=== PATIENT | male | born 1945 | race Caucasian/White ===

== ENCOUNTER → 2019-12-01 11:19 | Outpatient (CLI) | payer MEDICARE, SELFPAY ==
--- NOTE | ~2019-12-01 | XR_ITS ---
EXAMINATION: XR hip BI 2V w AP pelvis DATE: 12/01/2019 11:39 INDICATION: Pain in unspecified hip TECHNIQUE: AP view the pelvis and two views of each hip were obtained. COMPARISON: 01/25/2019 FINDINGS: There is moderate bilateral hip osteoarthritis. Bone alignment is normal. No fracture is id entified. The soft tissues are unremarkable. IMPRESSION: 1. Moderate bilateral hip osteoarthritis without acute findings. Reviewed, dictated and finalized at location A. TAINER SEWER AND WATERWORKS
== END ==
PROVIDERS: PCP Nurse Practitioner Family; Visit Provider Nurse Practitioner Family
DX: M16.0 Bilateral primary osteoarthritis of hip (principal)
CPT/HCPCS: 73521

== ENCOUNTER → 2020-12-11 13:29 | Outpatient (CLI) | payer MEDICARE, SELFPAY ==
--- NOTE | ~2020-12-11 | XR_ITS ---
XR hip BI 2V w AP pelvis DATE: 12/11/2020 14:03 INDICATION: Left hip pain TECHNIQUE: AP pelvis. AP and lateral views of each hip COMPARISON: August 31, 2020 pelvis and bilateral hips FINDINGS: Bilateral hip joint space narrowing consistent with moderate bilateral hip osteoarthritis. Diffuse osteopenia. The pubic symphysis and sacroiliac joints are intact. No pelvic fracture or bone destruction. No frac ture, dislocation, avascular necrosis or bone destruction of either hip is evident. IMPRESSION: Moderate bilateral hip osteoarthritis, with some worsening compared to 12/01/2019 Reviewed, dictated and finalized at location A. CULTURAL ADVISER
== END ==
PROVIDERS: PCP Family Medicine; Visit Provider Nurse Practitioner Family
DX: M25.552 Pain in left hip (principal); R20.2 Paresthesia of skin; M16.0 Bilateral primary osteoarthritis of hip
CPT/HCPCS: 73521

== ENCOUNTER → 2020-12-29 09:22 | Outpatient (CLI) | payer MEDICARE, SELFPAY ==
--- NOTE | ~2020-12-29 | MR_ITS ---
EXAMINATION: MR hip LT wo con DATE: 12/29/2020 10:36 INDICATION: Left hip pain. TECHNIQUE: Magnetic resonance imaging (MRI) of the left hip was performed without intravenous contras t. Sequences included axial and coronal PD-weighted FS FSE and axial T1-weighted FSE of the pelvis. S equences of the hip included 2D FIESTA, T1-weighted fast GRE, and axial, coronal, and sagittal PD-emi ghted FS FSE. COMPARISON: Bilateral hip radiographs 12/11/2020 FINDINGS: Bones/cartilage: Bone alignment is normal. No fracture. There is moderate right hip osteoarthritis. There is severe le ft hip osteoarthritis. Labrum: There are tears of the acetabular amari bilaterally. On the left, there is a 2.0 x 1.2 cm paralabral cyst. Fluid: There is a small left hip joint effusion. There is mild bilateral trochanteric bursitis. Soft tissues: The bladder is markedly distended. The iliopsoas tendons are normal. There is mild right gluteus mini mus tendinopathy. There is severe left gluteus minimus and gluteus medius tendinopathy. There is mode rate tendinopathy of the hamstring origins bilaterally. IMPRESSION: 1. Moderate right hip osteoarthritis and severe left hip osteoarthritis. 2. Small left hip joint effusion. Reviewed, dictated and finalized at location A. R HELPER
== END ==
PROVIDERS: PCP Family Medicine; Visit Provider Nurse Practitioner Family
DX: M25.552 Pain in left hip (principal); M16.0 Bilateral primary osteoarthritis of hip; M25.452 Effusion, left hip
CPT/HCPCS: 73721

== ENCOUNTER → 2021-02-16 08:07 | Outpatient (CLI) | payer MEDICARE, SELFPAY ==
[2021-02-16 19:12] LABS: SARS-CoV-2 RNA PCR Negative
== END ==
PROVIDERS: PCP Family Medicine; Visit Provider Physician Assistant Medical
DX: Z20.822 Contact with and (suspected) exposure to COVID-19 (principal); Z78.9 Other specified health status
CPT/HCPCS: C9803; U0003; U0005

== ENCOUNTER → 2021-06-09 10:31 | Outpatient (CLI) | payer MEDICARE, SELFPAY ==
--- NOTE | ~2021-06-09 | MR_ITS ---
EXAMINATION: MR shoulder RT wo con DATE: 06/09/2021 12:00 INDICATION: Right shoulder pain. TECHNIQUE: Magnetic resonance imaging (MRI) of the right shoulder was performed without intravenous c ontrast. Sequences included axial PD-weighted FS FSE, coronal oblique PD-weighted FS FSE and T2-weigh last FS FSE, and sagittal oblique T2-weighted FS FSE and T1-weighted FSE. COMPARISON: Right shoulder radiographs 01/25/2019, MRI 06/10/2019. FINDINGS: Coracoacromial arch: The acromion undersurface is flat in morphology (type I). Acromioclavicular joint is normal. There is mild subacromial/subdeltoid bursitis. Rotator cuff: There is a full-thickness tear of supraspinatus and infraspinatus tendons measuring 4.5 cm anterior t o posterior. The tear measures 3.2 cm proximal to distal at the superior fibers and gradient 5 cm pro ximal to distal at the anterior fibers. Teres minor tendon is normal. There is mild subscapularis ten dinopathy. There is an interstitial tear of distal subscapularis tendon. There is volume loss and at least mild fatty atrophy of supraspinatus and infraspinatus muscle bellies. Biceps tendon and glenoid labrum: There is a complete tear of proximal biceps tendon. There is degeneration of the glenoid labrum witho ut well-defined tear. Fluid: There is a moderate-sized humeral joint effusion. Bones/cartilage: There is cartilage surface irregularity of glenoid. Humeral head cartilage is normal. IMPRESSION: 1. Massive full-thickness rotator cuff tear. 2. Complete tear of proximal biceps tendon. 3. Moderate-sized glenohumeral joint effusion. 4. Mild glenoid chondrosis. Reviewed, dictated and finalized at location A.
== END ==
PROVIDERS: PCP Nurse Practitioner Family; Visit Provider Nurse Practitioner Family
DX: M25.511 Pain in right shoulder (principal); Z98.890 Other specified postprocedural states; M75.101 Unspecified rotator cuff tear or rupture of right shoulder, not specified as traumatic; S46.211A Strain of muscle, fascia and tendon of other parts of biceps, right arm, initial encounter; M25.411 Effusion, right shoulder; M94.8X1 Other specified disorders of cartilage, shoulder
CPT/HCPCS: 73221

== ENCOUNTER 2022-04-23 13:49 | Outpatient (CLI) | payer MEDICARE, SELFPAY ==
--- NOTE | ~2022-04-23 | US_ITS ---
EXAMINATION: US art doppler w press LE BI DATE: 04/23/2022 16:39 CDT INDICATION: Contact exposure TECHNIQUE: Segmental pressures and plethysmographic and Doppler waveforms of the brachial and lower e xtremity arteries were obtained. COMPARISON: None. FINDINGS: Right and left brachial artery pressures of 1:15 mm Hg and 124 mm Hg, respectively, are concordant (n ormal difference <= 30 mmHg). The right high-thigh pressure index is 1.35 (normal > 1.2). The right ankle-brachial index (KATTY) is 1 .23 (normal >= 0.9-1.0). The right great toe-brachial index (TBI) is 1.0 (normal >= 0.60). The right lower extremity segmental pressure gradients are normal (normal gradients <= 20-30 mmHg between adjac ent levels on the same leg or the same levels on the two legs). Arterial Doppler waveforms 1.0. The left high-thigh pressure index is 1.35. The left KATTY is 1.4. The left TBI is 0.88. The left lower extremity segmental pressure gradients are normal. Arterial Doppler waveforms are biphasic. IMPRESSION: 1. Unremarkable lower extremity arterial Doppler. Normal ankle-brachial indices. Reviewed, dictated and finalized at location A. IMPRESSION: 1. Unremarkable lower extremity arterial Doppler. Normal ankle-brachial indices .
== END 2022-04-23 13:50 | disposition home or self-care (01) ==
PROVIDERS: PCP Family Medicine; Visit Provider Nurse Practitioner Family
DX: E78.5 Hyperlipidemia, unspecified (principal); Z77.098 Contact with and (suspected) exposure to other hazardous, chiefly nonmedicinal, chemicals; I73.9 Peripheral vascular disease, unspecified
CPT/HCPCS: 93923

== ENCOUNTER → 2022-06-06 08:32 | Outpatient (CLI) | payer MEDICARE, SELFPAY ==
--- NOTE | ~2022-06-06 | MR_ITS ---
EXAMINATION: MR brain/brain stem wo con DATE: 06/06/2022 09:19 INDICATION: Vertigo TECHNIQUE: Magnetic resonance imaging (MRI) of the brain and brainstem was performed without intraven ous contrast. Sequences included sagittal and axial T1-weighted SE, axial diffusion-weighted FS SE, a xial T2*-weighted GRE, axial 3D SWAN, axial T2-weighted FLAIR, and axial T2-weighted FSE. Apparent di ffusion coefficient (ADC) maps were created. COMPARISON: None. FINDINGS: There are no areas of restricted diffusion to suggest acute infarction. No intracranial hemorrhage or abnormal intracranial mass lesion. There are scattered areas of nonspecific increased T2-weighted si gnal intensity in the cerebral white matter, predominantly involving the deep and periventricular whi te matter. There are no intraparenchymal signal abnormalities seen on the other pulse sequences. The ventricles are symmetric and normal in size. There are no abnormal extra-axial fluid collections. Jasson w voids are seen in the cerebral arteries on the T2-weighted sequences consistent with their expected patency. Mild mucosal throughout the paranasal sinuses. Visualized orbits and soft tissues are unrem arkable. IMPRESSION: 1. Normal brain. No acute intracranial process. Reviewed, dictated and finalized at location A.
== END ==
PROVIDERS: PCP Family Medicine; Visit Provider Nurse Practitioner Family
DX: R42 Dizziness and giddiness (principal)
CPT/HCPCS: 70551

== ENCOUNTER → 2022-07-23 13:14 | Outpatient (CLI) | payer MEDICARE, SELFPAY ==
--- NOTE | ~2022-07-23 | XR_ITS ---
[XR ribs BI 3V w CXR 2V ] INDICATION: Status post recent fall. Rib pain. TECHNIQUE: Frontal projection of the upper ribs, frontal projection of the lower ribs, oblique projec tion of all the ribs, frontal inspiratory chest x-ray for interpretation. FINDINGS: There are no displaced rib fractures identified. There are no soft tissue abnormality see n. The lungs are clear. IMPRESSION: 1:No acute displaced rib fractures. Reviewed, dictated and finalized at location B.
== END ==
PROVIDERS: PCP Nurse Practitioner Family; Visit Provider Nurse Practitioner Family
DX: S29.9XXA Unspecified injury of thorax, initial encounter (principal)
CPT/HCPCS: 71046; 71110

== ENCOUNTER → 2022-09-26 08:23 | Outpatient (CLI) | payer MEDICARE, SELFPAY ==
--- NOTE | ~2022-09-26 | CT_ITS ---
EXAMINATION: CTA brain carotid DATE: 09/26/2022 10:15 INDICATION: Dizziness and giddiness. TECHNIQUE: Computed tomographic angiography (CTA) of the head was performed without and with 100 mL O mnipaque-350 intravenous contrast. CTA of the neck was performed with intravenous contrast. Automated exposure control and iterative reconstruction technique were employed. The dose-length product was 1 688.43 mGy-cm. Maximum intensity projection and volume rendered 3D-reconstructions were created by kari morley technologist on a separate workstation. COMPARISON: Brain MRI 09/26/2022 FINDINGS: HEAD CTA: There is no intracranial hemorrhage, acute infarction, or abnormal intracranial mass lesion . The ventricles are normal in size. There is mucosal thickening in the paranasal sinuses with depend ent fluid in the maxillary sinuses. The orbits are normal. The mastoid air cells are normal. Left shamika tebral artery is dominant. There is no significant stenosis of basilar artery or the posterior cerebr al arteries. There is no significant stenosis of the intracranial internal carotid arteries or anteri or or middle cerebral arteries. Anterior communicating artery is normal. The posterior communicating arteries are normal. There is no aneurysm. NECK CTA: There are no pathologically enlarged lymph nodes. There is no significant stenosis of the v ertebral arteries. There is plaque in the proximal internal carotid arteries. There is 0% stenosis of the proximal right internal carotid artery relative to normal distal artery lumen diameter (NASCET c riteria). There is 23% stenosis of the proximal left internal carotid artery relative to normal dista l artery lumen diameter. There is moderate cervical spondylosis. IMPRESSION: 1. Normal brain. No aneurysm or significant intracranial arterial stenosis. 2. 0% stenosis of the proximal right internal carotid artery relative to normal distal artery lumen d iameter (NASCET criteria). 3. 23% stenosis of the proximal left internal carotid artery relative to normal distal artery lumen d iameter. Reviewed, dictated and finalized at location E. ATG DEVELOPER IMPRESSION: 1. Normal brain. No aneurysm or significant intracranial arterial stenosis. 2. 0% stenosis of the proximal right internal carotid artery relative to normal distal artery lumen diameter (NASCET criteria). 3. 23% stenosis of the proximal left internal carotid artery relative to normal distal artery lumen diameter.
--- NOTE | ~2022-09-26 | MR_ITS ---
EXAMINATION: MR brain/brain stem wo con DATE: 09/26/2022 08:59 INDICATION: Dizziness and giddiness TECHNIQUE: Magnetic resonance imaging (MRI) of the brain and brainstem was performed without intraven ous contrast. Sequences included sagittal and axial T1-weighted SE, axial diffusion-weighted FS SE, a xial T2*-weighted GRE, axial 3D SWAN, axial T2-weighted FLAIR, and axial T2-weighted FSE. Apparent di ffusion coefficient (ADC) maps were created. COMPARISON: Brain MR dated 06/06/2022 FINDINGS: There are no areas of restricted diffusion to suggest acute infarction. No intracranial hemorrhage or abnormal intracranial mass lesion. There is minimal scattered nonspecific increased T2-weighted sign al intensity in the cerebral white matter, predominantly involving the deep and periventricular white matter which is unchanged and within normal limits for age. Symmetric mild susceptibility artifact a t the bilateral basal ganglia correspond to subtle likely age-related dystrophic calcifications on CT dated 01/12/2019. There are no intraparenchymal signal abnormalities seen on the other pulse sequence s. The ventricles are symmetric and normal in size. There are no abnormal extra-axial fluid collectio ns. Flow voids are seen in the cerebral arteries on the T2-weighted sequences consistent with their e xpected patency. Interval increase in mucosal thickening in the paranasal sinuses particularly in the inferior aspect of the bilateral maxillary sinuses which also demonstrated a small amount of posteri or layering fluid suggesting acute sinusitis. Visualized orbits and soft tissues are unremarkable. IMPRESSION: 1. Normal aging brain. No acute intracranial process. 2. Progression of sinus disease with fluid layering the bilateral maxillary sinuses suggesting acute sinusitis. Reviewed, dictated and finalized at location A. OR JAVA J2EE DEVELOPER IMPRESSION: 1. Normal aging brain. No acute intracranial process. 2. Progression of sinus disease with fluid layering the bilateral maxillary sin uses suggesting acute sinusitis.
[2022-09-26 09:15] LABS: Estimated Glomerular Filt Rate 59
== END ==
PROVIDERS: PCP Family Medicine; Visit Provider Student in an Organized Health Care Education/Training Program
DX: R42 Dizziness and giddiness (principal); I65.22 Occlusion and stenosis of left carotid artery; J32.0 Chronic maxillary sinusitis
CPT/HCPCS: 70496; 70498; 70551; Q9967

== ENCOUNTER 2022-10-08 10:38 | Outpatient (CLI) | payer MEDICARE, SELFPAY ==
--- NOTE | 2022-10-08 10:45 | ECHO_ITS ---
Patient Info Name: Cyrus Soliman Age: 77 years : 1945 Gender: Male Ht: 69 in Wt: 215 lbs BSA: 2.21 m2 HR: 74 bpm BP: 133 / 85 mmHg Technical Quality: Good Exam Date: 10/08/2022 11:11 AM Exam Location: [facility] Patient Status: Outpatient Admit Date: 10/08/2022 Staff Ordering Physician: Irma Early MD Municipal Bond Trader: Jesi Guerrero RDCS Attending Provider: Irma Early MD Exam Type: CA echo doppler w bubble study Study Info Indications R06.02 - Shortness of breath Complete two-dimensional, color flow and Doppler transthoracic echocardiogram is performed with agitated saline. Contrast/Agitated Saline Contrast/Ag. Saline: Agitated Saline Amount: 30.00 ml Administered By: Risa Copeland RDCS Existing IV Access: Yes IV Access Condition: patent with no signs of infiltration Summary 1. Left ventricular chamber dimension is normal. 2. Left ventricular systolic function is normal, estimated at 60-65%. 3. The left ventricular diastolic function is grade I diastolic dysfunction. 4. E/e' 8 is minimally elevated. Left Ventricle E/e' 8 is minimally elevated. Left ventricular chamber dimension is normal. Left ventricular systolic function is normal, estimated at 60-65%. The left ventricular diastolic function is grade I diastolic dysfunction. Right Ventricle Right ventricular chamber dimension is normal. Right ventricular systolic function is normal. Left Atria Left atrial chamber dimension is normal. Right Atria Right atrial chamber dimension is normal. Atrial Septum Agitated saline injection with and without valsalva maneuver opacified right side cardiac chambers without shunt to left side cardiac chambers. Intact interatrial septum visualized by 2D and agitated saline imaging. Aortic Valve The aortic valve is trileaflet. There is no aortic valve stenosis. There is no aortic valve regurgitation. Pulmonic Valve There is no pulmonic regurgitation. Mitral Valve There is no mitral valve stenosis. There is no mitral valve regurgitation. Tricuspid Valve There is no tricuspid valve regurgitation. Pericardium/Pleural There is no pericardial effusion. Inferior Vena Cava Normal inferior vena cava with >50% collapse upon inspiration consistent with normal right atrial pressure, 5 mmHg. Aorta The aortic root size at the sinus of Valsalva is normal. Left Ventricular Outflow Tract Name Value Normal LVOT 2D LVOT Diameter 2.0 cm LVOT Doppler LVOT Peak Gradient 4 mmHg LVOT Mean Gradient 2 mmHg LVOT VTI 20 cm LVOT VTI/AV VTI Ratio 0.9 LVOT Stroke Volume 64 ml LVOT CO 4.9 l/min LVOT CI 2.2 l/min/m2 Mitral Valve Name Value Normal
--- NOTE | 2022-10-08 10:46 | ECG_ITS ---
Measurements Intervals [place] Rate: 71 P: 63 CT: 194 QRS: -27 QRSD: 102 T: 71 QT: 389 QTc: 425 Interpretive Statements SINUS RHYTHM BORDERLINE LEFT AXIS DEVIATION [QRS AXIS < -20] NONSPECIFIC T-WAVE ABNORMALITY ABNORMAL ECG NO PREVIOUS ECG AVAILABLE FOR COMPARISON Electronically Signed On 10-08-2022 15:34:59 OCCUPATIONAL THERAPIST REHAB MANAGER by Kelton Barkley M.D.
== END 2022-10-08 10:39 | disposition home or self-care (01) ==
PROVIDERS: PCP Family Medicine; Visit Provider Student in an Organized Health Care Education/Training Program
DX: R06.02 Shortness of breath (principal); R42 Dizziness and giddiness; R94.31 Abnormal electrocardiogram [ECG] [EKG]
CPT/HCPCS: 93005; 93306; 96375

== ENCOUNTER 2022-11-15 09:21 | Outpatient (CLI) | payer MEDICARE, SELFPAY ==
--- NOTE | ~2022-11-15 | NM_ITS ---
EXAMINATION: NM gamaliel stress w perfusion DATE: 11/15/2022 11:54 INDICATION: Other forms of dyspnea TECHNIQUE: Rest images were obtained following intravenous administration of 9.0 mCi Tc99m tetrofosmi n (Myoview). The patient was infused intravenously with Lexiscan (Regadenoson). Then, 29.0 mCi Tc99m tetrofosmin (Myoview) was administered intravenously, and stress images were obtained. Data was recon structed into short axis and horizontal and vertical long axis SPECT images. Gated SPECT images were also obtained. COMPARISON: None. FINDINGS: There is no definite reversible or fixed perfusion abnormality to suggest ischemia or infar ction. There is normal left ventricular chamber size, wall motion and ejection fraction. Left ventr icular ejection fraction measures >70%. IMPRESSION: 1. Normal myocardial perfusion at rest and during stress. 2. Left ventricular ejection fraction measuring >70%. Reviewed, dictated and finalized at location B. CTOR OF MARKETING COMMUNICATIONS
--- NOTE | 2022-11-15 09:24 | EST_ITS ---
Patient Info Name: Cyrus Soliman Age: 77 years : 1945 Gender: Male Ht: 69 in Wt: 213 lbs BSA: 2.20 m2 HR: 66 bpm BP: 135 / 75 mmHg Heart Rhythm: Sinus Rhythm Exam Date: 11/15/2022 10:26 AM Exam Location: [facility] Stress Patient Status: Outpatient Admit Date: 11/15/2022 Staff Ordering Physician: Chencho Leblanc DO Attending Provider: Chencho Leblanc DO Exercise Technologist: Queenie Ramirez CT Exercise Physician: Chencho Leblanc DO Exam Type: CA stress gamaliel w NM Study Info Indications R06.00 - Dyspnea, unspecified A regadenoson stress test was performed. Summary 1. 1. Negative lexiscan stress test for ischemic ST changes by ECG criteria. 2. 2. Stable hemodynamics throughout the test. 3. 3. Nuclear scan to follow and will be reported separately. Please correlate with it. 4. 4. Patient informed of the above results. Protocol: Lexiscan Stress ECG Details Stage: REST Duration (min): 0 min : 55 sec HR (bpm): 66 SBP (mmHg): 135 DBP (mmHg): 75 Stage: REST Duration (min): 8 min : 30 sec HR (bpm): 68 SBP (mmHg): 135 DBP (mmHg): 75 Stage: STAGE 1 Duration (min): 0 min : 59 sec HR (bpm): 70 SBP (mmHg): 144 DBP (mmHg): 72 Stage: RECOVERY Duration (min): 1 min : 0 sec HR (bpm): 80 SBP (mmHg): 144 DBP (mmHg): 72 Stage: RECOVERY Duration (min): 2 min : 0 sec HR (bpm): 78 SBP (mmHg): 144 DBP (mmHg): 72 Stage: RECOVERY Duration (min): 3 min : 0 sec HR (bpm): 74 SBP (mmHg): 119 DBP (mmHg): 67 Stage: RECOVERY Duration (min): 3 min : 10 sec HR (bpm): 75 SBP (mmHg): 119 DBP (mmHg): 67 Rest HR: 68 bpm Peak HR: 81 bpm Rest Sys BP: 135 mmHg Peak Sys BP: 144 mmHg Max Pred HR: 144 bpm % Max Pred HR: 56 % Target HR: 122 bpm Max RPP: 11,664 bpm*mmHg Termination Reason: Completed protocol Cardiac Symptoms: Shortness of breath Total Time: 1 min : 0 sec Rest Leroy BP: 75 mmHg Peak Leroy BP: 72 mmHg Total Dose: 0.4 mg Resting ECG Sinus rhythm, IRBBB. Stress ECG No ST changes. Arrhythmias None. Report Signatures
== END 2022-11-15 09:22 | disposition home or self-care (01) ==
PROVIDERS: PCP Family Medicine; Visit Provider Internal Medicine Cardiovascular Disease
DX: R06.09 Other forms of dyspnea (principal)
CPT/HCPCS: 78452; 93017; A9502; J2785

== ENCOUNTER 2022-12-11 12:17 | Emergency (ER) | payer MEDICARE, SELFPAY ==
--- NOTE | 2022-12-11 12:18 | ED.UPPEXIN ---
HPI - Extremity Injury (Upper) General Chief Complaint: Skin/Abscess/Foreign Body Stated Complaint: fall/rt elbow wound Time Seen by Provider: 12/11/22 12:18 Source: patient Mode of arrival: ambulatory Limitations: no limitations History of Present Illness HPI narrative: Cyrus is a 77-year-old male patient presenting to the clinic today with complaints of a ground level fall hitting his elbow. He reports he has elbow skidded on the ground when he fell. He denies any pain with flexion and extension of the elbow pain. Denies hitting his head, loss of consciousness, or any neck pain. Stated he suffers from chronic vertigo and he got up too quickly and becomes dizzy and fell on to concrete. States the dizziness has improved. Tetanus is up-to-date Related Data Home Medications Medication Instructions Recorded Confirmed loratadine 10 mg tablet (Claritin) 10 mg PO DAILY 09/27/19 11/25/22 Allergies Allergy/AdvReac Type Severity Reaction Status Date / Time No Known Allergies Allergy Verified 11/25/22 10:58 Review of Systems Review of Systems: Pertinent positives per HPI. Patient denies any fever, chills, rash, headache, visual changes, cough, runny nose, sore throat, shortness of breath, chest pain, palpitations, nausea, vomiting, diarrhea, constipation, abdominal pain, or any urinary issues. COUNTS INCLUDE 234 BEDS AT THE [facility] Past Medical History Medical History Abnormal MRI, musculoskeletal Adult BMI 31.0-31.9 kg/sq m Arthritis of shoulder BMI 32.0-32.9,adult BMI 33.0-33.9,adult BMI 34.0-34.9,adult Severe pain of right shoulder Shoulder pain with history of repair of rotator cuff Surgical History Surgical History History of Mohs surgery for squamous cell carcinoma in situ of skin Hx of repair of right rotator cuff Family History Family History Father Hypertension Family history of malignant neoplasm Grandparent Cerebrovascular accident Mother No problems noted. Sibling No problems noted. Social History Social History (Reviewed 12/11/22 @ 12:20 by DAVE Mancilla Smoking status: Former smoker Smokeless tobacco user: chewing tobacco Smoking end date: 10/20/89 Alcohol intake: current Substance use: never Substance use type: does not use Lack of Transportation: No Lack of Food: Never True Current Housing: I Have Housing Concerned About Future Housing: No Difficulty Paying Gas/Electric Bills: No Difficulty Paying for Meds: No Currently Unemployed: No Education: Master's Degree or Higher Difficulty w/ Childcare or Family Care: No Living arrangements: alone Occupation/Education: retired 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 Gender identity (if verbalized by the patient): Male Comments At the time of my signature, I reviewed and agree with the nursing past medical, surgical, social, and family history. There is no relevant family history pertinent to the patient complaint. Exam Narrative: General: Well-developed, well nourished, in no apparent distress Head: Normocephalic, atraumatic. Cardio: Regular rate and rhythm, s1 and s2 normal, no murmur appreciated. Resp: Clear to auscultation bilaterally, no rhonchi, rales, wheezing or rubs. Musculoskeletal: No deformity, mild tender to palpation over partial-thickness skin tear to the right posterior elbow measuring 6 x 3cm, grossly normal range of motion, no pain with flexion or extension of the elbow, muscle strength strong and equal, peripheral pulse strong, no edema, no cyanosis, normal gait and station Course Course Emergency Course: Portions of this record may have been created with voice recognition software. Level of Care: Express Care Visit Vital Signs Vital signs: Vital Signs
[2022-12-11 12:45] VITALS: BP 150/100; PULSE 64; RESP 20; TEMP 36.9; O2SAT 100
--- NOTE | 2022-12-11 12:50 | PC.NURSE ---
wound cleansed with medical soap and small skin surrounding wound removed. oitment applied and telfa and kerlex. teaching done.
== END 2022-12-11 13:00 | disposition home or self-care (01) ==
PROVIDERS: Emergency Provider Nurse Practitioner Family; PCP Family Medicine
DX: S51.011A Laceration without foreign body of right elbow, initial encounter (principal); W18.30XA Fall on same level, unspecified, initial encounter; Z87.891 Personal history of nicotine dependence; Z85.828 Personal history of other malignant neoplasm of skin
CPT/HCPCS: 99212; G0463

== ENCOUNTER 2023-04-10 10:21 | Outpatient (CLI) | payer MEDICARE, SELFPAY ==
--- NOTE | 2023-04-15 16:14 | WPDHOLTEREM ---
Holter/Event Monitor Holter/Event Monitor Date of procedure: 04/10/23 Holter/Event Procedure: 24 Hr Holter Monitor Indications: Dizziness Conclusion: 1. 24 hour holter monitor on 04/10/23. 2. Underlying rhythm is sinus rhythm. HR range 50-111 bpm; average 75 bpm. 3. There are 8 premature supraventricular complexes and 1 supraventricular couplet. No supraventricular tachycardia. 4. There are 166 premature ventricular complexes and 1 ventricular couplet. No ventricular tachycardia. 5. No sinoatrial or atrioventricular blocks. No significant pauses greater than 2 seconds. 6. No symptoms available for correlation.
== END 2023-04-10 10:22 | disposition home or self-care (01) ==
PROVIDERS: PCP Family Medicine; Visit Provider Nurse Practitioner Family
DX: I10 Essential (primary) hypertension (principal); R42 Dizziness and giddiness
CPT/HCPCS: 93225; 93226

== ENCOUNTER 2023-05-26 13:53 | Outpatient (CLI) | payer MEDICARE, SELFPAY ==
--- NOTE | ~2023-05-26 | MR_ITS ---
EXAMINATION: MR abdomen wo/w con DATE: 05/26/2023 15:06 INDICATION: Liver mass. Liver disease, unspecified. TECHNIQUE: Magnetic resonance imaging (MRI) of the abdomen was performed without and with 19 mL Multi Darrian intravenous contrast. COMPARISON: CT abdomen and pelvis 12/16/2017, abdomen MRI 12/30/2017 FINDINGS: There is diffuse hepatic steatosis. There are cysts in the liver measuring up to 16 mm. The gallbladd er, spleen, and adrenal glands are normal. There is dilatation of the pancreatic duct in the tail of the pancreas, stable from 12/30/2017, likely chronic pancreatitis. There is a cyst in the kidneys jake uring up to 2.8 cm on the right. There are no dilated loops of bowel. The bladder is distended. There are no pathologically enlarged lymph nodes. There is no free intraperitoneal fluid. IMPRESSION: 1. Benign cysts in the liver. 2. Diffuse hepatic steatosis. Reviewed, dictated and finalized at location A.
== END 2023-05-26 13:54 | disposition home or self-care (01) ==
PROVIDERS: PCP Family Medicine; Visit Provider Physician Assistant Medical
DX: K76.89 Other specified diseases of liver (principal); K76.0 Fatty (change of) liver, not elsewhere classified; Q45.3 Other congenital malformations of pancreas and pancreatic duct
CPT/HCPCS: 74183; A9577

== ENCOUNTER 2023-07-18 10:10 | Outpatient (CLI) | payer MEDICARE, SELFPAY ==
--- NOTE | ~2023-07-18 | XR_ITS ---
EXAMINATION: XR abdomen/kub 1V DATE: 07/18/2023 10:33 INDICATION: Calcium kidney stone. TECHNIQUE: A supine view of the abdomen on 2 radiographs was obtained. COMPARISON: CT abdomen and pelvis 12/16/2017 FINDINGS: There are no dilated loops of bowel. There are 8 mm and 5 mm stones in left kidney. There i s a total left hip arthroplasty. IMPRESSION: 1. Left kidney stones. Reviewed, dictated and finalized at location E. IMPRESSION: 1. Left kidney stones.
== END 2023-07-18 10:11 | disposition home or self-care (01) ==
PROVIDERS: PCP Family Medicine; Visit Provider Urology
DX: N20.0 Calculus of kidney (principal)
CPT/HCPCS: 74018

== ENCOUNTER 2023-09-26 14:39 | Emergency (ER) | payer MEDICARE, SELFPAY ==
[2023-09-26 14:53] VITALS: BP 162/77; PULSE 75; RESP 18; TEMP 36.7; O2SAT 97
--- NOTE | 2023-09-26 14:58 | ED.GENADULT ---
HPI - General Adult General Chief complaint: Unspecified Stated complaint: blood pressure issue Time Seen by Provider: 09/26/23 14:58 Source: patient Mode of arrival: ambulatory Limitations: no limitations History of Present Illness HPI narrative: 78 yo M with hx of HTN presents stating he woke up feeling a little foggy today . States last time he felt this way BP was elevated. Check BP at home and 182/78 on his machine. Denies headache, CP/SOB, vision changes, weakness/numbness to extremities. Ambulatory with steady gait. Had his lisinopril dose increased 6 months ago and metoprolol 1 month ago. Went to PCP office today and was closed. Pt wants BP manually checked, thinks machine is wrong. States im feeling fine. i feel safe. just had a fog over me when i woke up but fine now . Eating normal meals and drinking plenty of water. All systems reviewed and negative except as noted above. Related Data Home Medications Medication Instructions Recorded Confirmed tamsulosin 0.4 mg capsule 0.4 mg PO DAILY 05/12/23 09/26/23 Allergies Allergy/AdvReac Type Severity Reaction Status Date / Time No Known Allergies Allergy Verified 09/26/23 15:11 Review of Systems Review of Systems: CONSTITUTIONAL: Denies fever, chills, or sweats. EYES: Denies visual changes, redness, or discharge. ENT: Denies rhinorrhea, congestion, sore throat, or otalgia. CARDIOVASCULAR: Denies chest pain, palpitations, or edema. RESPIRATORY: Denies cough or dyspnea. GASTROINTESTINAL: Denies abdominal pain, nausea, vomiting, or diarrhea. GENITOURINARY: Denies dysuria or hematuria. SKIN: Denies rash or itching. MUSCULOSKELETAL: Denies back pain, joint pain, or myalgia. NEUROLOGIC: Denies headache, numbness, or weakness. PSYCHIATRIC: Denies anxiety or depression. All other systems reviewed are negative, except as documented in HPI. [facility] Past Medical History Medical History Abnormal MRI, musculoskeletal Adult BMI 31.0-31.9 kg/sq m Arthritis of shoulder Fatty liver, alcoholic PTSD (post-traumatic stress disorder) Severe pain of right shoulder Shoulder pain with history of repair of rotator cuff Surgical History Surgical History History of Mohs surgery for squamous cell carcinoma in situ of skin Hx of repair of right rotator cuff Family History Family History Father Hypertension Family history of malignant neoplasm Grandparent Cerebrovascular accident Mother Sibling No problems noted. Social History Social History Smoking status: Former smoker Smokeless tobacco user: chewing tobacco Second hand tobacco smoke exposure: No Smoking end date: 10/20/89 Alcohol intake: current Drinks per week: 2 Alcohol use details: everyday Substance use: never Substance use type: does not use Lack of Transportation: No Lack of Food: Never True Current Housing: I Have Housing Concerned About Future Housing: No Difficulty Paying Gas/Electric Bills: No Difficulty Paying for Meds: No Currently Unemployed: No Education: Master's Degree or Higher Difficulty w/ Childcare or Family Care: No Living arrangements: alone Occupation/Education: retired 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 Gender identity (if verbalized by the patient): Male Comments At time of signature, agree with nursing past medical, surgical, social and family history. There is no relevant family history pertinent to the presenting complaint. Exam Narrative: GENERAL: This is a well-nourished, well-developed patient, in no apparent distress. HEAD: normocephalic, atraumatic. EYES: PERRL. Sclera clear/white. Vision is grossly intact. Extraocular motions intact EA
[2023-09-26 15:19] LABS: Glucose Point of Care 87 mg/dl (65-105)
[2023-09-26 15:40] VITALS: BP 148/72
== END 2023-09-26 15:35 | disposition home or self-care (01) ==
PROVIDERS: Emergency Provider Nurse Practitioner Family; PCP Family Medicine
DX: I10 Essential (primary) hypertension (principal); E11.9 Type 2 diabetes mellitus without complications; Z87.891 Personal history of nicotine dependence
CPT/HCPCS: 82948; 99212; G0463

== ENCOUNTER 2023-11-17 08:25 | Outpatient (CLI) | payer MEDICARE, SELFPAY ==
--- NOTE | 2023-11-17 08:40 | ECG_ITS ---
Measurements Intervals [place] Rate: 64 P: 30 CO: 188 QRS: -20 QRSD: 93 T: 29 QT: 404 QTc: 419 Interpretive Statements SINUS RHYTHM EARLY PRECORDIAL R/S TRANSITION BORDERLINE ECG COMPARED TO ECG 10/08/2022 11:51:36 NO SIGNIFICANT CHANGES Electronically Signed On 11-17-2023 9:27:32 POLICE JUSTICE by Chencho Leblanc D.O.
[2023-11-17 09:55] LABS: Prothrombin Time 13.1 Seconds (11.1-14.7)
[2023-11-17 09:56] LABS: Anion Gap 7 mmol/L (8-16); Blood Urea Nitrogen 18 mg/dL (9-20); Calcium 9.4 mg/dL (8.4-10.2); Carbon Dioxide 29 mmol/L (22-30); Chloride 100 mmol/L (98-107); Estimated Glomerular Filt Rate > 60; Glucose 102 mg/dL (65-110); Partial Thromboplastin Time 31.1 SECONDS (22.3-36.8); Potassium 4.3 mmol/L (3.4-5.0); Sodium 136 mmol/L (137-145)
== END 2023-11-17 08:26 | disposition home or self-care (01) ==
LOC: ANHSURGERY 08:29
PROVIDERS: Anesthesiology; PCP Family Medicine; Visit Provider Urology
DX: Z01.818 Encounter for other preprocedural examination (principal); I10 Essential (primary) hypertension; K76.0 Fatty (change of) liver, not elsewhere classified; N20.0 Calculus of kidney
CPT/HCPCS: 36415; 80048; 85610; 85730; 87086; 93005

== ENCOUNTER 2024-07-08 09:28 | Outpatient (CLI) | payer MEDICARE, SELFPAY ==
--- NOTE | ~2024-07-08 | US_ITS ---
EXAMINATION: US abdomen complete DATE: 07/08/2024 10:25 INDICATION: Alcoholic fatty liver. TECHNIQUE: Multiple grayscale and Doppler ultrasound images of the abdomen were obtained. COMPARISON: Abdomen MRI 05/26/2023 FINDINGS: The visualized portions of the head and body of pancreas are normal. There is diffuse hepat ic steatosis. There are cysts in the liver measuring up to 1.5 cm. The gallbladder is normal in size. No gallstones or gallbladder wall thickening. There is no sonographic Esquivel's sign. The common duct is normal and measures 4 mm. The inferior vena cava is normal. Abdominal aorta is normal in caliber. The kidneys are normal in size. There are cysts in right kidney measuring up to 2.6 cm. The spleen i s normal in size. IMPRESSION: 1. Diffuse hepatic steatosis. Reviewed, dictated and finalized at location A.
== END 2024-07-08 09:29 | disposition home or self-care (01) ==
PROVIDERS: PCP Family Medicine; Visit Provider Nurse Practitioner Family
DX: K76.0 Fatty (change of) liver, not elsewhere classified (principal); K70.0 Alcoholic fatty liver
CPT/HCPCS: 76700

== ENCOUNTER 2024-12-03 10:41 | Outpatient (CLI) | payer MEDICARE, SELFPAY ==
--- NOTE | ~2024-12-03 | MM_ITS ---
EXAMINATION: MM diagnostic osmany BI w hussain HISTORY: Palpable left breast abnormality. Patient on antihypertensive medications. TECHNIQUE: Additional 3-D tomosynthesis images of breasts were performed and synthetic 2-D images wer e generated. CAD analysis was submitted and interpreted. COMPARISON: None BREAST PARENCHYMAL COMPOSITION: Not dense: There are scattered areas of fibroglandular density. FINDINGS: There is asymmetric gynecomastia, fibroglandular content more so on the left . No suspiciou s masses, calcifications or architectural distortion is identified to suggest malignancy. IMPRESSION: 1. No mammographic evidence for malignancy. Bilateral asymmetric gynecomastia. 2. Targeted left breast ultrasound recommended for complete evaluation of palpable breast abnormality . BI-RADS Category 0: Incomplete: Needs additional imaging evaluation. Reviewed, dictated and finalized at location B. OR ORACLE APPLICATIONS DEVELOPER IMPRESSION: 1. No mammographic evidence for malignancy. Bilateral asymmetric gynecomastia. 2. Targeted left breast ultrasound recommended for complete evaluation of palpa ble breast abnormality. BI-RADS Category 0: Incomplete: Needs additional imaging evaluation.
--- OUTSIDE RECORDS SUMMARY | 2024-12-03 10:52 | XMS_ITS ---
Author Organization [facility] Address [address] [place] [address] Care Team Providers Care Prototype Fabricator Name Role Phone Junior Vega MD Primary Care Provider [phone] Jesus Erwin MD PhD Unavailable [phone] Active Problems Problem Noted Date Diagnosed Date Kidney stone 04/19/2024 Chronic kidney disease 04/19/2024 Exposure to potentially hazardous substance 10/2023 Syncope and collapse 04/19/2024 STEPHANIE (obstructive sleep apnea) 03/29/2024 ABHI (acute kidney injury) 02/09/2024 Obstructive sleep apnea 12/22/2023 Orthostatic hypotension 12/09/2023 Weakness 12/09/2023 Actinic keratosis 11/24/2023 Age-related nuclear cataract, left eye Alcoholic fatty liver 11/24/2023 Anxiety 11/24/2023 Benign essential hypertension 11/24/2023 Bicipital tendinitis, right shoulder 11/24/2023 Bursitis of left shoulder 11/24/2023 Depressive disorder 11/24/2023 Fall 11/24/2023 Fall on and from ladder, initial encounter 11/24 Hyperlipidemia, unspecified 11/24/2023 Impingement syndrome of left shoulder region 02/2024 Impingement syndrome of right shoulder Low back pain 11/24/2023 Neoplasm of unspecified beha vior of bone, soft tissue, and skin 11/24/2023 Non-bullous impetigo 11/24/2023 Obesity 11/24/2023 Overview (11/24/2023): Jun 18, 2011 Entered By: DEBI ORANTES Comment: thoracic spine Other injury of muscle, fasc ia and tendon of other parts of biceps, right arm, initial encounter 11/24/2023 Overexertion from strenuous movement or load, initial encounter 11/24/2023 Post-traumatic stress disorder, chronic 11/24/19 24 Shoulder joint pain 11/24/2023 Skin cancer 11/24/2023 Overview (11/24/2023): Aug 10, 2023 Entered By: RAUL VALENTE Comment: S/p multiple removals Sleep apnea 11/24/2023 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 11/24/2023 Strain of rotator cuff of left shoulder 11/24/19 24 Tobacco dependence in remission 11/24/2023 Type 2 diabetes mellitus without complications ( [facility]) 11/24/2023 Alcohol use disorder 10/08/2023 Assessment & Plan (10/08/2023 9:42 AM CORRECTIONAL COUNSELOR/CASE MANAGER): - drinks 5 whiskeys daily, last drink 10pm 10/07 - gets shakes that resolve with alcohol, but no h/o DTs or hospitalizations for withdrawal - [facility] - s/p phenobarb in ED - monitor closely for signs of withdrawal SDH (subdural hematoma) 10/07/2023 Assessment & Plan (10/09/2023 1:07 PM CORRECTIONAL COUNSELOR/CASE MANAGER): - NSGY c/s - repeat HCT 10/07 1600 stable - q4h neuro checks - Keppra 500 BID x7d - hold ASA 81 until neurosurgery follow-up in 1 week - On floor FU with Neurosurgery in 4 week with repeat head CT scan Sensorineural hearing loss (SNHL) of both ears 0 12/18/2022 Tinnitus of both ears 12/18/2022 Vertigo 12/18/2022 Presence of left artificial hip joint 07/25/2021 Complete tear of right rotator cuff 06/28/2021 Primary osteoarthritis of left hip 06/28/2018 Current Oncology Plans No current plan information found. Past Plans No past plan information found. Radiation Treatments * No radiation treatments are documented for this patient in [facility]. Treatments may have been administered in another system. Lifetime Dose Tracking * Chemical Lifetime Dose Automatic Entry Manual Entr y DLP 1,329 mGycm 1,329 mGycm 0 mGycm
--- OUTSIDE RECORDS SUMMARY | 2024-12-03 10:52 | XMS_ITS | Clinical Summary ---
Author Organization [facility] Address [address] [place] [address] Phone Care Team Providers Care Caption Writer Name Role Phone Unavailable Primary Care Provider Unavailabl e Social History Tobacco Use Types Packs/Day Years Used Date Smoking Tobacco: Never Assessed Sex and Gender Information Value Date Recorded Sex Assigned at Not on file Legal Sex Male 10:48 AM CDT Gender Identity Not on file Sexual Orientation Not on file Plan of Treatment Health Maintenance Due Date Last Done Comments DIABETES ANNUAL FOOT EXAM 1964 DIABETES ANNUAL RETINAL EXAM 1964 DIABETES MICROALBUMIN ANNUAL SCREEN 1964 LDL CHOLESTEROL ANNUAL 1964 PNEUMOCOCCAL VACCINE 65+ YEA RS (2 of 2 - PPSV23) 10/17/2015 08/22/2015, 01/08/2012 RSV VACCINE (60+ or ) (1 - 1-dose 75+ series) 2021 DIABETES HBA1C Q 6 MONTHS 06/20/2023 12/18/2022 INFLUENZA VACCINE (#1) 2024 , 07/20/2020, 07/26/2019, Additional history exists DTAP/TDAP/TD VACCINES (3 - T d or Tdap) 05/07/2033 05/07/2023, 06/18/2011 ZOSTER VACCINE Completed 09/08/2019, 050 04/2019, 07/09/2011 Insurance
--- OUTSIDE RECORDS SUMMARY | 2024-12-03 10:52 | XMS_ITS | Encounter Summary ---
Author Organization [facility] Address [address] [place] [address] Care Team Providers Care Mohs Surgeon/General Dermatologist Name Role Phone Junior Vega MD Primary Care Provider + [phone] Jesus Erwin MD PhD Unavailable [phone] Encounter Details Date Type Department Care Team (Late st Contact Info) Description 10/07/[address] [address] Lacey Cai, KATHI Social History Tobacco Use Types Packs/Day Years Used Date Smoking Tobacco: Former Smokeless Tobacco: Current Chew Alcohol Use Standard Drinks/Week Comments Yes 3 (1 standard drink = 0.6 oz pur e alcohol) Personal Safety Answer Date Recorded Have you ever been in or are you currently in a harmful physical or emotional relationship or is someone making you feel afraid or unsafe? Denies 10/07/2023 Sex and Gender Information Value Date Recorded Sex Assigned at Not on file Legal Sex Male 9:22 AM PRINTED CIRCUIT BOARD DESIGNER Gender Identity Not on file Sexual Orientation Not on file documented as of this encounter Plan of Treatment Not on file documented as of this encounter Visit Diagnoses Not on filedocumented in this encounter Care Teams Mohs Surgeon/General Dermatologist Relationship Specialty Start Date End Date Junior Vega MD PCP - General 02/09/18 Jesus Erwin MD PhD [address] [facility] [facility] [address] [place] [address] Consulting Physician Neurosurgery 10/09/23 documented as of this encounter
--- OUTSIDE RECORDS SUMMARY | 2024-12-03 10:52 | XMS_ITS | Clinical Summary ---
Author Organization [facility] Address [address] [place] [address] Care Team Providers Care Last Code Striper Name Role Phone Junior Vega MD Primary Care Provider [phone] Allergies No known active allergies Medications carvedilol (COREG) 12.5 MG tablet Take 1 tablet (12.5 mg total) by mouth 2 (two) times daily. Take 1 tablet by mouth every 12 hours must administer with a meal/ food. Active naltrexone (DEPADE) 50 MG tablet Take 1 tablet (50 mg total) by mouth daily. Take one tablet by mouth daily once a day for alcohol use disorder Active DULoxetine (CYMBALTA) 60 MG capsule Take 1 capsule (60 mg total) by mouth daily. Active tamsulosin (FLOMAX) 0.4 MG Cap Take 1 capsule (0.4 mg total) by mouth daily. Active cyclobenzaprine (FLEXERIL) 10 MG tablet Take 1 tablet (10 mg total) by mouth 2 (two) times daily as needed for Muscle Spasms. 3 Active fluticasone propionate (FLONASE) 50 MCG/ACT nasal spray 1 spray by Each Nostril route 2 (two) times daily. 4 Active rosuvastatin (CRESTOR) 40 MG tablet Take 1 tablet (40 mg total) by mouth nightly at bedtime. Active multi vitamin/mineral s (THERA-M ENHANCED) tablet Take 1 tablet by mouth daily. Active hypromellose (GONIOTAIRE) 2.5 % ophthalmic solution Place 1 drop into both eyes as needed (dry eyes). Active Active Problems Problem Noted Date Diagnosed Date ABHI (acute kidney injury) 02/09/2024 Encounters Date Type Department Care Team Description 11/23/2024 4:00 PM [facility] - 11/23/2024 11:59 PM [facility] Hospital Encounter [facility] [place] [address] Mackenzie Barreto MD Discharge Disposition: Home or Self Care (Routine Discharge) 11/23/2024 Travel 10/15/2024 9:21 AM [facility] - 10/15/2024 11:59 PM [facility] Hospital Encounter [facility] [place] [address] Yesenia Maldonado NP Discharge Disposition: Home or Self Care (Routine Discharge) 10/15/2024 Travel from Last 3 Months Social History Tobacco Use Types Packs/Day Years Used Date Smoking Tobacco: Former Cigarettes 1 1 - 2007 Smokeless Tobacco: Current Tobacco Cessation:Ready to Q uit: Not Asked; Counseling Given: Not Answered Alcohol Use Standard Drinks/Week Comments Yes 14 (1 standard drink = 0.6 oz pu re alcohol) socially [facility] Utilities Answer Date Recorded In the past 12 months has [facility] [employer], gas, oil, or water [employer] threatened to shut off services in your home? No 02/09/2024 Humiliation, Afraid, Rape, and Kick questionnair e Answer Date Recorded Within the last year, have y ou been afraid of your partner or ex-partner? No 02/09/2024 Within the last year, have y ou been humiliated or emotionally abused in other ways by your partner or ex-partner? No Within the last year, have y ou been kicked, hit, slapped, or otherwise physically hurt by your partner or ex-partner? No 02/09/2024 Within the last year, have y ou been raped or forced to have any kind of sexual activity by your partner or ex-partner? No 02/09/2024 Overall Financial Resource Strain (CARDIA) Answe r Date Recorded How hard is it for you to pa y for the very basics like food, housing, medical care, and heating? Not hard at all 02/09/2024 Hunger Vital Sign Answer Date Recorded Within the past 12 months, y ou worried that your food would run out before you got the money to buy more. Never true 02/09/20 24 Within the past 12 months, t he food you bought just didn't last and you didn't have money to get more. Never true 02/09/2024 PRAPARE - Transportation Answer Date Re corded In the past 12 months, has l ack of transportation kept you from medical appointments or from getting medications? No 01/19 In the past 12 months, has l ack of transportation kept you from meetings, work, or from getting things needed for daily living? No 02/09/2024 Housing Stability Vital Sign Answer Daniel e Recorded In the last 12 months, was t here a time when you were not able to pay the mortgage or rent on time? No 02/09/2024 In the past 12 months, how m any times have you moved where you were living? 1 02/09/2024 At any time in the past 12 m [facility], were you homeless or living in a long-term (including now)? No 02/09/2024 Sex and Gender Information Value Date Recorded Sex Assigned at Not on file Legal Sex Male 1:58 PM CDT Gender Identity Not on file Sexual Orientation Not on file Last Filed Vital Signs Vital Sign Reading Time Taken Comments Blood Pressure 147/79 02/14/2024 8:01 AM CDT Pulse 70 02/14/2024 8:01 AM CDT Temperature 36.8 C (98.2 F) 02/14/2024 8:01 AM CDT Respiratory Rate 20 02/14/2024 8:01 AM CDT Oxygen Saturation 96% 02/14/2024 8:01 AM CDT Inhaled Oxygen Concentration - - Weight 99.2 kg (218 lb 9.6 oz) 02/14/2024 6:22 A M CDT Height 177.8 cm (5' 10 ) 02/09/2024 10:15 PM CDT Body Mass Index 31.37 02/09/2024 10:15 PM CDT Plan of Treatment Health Maintenance Due Date Last Done Comments ASCVD LDL 1945 Hepatitis C 1963 Annual Medicare Wellness Visit 2011 RSV Immunization or 60+ Years (1 - 1-dose 75+ series) 2021 DTaP, Tdap and Td Vaccines (4 - Td or Tdap) 05/07/2033 05/07/2023, 01/25/2019, 06/18/2011 Zoster Vaccines Completed 09/08/2019, 04/2019, 07/09/2011 Pneumococcal Vaccine: 65+ Years Completed 11/05/2023, 08/22/2015 COVID-19 Vaccine Completed 08/11/2024, , 08/21/2022, Additional history exists Influenza Adult Completed 08/11/2024, 10/20, 08/05/2023, Additional history exists Meningococcal B Vaccine Aged Out No l onger eligible based on patient's age to complete this topic Meningococcal Vaccine Aged Out No kathy dina eligible based on patient's age to complete this topic RSV Immunizations Under 20 Months Aged Out No longer eligible based on patient's age to complete this topic Procedures Procedure Name Priority Date/Time Associated Diagnosis Comments FFR HEARTFLOW CTA CORONARY POST PROCESSING Routine 11/23/2024 5:21 PM [facility] Abnormal findings diagnostic imaging of heart and coronary circulation CTA CORONARY W SCORING Routine 10/15/2024 10:23 AM [facility] Coronary atherosclerosis due to lipid rich plaque CREATININE WHOLE BLOOD Routine 10/15/2024 9:50 AM [facility] from Last 3 Months Results * FFR HEARTFLOW CTA CORONARY POST PROCESSING (11/23/2024 5:21 PM [facility]) Anatomical Region Laterality Modality NA Computed Tomogra phy Narrative 11/26/2024 3:27 PM [facility] Table formatting from the original result was not included. FFRCT Patient Name: Cyrus Soliman : 1945 Date of FFR: 11-23-2024 Date of CTA: 10-15-2024 Interpreting Crate Icer: MACKENZIE BARRETO M.D. Indication: Abnormal coronary CTA History: 79-year-old male with coronary atherosclerosis, hyperlipidemia, hypertension TECHNIQUE Computed tomography was performed along the axial plane with 0.75 mm slice thickness utilizing IV administration of Isovue 370. LEFT MAIN Bifurcates to form left anterior descending and left circumflex. LEFT ANTERIOR DESCENDING The left anterior descending gives off 1 diagonal branch. The proximal left anterior descending has 20% stenosis. LEFT CIRCUMFLEX ARTERY The left circumflex is Non-dominant.. FIRST OBTUSE MARGINAL The first obtuse marginal is large in size. The proximal first obtuse marginal has 20% stenosis. RIGHT CORONARY ARTERY The right coronary artery is dominant.. The proximal right coronary artery has 40% stenosis with an FFRCT value of 98. FFR IMPRESSION Anatomical stenosis with lesion-specific FFRCT >0.80. Consider medical therapy as front-line strategy. Moderate calcified nonobstructive plaque of ostial/proximal RCA (40% stenosis) with normal FFR. Mild 20% stenosis of proximal LAD, first OM. Interpreting Crate Icer: MACKENZIE BARRETO M.D. 11/26/24 us Mackenzie Barreto MD CT Final Result * CTA CORONARY W SCORING (10/15/2024 10:23 AM [facility]) Anatomical Region Laterality Modality Chest Computed Tomogra phy, Radiographic Imaging 10/29/2024 11:2 6 AM [facility] Addenda Addendum by Mackenzie Barreto MD on 11/02/2024 7:54 AM [facility] Table formatting from the original result was not included. CT ANGIOGRAM (Cardiology Portion) Patient Name: Cyrus Soliman : 1945 Date of Study: 10-15-2024 Interpreting Crate Icer: MACKENZIE BARRETO M.D. Indication: Coronary atherosclerosis History: 79-year-old male with hyperlipidemia, hypertension, depression PRE PROCEDURE DATA Baseline heart rate is 71 beats per minute. Blood pressure is 128/78 mmHg. A 20 gauge Heplock was inserted in the left antecubital vein and flushed with a 0.9 NACL. PROCEDURE DATA Baseline heart rate is 58 beats per minute. Medication totals: Metoprolol 0 mg IVP Nitroglycerin sublingual tab times 2 Isovue contrast total is 80 ml followed by a flush of 0.9 normal saline 50 ml POST PROCEDURE DATA Post procedure heart rate is 70 beats per minute. Blood pressure is 118/76 mmHg. Patient tolerated procedure well. IV access discontinued and band aide dressing applied to site. TECHNIQUE Computed tomography was performed along the axial plane with 0.75 mm slice thickness utilizing IV administration of Isovue 370. FINDINGS The coronary calcium score is 623. The quality of the study is fair. CARDIAC STRUCTURES Left Atrial Appendage: Windsock morphology. There is no apparent left atrial appendage filling defect. Left Ventricle: Cavity is Normal in size. Concentric left ventricular hypertrophy: None. Left ventricular ejection fraction: 61%. Wall motion: Normal. No stigmata of prior infarction. Aorta: Aortic root measures 3.3cm, which is normal. Ascending aorta measures 2.5cm, which is normal. Pulmonary Arteries: Normal in size. There is no proximal filling defect. Pulmonary Vein: Four noted pulmonary veins. Two on the right and two on the left. Pericardium: Normal thickness without significant effusion or calcium present. Cardiac Valves: No thickening and calcifications in the aortic and mitral valves. There is no mitral annular calcification. CORONARY ANATOMY Left Main: Calcified plaque distal main extending into ostial circumflex, proximal LAD. Large caliber vessel with a normal take off from the left coronary cusp that bifurcates to form a left anterior descending and a left circumflex artery. Left Anterior Descending Artery: 50% stenosis at the proximal vessel. Dense calcium plaque proximal-mid LAD. It gives off 1 diagonal branch. First diagonal: Large caliber vessel. 20% stenosis at the ostium and proximal vessel. Circumflex Artery: Non-dominant. Large trifurcating OM1 with proximal, mid calcified plaque. First obtuse marginal: Large caliber vessel. 20% stenosis at the proximal vessel. Right Coronary Artery: 50% stenosis at the ostium and proximal vessel. Abnormal timing of contrast. Motion artifact degrades RCA visualization. Dense plaque ostial RCA and proximal RCA. Posterior descending artery: Large caliber vessel. Patent with no evidence of plaque. Right posterolateral branch: Large caliber vessel. Patent with no evidence of plaque. AORTIC VALVE Morphology: Trileaflet ADDITIONAL NON-CARDIAC STRUCTURES AND LUNGS READ BY RADIOLOGY COLLEAGUES. IMPRESSION Stenosis: Moderate stenosis of proximal left anterior descending and right coronary artery. Plaque (Calcium Score): Overall, there is a severe amount of coronary plaque. Ejection Fraction: 61%. Modifiers: Nondiagnostic due to motion and contrast timing. FFR recommended. RECOMMENDATION: CAD RADS score is 3 P1/P2/P3/P4- Consider functional testing. Recommend aggressive risk factor modification and preventative pharmacotherapy. Consider other treatments (anti-anginal therapy) per guideline directed care. Interpreting Crate Icer: MACKENZIE BARRETO M.D. 11/01/24 Narrative 10/29/2024 11:29 AM [facility] [address] [address] EXAMINATION: Noncardiac over-read of cardiac CT/CTA CLINICAL HISTORY: Coronary atherosclerosis due to lipid rich plaque. See Additional History in Cardiology report. COMPARISON: 07/31/2017 TECHNIQUE: CT technique details related to coronary CTA, coronary calcium score, pulmonary vein mapping, or TAVR planning protocol are reported separately by cardiology. Multidetector CT images were obtained with creation of multiplanar reformats. 80 mL Isovue-370 IV contrast was administered. A dose lowering technique was used for this procedure, which may include, but is not limited to, dose reduction technique, automated exposure control, the use of iterative reconstruction, and ALARA (As Low As Reasonably Achievable) / Image Gently techniques. NONCARDIAC FINDINGS: CT CHEST: Great vessels: Normal in caliber. Mediastinum and stephanie: No masses, abnormal fluid collections, or adenopathy are present. Pleura: There is no effusion, pneumothorax, or pleural mass. Lungs: There is no focal consolidation, mass, or nodule. The airways are clear. Other: N/A IMPRESSION: 1. No nonvascular findings of immediate significance. 2. Coronary/Cardiac findings per cardiology report. Ordered By: YESENIA MALDONADO Interpreted By: Josué Christian MD, 10/29/2024 11:26 AM Yesenia Maldonado BEAMING MACHINE OPERATOR CT Edited Result - Final * (ABNORMAL) CREATININE WHOLE BLOOD (10/15/2024 9:50 AM [facility]) CREATININE WHOLE BLOOD 1.3(H) 0.70 - 1.20 mg/dL 10/15/2024 9:54 AM [facility] 10/15/2024 9:50 AM [facility] Yesenia Russell Aly BEAMING MACHINE OPERATOR LABORATORY Final Result [facility] [address] [place] [address], [place] [phone] from Last 3 Months Insurance [facility] Care Teams Last Code Striper Relationship Specialty Start Date End Date Junior Vega MD [address] [place], [place] [id number] PCP - General FAMILY PRACTICE 02/01/20
--- OUTSIDE RECORDS SUMMARY | 2024-12-03 10:52 | XMS_ITS | Referral Summary ---
Author Organization [facility] Address [address] [place] [address] Care Team Providers Care Utility Plant Operative Name Role Phone Junior Vega MD Primary Care Provider [phone] Jesus Erwin MD PhD Unavailable Encounters Date Type Department Care Team Description 11/30/2024 10:30 AM DATA CONVERSION OPERATOR Office Visit [facility] Sleep Medicine at [address] [phone] Jodi Coto MD STEPHANIE (obstructive sleep apnea) (Primary Dx); Hypersomnia; Obesity, unspecified class, unspecified obesity type, unspecified whether serious comorbidity present; Insomnia, unspecified type 11/24/2024 7:15 PM DATA CONVERSION OPERATOR - 11/24/2024 11:59 PM DATA CONVERSION OPERATOR Hospital Encounter [facility] [address] [place] [id number] STEPHANIE (obstructive sleep apnea) Discharge Disposition: Discharge to home or self care 11/02/2024 9:00 AM DATA CONVERSION OPERATOR Office Visit [facility] Sleep Medicine at [address] [address] Jodi Coto MD STEPHANIE (obstructive sleep apnea) (Primary Dx); Hypersomnia; Obesity, unspecified class, unspecified obesity type, unspecified whether serious comorbidity present; Insomnia, unspecified type 09/30/2024 7:15 PM DATA CONVERSION OPERATOR - 09/30/2024 11:59 PM DATA CONVERSION OPERATOR Hospital Encounter [facility] [address] [place] [id number] STEPHANIE (obstructive sleep apnea) Discharge Disposition: Discharge to home or self care 09/08/2024 Orders Only [facility] [address] [place] [address] [address] [place] [address] Jodi Coto MD STEPHANIE (obstructive sleep apnea) (Primary Dx) 09/08/2024 10:30 AM DATA CONVERSION OPERATOR Office Visit [facility] Sleep Medicine at [address] [place] [address] Jodi Coto MD Obstructive sleep apnea (Primary Dx); Hypersomnia; Obesity, unspecified class, unspecified obesity type, unspecified whether serious comorbidity present; Insomnia, unspecified type from Last 3 Months Allergies No known active allergies Medications DULoxetine DR (CYMBALTA) 60 mg capsule Take 1 capsule (60 mg total) by mouth daily 3 Active fluticasone propionate (FLONASE) 50 mcg/actuation nasal spray Administer 2 sprays into each nostril daily 2 Active tamsulosin (FLOMAX) 0.4 mg extended release capsule TAKE 1 CAPSULE EVERY EVENING AFTER EVENING MEAL 3 Active rosuvastatin (CRESTOR) 40 mg tablet Take 1 tablet (40 mg total) by mouth nightly 3 Active amLODIPine (NORVASC) 10 mg tablet Take 1 tablet (10 mg total) by mouth daily 4 Active carvediloL (COREG) 6.25 mg tablet Take 1 tablet (6.25 mg total) by mouth 2 (two) times a day with meals Active finasteride (PROSCAR) 5 mg tablet Take 1 tablet (5 mg total) by mouth 4 Active mv-min/folic/K1 /lycopen/lutein (CENTRUM SILVER MEN ORAL) Take 1 tablet by mouth daily Active cyclobenzaprine (FLEXERIL) 10 mg tablet Take 1 tablet (10 mg total) by mouth 2 (two) times a day as needed 3 Active hypromellose (GONAK) 2.5 % ophthalmic demulcent solution Administer 1 drop into affected eye(s) as needed Active oxyCODONE (ROXICODONE) 5 mg immediate release tabletIndicatio ns:Pain Take 1 tablet (5 mg total) by mouth every 4 (four) hours as needed (Intolerable pain that is unresponsive to other medications) 15 tablet 4 Active polyethylene glycol (MIRALAX) 17 gram/dose bulk powder Take 17 g by mouth daily as needed (use while taking narcotic medication to avoid constipation) 238 g 4 Active zolpidem (Ambien) 5 mg tabletIndicatio ns:Sleep-Onset Insomnia Take 1 tablet (5 mg total) by mouth nightly as needed for sleep 30 tablet 1 4 Active Active Problems Problem Noted Date Diagnosed [...] Jun 18, 2011 Entered By: DEBI ORANTES A Comment: thoracic spine Other injury of muscle, [...] Type 2 diabetes mellitus without complications ( CMS/HCC) 11/24/2023 Alcohol use disorder 10/08/2023 Assessment & Plan (10/08/2023 9:42 AM DATA CONVERSION OPERATOR): - drinks 5 whiskeys daily, last drink 10pm 10/07 - gets shakes that resolve with alcohol, but no h/o DTs or hospitalizations for withdrawal - [facility] - s/p phenobarb in ED - monitor closely for signs of withdrawal SDH (subdural hematoma) 10/07/2023 Assessment & Plan (10/09/2023 1:07 PM DATA CONVERSION OPERATOR): - NSGY c/s - repeat HCT 10/07 [...] 06/28/2021 Primary osteoarthritis of left hip 06/28/2018 Immunizations Name Administration Dates Next Due Influenza, Quadrivalent, Indu l Culture-based MDCK, Preservative Free, Antibiotic Free, Intramuscular 08/05/2017 Influenza, Quadrivalent, Hig h Dose, Preservative Free, Intrr 07/18/2022 Influenza, Quadrivalent, Spl it, Preservative Free, Intramuscular 07/26/2019 Influenza, Trivalent, Adjuva nted, Intramuscular 07/16/2018,07/15/2018 Influenza, Trivalent, Cell Culture-based MDCK, Preservative Free, Antibiotic Free, Intramuscular 08/06/2017,08/05/2017 Influenza, Trivalent, High D ose, Split, Preservative Free, Intramuscular 07/25/2022 Influenza, Trivalent, Preser vative Free, Intramuscular 07/18/2015 Influenza, Unspecified 08/05/2023,2015,08/02/2014,08/25,07/06/2012,07/09/2011,07/20/2010 Pfizer SARS-CoV-2 Monovalent Vaccination (12+ Yrs) PURPLE 09/12/2021,12/07/2020,11/16/2020 Pneumococcal Conjugate PCV 13 08/22/2015 Pneumococcal Polysaccharide PPV23 11/05/2023 Pneumococcal, Unspecified 01/08/2012 Tdap 05/07/2023,01/25/2019,06/18/2011 ZOSTER LIVE 07/09/2011 ZOSTER Recombinant 09/08/2019,02/23/2019 Social History Tobacco Use Types Packs/Day Years Used Date Smoking Tobacco: Former Cigarettes Q uit: 2003 Smokeless Tobacco: Current Chew Tobacco Cessation:Ready to Q uit: Not Asked; Counseling Given: Not Answered Comments:Quit smoking at least 20 years ago, smokeless tobacco daily Alcohol Use Standard Drinks/Week Comments Yes 3 (1 standard drink = 0.6 oz pur e alcohol) AUDIT-C Answer Date Recorded Q1: How often do you have a drink containing alcohol? 4 or more times a week 04/27/2024 Q2: How many drinks containi ng alcohol do you have on a typical day when you are drinking? 1 or 2 Q3: How often do you have si x or more drinks on one occasion? Never 04/27/2024 Personal Safety Answer Date Recorded Have you ever been in or are you currently in a harmful physical or emotional relationship or is someone making you feel afraid or unsafe? Denies 04/27/2024 Sex and Gender Information Value Date Recorded Sex Assigned at Not on file Legal Sex Male 9:22 AM DATA CONVERSION OPERATOR Gender Identity Not on file Sexual Orientation Not on file Last Filed Vital Signs Vital Sign Reading Time Taken Comments Blood Pressure 125/78 11/30/2024 10:11 AM DATA CONVERSION OPERATOR Pulse 84 11/30/2024 10:11 AM DATA CONVERSION OPERATOR Temperature 36.2 C (97.1 F) 04/27/2024 11:05 AM CDT Respiratory Rate 18 06/11/2024 11:5 0 AM CDT Oxygen Saturation 95% 11/30/2024 10: 11 AM DATA CONVERSION OPERATOR Inhaled Oxygen Concentration - - Weight 101.3 kg (223 lb 6.4 oz) 025 10:11 AM DATA CONVERSION OPERATOR Height 175.3 cm (5' 9.02 ) 11/30/2024 1 0:11 AM DATA CONVERSION OPERATOR Body Mass Index 32.98 11/30/2024 10:11 AM DATA CONVERSION OPERATOR Plan of Treatment Not on file Medical Devices Implanted Type Area Flour Worker Device Identifier Shelf Expiration Date Model / Serial / Lot [employer] Inspire 3 Electrode Cuff Tunnel Dannie Lead Neurostimulator Sterile 4063 - [id number] - [id number] Implanted:Qty: 1 on 04/27/2024 by Natasha Treviño MD at [facility] Right: Neck [employer] 11/03/2026 4063 / [id number] / [employer] Lead Neurostimulator Sleep Apnea Thoracic Permanent Respiratory Sensing Inspire 43cm 4340 - [id number] - [id number] Implanted:Qty: 1 on 04/27/2024 by Natasha Treviño MD at [facility] Right: Chest [employer] 01/03/2027 4340 / [id number] / [employer] Inspire Generator 3028 - [id number] - [id number] Implanted:Qty: 1 on 04/27/2024 by Natasha Treviño MD at [facility] Right: Chest [employer] 12/21/2026 3028 / [id number] / Procedures Procedure Name Priority Date/Time Associated Diagnosis Comments PSG (SIMPLE) Routine 11/25/2024 STEPHANIE (obstructive sleep apnea) PSG (COMPLEX) Routine 10/07/2024 STEPHANIE (obstructive sleep apnea) EGFR Routine 04/23/2024 2:46 PM CDT Pre-op testing HEMOGLOBIN A1C Routine 04/23/2024 2:46 PM CDT Pre-op testing from Last 3 Months or Most Recently Relevant to Health Maintenance Results * PSG (11/25/2024) Impressions Jodi Coto MD - 11/25/2024 HYPOGLOSSAL NERVE STIMULATOR (INSPIRE) TITRATION History: Sergio Yanes is a 79 y.o. male who presents for a hypoglossal nerve stimulator (Inspire) titration study. Reason for sleep study: obstructive sleep apnea s/p hypoglossal nerve stimulator implantation Rydal sleepiness score: 13 Weight: 224 lbs BMI: 33.08 Procedure: This overnight hypoglossal nerve stimulator (Inspire) titration polysomnogram was performed with the ct scan special procedures technologist in attendance. Patient is studied with multiple channel polysomnography to include EEG, sleep stage recording, cardio- respiratory monitoring, monitoring for limb movements as well as videotaping. Central, frontal, occipital and temporal EEG, bilateral EOG, submental EMG, oral and nasal airflow, thoracoabdominal motion, bilateral anterior tibialis EMG, one lead EKG, snore sensor, pulse oximetry and transcutaneous CO2 were monitored. Sleep stages, periodic limb movements, EEG arousals and respiratory events were scored according to the criteria from The [place] [employer] (AASM) Manual for the scoring of sleep and associated events - version 2.6. Findings: Baseline parameters: Baseline heart=74/m , Oxygen saturation =93% Sleep architecture: Polysomnogram revealed total recording duration of 397.4 minutes and total sleep time of 241.0 minutes with sleep efficiency of 60.6%. Sleep onset latency was 50.8 min, and REM latency 128.0 min. N1 23.9%, N2 63.9%, N3 0.0% and REM 12.2% accounted for the total sleep time. EEG profile: EEG was reviewed. Snoring profile: The patient had mild snoring. Snoring was not associated with arousals. Hypoglossal nerve stimulator (Inspire) titration: Incoming amplitude was 1.0 V. Inspire was turned on after the patient fell asleep with a starting amplitude 0.2 V below the incoming amplitude at 0.8 V. Inspire was titrated to a maximum amplitude of 1.3 V. Therapeutic amplitude was found at 1.3 V, where the AHI was 11.8, O2 saturations were in 90% and non-supine REM sleep was studied. After the sleep study was completed, the patient was programmed back to the incoming amplitude of 1.0 V. In addition, lower limit was programmed to incoming range of 0.7-1.7 volts. The patient reported no significant change following Inspire titration. TcCO2 data: Baseline TcCO2 was 41 mmHg and the maximum TcCO2 was 50 mmHg during the study. Limb movement profile: There were no periodic limb movements seen in this study. Parasomnia profile: No abnormal behavior to suggest parasomnia was noted. EKG analysis: revealed normal sinus rhythm. Interpretation and Recommendations: This overnight hypoglossal nerve stimulator (Inspire) study revealed: 1. Partial alleviation of obstructive sleep apnea at therapeutic amplitude of 1.3 V. 2. Hypoglossal nerve stimulator (Inspire) at therapeutic amplitude of 1.3 V is recommended for use. 3. Hypnotics, sedatives, and related medications have the potential of worsening the apnea and should be avoided. 4. Patients with sleep apnea may have significant daytime hypersomnolence. If that is the case, driving or handling heavy machinery should be avoided until the apnea and excessive sleepiness have resolved. 5. Weight loss for ideal body weight range is recommended 6. Prolonged sleep latency and reduced sleep efficiency: Patient has prolonged sleep onset latency of 50.8 minutes and reduced sleep efficiency of 60.6 %. Factors like, psychiatric illness, insomnia or chronic pain may be contributory as well as poor sleep hygiene and/or daytime napping. Clinical correlation is recommended. Jodi Coto MD [facility] Sleep Medicine Narrative Jodi Coto MD - 11/25/2024 In lab study is ready for review us Jodi Coto MD SLEEP CENTER ORDERABLES Final Re sult * PSG-Sleep Provider Use Only (10/07/2024) Impressions Jodi Coto MD - 10/07/2024 HYPOGLOSSAL NERVE STIMULATOR (INSPIRE) TITRATION History: Sergio Yanes is a 79 y.o. male who presents for a hypoglossal nerve stimulator (Inspire) titration study. Reason for sleep study: obstructive sleep apnea s/p hypoglossal nerve stimulator implantation Rydal sleepiness score: 12 Weight: 228 lbs BMI: 33.67 Procedure: This overnight hypoglossal nerve stimulator (Inspire) titration polysomnogram was performed with the ct scan special procedures technologist in attendance. Patient is studied with multiple channel polysomnography to include EEG, sleep stage recording, cardio- respiratory monitoring, monitoring for limb movements as well as videotaping. Central, frontal, occipital and temporal EEG, bilateral EOG, submental EMG, oral and nasal airflow, thoracoabdominal motion, bilateral anterior tibialis EMG, one lead EKG, snore sensor, pulse oximetry and transcutaneous CO2 were monitored. Sleep stages, periodic limb movements, EEG arousals and respiratory events were scored according to the criteria from The [place] [employer] Medicine (AASM) Manual for the scoring of sleep and associated events - version 2.6. Findings: Baseline parameters: Baseline heart=79/m , Oxygen saturation =97% Sleep architecture: Polysomnogram revealed total recording duration of 377.2 minutes and total sleep time of 57.5 minutes with sleep efficiency of 15.2%. Sleep onset latency was 96.8 min. N1 47.8%, N2 52.2%, N3 0.0% and REM 0.0% accounted for the total sleep time. EEG profile: EEG was reviewed. Snoring profile: The patient had mild snoring. Snoring was not associated with arousals. Hypoglossal nerve stimulator (Inspire) titration: Incoming amplitude was 0.9 V. Inspire was turned on with a starting amplitude 0.2 V below the incoming amplitude at 0.7 V. Amplitude was then lowered to 0.5 V because the patient had difficulty initiating sleep and was titrated to a maximum amplitude of 0.8 V. Therapeutic amplitude was not found at final amplitude of 0.8 V, where the AHI was 27.0, O2 saturations were in 91% and non- REM sleep was not studied. After the sleep study was completed, the patient was programmed back to the incoming amplitude of 0.9 V. In addition, lower limit was programmed to 0.2V below the incoming amplitude, and upper limit was programmed to 1.0V above the lower limit. The patient reported no subjective change following Inspire titration. TcCO2 data: Baseline TcCO2 was 44 mmHg and the maximum TcCO2 was 53 mmHg during the study. Limb movement profile: There were no periodic limb movements seen in this study. Parasomnia profile: No abnormal behavior to suggest parasomnia was noted. EKG analysis: revealed normal sinus rhythm. Interpretation and Recommendations: This overnight hypoglossal nerve stimulator (Inspire) study revealed: 1. Incomplete titration study with partial alleviation of obstructive sleep apnea at therapeutic amplitude of 0.8 V. 2. Repeat hypoglossal nerve stimulator (Inspire) titration study is recommended. Use of hypnotics is recommended for the repeat study. 3. Hypnotics, sedatives, and related medications have the potential of worsening the apnea and should be avoided. 4. Patients with sleep apnea may have significant daytime hypersomnolence. If that is the case, driving or handling heavy machinery should be avoided until the apnea and excessive sleepiness have resolved. 5. Weight loss for ideal body weight range is recommended 6. Prolonged sleep latency and reduced sleep efficiency: Patient has prolonged sleep onset latency of 96.8 minutes and reduced sleep efficiency of 15.2 %. Factors like, psychiatric illness, insomnia or chronic pain may be contributory as well as poor sleep hygiene and/or daytime napping. Clinical correlation is recommended. Jodi Coto MD [facility] Sleep Medicine Narrative Jodi Coto MD - 10/07/2024 In lab study is ready for review us Jodi Coto MD SLEEP CENTER ORDERABLES Final Re sult * eGFR (04/23/2024 2:46 PM CDT) eGFR 67 >=60 mL/min/1. 73 m2 Comment: Interpretive Data Reference Interval Normal >/= 90 mL/min/1.73m2 Mildly decreased* 60 - 89 mL/min/1.73m2 Mildly to moderately decreased 45 - 59 mL/min/1.73m2 Moderately to severely decreased 30 - 44 mL/min/1.73m2 Severely decreased 15 - 29 mL/min/1.73m2 Kidney Failure < 15 mL/min/1.73m2 *Relative to young adult level Estimated glomerular filtration rate is determined by the 2020 CKD-EPI equation recommended by the National Kidney Foundation (A Unifying Approach to GFR Estimation: Recommendations of the NKF-ASK Task Force on Reassessing the Inclusion of Race in Diagnosing Kidney Disease, JASN 2020). The CKD-EPI equation should not be used for patients with unstable renal function and has not been validated in children and those over 70. Current interpretive data was last reviewed 2021. Blood 04/23/2024 2:46 PM CDT 04/23/2024 3:12 PM CDT Amairani Pinon HAND QUILTER LAB BLOOD ORDERABLES Final Res ult Performing Organization Address [facility] Co de Phone Number THERESA PAPPAS [phone] [place] [address] * (ABNORMAL) Hemoglobin A1c (04/23/2024 2:46 PM CDT) Hgb A1C 5.7(H) 4.0 - 5.6 % Estimated Average Glucose 117 mg/dL THERESA PAPPAS Comment: The ADA recommends reporting an estimated Average Glucose (eAG) with all Hemoglobin A1c results using the equation derived from a study of 507 normal and diabetic adults. Minority populations were underrepresented and children were not included. (Diabetes Care 31:1601-2644, 2008). The eAG is not equivalent to a fasting glucose. Blood 04/23/2024 2:46 PM CDT 04/23/2024 4:01 PM CDT Amairani Pinon NP LAB BLOOD ORDERABLES Final Res ult Performing Organization Address [facility] de Phone Number THERESA PAPPAS [address] [facility] [place] [address] from Last 3 Months or Most Recently Relevant to Health Maintenance Insurance [employer] [address] [facility] Advance Directives For more information, please contact: [phone] * Full Code (Latest Code Status on File) Date Activated Date Inactivated Comments 10/07/2023 7:44 PM 10/09/2023 7:12 PM Care Teams Utility Plant Operative Relationship Specialty Start Date End Date Junior Vega MD PCP - General 02/09/18 Jesus Erwin MD PhD [address] [facility] [address] [place] [address] Consulting Physician Neurosurgery 10/09/23
--- OUTSIDE RECORDS SUMMARY | 2024-12-03 10:52 | XMS_ITS | Clinical Summary ---
Author Organization [facility] Address [address] [place] [address] Care Team Providers Care Customer Service Clerk Name Role Phone Junior Vega MD Primary Care Provider + [phone] Jesus Erwin MD PhD Unavailable Allergies No known active allergies Medications DULoxetine [...] Type 2 diabetes mellitus without complications ( [facility]/HCC) 11/24/2023 Alcohol use disorder 10/08/2023 Assessment & Plan (10/08/2023 9:42 AM BIOLOGY ADJUNCT INSTRUCTOR): - drinks 5 whiskeys daily, last drink 10pm 10/07 - gets shakes that resolve with alcohol, but no h/o DTs or hospitalizations for withdrawal - [facility] going to [facility] - s/p phenobarb in ED - monitor closely for signs of withdrawal SDH (subdural hematoma) 10/07/2023 Assessment & Plan (10/09/2023 1:07 PM BIOLOGY ADJUNCT INSTRUCTOR): - NSGY c/s - repeat HCT 10/07 [...] 06/28/2021 Primary osteoarthritis of left hip 06/28/2018 Encounters Date Type Department Care Team Description 11/30/2024 10:30 AM BIOLOGY ADJUNCT INSTRUCTOR Office Visit [facility] Sleep Medicine at [address] [place] [address] Jodi Coto MD STEPHANIE (obstructive sleep apnea) (Primary Dx); Hypersomnia; Obesity, unspecified class, unspecified obesity type, unspecified whether serious comorbidity present; Insomnia, unspecified type 11/24/2024 7:15 PM BIOLOGY ADJUNCT INSTRUCTOR - 11/24/2024 11:59 PM BIOLOGY ADJUNCT INSTRUCTOR Hospital Encounter [facility] [address] [place] [id number] STEPHANIE (obstructive sleep apnea) Discharge Disposition: Discharge to home or self care 11/02/2024 9:00 AM BIOLOGY ADJUNCT INSTRUCTOR Office Visit [facility] Sleep Medicine at [address] [address] Jodi Coto MD STEPHANIE (obstructive sleep apnea) (Primary Dx); Hypersomnia; Obesity, unspecified class, unspecified obesity type, unspecified whether serious comorbidity present; Insomnia, unspecified type 09/30/2024 7:15 PM BIOLOGY ADJUNCT INSTRUCTOR - 09/30/2024 11:59 PM BIOLOGY ADJUNCT INSTRUCTOR Hospital Encounter [facility] [address] [place] [address] STEPHANIE (obstructive sleep apnea) Discharge Disposition: Discharge to home or self care 09/08/2024 10:30 AM BIOLOGY ADJUNCT INSTRUCTOR Office Visit [facility] Sleep [facility] at [address] [address] Jodi Coto MD Obstructive sleep apnea (Primary Dx); Hypersomnia; Obesity, unspecified class, unspecified obesity type, unspecified whether serious comorbidity present; Insomnia, unspecified type 09/08/2024 Orders Only [facility] [address] [place] [address] [address] [address] Jodi Coto MD STEPHANIE (obstructive sleep apnea) (Primary Dx) from Last 3 Months Immunizations Name Administration Dates Next Due Influenza, [...] 05/07/2023,01/25/2019,06/18/2011 ZOSTER LIVE 07/09/2011 ZOSTER Recombinant 09/08/2019,02/23/2019 Surgical History Surgery Date Site/Laterality Comments COLONOSCOPY Last colonoscopy > 10 years ago; + polyps per patient report ROTATOR CUFF REPAIR Bilateral SKIN CANCER EXCISION face TOTAL HIP ARTHROPLASTY Left CYSTOSCOPY KIDNEY STONE SURGERY Medical History Medical History Date Comments Hypertension Hyperlipidemia Colon polyp Vitamin D deficiency Nephrolithiasis Anxiety Cancer (CMS/HCC) (HCC) skin, fac e Depression HL (hearing loss) Dizziness Tinnitus Sleep apnea Alcoholism (CMS/HCC) (HCC) Prediabetes Vertigo Orthostatic hypotension Motion sickness Enlarged prostate Type 2 diabetes mellitus (HCC) Brain bleed (HCC) due to fall Family History Medical History Relation Name Comments Cancer Father No Known Problems Mother Relation Name Status Comments Father Mother Social History Tobacco Use Types Packs/Day Years Used Date Smoking Tobacco: Former Cigarettes Q uit: 2004 Smokeless Tobacco: Current Chew Tobacco Cessation:Ready to [...] on file Legal Sex Male 9:22 AM BIOLOGY ADJUNCT INSTRUCTOR Gender Identity Not on file Sexual Orientation Not on file Obstetrics History Last Filed Vital Signs Vital Sign Reading Time Taken Comments Blood Pressure 125/78 11/30/2024 10:11 AM BIOLOGY ADJUNCT INSTRUCTOR Pulse 84 11/30/2024 10:11 AM BIOLOGY ADJUNCT INSTRUCTOR Temperature 36.2 C (97.1 F) 04/27/2024 11:05 AM CDT Respiratory Rate 18 06/11/2024 11:5 0 AM CDT Oxygen Saturation 95% 11/30/2024 10: 11 AM BIOLOGY ADJUNCT INSTRUCTOR Inhaled Oxygen Concentration - - Weight 101.3 kg (223 lb 6.4 oz) 025 10:11 AM BIOLOGY ADJUNCT INSTRUCTOR Height 175.3 cm (5' 9.02 ) 11/30/2024 1 0:11 AM BIOLOGY ADJUNCT INSTRUCTOR Body Mass Index 32.98 11/30/2024 10:11 AM BIOLOGY ADJUNCT INSTRUCTOR Plan of Treatment Health Maintenance Due Date Last Done Comments Albumin Creatinine Ratio, Urine 1946 Depression Screening 1945 Hepatitis C Screening 1945 Dilated Eye Exam 1946 Foot Exam 1946 Lipid Panel 1946 Hepatitis B Screening 1964 Well Visit 65+ 2011 Covid-19 Vaccine (2023-2 5 season) 2024 08/21/2022, 09/12/2021, 12/07/2020, Additional history exists Hemoglobin A1C 10/24/2024 04/23/2024 eGFR 04/23/2025 04/23/2024, 09/19, 10/07/2023 Fall Risk Assessment 04/27/2025 04/27/2024 DTaP/Tdap/Td Vaccine (4 - Td or Tdap) 05/07/2033 05/07/2023, 01/25/2019, 06/18/2011 Zoster Vaccine Completed 09/08/2019, 05/0 04/2019, 07/09/2011 Pneumococcal vaccine 65+ Completed 024, 08/22/2015, 01/08/2012 Abdominal Aortic Aneurysm (A AA) Screen Completed 02/14/2024, 02/01/2020 Influenza Vaccine Completed 08/11/2024, , 07/25/2022, Additional history exists Medical Devices Implanted Type Area Propagator Device Identifier Shelf Expiration Date Model / Serial / Lot [employer] Inspire 3 Electrode Cuff Tunnel Dannie Lead Neurostimulator Sterile 4063 - [id number] - [id number] Implanted:Qty: 1 on 04/27/2024 by Natasha Treviño MD at [facility] Right: Neck [employer] 11/03/2026 4063 / [id number] / [employer] Lead Neurostimulator Sleep Apnea Thoracic Permanent Respiratory Sensing Inspire 43cm 4340 - [id number] - [id number] Implanted:Qty: 1 on 04/27/2024 by Natasha Treviño MD at [facility] Right: Chest [employer] 01/03/2027 4340 / [id number] / [employer] Inspire Generator 3028 - [id number] - [id number] Implanted:Qty: 1 on 04/27/2024 by Natasha Treviño MD at [facility] Right: Chest [employer] 12/21/2026 3028 / [id number] / Procedures Procedure Name Priority Date/Time [...] sleep apnea s/p hypoglossal nerve stimulator implantation [place] sleepiness score: 13 Weight: 224 lbs BMI: 33.08 Procedure: This overnight hypoglossal nerve stimulator (Inspire) titration polysomnogram was performed with the pathology laboratory technologist in attendance. Patient is studied with [...] scored according to the criteria from The [place] [employer] (AASM) Manual for [...] Clinical correlation is recommended. Jodi Coto MD [facility] Narrative Jodi [...] sleep apnea s/p hypoglossal nerve stimulator implantation [place] sleepiness score: 12 Weight: 228 lbs BMI: 33.67 Procedure: This overnight hypoglossal nerve stimulator (Inspire) titration polysomnogram was performed with the pathology laboratory technologist in attendance. Patient is studied with [...] scored according to the criteria from The [place] Academy of Sleep Medicine (AASM) Manual for [...] Clinical correlation is recommended. Jodi Coto MD [facility] Narrative Jodi [...] 2:46 PM CDT 04/23/2024 3:12 PM CDT us Amairani Pinon NP LAB BLOOD ORDERABLES Final Res ult Performing Organization Address City/[facility] Co de Phone Number THERESA [address] Department [facility] [place] [address] * (ABNORMAL) Hemoglobin A1c (04/23/2024 2:46 PM CDT) Hgb A1C 5.7(H) 4.0 - 5.6 % Estimated Average Glucose 117 mg/dL THERESA PAPPAS Comment: The ADA recommends reporting an estimated Average Glucose (eAG) with all Hemoglobin A1c results using the equation derived from a study of 507 normal and diabetic adults. Minority populations were underrepresented and children were not included. (Diabetes Care 31:1095-5222, 2008). The eAG is not equivalent to a fasting glucose. Blood 04/23/2024 2:46 PM CDT 04/23/2024 4:01 PM CDT Amairani Pinon NP LAB BLOOD ORDERABLES Final Res ult Performing Organization Address [facility] de Phone Number THERESA PAPPAS [address] [place] [address] from Last 3 Months or Most Recently Relevant to Health Maintenance Insurance MEDICARE SOLUTIONS [facility] MEDICARE SOLUTIONS Advance Directives For more information, please contact: [phone] * Full Code (Latest Code Status on File) Date Activated Date Inactivated Comments 10/07/2023 7:44 PM 10/09/2023 7:12 PM Care Teams Customer Service Clerk Relationship Specialty Start Date End Date Junior Vega MD PCP - General 02/09/18 Jesus Erwin MD PhD [address] [place] [address] Consulting Physician Neurosurgery 10/09/23
== END 2024-12-03 10:42 | disposition home or self-care (01) ==
PROVIDERS: PCP Family Medicine; Visit Provider Nurse Practitioner Adult Health
DX: Z12.31 Encounter for screening mammogram for malignant neoplasm of breast (principal); R92.8 Other abnormal and inconclusive findings on diagnostic imaging of breast
CPT/HCPCS: 77062; 77066; G0279

== ENCOUNTER 2024-12-14 09:31 | Outpatient (CLI) | payer MEDICARE, SELFPAY ==
--- NOTE | ~2024-12-14 | US_ITS ---
EXAMINATION TYPE: US breast LT limited COMPARISON: Mammography dated 12/03/2024 REASON FOR STUDY: R92.8 - Other abnormal and inconclusive findings on diagn... TECHNIQUE: Targeted sonographic evaluation of the left breast was performed. INTERPRETATION: Somewhat irregular fibroglandular tissue in the immediate subareolar area is compatible with gynecoma stia. No suspicious mass lesion or fluid collection seen. IMPRESSION: Gynecomastia. No suspicious abnormality seen. BI-RADS CATEGORY: BI-RADS 2: Benign Reviewed, dictated and finalized at location . ROOM CLEANER
--- OUTSIDE RECORDS SUMMARY | 2024-12-14 10:33 | XMS_ITS | Encounter Summary ---
Author Organization [facility] Address [address] [place] [address] Care Team Providers Care Ash Worker Name Role Phone Junior Vega MD Primary Care Provider + [phone] Jesus Erwin MD PhD Unavailable [phone] Encounter Details Date Type Department Care Team (Late st Contact Info) Description 10/07/[address] [address] Lacey Cai, KATHI Social History Tobacco Use [...] on file Legal Sex Male 9:22 AM FLORIST MANAGER Gender Identity Not on file Sexual Orientation Not on file documented as of this encounter Plan of Treatment Not on file documented as of this encounter Visit Diagnoses Not on filedocumented in this encounter Care Teams Ash Worker Relationship Specialty Start Date End Date Junior Vega MD PCP - General 02/09/18 Jesus Erwin MD PhD [address] [facility] [address] [place] [address] Consulting Physician Neurosurgery 10/09/23 documented as of this encounter
--- OUTSIDE RECORDS SUMMARY | 2024-12-14 10:33 | XMS_ITS | Patient Health Record ---
Author Organization [facility] Address [address] [place] [address] Care Team Providers Care Statistical Financial Analyst Name Role Phone Junior Vega Primary Care Provider Cindy Laureano Jr, MD, [facility] [phone] ALLERGIES No Known Allergies REASON FOR REFERRAL No Information MEDICATIONS Medication SIG (Take, Route, Frequency, Duration) Notes Start Date End Date Status DULoxetine HCl Activ e Lisinopril Active Rosuvastatin Calcium 40 MG Oral for 90 Days Active Fluticasone Propionate 50 MCG/ACT Nasal for 90 Days Active Tamsulosin HCl 0.4 MG Oral for 90 Days Active levETIRAcetam 500 MG TAKE 1 TABLET BY MO UT TWICE A DAY Oral for 90 Days Active Thiamine HCl 100 MG TAKE 1 TABLET (100 M G TOTAL) BY MOUTH DAILY Oral for 90 Days Active Folic Acid 1 MG Oral for 90 Days Active IMMUNIZATIONS Vaccine Route Administration Date Status Comme nts Influenza Unknown 07/25/2022 Administered Influenza Unknown 10/30/2023 Administered Influenza Unknown 07/01/2017 Refused pneumoccocal Unknown 07/01/2017 Refused Influenza Unknown 07/12/2019 Refused pneumoccocal Unknown 07/12/2019 Refused Influenza Unknown 06/28/2021 Refused pneumoccocal Unknown 06/28/2021 Refused pneumoccocal Unknown 07/25/2022 Refused pneumoccocal Unknown 10/30/2023 Refused SOCIAL HISTORY Tobacco Use: Social History Observation Description Date Details (start date - stop date) Never Smoker NA - NA Sex Assigned At : Social History Observation Description Sex Assigned At Unknown Tobacco Use: Question Answer Notes Patient is a: nonsmoker Alcohol screening: Question Answer Notes Did you have a drink contain ing alcohol in the past year? Yes How often did you have a dri nk containing alcohol in the past year? Two to three times per week (3 points) How many drinks did you have on a typical day when you were drinking in the past year? 1 or 2 (0 points) How often did you have six o r more drinks on one occasion in the past year? Never (0 points) Points 3 Interpretation Negative PROBLEMS Problem Type ICD Code Onset Dates Problem Status W/U Status Risk SNOMED Code Notes Problem Encounter for follow-up examination after completed treatment for conditions other than malignant neoplasm (Z09) Active confirmed History and physical examination, follow-up (230617657) Problem Bicipital tendinitis, right shoulder (M75.21) Active confirmed 117901555 Problem Impingement syndrome of right shoulder (M75.41) Active confirmed 695476239657612 Problem Bursitis of left shoulder (M75.52) Active confirmed Bursitis o f left shoulder (927208882983704) Problem Strain of muscle(s) and tendon(s) of the rotator cuff of right shoulder, initial encounter (S46.011A) Active confirmed 41757298 Problem Strain of muscle(s) and tendon(s) of the rotator cuff of right shoulder, subsequent encounter (S46.011D) Active confirmed 71951451 Problem Strain of muscle(s) and tendon(s) of the rotator cuff of left shoulder, initial encounter (S46.012A) Active confirmed Strain of rotat or cuff of left shoulder (disorder) (55543063025998146 ) Problem Other injury of muscle, fascia and tendon of other parts of biceps, right arm, initial encounter (S46.291A) Active confirmed 825633380 Problem Fall on and from ladder, initial encounter (W11.XXXA) Active confirmed 07840650 Problem Unspecified fall, initial encounter (W19.XXXA) Active confirmed Fall (8284984) Problem Aftercare following joint replacement surgery (Z47.1) Active confirmed History of musculoskeletal operation (999846760) Problem Encounter for other orthopedic aftercare (Z47.89) Active confirmed Problem Encounter for removal of sutures (Z48.02) Active confirmed 823619822535951 Problem Presence of left artificial hip joint (Z96.642) Active confirmed 316596762 Problem Impingement syndrome of left shoulder region (M75.42) Active confirmed Impingement syndrome of left shoulder region (004263553767529) Problem Shoulder pain, right (M25.511) Active confirmed Shoulder pipo nt pain (916894067) Problem Primary osteoarthritis of right hip (M16.11) 10/30/19 24 Active confirmed 918237979415551 Problem Overexertion from strenuous movement or load, initial encounter (X50.0XXA) Active confirmed 65086387 Problem Other specified postprocedural states (Z98.890) Active confirmed Postprocedu ral states (334219172) Problem Primary osteoarthritis of left hip (M16.12) 06/28/20 18 Active confirmed 532732855607790 Problem Complete tear of right rotator cuff, unspecified whether traumatic (M75.121) 06/28/20 21 Active confirmed 771024348 Encounters Encounter Location Date Provider Diagnosis [facility] outpt [address], [place] [id number] 04/05/2024 Sammy Laureano Jr, MD [facility] [address] [facility] [address], [place] [address] 01/28/2024 Sammy Laureano Jr, MD [facility] [address] [facility] [address], [place] [address] 02/12/2024 Sammy Laureano Jr, MD [facility] [address] [facility], [place] [address] 02/16/2024 Sammy Laureano Jr, MD [facility] [address] [facility], [place] [address] 03/22/2024 Sammy Laureano Jr, MD [facility] [address] [facility] [address], [place] [address] 03/25/2024 Sammy Laureano Jr, MD PLAN OF TREATMENT Pending Test Test Name Order Date CMP, CBC, A1C, PT W/INR, UA, MRSA NASAL SWAB 02/17/2024 Insurance Providers Payer Name Payer Address Payer Phone Subscriber Number Group Number Insured Name Patient Relationship to Insured Coverage Start Date Coverage End Date [facility] Medicare Advantage PPO [address] [address] [place] [address] [id number] Cyrus Lyons Self - patient is the insured MEDICAL (GENERAL) HISTORY Medical History History ICD Code hypertension hyperlipidema Depression diabetes mellitus urologic problems Surgical History Surgery Date(Month/Year) left posterior hip arthroplasty (RDRJR) 08/04/21 Right shoulder RCR (RDR) 07/30/19 shoulder arthroscopy, left (RDR) 07/25/17
--- OUTSIDE RECORDS SUMMARY | 2024-12-14 10:33 | XMS_ITS | Clinical Summary ---
Author Organization [facility] Address [address] [place] [address] Phone Care Team Providers Care Dragline Operator Helper Name Role Phone Unavailable Primary Care Provider [...]
--- OUTSIDE RECORDS SUMMARY | 2024-12-14 10:33 | XMS_ITS ---
Author Organization [facility] Address [address] [facility] [address], [place] [address] Care Team Providers Care Therapeutic Dietitian Name Role Phone Silvia Junior Primary Care Provider Cindy Laureano Jr, MD, Sammy Unavailable Encounters Encounter Location Date Provider Diagnosis [facility] [address] [facility] [address] [place] [address] 03/22/2024 Sammy Laureano Jr, MD PLAN OF TREATMENT No Information
--- OUTSIDE RECORDS SUMMARY | 2024-12-14 10:33 | XMS_ITS | Clinical Summary ---
Author Organization [facility] Address [address] [place] [address] Care Team Providers Care Director Personal Name Role Phone Junior Vega MD Primary Care Provider + [phone] Jesus Erwin MD PhD Unavailable [phone] Allergies No known active allergies Medications DULoxetine [...] Type 2 diabetes mellitus without complications ( [facility]) 11/24/2023 Alcohol use disorder 10/08/2023 Assessment & Plan (10/08/2023 9:42 AM TECHNICAL SUPPORT COORDINATOR): - drinks 5 whiskeys daily, last drink 10pm 10/07 - gets shakes that resolve with alcohol, but no h/o DTs or hospitalizations for withdrawal - [facility] - s/p phenobarb in ED - monitor closely for signs of withdrawal SDH (subdural hematoma) 10/07/2023 Assessment & Plan (10/09/2023 1:07 PM TECHNICAL SUPPORT COORDINATOR): - NSGY c/s - repeat HCT 10/07 [...] Department Care Team Description 11/30/2024 10:30 AM TECHNICAL SUPPORT COORDINATOR Office Visit [facility] Sleep Medicine at [address] [place] [address] Jodi Coto MD STEPHANIE (obstructive sleep apnea) (Primary Dx); Hypersomnia; Obesity, unspecified class, unspecified obesity type, unspecified whether serious comorbidity present; Insomnia, unspecified type 11/24/2024 7:15 PM TECHNICAL SUPPORT COORDINATOR - 11/24/2024 11:59 PM TECHNICAL SUPPORT COORDINATOR Hospital Encounter [facility] [address] [place] [address] STEPHANIE (obstructive sleep apnea) Discharge Disposition: Discharge to home or self care 11/02/2024 9:00 AM TECHNICAL SUPPORT COORDINATOR Office Visit [facility] Sleep Medicine at [address] [place] [address] Jodi Coto MD STEPHANIE (obstructive sleep apnea) (Primary Dx); Hypersomnia; Obesity, unspecified class, unspecified obesity type, unspecified whether serious comorbidity present; Insomnia, unspecified type 09/30/2024 7:15 PM TECHNICAL SUPPORT COORDINATOR - 09/30/2024 11:59 PM TECHNICAL SUPPORT COORDINATOR Hospital Encounter [facility] [address] [place] [address] STEPHANIE (obstructive sleep apnea) Discharge Disposition: Discharge to home or self care from Last 3 Months Immunizations Immunization Administration Dates Next Due Influenza, Quadrivalent, Indu [...] on file Legal Sex Male 9:22 AM TECHNICAL SUPPORT COORDINATOR Gender Identity Not on file Sexual Orientation Not on file Obstetrics History Last Filed Vital Signs Vital Sign Reading Time Taken Comments Blood Pressure 125/78 11/30/2024 10:11 AM TECHNICAL SUPPORT COORDINATOR Pulse 84 11/30/2024 10:11 AM TECHNICAL SUPPORT COORDINATOR Temperature 36.2 C (97.1 F) 04/27/2024 11:05 AM CDT Respiratory Rate 18 06/11/2024 11:5 0 AM CDT Oxygen Saturation 95% 11/30/2024 10: 11 AM TECHNICAL SUPPORT COORDINATOR Inhaled Oxygen Concentration - - Weight 101.3 kg (223 lb 6.4 oz) 025 10:11 AM TECHNICAL SUPPORT COORDINATOR Height 175.3 cm (5' 9.02 ) 11/30/2024 1 0:11 AM TECHNICAL SUPPORT COORDINATOR Body Mass Index 32.98 11/30/2024 10:11 AM TECHNICAL SUPPORT COORDINATOR Plan of Treatment Health Maintenance Due Date [...] history exists Medical Devices Implanted Type Area Race And Sports Book Writer Device Identifier Shelf Expiration Date Model / Serial / Lot [employer] Inspire 3 Electrode Cuff Tunnel Dannie Lead Neurostimulator Sterile 4063 - [id number] - [id number] Implanted:Qty: 1 on 04/27/2024 by Natasha Treviño MD at [facility] Right: Neck [employer] 11/03/2026 4063 / [id number] / [employer] Lead Neurostimulator Sleep Apnea Thoracic Permanent Respiratory Sensing Inspire 43cm 4340 - [id number] - [id number] Implanted:Qty: 1 on 04/27/2024 by Natasha Treviño MD at [facility] Right: Chest [employer] 01/03/2027 4340 / [id number] / [employer] Inspire Generator 3028 - [id number] - [id number] Implanted:Qty: 1 on 04/27/2024 by Naatsha Treviño MD at [facility] Right: Chest [employer] 12/21/2026 3028 / [id number] / Procedures Procedure Name Priority Date/Time [...] sleep apnea s/p hypoglossal nerve stimulator implantation [place] sleepiness score: 13 Weight: 224 lbs BMI: 33.08 Procedure: This overnight hypoglossal nerve stimulator (Inspire) titration polysomnogram was performed with the radiology technologist in attendance. Patient is studied with [...] scored according to the criteria from The [place] Academy of Sleep Medicine (AASM) Manual for [...] Clinical correlation is recommended. Jodi Coto MD [facility] Medicine Narrative Jodi Coto [...] sleep apnea s/p hypoglossal nerve stimulator implantation [place] sleepiness score: 12 Weight: 228 lbs BMI: 33.67 Procedure: This overnight hypoglossal nerve stimulator (Inspire) titration polysomnogram was performed with the radiology technologist in attendance. Patient is studied with [...] scored according to the criteria from The [place] Academy of Sleep Medicine (AASM) Manual for [...] Clinical correlation is recommended. Jodi Coto MD [facility] Sleep Medicine Narrative Jodi Coto MD - 10/07/2024 In lab study is ready for review Jodi Coto MD SLEEP CENTER ORDERABLES Final [...] CDT 04/23/2024 3:12 PM CDT Amairani Pinon NURSE MONITORING LAB BLOOD ORDERABLES Final Res ult [facility] [address] [place] [address] * (ABNORMAL) Hemoglobin A1c (04/23/2024 2:46 PM CDT) Hgb A1C 5.7(H) 4.0 - 5.6 % Estimated Average Glucose 117 mg/dL [facility] Comment: The ADA recommends reporting an estimated Average Glucose (eAG) with all Hemoglobin A1c results using the equation derived from a study of 507 normal and diabetic adults. Minority populations were underrepresented and children were not included. (Diabetes Care 31:8840-3091, 2008). The eAG is not equivalent to a fasting glucose. Blood 04/23/2024 2:46 PM CDT 04/23/2024 4:01 PM CDT us Amairani Pinon NP LAB BLOOD ORDERABLES Final Res ult [facility] [address] [place] [address] from Last 3 Months or Most Recently Relevant to Health Maintenance Insurance [facility] Address[address] [address] [place] [address] [facility]IC[facility] Address: [facility] [address] [place] [address] [place] [facility] Advance Directives For more information, please contact: [phone] * Full Code (Latest Code Status on File) Date Activated Date Inactivated Comments 10/07/2023 7:44 PM 10/09/2023 7:12 PM Care Teams Director Personal Relationship Specialty Start Date End Date Junior Vega MD PCP - General 02/09/18 Jesus Erwin MD PhD [address] [place] [address] Consulting Physician Neurosurgery 10/09/23
--- OUTSIDE RECORDS SUMMARY | 2024-12-14 10:33 | XMS_ITS ---
Author Organization [facility] Address [address] [place] [address] Care Team Providers Care Packaging Sales Representative Name Role Phone Junior Vega MD Primary Care Provider + [phone] Jesus Erwin MD PhD Unavailable [phone] Active Problems Problem Noted Date Diagnosed Date [...] Type 2 diabetes mellitus without complications ( [facility]) 11/24/2023 Alcohol use disorder 10/08/2023 Assessment & Plan (10/08/2023 9:42 AM CLOUD SYSTEMS ARCHITECT): - drinks 5 whiskeys daily, last drink 10pm 10/07 - gets shakes that resolve with alcohol, but no h/o DTs or hospitalizations for withdrawal - [facility] - s[facility]p [facility] in ED - monitor closely for signs of withdrawal SDH (subdural hematoma) 10/07/2023 Assessment & Plan (10/09/2023 1:07 PM CLOUD SYSTEMS ARCHITECT): - NSGY c/s - repeat HCT 10/07 [...] Primary osteoarthritis of left hip 06/28/2018 Current Treatment and Therapy Plans No current plan information found. Past Treatment and Therapy Plans No past plan information found. Lifetime Dose Tracking * Chemical Lifetime Dose Automatic Entry Manual Entr y DLP 1,329 mGycm 1,329 mGycm 0 mGycm
--- OUTSIDE RECORDS SUMMARY | 2024-12-14 10:33 | XMS_ITS ---
Author Organization [facility] Address [address] [facility] [address], [place] [address] Care Team Providers Care Freelance Art Director Name Role Phone Silvia, Junior Primary Care Provider Cindy Laureano Jr, MD, Sammy Unavailable [phone] REASON FOR VISIT FYI Encounters Encounter Location Date Provider Diagnosis [facility] [address] [facility] [place] [address] 03/25/2024 Sammy Laureano Jr, MD PLAN OF TREATMENT No Information
--- OUTSIDE RECORDS SUMMARY | 2024-12-14 10:33 | XMS_ITS | Clinical Summary ---
Author Organization [facility] Address [address] [place] [address] Care Team Providers Care Computer Aided Design Designer Name Role Phone Junior Vega MD Primary Care Provider [phone] Allergies No known active allergies Medications carvedilol [...] Department Care Team Description 11/23/2024 4:00 PM FINISHED GOODS STOCK CLERK - 11/23/2024 11:59 PM FINISHED GOODS STOCK CLERK Hospital Encounter [facility] [place] [address] Mackenzie Barreto MD Discharge Disposition: Home or Self Care (Routine Discharge) 11/23/2024 Travel 10/15/2024 9:21 AM FINISHED GOODS STOCK CLERK - 10/15/2024 11:59 PM [facility] Hospital Encounter [facility] [place] [address] Yesenia Maldonado NP Discharge Disposition: Home or [...] = 0.6 oz pu re alcohol) socially [facility] Utilities Answer Date Recorded In the past 12 months has [facility] [employer], gas, oil, or water [employer] threatened to shut off services in your [...] any time in the past 12 m [facility], were you homeless or living in a snf (including now)? No 02/09/2024 Sex and Gender [...] CORONARY POST PROCESSING Routine 11/23/2024 5:21 PM FINISHED GOODS STOCK CLERK Abnormal findings diagnostic imaging of heart and coronary circulation CTA CORONARY W SCORING Routine 10/15/2024 10:23 AM FINISHED GOODS STOCK CLERK Coronary atherosclerosis due to lipid rich plaque CREATININE WHOLE BLOOD Routine 10/15/2024 9:50 AM FINISHED GOODS STOCK CLERK from Last 3 Months Results * FFR HEARTFLOW CTA CORONARY POST PROCESSING (11/23/2024 5:21 PM FINISHED GOODS STOCK CLERK) Anatomical Region Laterality Modality NA Computed Tomogra phy Narrative 11/26/2024 3:27 PM FINISHED GOODS STOCK CLERK Table formatting from the original result was not included. FFRCT Patient Name: Cyrus Soliman : 1945 Date of FFR: 11-23-2024 Date of CTA: 10-15-2024 Interpreting Quantitative Manager: MACKENZIE BARRETO M.D. Indication: Abnormal coronary CTA [...] stenosis of proximal LAD, first OM. Interpreting Quantitative Manager: MACKENZIE BARRETO M.D. 11/26/24 us Mackenzie Barreto MD CT Final Result * CTA CORONARY W SCORING (10/15/2024 10:23 AM FINISHED GOODS STOCK CLERK) Anatomical Region Laterality Modality Chest Computed Tomogra phy, Radiographic Imaging 10/29/2024 11:2 6 AM FINISHED GOODS STOCK CLERK Addenda Addendum by Mackenzie Barreto MD on 11/02/2024 7:54 AM FINISHED GOODS STOCK CLERK Table formatting from the original result was not included. CT ANGIOGRAM (Cardiology Portion) Patient Name: Cyrus Soliman : 1945 Date of Study: 10-15-2024 Interpreting Quantitative Manager: MACKENZIE BARRETO M.D. Indication: Coronary atherosclerosis History: [...] (anti-anginal therapy) per guideline directed care. Interpreting Quantitative Manager: MACKENZIE BARRETO M.D. 11/01/24 Narrative 10/29/2024 11:29 AM FINISHED GOODS STOCK CLERK [address] [address] EXAMINATION: Noncardiac over-read of cardiac CT/CTA CLINICAL [...] Christian MD, 10/29/2024 11:26 AM Yesenia Maldonado WEATHERIZATION INSTALLER CT Edited Result - Final * (ABNORMAL) CREATININE WHOLE BLOOD (10/15/2024 9:50 AM FINISHED GOODS STOCK CLERK) CREATININE WHOLE BLOOD 1.3(H) 0.70 - 1.20 mg/dL 10/15/2024 9:54 AM FINISHED GOODS STOCK CLERK [facility] 10/15/2024 9:50 AM FINISHED GOODS STOCK CLERK Yesenia Russell Aly WEATHERIZATION INSTALLER LABORATORY Final Result [facility] [address] [place] [address], [place] [phone] from Last 3 Months Insurance [facility] Care Teams Computer Aided Design Designer Relationship Specialty Start Date End Date Junior Vega MD [address] [place], [place] [id number] PCP - General FAMILY PRACTICE 02/01/20
--- OUTSIDE RECORDS SUMMARY | 2024-12-14 10:33 | XMS_ITS | Referral Summary ---
Author Organization [facility] Address [address] [place] [address] Care Team Providers Care Directional Survey Drafter Name Role Phone Junior Vega MD Primary Care Provider [phone] Jesus Erwin MD PhD Unavailable Encounters Date Type Department Care Team Description 11/30/2024 10:30 AM BATHHOUSE KEEPER Office Visit [facility] Sleep Medicine at [address] [address] Jodi Coto MD STEPHANIE (obstructive sleep apnea) (Primary Dx); Hypersomnia; Obesity, unspecified class, unspecified obesity type, unspecified whether serious comorbidity present; Insomnia, unspecified type 11/24/2024 7:15 PM BATHHOUSE KEEPER - 11/24/2024 11:59 PM BATHHOUSE KEEPER Hospital Encounter [facility] [address] [place] [address] STEPHANIE (obstructive sleep apnea) Discharge Disposition: Discharge to home or self care 11/02/2024 9:00 AM BATHHOUSE KEEPER Office Visit [facility] Sleep Medicine at [address] [address] Jodi Coto MD STEPHANIE (obstructive sleep apnea) (Primary Dx); Hypersomnia; Obesity, unspecified class, unspecified obesity type, unspecified whether serious comorbidity present; Insomnia, unspecified type 09/30/2024 7:15 PM BATHHOUSE KEEPER - 09/30/2024 11:59 PM BATHHOUSE KEEPER Hospital Encounter [facility] [address] [place] [address] STEPHANIE (obstructive sleep apnea) Discharge Disposition: Discharge to home or self care from Last 3 Months Allergies No known [...] of rotator cuff of left shoulder 11/24/19 Tobacco dependence in remission 11/24/2023 Type 2 diabetes mellitus without complications ( [facility]) 11/24/2023 Alcohol use disorder 10/08/2023 Assessment & Plan (10/08/2023 9:42 AM BATHHOUSE KEEPER): - drinks 5 whiskeys daily, last drink 10pm 10/07 - gets shakes that resolve with alcohol, but no h/o DTs or hospitalizations for withdrawal - [facility] - s/p phenobarb in ED - monitor closely for signs of withdrawal SDH (subdural hematoma) 10/07/2023 Assessment & Plan (10/09/2023 1:07 PM BATHHOUSE KEEPER): - NSGY c/s - repeat HCT 10/07 [...] Primary osteoarthritis of left hip 06/28/2018 Immunizations Immunization Administration Dates Next Due Influenza, [...] on file Legal Sex Male 9:22 AM BATHHOUSE KEEPER Gender Identity Not on file Sexual Orientation Not on file Last Filed Vital Signs Vital Sign Reading Time Taken Comments Blood Pressure 125/78 11/30/2024 10:11 AM BATHHOUSE KEEPER Pulse 84 11/30/2024 10:11 AM BATHHOUSE KEEPER Temperature 36.2 C (97.1 F) 04/27/2024 11:05 AM CDT Respiratory Rate 18 06/11/2024 11:5 0 AM CDT Oxygen Saturation 95% 11/30/2024 10: 11 AM BATHHOUSE KEEPER Inhaled Oxygen Concentration - - Weight 101.3 kg (223 lb 6.4 oz) 025 10:11 AM BATHHOUSE KEEPER Height 175.3 cm (5' 9.02 ) 11/30/2024 1 0:11 AM BATHHOUSE KEEPER Body Mass Index 32.98 11/30/2024 10:11 AM BATHHOUSE KEEPER Plan of Treatment Not on file Medical Devices Implanted Type Area Domestic Cleaner Device Identifier Shelf Expiration Date Model / Serial / Lot [employer] Inspire 3 Electrode Cuff Tunnel Dannie Lead Neurostimulator Sterile 4063 - [id number] - [id number] Implanted:Qty: 1 on 04/27/2024 by Natasha Treviño MD at [facility] Right: Neck [employer] 11/03/2026 4063 / [id number] / [employer] Lead Neurostimulator Sleep Apnea Thoracic Permanent Respiratory Sensing Inspire 43cm 4340 - [id number] - [id number] Implanted:Qty: 1 on 04/27/2024 by Natasha Treviño MD at [facility] Right: Chest [employer] 01/03/2027 4340 / [id number] / [employer] Inspire Generator 3028 - [id number] - [id number] Implanted:Qty: 1 on 04/27/2024 by Natasha Treviño MD at [facility] Right: Chest [employer] 12/21/2026 3028 / [id number] / Procedures Procedure Name Priority Date/Time [...] sleep apnea s/p hypoglossal nerve stimulator implantation [place] sleepiness score: 13 Weight: 224 lbs BMI: 33.08 Procedure: This overnight hypoglossal nerve stimulator (Inspire) titration polysomnogram was performed with the clinical technologist in attendance. Patient is studied with [...] scored according to the criteria from The [place] Academy of Sleep Medicine (AASM) Manual for [...] Clinical correlation is recommended. Jodi Coto MD [facility] Medicine Narrative Jodi [...] sleep apnea s/p hypoglossal nerve stimulator implantation [place] sleepiness score: 12 Weight: 228 lbs BMI: 33.67 Procedure: This overnight hypoglossal nerve stimulator (Inspire) titration polysomnogram was performed with the clinical technologist in attendance. Patient is studied with [...] scored according to the criteria from The [place] Academy of Sleep Medicine (AASM) Manual for [...] Clinical correlation is recommended. Jodi Coto MD [facility] Sleep Medicine Narrative Jodi [...] BLOOD ORDERABLES Final Res ult [facility] [address] Department [place] [address] * (ABNORMAL) Hemoglobin A1c (04/23/2024 2:46 PM CDT) Hgb A1C 5.7(H) 4.0 - 5.6 % Estimated Average Glucose 117 mg/dL [facility] PAPPAS Comment: The ADA recommends reporting an estimated Average Glucose (eAG) with all Hemoglobin A1c results using the equation derived from a study of 507 normal and diabetic adults. Minority populations were underrepresented and children were not included. (Diabetes Care 31:6175-3702, 2008). The eAG is not equivalent to a fasting glucose. Blood 04/23/2024 2:46 PM CDT 04/23/2024 4:01 PM CDT us Amairani Pinon NP LAB BLOOD ORDERABLES Final Res ult [facility] [address] Department [place] [address] from Last 3 Months or Most Recently Relevant to Health Maintenance Insurance [facility]IC[facility] Advance Directives For more information, please contact: [phone] * Full Code (Latest Code Status on File) Date Activated Date Inactivated Comments 10/07/2023 7:44 PM 10/09/2023 7:12 PM Care Teams Directional Survey Drafter Relationship Specialty Start Date End Date Junior Vega MD PCP - General 02/09/18 Jesus Erwin MD PhD [address] [place] [address] Consulting Physician Neurosurgery 10/09/23
--- OUTSIDE RECORDS SUMMARY | 2024-12-14 10:33 | XMS_ITS ---
Author Organization [facility] Address [address] [facility] [place] [address] Care Team Providers Care Clinical Exercise Specialist Name Role Phone Arlen Vegan Primary Care Provider Cindy Laureano Jr, MD, Sammy Unavailable [phone] REASON FOR VISIT APPROVED Encounters Encounter Location Date Provider Diagnosis [facility] outpt [address], [place] [id number] 04/05/2024 Sammy Laureano Jr, MD PLAN OF TREATMENT No Information
== END 2024-12-14 09:32 | disposition home or self-care (01) ==
PROVIDERS: PCP Family Medicine; Visit Provider Nurse Practitioner Adult Health
DX: R92.8 Other abnormal and inconclusive findings on diagnostic imaging of breast (principal); N62 Hypertrophy of breast
CPT/HCPCS: 76642

== ENCOUNTER 2025-02-09 16:20 | Outpatient (CLI) | payer MEDICARE, SELFPAY ==
--- NOTE | ~2025-02-09 | US_ITS ---
EXAM: RENAL ULTRASOUND HISTORY: N18.31 - Chronic kidney disease, stage 3a COMPARISON: 2018 FINDINGS: RIGHT KIDNEY: 10.0 x 5.1 x 5.7 cm. The parenchyma of the right kidney is increased in echogenicity and thin in caliber. No hydronephrosis or renal calculi. Two rounded anechoic avascular foci detected within the lower pole of the right kidney. The largest measures 23 mm in greatest dimension, consistent with simple cysts (as confirmed with MRI of 05/26/2023) for which no further follow-up is needed.. LEFT KIDNEY: 10.8 x 5.6 x 5.5 cm No hydronephrosis or renal calculi. The parenchyma of the left kidney is increased in echogenicity and thin in caliber. BLADDER: The bladder is distended, and otherwise unremarkable. IMPRESSION: No hydronephrosis or renal calculi. Findings suggesting medical renal disease. Two benign cysts within the lower pole of the right kidney for which no further follow-up is needed Reviewed, dictated and finalized at location A.
--- OUTSIDE RECORDS SUMMARY | 2025-02-09 17:39 | XMS_ITS | Encounter Summary ---
Author Organization [facility] Healthcare Address [address] [place] [address] Care Team Providers Care Milling Machine Tender Name Role Phone Junior Vega MD Primary Care Provider + [phone] Jesus Erwin MD PhD Unavailable [phone] Reason for Visit * Consultation (Routine) - Authorized Specialty Diagnoses / Procedures Referred By Katheryn tesfaye Referred To Contact Sleep Medicine Diagnoses STEPHANIE (obstructive sleep apnea) Formerly [facility], [address] [address] Phone: tel: fax: Jodi Coto MD [address] [place] [address] [address] PUL[address]O [address] [place] [id number] Phone: tel: Referral ID Status Reason Start Date Expiration Date Visits Requested Visits Authorized [id number] Authorized Specialty Services Required 11/30/2024 07/10/2025 12 12 Encounter Details Date Type Department Care Team (Late st Contact Info) Description 02/08/2025 9:30 AM CDT Office Visit [facility] Sleep Medicine at [address] [place] [phone] Jodi Coto MD [address] [place] [address] [facility] [address] [place] [address] STEPHANIE (obstructive sleep apnea) (Primary Dx); Obesity, unspecified class, unspecified obesity type, unspecified whether serious comorbidity present; Insomnia, unspecified type; Hypersomnia Social History Tobacco Use Types Packs/Day Years [...] on file 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 Gender Identity Not on file Sexual Orientation Not on file documented as of this encounter Last Filed Vital Signs Vital Sign Reading Time Taken Comments Blood Pressure 126/78 02/08/2025 9:35 AM CDT Pulse 82 02/08/2025 9:35 AM CDT Temperature - - Respiratory Rate - - Oxygen Saturation 96% 02/08/2025 9:35 AM CDT Inhaled Oxygen Concentration - - Weight 95.6 kg (210 lb 12.8 oz) 02/08/2025 9:35 AM CDT Height 175.3 cm (5' 9.02 ) 02/08/2025 9:35 AM CD T Body Mass Index 31.12 02/08/2025 9:35 AM CDT documented in this encounter Progress Notes * Jodi Coto MD - 02/08/2025 9:30 AM CDT Images from the original note were not included. SUBJECTIVE Chief Complaints: Snoring, unrefreshing sleep, excessive daytime sleepiness HPI: Cyrus Soliman is a 79 y.o. male seen in the sleep medicine clinic for follow- up on obstructive sleep apnea. Obstructive sleep apnea: Patient has been using inspire therapy regularly. Patient states that he was unable to tolerate hisprior setting and sleep with it turned on. So he went down a setting and has been able to use it regularly. He uses it every night and keeps it on throughout the night. Feels well rested during the day. He [facility] to [facility] and is able to sleep well. No issues with the device. History: Patient gives history of many years of snoring and excessive daytime sleepiness. Patient was diagnosed with obstructive sleep apnea more than 15 years ago and has intermittently tried CPAP for over 15 years. Patient states that he has tried multiple masks, but he would end up taking it off in the middle of the night. So he recently had hypoglossal nerve stimulator implanted by Dr. Treviño, ENT more than a month ago on 04/27/2024. Patient has no issues with swallowing or talking or drinking. Wound has been healing well. Patient is here for activation of the hypoglossal nerve stimulator. Date of inspire implantation: 04/27/2024 Date of hypoglossal nerve stimulator activation: 06/11/2024 Difficulty falling asleep: He currently takes Ambien 5 mg and [facility]. He goes to bed at 10:00 p.m., fallsasleep in 45 minutes and wakes up at 8:00 a.m.. Patient wakes up once during the night and denies any waking up due to restless sleep. Denies any grogginess in the morning. Denies any sleepwalking or sleep talking or any confusion during the night. History: Patient states that he lost his daughter recently and is having trouble falling asleep. It takes him more than an hour to fall asleep. Once he falls asleep, he does not wake up at night. He was started on Lunesta 2 mg nightly. With the medication, he is able to fall asleep within 45 minutes or so and does not wake up at night. Patient has noticed that the inspire turning on before he falls asleepis preventing him from falling asleep as well. Denies any grogginess in the morning. Denies any sleepwalking or sleep talking or any confusion. Medications tried: Lunesta 2 mg nightly-no relief Current medication: Ambien 5 mg nightly Melatonin nightly Sleep schedule: At initial visit: On all days, he goes to bed at 10:30 p.m., falls asleep in 20 minutes and wakes up at 9:30 a.m.. Patient wakes up once to use the restroom and is able to get to sleep in 5 minutes. Patient has for an hour. Denies any hypnogogic or hypnopompic hallunications. Denies any sleep paralysis. Denies any cataplexy. Denies any dreaming during daytime naps. Denies any sleepwalking. Denies any sleeptalking. Denies any nightmares. Denies any motor activities, kicking, acting out dreams, falls, or screaming during sleep. Denies any urge to move his legs in the evening, during rest which gets better with activity. ESS: 14 (at initial presentation 11) Past Medical History: Diagnosis Date Alcoholism (HCC) Anxiety Brain bleed (HCC) due to fall Cancer (HCC) skin, face Colon polyp Depression Dizziness Enlarged prostate HL (hearing loss) Hyperlipidemia Hypertension Motion sickness Nephrolithiasis Orthostatic hypotension Prediabetes Sleep apnea Tinnitus Type 2 diabetes mellitus (HCC) Vertigo Vitamin D deficiency Past Surgical History: Procedure Laterality Date COLONOSCOPY Last colonoscopy > 10 years ago; + polyps per patient report CYSTOSCOPY KIDNEY STONE SURGERY ROTATOR CUFF REPAIR Bilateral SKIN CANCER EXCISION face TOTAL HIP ARTHROPLASTY Left Current Outpatient Medications: amLODIPine, 10 mg, oral, Daily carvediloL, 6.25 mg, oral, BID with meals (bkfst, dinner) cyclobenzaprine, 10 mg, oral, BID PRN DULoxetine DR, 60 mg, oral, Daily finasteride, Take 1 tablet (5 mg total) by mouth fluticasone propionate, 2 spray, each nostril, Daily hypromellose, 1 drop, ophthalmic, PRN mv-min/folic/K1/lycopen/lutein (CENTRUM SILVER MEN ORAL), 1 tablet, oral, Daily oxyCODONE, 5 mg, oral, Q4H PRN polyethylene glycol, 17 g, oral, Daily PRN rosuvastatin, 40 mg, oral, Nightly tamsulosin, TAKE 1 CAPSULE EVERY EVENING AFTER EVENING MEAL zolpidem, 5 mg, oral, Nightly PRN No Known Allergies Social History Tobacco Use Smoking status: Former Current packs/day: 0.00 Types: Cigarettes Quit date: 2003 Years since quittin.3 Smokeless tobacco: Current Types: Chew Tobacco comments: Quit smoking at least 20 years ago, smokeless tobacco daily Substance and Sexual Activity Drug use: Yes Types: Alcohol Comment: couple whiskey daily (has decreased amount that use to do) Sexual activity: Defer Alcohol Use: Not At Risk (04/27/2024) AUDIT-C Frequency of Alcohol Consumption: 4 or more times a week Average Number of Drinks: 1 or 2 Frequency of Binge Drinking: Never Family History Problem Relation Age of Onset No Known Problems Mother Cancer Father Physical Exam: Vitals: 02/08/25 0935 BP: 126/78 Pulse: 82 SpO2: 96% Weight: 95.6 kg (210 lb 12.8 oz) Height: 175.3 cm (5' 9.02 ) BMI: Body mass index is 31.12 kg/m??. Wt Readings from Last 6 Encounters: 02/08/25 95.6 kg (210 lb 12.8 oz) 01/11/25 96.6 kg (213 lb) 01/10/25 97.1 kg (214 lb 1.6 oz) 11/30/24 101.3 kg (223 lb 6.4 oz) 11/02/24 101.6 kg (224 lb) 09/08/24 103.4 kg (228 lb) BMI Readings from Last 6 Encounters: 02/08/25 31.12 kg/m?? 01/11/25 31.45 kg/m?? 01/10/25 31.62 kg/m?? 11/30/24 32.98 kg/m?? 11/02/24 33.08 kg/m?? 09/08/24 33.67 kg/m?? Physical Exam General appearance: Alert, oriented, in no distress. HEENT: Atraumatic, normocephalic. Pupils are equal and reactive to light. Extraocular movement intact. Neuro: No focal deficits Psychiatric: Normal mood and affect Polysomnogram results: PSG at [facility] from 04/2023: AHI 8.3, RDI 15.0 Home sleep apnea testing from 03/2024: AHI 82.3 Hypoglossal nerve stimulator titration study from 09/2024: Incomplete titration study with partial alleviation of obstructive sleep apnea at therapeutic amplitude 0.8 volts. Repeat titration study isrecommended. Use of hypnotics is recommended for the repeat study. Hypoglossal nerve stimulation titration study from 11/2024: Partial alleviation at therapeutic amplitude of 1.3 volts. Data download: NA Ejection fraction: NA History from activation visit for INSPIRE: Patient Name: Cyrus Soliman Incision Check: clean, dry, intact Functional Tongue Exam: Completed. Tongue was midline. Patient was able to protrude the tongue and move sideways. Patient was able to roll the tongue in both directions. Sensation Threshold (ST): 0.5 V Functional Threshold (FT): 0.5 V Tongue Motion Phenotype at FT: Protrusion Final Amplitude Range: 0.5- 1.5 V Sensor Waveform: Normal Start delay: 30 mins Pause duration: 15 mins Therapy duration: 11 hours Electrode: A, [+-+] Pulse Width: 90 ?s Rate: 33 hz Patient Instructions: 1. Confirmed the patient was given the Inspire Patient Video Care Book. 2. Reviewed and educated the patient on proper sleep remote function. The patient demonstrated competency with the remote, is aware of the quick guide and instructional video. 3. Instructed the patient to use therapy all-night, every-night and step up their levels by one level (0.1 V) once per week. 4. The patient will be scheduled for an office visit before the fine tune sleep study to ensure adequate adherence and ensure the patient is stepping up their levels. 5. The patient will be scheduled for a titration sleep study in about 3 months to assess adherence, fine tune the settings and evaluate efficacy. Assessment and Plan: Very severe obstructive sleep apnea: PSG from 04/2023 showed moderate obstructive sleep apnea. Repeat home sleep apnea testing 03/2024 showed very severe obstructive sleep apnea. Patient has history of CPAP intolerance. Patient is status post hypoglossal nerve stimulator implantation on 04/27/2024. Hypoglossal nerve stimulator was activated on 06/11/2024. Hypoglossal nerve stimulator titration study was done on 09/2024, which was an incomplete titrationstudy. Patient had difficulty falling asleep and staying asleep and had very poor sleep efficiency. Inspire titration was obtained on 11/24/2024. Patient is currently on therapeutic amplitude of 1.2 volts. Based on the titration study, partial alleviation was obtained at 1.3 volts. Hypoglossal nerve stimulation was interrogated today. Therapeutic amplitude continued at 1.2 volts,therapeutic amplitude range of 1.0-1.5 volts, start delay of 60 minutes, pause time of 15 minutes and total therapy duration of 11 hours remained the same. Instructed patient to use the device every night, keeps it on throughout the night and increase thelevel once a week as tolerated. Will plan on repeating home sleep study in the future. The physiology of sleep disordered breathing and its increased association with hypertension, diabetes mellitus type 2, arrhythmias, strokes, heart attacks, heart failure, hypersomnia, obesity, cognitive dysfunction, and mood disorders were discussed. Hypnotics, sedatives, and related medications have the potential of worsening the apnea and should be avoided. Patients with sleep apnea may have significant daytime hypersomnolence. If that is the case, driving or handling heavy machinery should be avoided until the apnea and excessive sleepiness have resolved. Weight loss for ideal body weight range is recommended. Hypersomnia: Likely secondary to sleep fragmentation associated with uncontrolled sleep disordered breathing. Improved with inspire use. No driving if sleepy. Morbid Obesity: The effects of obesity, obstructive sleep apnea syndrome and other morbidities were discussed. Recommended diet and exercise for ideal body weight. Patient verbalized understanding. Sleep onset insomnia: Due to recent loss of his daughter. No longer on Lunesta since no relief. Continue with Ambien 5 mg nightly along with melatonin. [facility] Side-effects discussed with the patient. Will be cautious regarding increasing Ambien or adding hypnotics. Patient has history of chronic alcohol use and states that he is a recovering alcoholic. Return in about 3 months (around 05/10/2025). Voice recognition software [employer] was used dictate and transcribe this document. Management Specialist variances may occur. Despite proofreading, typographical errors may occur. Jodi Coto MD [facility] Sleep Medicine CC: Junior Vega MD documented in this encounter Plan of Treatment Not on file documented as of this encounter Visit Diagnoses Diagnosis STEPHANIE (obstructive sleep apnea)- Primary Obstructive sleep apnea (adult) (pediatric) Obesity, unspecified class, unspecified obesity type, unspecified whether serious comorbidity present Insomnia, unspecified type Hypersomnia Hypersomnia, unspecified documented in this encounter Care Teams Milling Machine Tender Relationship Specialty Start Date End Date uJnior Vega MD PCP - General 02/09/18 Jesus Erwin MD PhD [address] [place] [address] Consulting Physician Neurosurgery 10/09/23 documented as of this encounter
--- OUTSIDE RECORDS SUMMARY | 2025-02-09 17:39 | XMS_ITS | Encounter Summary ---
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
--- OUTSIDE RECORDS SUMMARY | 2025-02-09 17:39 | XMS_ITS ---
Author Organization [facility] Address [address] [place] [address] Care Team Providers Care Safety Coordinator Name Role Phone Junoir Vega MD Primary Care Provider + [phone] Jesus Erwin MD PhD Unavailable [phone] Active Problems Problem Noted Date Diagnosed Date [...] 11/24/2023 Type 2 diabetes mellitus without complications 0 11/24/2023 Alcohol use disorder 10/08/2023 Assessment & Plan (10/08/2023 9:42 AM FREIGHT ASSOCIATE): - drinks 5 whiskeys daily, last drink 10pm 10/07 - gets shakes that resolve with alcohol, but no h/o DTs or hospitalizations for withdrawal - [facility] - s/p phenobarb in ED - monitor closely for signs of withdrawal SDH (subdural hematoma) 10/07/2023 Assessment & Plan (10/09/2023 1:07 PM FREIGHT ASSOCIATE): - NSGY c/s - repeat HCT 10/07 [...]
--- OUTSIDE RECORDS SUMMARY | 2025-02-09 17:39 | XMS_ITS | Clinical Summary ---
Author Organization [facility] Address [address] [place] [address] Care Team Providers Care Chronometer Assembler Name Role Phone Junior Vega MD Primary Care Provider [phone] Allergies No known active allergies Medications carvedilol [...] Department Care Team Description 11/23/2024 4:00 PM WEATHERSEAL TECHNICIAN - 11/23/2024 11:59 PM WEATHERSEAL TECHNICIAN Hospital Encounter [facility] [place] [address] Reid Barreto MD Discharge Disposition: Home or Self Care (Routine Discharge) 11/23/2024 Travel from Last 3 Months Social History Tobacco Use Types Packs/Day Years Used Date Smoking Tobacco: Former Cigarettes 2007 Smokeless Tobacco: Current Tobacco Cessation:Ready to Q uit: Not Asked; Counseling Given: Not Answered Alcohol Use Standard Drinks/Week Comments Yes 14 (1 standard drink = 0.6 oz pu re alcohol) socially [facility] Utilities Answer Date Recorded In the past 12 months has [facility] [employer], gas, oil, or water [employer] threatened to shut off services in your [...] any time in the past 12 m [facility], were you homeless or living in a intermediate (including now)? No 02/09/2024 Sex and Gender [...] Years (1 - 1-dose 75+ series) 2021 COVID-19 Vaccine ( season) 2025 08/11/2024, 11/05/2023, 08/21/2022, Additional history exists DTaP, Tdap and Td Vaccines (4 - Td or Tdap) 05/07/2033 05/07/2023, 01/25/2019, 06/18/2011 Zoster Vaccines Completed 09/08/2019, 0504/2019, 07/09/2011 Pneumococcal Vaccine: 50+ Years Completed 11/05/2023, 08/22/2015 Meningococcal B Vaccine Aged Out No l [...] CORONARY POST PROCESSING Routine 11/23/2024 5:21 PM WEATHERSEAL TECHNICIAN Abnormal findings diagnostic imaging of heart and coronary circulation from Last 3 Months Results * FFR HEARTFLOW CTA CORONARY POST PROCESSING (11/23/2024 5:21 PM WEATHERSEAL TECHNICIAN) Anatomical Region Laterality Modality NA Computed Tomogra phy Narrative 11/26/2024 3:27 PM WEATHERSEAL TECHNICIAN Table formatting from the original result was not included. FFRCT Patient Name: Cyrus Soliman : 1945 Date of FFR: 11-23-2024 Date of CTA: 10-15-2024 Interpreting Special Education Associate: REID BARRETO M.D. Indication: Abnormal coronary CTA History: [...] stenosis of proximal LAD, first OM. Interpreting Special Education Associate: REID BARRETO M.D. 11/26/24 us Reid Barreto MD CT Final Result from Last 3 Months Insurance [facility] Care Teams Chronometer Assembler Relationship Specialty Start Date End Date Junior Vega MD [address] [place], [place] [id number] PCP - General FAMILY PRACTICE 02/01/20
--- OUTSIDE RECORDS SUMMARY | 2025-02-09 17:39 | XMS_ITS | Referral Summary ---
Author Organization [facility] Address [address] [place] [address] Care Team Providers Care Refining Equipment Operator Name Role Phone Junior Vega MD Primary Care Provider [phone] Jesus Erwin MD PhD Unavailable Encounters Date Type Department Care Team Description 02/08/2025 9:30 AM CDT Office Visit [facility] Sleep Medicine at [address] [place] [address] Jodi Coto MD STEPHANIE (obstructive sleep apnea) (Primary Dx); Obesity, unspecified class, unspecified obesity type, unspecified whether serious comorbidity present; Insomnia, unspecified type; Hypersomnia 01/11/2025 9:00 AM CDT Office Visit [facility] Sleep Medicine at [address] [place] [phone] Jodi Coto MD STEPHANIE (obstructive sleep apnea) (Primary Dx); Hypersomnia; Obesity, unspecified class, unspecified obesity type, unspecified whether serious comorbidity present; Insomnia, unspecified type 01/10/2025 9:40 AM CDT Office Visit [facility]) - [facility] [address] [facility] Medical Office Building [address] [place] [address] Natasha Treviño MD S/P insertion of hypoglossal nerve stimulator (Primary Dx); Obstructive sleep apnea 11/30/2024 10:30 AM PALLETIZER Office Visit [facility] Sleep Medicine at [address] [place] [address] Jodi Coto MD STEPHANIE (obstructive sleep apnea) (Primary Dx); Hypersomnia; Obesity, unspecified class, unspecified obesity type, unspecified whether serious comorbidity present; Insomnia, unspecified type 11/24/2024 7:15 PM PALLETIZER - 11/24/2024 11:59 PM PALLETIZER Hospital Encounter [facility] [address] [place] [address] STEPHANIE (obstructive sleep apnea) Discharge Disposition: Discharge [...] 10/08/2023 Assessment & Plan (10/08/2023 9:42 AM PALLETIZER): - drinks 5 whiskeys daily, last drink 10pm 10/07 - gets shakes that resolve with alcohol, but no h/o DTs or hospitalizations for withdrawal - actively going to meetings at the [facility] - s/p phenobarb in ED - monitor closely for signs of withdrawal SDH (subdural hematoma) 10/07/2023 Assessment & Plan (10/09/2023 1:07 PM PALLETIZER): - NSGY c/s - repeat HCT 10/07 [...] on file Legal Sex Male 9:22 AM PALLETIZER Gender Identity Not on file Sexual Orientation Not on file Last Filed Vital Signs Vital Sign Reading Time Taken Comments Blood Pressure 126/78 02/08/2025 9:35 AM CDT Pulse 82 02/08/2025 9:35 AM CDT Temperature 36.2 C (97.1 F) 04/27/2024 11:05 AM CDT Respiratory Rate 18 06/11/2024 11:5 0 AM CDT Oxygen Saturation 96% 02/08/2025 9:35 AM CDT Inhaled Oxygen Concentration - - Weight 95.6 kg (210 lb 12.8 oz) 02/08/2025 9:35 AM CDT Height 175.3 cm (5' 9.02 ) 02/08/2025 9:35 AM CD T Body Mass Index 31.12 02/08/2025 9:35 AM CDT Plan of Treatment Not on file Medical Devices Implanted Type Area Senior Network Systems Engineer Device Identifier Shelf Expiration Date Model / Serial / Lot [employer] Inspire 3 Electrode Cuff Tunnel Dannie Lead Neurostimulator Sterile 4063 - [id number] - [id number] Implanted:Qty: 1 on 04/27/2024 by Natasha Treviño MD at [facility] Right: Neck [employer] 11/03/2026 4063 / [id number] / [employer] Lead Neurostimulator Sleep Apnea Thoracic Permanent Respiratory Sensing Inspire 43cm 4340 - [id number] - [id number] Implanted:Qty: 1 on 04/27/2024 by Natasha Treviño MD at [facility] Right: Chest [employer] 01/03/2027 4340 / [id number] / [employer] Inspire Generator 3028 - [id number] - [id number] Implanted:Qty: 1 on 04/27/2024 by Natasha Treviño MD at [facility] Right: Chest [employer] 12/21/2026 3028 / [id number] C / Procedures Procedure Name Priority Date/Time Associated Diagnosis Comments PSG (SIMPLE) Routine 11/25/2024 STEPHANIE (obstructive sleep apnea) EGFR Routine 04/23/2024 [...] sleep apnea s/p hypoglossal nerve stimulator implantation [place] sleepiness score: 13 Weight: 224 lbs BMI: 33.08 Procedure: This overnight hypoglossal nerve stimulator (Inspire) titration polysomnogram was performed with the operating room surgical technologist in attendance. Patient is studied with [...] scored according to the criteria from The [place] Academy of Sleep Medicine (AASM) Manual for [...] Clinical correlation is recommended. Jodi Coto MD [facility] Sleep Medicine Narrative Jodi [...] Inclusion of Race in Diagnosing Kidney Disease, ABBEYSN 2020). The CKD-EPI equation should not be used for patients with unstable renal function and has not been validated in children and those over 70. Current interpretive data was last reviewed 2021. Blood 04/23/2024 2:46 PM CDT 04/23/2024 3:12 PM CDT Amairani Pinon NP LAB BLOOD ORDERABLES Final Res ult Performing Organization Address [facility] de Phone Number THERESA [address] [place] [address] * (ABNORMAL) Hemoglobin A1c (04/23/2024 2:46 PM CDT) Hgb A1C 5.7(H) 4.0 - 5.6 % Estimated Average Glucose 117 mg/dL THERESA Comment: The ADA recommends reporting an estimated Average Glucose (eAG) with all Hemoglobin A1c results using the equation derived from a study of 507 normal and diabetic adults. Minority populations were underrepresented and children were not included. (Diabetes Care 31:4878-7706, 2008). The eAG is not equivalent to a fasting glucose. Blood 04/23/2024 2:46 PM CDT 04/23/2024 4:01 PM CDT Amairani Pinon NP LAB BLOOD ORDERABLES Final Res ult Performing Organization Address [facility] de Phone Number THERESA [address] [facility] [place] [address] from Last 3 Months or Most Recently Relevant to Health Maintenance Insurance [facility] MEDIC[facility] ADVANTAGE [facility] Address: [address] [address] [place] [address] [facility] Member Subscriber Plan / Payer (Ef fective 2011-Present) Name:Sergio Yanes Relation to Subscriber:Self Name:Sergio Yanes Payer ID:[id number] Group ID:Not on file Type:OTHER [facility] Address: [address] [address] [facility] Address: [address] [address] [place] [address] [facility] Advance Directives For more information, please contact: [phone] * Full Code (Latest Code Status on File) Date Activated Date Inactivated Comments 10/07/2023 7:44 PM 10/09/2023 7:12 PM Care Teams Refining Equipment Operator Relationship Specialty Start Date End Date Junior Vega MD PCP - General 02/09/18 Jesus Erwin MD PhD [address] [place] [address] Consulting Physician Neurosurgery 10/09/23
--- OUTSIDE RECORDS SUMMARY | 2025-02-09 17:39 | XMS_ITS | Clinical Summary ---
Author Organization [facility] Address [address] [place] [address] Phone Care Team Providers Care Box Stapler Name Role Phone Unavailable Primary Care Provider [...] 1963 LDL CHOLESTEROL ANNUAL 1963 PNEUMOCOCCAL VACCINE 50+ YEA RS (2 of 2 - PPSV23) [...]
--- OUTSIDE RECORDS SUMMARY | 2025-02-09 17:39 | XMS_ITS | Clinical Summary ---
Author Organization [facility] Address [address] [place] [address] Care Team Providers Care Bottle Gauger Name Role Phone Junior Vega MD Primary Care Provider [phone] Jesus Erwin MD PhD Unavailable Allergies No [...] Overview (11/24/2023): Jun 18, 2011 Entered By: EDBI ORANTES Comment: thoracic spine Other injury of [...] 10/08/2023 Assessment & Plan (10/08/2023 9:42 AM QUALITATIVE EXECUTIVE RESEARCHER): - drinks 5 whiskeys daily, last drink 10pm 10/07 - gets shakes that resolve with alcohol, but no h/o DTs or hospitalizations for withdrawal - [place] going to meetings at the [place] - s/p phenobarb in ED - monitor closely for signs of withdrawal SDH (subdural hematoma) 10/07/2023 Assessment & Plan (10/09/2023 1:07 PM QUALITATIVE EXECUTIVE RESEARCHER): - NSGY c/s - repeat HCT 10/07 [...] 9:30 AM CDT Office Visit [facility] Sleep Medicine at [address] [place] [phone] Jodi Coto MD STEPHANIE (obstructive sleep apnea) (Primary Dx); Obesity, unspecified class, unspecified obesity type, unspecified whether serious comorbidity present; Insomnia, unspecified type; Hypersomnia 01/11/2025 9:00 AM CDT Office Visit [facility] Sleep Medicine at [address] [place] [address] Jodi Coto MD STEPHANIE (obstructive sleep apnea) (Primary Dx); Hypersomnia; Obesity, unspecified class, unspecified obesity type, unspecified whether serious comorbidity present; Insomnia, unspecified type 01/10/2025 9:40 AM CDT Office Visit [facility]) - [facility] E[facility] [address] [facility] Medical Office Building [address] [place] [address] Natasha Treviño MD S/P insertion of hypoglossal nerve stimulator (Primary Dx); Obstructive sleep apnea 11/30/2024 10:30 AM QUALITATIVE EXECUTIVE RESEARCHER Office Visit [facility] Sleep Medicine at [address] [place] [address] Jodi Coto MD STEPHANIE (obstructive sleep apnea) (Primary Dx); Hypersomnia; Obesity, unspecified class, unspecified obesity type, unspecified whether serious comorbidity present; Insomnia, unspecified type 11/24/2024 7:15 PM QUALITATIVE EXECUTIVE RESEARCHER - 11/24/2024 11:59 PM QUALITATIVE EXECUTIVE RESEARCHER Hospital Encounter [facility] [address] [place] [address] STEPHANIE (obstructive sleep apnea) Discharge Disposition: Discharge [...] polyp Vitamin D deficiency Nephrolithiasis Anxiety Cancer (HCC) skin, face Depression HL (hearing loss) Dizziness Tinnitus Sleep apnea Alcoholism (HCC) Prediabetes Vertigo Orthostatic hypotension Motion sickness [...] on file Legal Sex Male 9:22 AM QUALITATIVE EXECUTIVE RESEARCHER Gender Identity Not on file Sexual Orientation [...] 02/08/2025 9:35 AM CDT Plan of Treatment Health Maintenance Due [...] history exists Medical Devices Implanted Type Area Nuclear Medicine Technologist Device Identifier Shelf Expiration Date Model / Serial / Lot [employer] Inspire 3 Electrode Cuff Tunnel Dannie Lead Neurostimulator Sterile 4063 - [id number] - [id number] Implanted:Qty: 1 on 04/27/2024 by Natasha Treviño MD at [facility] Right: Neck [employer] 11/03/2026 4063 / [id number] / [employer] Lead Neurostimulator Sleep Apnea Thoracic Permanent Respiratory Sensing Inspire 43cm 4340 - [id number] - [id number] Implanted:Qty: 1 on 04/27/2024 by Natasha Treviño MD at [facility] Right: Chest [employer] 01/03/2027 4340 / [id number] / [employer] Inspire Generator 3028 - [id number] - [id number] Implanted:Qty: 1 on 04/27/2024 by Natasha Treviño MD at [facility] Right: Chest [employer] 12/21/2026 3028 / [id number] C / Procedures Procedure Name Priority Date/Time [...] sleep apnea s/p hypoglossal nerve stimulator implantation [place] sleepiness score: 13 Weight: 224 lbs BMI: 33.08 Procedure: This overnight hypoglossal nerve stimulator (Inspire) titration polysomnogram was performed with the nuclear medicine technologist in attendance. Patient is studied with [...] scored according to the criteria from The [place] Academy of Sleep Medicine (AASM) Manual for [...] is recommended. Jodi Coto MD [facility] Sleep Medicine Narrative Jodi Coto [...] ORDERABLES Final Res ult Performing Organization Address [facility] de Phone Number THERESA PAPPAS [address] [facility] [place] [address] * (ABNORMAL) Hemoglobin A1c (04/23/2024 2:46 PM CDT) Hgb A1C 5.7(H) 4.0 - 5.6 % Estimated Average Glucose 117 mg/dL THERESA Comment: The ADA recommends reporting an estimated Average Glucose (eAG) with all Hemoglobin A1c results using the equation derived from a study of 507 normal and diabetic adults. Minority populations were underrepresented and children were not included. (Diabetes Care 31:6826-5198, 2008). The eAG is not equivalent to a fasting glucose. Blood 04/23/2024 2:46 PM CDT 04/23/2024 4:01 PM CDT Amairani Pinon NP LAB BLOOD ORDERABLES Final Res ult Performing Organization Address [facility] de Phone Number THERESA PAPPAS [address] [facility] [place] [address] from Last 3 Months or Most Recently Relevant to Health Maintenance Insurance [facility] [place] [address] [facility] MEDIC[facility] ADVANTAGE Advance Directives For more information, please contact: [phone] * Full Code (Latest Code Status on File) Date Activated Date Inactivated Comments 10/07/2023 7:44 PM 10/09/2023 7:12 PM Care Teams Bottle Gauger Relationship Specialty Start Date End Date Junior Vega MD PCP - General 02/09/18 Jesus Erwin MD PhD [address] [place] [address] Consulting Physician Neurosurgery 10/09/23
== END 2025-02-09 16:21 | disposition home or self-care (01) ==
PROVIDERS: PCP Family Medicine; Visit Provider Internal Medicine Nephrology
DX: N18.31 Chronic kidney disease, stage 3a (principal); N28.1 Cyst of kidney, acquired
CPT/HCPCS: 76775

== ENCOUNTER 2025-02-14 16:26 | Emergency (ER) | payer MEDICARE, SELFPAY ==
[2025-02-14 16:31] VITALS: BP 145/81; PULSE 94; RESP 20; TEMP 36.4; O2SAT 97
--- NOTE | 2025-02-14 16:54 | ED_ITS ---
HPI - Dizziness General Chief Complaint: Dizziness Stated Complaint: Dizzy Time Seen by Provider: 02/14/25 16:54 Source: patient Mode of arrival: ambulatory Limitations: no limitations History of Present Illness HPI Narrative: 79-year-old male with history of hypertension, chronic vertigo presents today with complaint of dizziness that started around 10 30 or 11 this morning. Patient states normally with his chronic vertigo he rest and dizziness will go away in a few minutes. Patient states that after physical therapy session this morning is when dizziness for started. Went home and rested and continues to have dizziness. no headache, no vision changes. Patient states that he feels foggy . And O x3. Patient's family stating that he is usually more articulate . Patient is able to answer yes and no questions quickly but if it is a more descriptive answer he seems to be having trouble forming words. Patient ambulatory with cane. Denies weakness, numbness tingling to upper or lower extremities. Patient's family is concerned for stroke symptoms. All systems reviewed and negative except as noted above. Related Data Home Medications ?Medication ?Instructions ?Recorded ?Confirmed ?Last Taken ?Type tamsulosin 0.4 mg capsule 0.4 mg PO DAILY 05/12/23 02/08/25 Unknown History dutasteride 0.5 mg capsule 0.5 mg PO DAILY 02/23/24 02/14/25 Unknown History naltrexone 50 mg tablet 50 mg PO DAILY 02/23/24 02/08/25 Unknown History zolpidem 5 mg tablet mg PO 09/13/24 02/08/25 Unknown History Allergies Allergy/AdvReac Type Severity Reaction Status Date / Time No Known Allergies Allergy Verified 02/14/25 16:38 Review of Systems Review of Systems: CONSTITUTIONAL: Denies fever, chills, or sweats. EYES: Denies visual changes, redness, or discharge. ENT: Denies rhinorrhea, congestion, sore throat, or otalgia. CARDIOVASCULAR: Denies chest pain, palpitations, or edema. RESPIRATORY: Denies cough or dyspnea. GASTROINTESTINAL: Denies abdominal pain, nausea, vomiting, or diarrhea. GENITOURINARY: Denies dysuria or hematuria. SKIN: Denies rash or itching. MUSCULOSKELETAL: Denies back pain, joint pain, or myalgia. NEUROLOGIC: Denies headache, numbness, or weakness. reports dizziness, brain fog PSYCHIATRIC: Denies anxiety or depression. All other systems reviewed are negative, except as documented in HPI. 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 Abnormal mammogram Chronic kidney disease Family history of malignant neoplasm of breast Breast mass, left Melanoma Low kidney function CKD stage 3a, GFR 45-59 ml/min Chest pain Fatty liver, alcoholic PTSD (post-traumatic stress disorder) Muscle tension pain JOHNSON (dyspnea on exertion) Rib injury Elevated liver enzymes Tinnitus Screening for malignant neoplasm of prostate Biceps muscle tear Abnormal MRI, musculoskeletal Severe pain of right shoulder Shoulder pain with history of repair of rotator cuff Arthritis of shoulder Hx of rotator cuff tear Severe shoulder pain Abnormal kidney function Prediabetes Surgical History Surgical History History of Mohs surgery for squamous cell carcinoma in situ of skin Hx of repair of right rotator cuff Family History Family History Father Hypertension Family history of malignant neoplasm Grandparent Cerebrovascular accident Mother Sibling No problems noted. Social History Social History Smoking packs per day: 1 Smoking cigarettes per day: 20.0 Years smoked: 30 Smoking pack-years: 30.00 Smoking status: Former smoker Tobacco type: cigarettes and e-cigarettes/vaping Smokeless tobacco user: chewing tobacco Second hand tobacco smoke exposure: No Smoking end date: 10/20/89 Additional smoking assessment comments: VAPES DAILY Alcohol intake: current Drinks per week: 10 Alcohol use details: everyday Substance use: never Substance use type: does not use Do You Feel Safe in your Home?: Yes Lack of Transportation: No Lack of Food: Never True Current Housing: I Have Housing Concerned About Future Housing: No Difficulty Paying Gas/Electric Bills: No Difficulty Paying for Meds: No Currently Unemployed: No Education: Master's Degree or Higher Difficulty w/ Childcare or Family Care: No Living arrangements: alone Occupation/Education: retired 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 Gender identity (if verbalized by the patient): Male Spiritual care concerns: No Comments At time of signature, agree with nursing past medical, surgical, social and family history. There is no relevant family history pertinent to the presenting complaint. Exam Narrative: GENERAL: This is a well-nourished, well-developed patient, in no apparent distress. HEAD: normocephalic, atraumatic. EYES: PERRL. Sclera clear/white. Vision is grossly intact. extraocular motions intact EARS: External ears normal, auditory canals clear and without drainage, TMs normal without perforation. Hearing grossly intact. NOSE: External nose normal NECK: Neck supple, non-tender without lymphadenopathy, masses or thyromegaly. CARDIOVASCULAR: Regular rate and rhythm without murmurs, gallops, or rubs. RESPIRATORY: Clear to auscultation. Breath sounds equal bilaterally. No wheezes, rales, or rhonchi. SKIN: warm, Dry, intact with no suspicious lesions or rash, good texture and turgor. NEURO: awake, alert, and oriented to person, place and time. There were no obvious focal neurologic abnormalities. EXTREMITIES: No joint tenderness, effusion, or edema noted. Course Course Level of Care: Express Care Visit Vital Signs Vital signs: Vital Signs Temperature 36.4 C L 02/14/25 16:31 Pulse Rate 94 02/14/25 16:31 Respiratory Rate 20 02/14/25 16:31 Blood Pressure 145/81 H 02/14/25 16:31 Pulse Oximetry 97 02/14/25 16:31 Oxygen Delivery Room Air 02/14/25 16:31 Temperature 36.4 C L 02/14/25 16:31 Pulse Rate 94 02/14/25 16:31 Respiratory Rate 20 02/14/25 16:31 Blood Pressure 145/81 H 02/14/25 16:31 Pulse Oximetry 97 02/14/25 16:31 Oxygen Delivery Room Air 02/14/25 16:31 reviewed Transfer Transfered to: [facility] Transportation: Other (private vehicle) Transfer rationale: dizziness, brain fog, family stating delayed response when answering questions Accepting physician: Dr. Neff MDM - Dizziness MDM Narrative Medical decision making narrative: EKG HR 94, incomplete R bundle, no ischemic changes. patient alert an oriented x3. Patient answering all questions appropriately. No slurred speech noted. Neuro exam normal. Patient complaining of brain fog, continue dizziness. Family concerned that he is not forming words at his baseline, usually more articulate . Has history of chronic vertigo but states this is normally does not last this long. Transferring to ER to rule out CVA. Please be advised this is a medical document. It is intended for esik-jk-alln communication. It is written in medical language and may contain unfamiliar abbreviations or verbiage. Medical documents are intended to carry relevant information, facts as evident, and the clinical opinion of the practitioner at the time of the encounter. This report may have been done utilizing a voice recognition system. Attempts have been made to correct errors. However, there may be uncorrected grammatical, spelling, and recognition errors present. The file time of this note does not necessarily represent the time of service. Discharge Plan Discharge Clinical Impression: Dizziness, Brain fog Patient Disposition: Acute Care Hospital Condition: Stable Patient Language: Yoruba Prescriptions: No Action dutasteride 0.5 mg capsule 0.5 mg PO DAILY naltrexone 50 mg tablet 50 mg PO DAILY zolpidem 5 mg tablet PO duloxetine 60 mg capsule,delayed release(DR/EC) 60 mg PO DAILY Qty: 90 1RF Jardiance 25 mg tablet 25 mg PO DAILY Qty: 1 0RF Rx Instructions: [facility] tamsulosin 0.4 mg capsule 0.4 mg PO DAILY lisinopril 10 mg tablet 10 mg PO DAILY Qty: 30 5RF olopatadine 0.1 % drops 1 drop EACH EYE BID Qty: 5 0RF Rx Instructions: separate doses by at least 6-8 hours carvedilol 6.25 mg tablet 6.25 mg PO Q12H Qty: 180 2RF Rx Instructions: must administer with a meal/food rosuvastatin 40 mg tablet See Rx Instructions .ROUTE .COMPLEX Qty: 90 1RF Dose Instruction: TAKE 1 TABLET BY MOUTH DAILY FOR HYPERLIPIDEMIA Rx Instructions: TAKE 1 TABLET BY MOUTH DAILY FOR HYPERLIPIDEMIA fluticasone propionate 50 mcg/actuation spray,suspension See Rx Instructions .ROUTE .COMPLEX Qty: 48 2RF Dose Instruction: SPRAY 2 SPRAYS INTO EACH NOSTRIL EVERY DAY Rx Instructions: SPRAY 2 SPRAYS INTO EACH NOSTRIL EVERY DAY Follow-up/Referrals: Junior Vega MD [Primary Care Provider] - Time of Disposition: 17:28
--- NOTE | 2025-02-14 17:12 | ECG_ITS ---
Test Date: 2025-02-14 17:24:06 Measurements Intervals [place] Rate: 84 P: 63 NE: 208 QRS: -40 QRSD: 98 T: 62 QT: 350 QTc: 414 Interpretive Statements SINUS RHYTHM LEFT AXIS DEVIATION INCOMPLETE RIGHT BUNDLE BRANCH BLOCK BORDERLINE ECG No previous ECG available for comparison Electronically Signed On 02-14-2025 19:47:42 CDT by Chencho Leblanc D.O.
[2025-02-14 18:12] LABS: Glucose Point of Care 114 mg/dl (65-105)
--- OUTSIDE RECORDS SUMMARY | 2025-02-14 18:21 | XMS_ITS | Encounter Summary ---
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
--- OUTSIDE RECORDS SUMMARY | 2025-02-14 18:21 | XMS_ITS | Clinical Summary ---
Author Organization [facility] Address [address] [place] [address] Phone Care Team Providers Care Oil Well Pumper Name Role Phone Unavailable Primary Care Provider [...]
--- OUTSIDE RECORDS SUMMARY | 2025-02-14 18:21 | XMS_ITS | Clinical Summary ---
Author Organization [facility] Address [address] [place] [address] Care Team Providers Care Loan Inspector Name Role Phone Junior Vega MD Primary Care Provider [phone] Allergies No known active allergies Medications carvedilol [...] Department Care Team Description 11/23/2024 4:00 PM RN CLINICAL COORDINATOR - 11/23/2024 11:59 PM RN CLINICAL COORDINATOR Hospital Encounter [facility] [place] [address] Reid Barreto MD Discharge Disposition: Home or Self Care (Routine Discharge) 11/23/2024 Travel from Last 3 Months Social History Tobacco Use Types Packs/Day Years Used Date Smoking Tobacco: Former Cigarettes 2007 Smokeless Tobacco: Current Tobacco Cessation:Ready to Q uit: Not Asked; Counseling Given: Not Answered Alcohol Use Standard Drinks/Week Comments Yes 14 (1 standard drink = 0.6 oz pu re alcohol) socially [facility] Utilities Answer Date Recorded In the past 12 months has [facility] [employer], gas, oil, or water Truly threatened to shut off services in your [...] any time in the past 12 m [facility], were you homeless or living in a longterm (including now)? No 02/09/2024 Sex and Gender [...] CORONARY POST PROCESSING Routine 11/23/2024 5:21 PM RN CLINICAL COORDINATOR Abnormal findings diagnostic imaging of heart and coronary circulation from Last 3 Months Results * FFR HEARTFLOW CTA CORONARY POST PROCESSING (11/23/2024 5:21 PM RN CLINICAL COORDINATOR) Anatomical Region Laterality Modality NA Computed Tomogra phy Narrative 11/26/2024 3:27 PM RN CLINICAL COORDINATOR Table formatting from the original result was not included. FFRCT Patient Name: Cyrus Soliman : 1945 Date of FFR: 11-23-2024 Date of CTA: 10-15-2024 Interpreting Agronomy Manager: REID BARRETO M.D. Indication: Abnormal coronary CTA [...] stenosis of proximal LAD, first OM. Interpreting Agronomy Manager: REID BARRETO M.D. 11/26/24 us Reid Barreto MD CT Final Result from Last 3 Months Insurance [facility] Care Teams Loan Inspector Relationship Specialty Start Date End Date Junior Vega MD [address] [place], [place] [id number] PCP - General FAMILY PRACTICE 02/01/20
--- OUTSIDE RECORDS SUMMARY | 2025-02-14 18:21 | XMS_ITS | Referral Summary ---
Author Organization [facility] Address [address] [place] [address] Care Team Providers Care Asbestos Coverer Name Role Phone Junior Vega MD Primary Care Provider [phone] Jesus Erwin MD PhD Unavailable Encounters Date Type Department Care Team Description 02/08/2025 9:30 AM CDT Office Visit [facility] Medical Group Sleep Medicine at [address] [place] [address] Jodi Coto MD STEPHANIE (obstructive sleep apnea) (Primary Dx); Obesity, unspecified class, unspecified obesity type, unspecified whether serious comorbidity present; Insomnia, unspecified type; Hypersomnia 01/11/2025 9:00 AM CDT Office Visit [facility] Sleep Medicine at [address] [place] [address] Jodi Coto MD STEPHANIE (obstructive sleep apnea) (Primary Dx); Hypersomnia; Obesity, unspecified class, unspecified obesity type, unspecified whether serious comorbidity present; Insomnia, unspecified type 01/10/2025 9:40 AM CDT Office Visit [facility]) - [facility] [address] [facility] Medical Office Building [address] [place] [address] Natasha Treviño MD S/P insertion of hypoglossal nerve stimulator (Primary Dx); Obstructive sleep apnea 11/30/2024 10:30 AM MACHINE BOOKKEEPER Office Visit [facility] Medical Group Sleep Medicine at [address] [place] [address] Jodi Coto MD STEPHANIE (obstructive sleep apnea) (Primary Dx); Hypersomnia; Obesity, unspecified class, unspecified obesity type, unspecified whether serious comorbidity present; Insomnia, unspecified type 11/24/2024 7:15 PM MACHINE BOOKKEEPER - 11/24/2024 11:59 PM MACHINE BOOKKEEPER Hospital Encounter [facility] [address] [place] [address] STEPHANIE (obstructive sleep apnea) Discharge Disposition: Discharge [...] 10/08/2023 Assessment & Plan (10/08/2023 9:42 AM MACHINE BOOKKEEPER): - drinks 5 whiskeys daily, last drink 10pm 10/07 - gets shakes that resolve with alcohol, but no h/o DTs or hospitalizations for withdrawal - actively going to meetings at the [place] - s/p phenobarb in ED - monitor closely for signs of withdrawal SDH (subdural hematoma) 10/07/2023 Assessment & Plan (10/09/2023 1:07 PM MACHINE BOOKKEEPER): - NSGY c/s - repeat HCT 10/07 [...] on file Legal Sex Male 9:22 AM MACHINE BOOKKEEPER Gender Identity Not on file Sexual Orientation [...] on file Medical Devices Implanted Type 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 Device Identifier Shelf Expiration Date Model / Serial / Lot [employer] Inspire 3 Electrode Cuff Tunnel Dannie Lead Neurostimulator Sterile 4063 - [id number] - [id number] Implanted:Qty: 1 on 04/27/2024 by Natasha Treviño MD at [facility] Right: Neck [employer] 11/03/2026 4063 / [id number] / [employer] Lead Neurostimulator Sleep Apnea Thoracic Permanent Respiratory Sensing Inspire 43cm 4340 - [id number] - [id number] Implanted:Qty: 1 on 04/27/2024 by Natasha Treviño MD at [facility] Right: Chest [employer] 01/03/2027 4340 / [id number] / [employer] Inspire Generator 3028 - [id number] - [id number] Implanted:Qty: 1 on 04/27/2024 by Natasha Treviño MD at [facility] Right: Chest [employer] 12/21/2026 3028 / [id number] C / Procedures Procedure Name Priority Date/Time [...] sleep apnea s/p hypoglossal nerve stimulator implantation [place] sleepiness score: 13 Weight: 224 lbs BMI: 33.08 Procedure: This overnight hypoglossal nerve stimulator (Inspire) titration polysomnogram was performed with the cytology technologist in attendance. Patient is studied with [...] scored according to the criteria from The [place] Academy of Sleep Medicine (AASM) Manual for [...] Clinical correlation is recommended. Jodi Coto MD [facility] Medical Group Sleep Medicine Narrative Jodi Coto [...] ORDERABLES Final Res ult Performing Organization Address [facility] [place] [facility] de Phone Number THERESA [address] [place] [address] * (ABNORMAL) Hemoglobin A1c (04/23/2024 2:46 PM CDT) Hgb A1C 5.7(H) 4.0 - 5.6 % Estimated Average Glucose 117 mg/dL THERESA Comment: The ADA recommends reporting an estimated Average Glucose (eAG) with all Hemoglobin A1c results using the equation derived from a study of 507 normal and diabetic adults. Minority populations were underrepresented and children were not included. (Diabetes Care 31:9470-9343, 2008). The eAG is not equivalent to a fasting glucose. Blood 04/23/2024 2:46 PM CDT 04/23/2024 4:01 PM CDT Amairani Pinon NP LAB BLOOD ORDERABLES Final Res ult Performing Organization Address [facility] [place] [facility] de Phone Number THERESA [address] [facility] [place] [address] from Last 3 Months or Most Recently Relevant to Health Maintenance Insurance [facility] MEDICARE ADVANTAGE [facility] MEDIC[facility] Address: [address] [address] [place] [address] [facility] [id number] [phone] [facility] MEDICARE ADVANTAGE [facility] MEDICARE Address: [address] [address] [place] [address] [facility] Advance Directives For more information, please contact: [phone] * Full Code (Latest Code Status on File) Date Activated Date Inactivated Comments 10/07/2023 7:44 PM 10/09/2023 7:12 PM Care Teams Asbestos Coverer Relationship Specialty Start Date End Date Junior Vega MD PCP - General 02/09/18 Jesus Erwin MD PhD [address] [place] [address] Consulting Physician Neurosurgery 10/09/23
--- OUTSIDE RECORDS SUMMARY | 2025-02-14 18:21 | XMS_ITS | Clinical Summary ---
Author Organization [facility] Address [address] [place] [address] Care Team Providers Care Tubing Mill Setter Name Role Phone Junior Vega MD Primary Care Provider + [phone] Jesus Erwin MD PhD Unavailable Allergies No [...] 10/08/2023 Assessment & Plan (10/08/2023 9:42 AM MIXER SLAGMAN): - drinks 5 whiskeys daily, last drink 10pm 10/07 - gets shakes that resolve with alcohol, but no h/o DTs or hospitalizations for withdrawal - actively going to meetings at the [place] - s/p phenobarb in ED - monitor closely for signs of withdrawal SDH (subdural hematoma) 10/07/2023 Assessment & Plan (10/09/2023 1:07 PM MIXER SLAGMAN): - NSGY c/s - repeat HCT 10/07 [...] Description 02/08/2025 9:30 AM CDT Office Visit [facility] Medical Group Sleep Medicine at [address] [place] [address] Jodi Coto MD STEPHANIE (obstructive sleep apnea) (Primary Dx); Obesity, unspecified class, unspecified obesity type, unspecified whether serious comorbidity present; Insomnia, unspecified type; Hypersomnia 01/11/2025 9:00 AM CDT Office Visit [facility] Medical Group Sleep Medicine at [address] [place] [address] Jodi Coto MD STEPHANIE (obstructive sleep apnea) (Primary Dx); Hypersomnia; Obesity, unspecified class, unspecified obesity type, unspecified whether serious comorbidity present; Insomnia, unspecified type 01/10/2025 9:40 AM CDT Office Visit [facility]) - [facility] ENT [address] [facility] Medical Office Building [address] [place] [address] Natasha Treviño MD S/P insertion of hypoglossal nerve stimulator (Primary Dx); Obstructive sleep apnea 11/30/2024 10:30 AM MIXER SLAGMAN Office Visit [facility] Medical Group Sleep Medicine at [address] [place] [address] Jodi Coto MD STEPHANIE (obstructive sleep apnea) (Primary Dx); Hypersomnia; Obesity, unspecified class, unspecified obesity type, unspecified whether serious comorbidity present; Insomnia, unspecified type 11/24/2024 7:15 PM MIXER SLAGMAN - 11/24/2024 11:59 PM MIXER SLAGMAN Hospital Encounter [facility] [address] [place] [address] STEPHANIE (obstructive sleep apnea) Discharge Disposition: Discharge [...] on file Legal Sex Male 9:22 AM MIXER SLAGMAN Gender Identity Not on file Sexual Orientation [...] history exists Medical Devices Implanted Type Area Basketballs And Footballs Reverser Device Identifier Shelf Expiration Date Model / Serial / Lot [employer] Inspire 3 Electrode Cuff Tunnel Dannie Lead Neurostimulator Sterile 4063 - [id number] - [id number] Implanted:Qty: 1 on 04/27/2024 by Natasha Treviño MD at [facility] Right: Neck [employer] 11/03/2026 4063 / [id number] / [employer] Lead Neurostimulator Sleep Apnea Thoracic Permanent Respiratory Sensing Inspire 43cm 4340 - [id number] - [id number] Implanted:Qty: 1 on 04/27/2024 by Natasha Treviño MD at [facility] Right: Chest [employer] 01/03/2027 4340 / [id number] / [employer] Inspire Generator 3028 - [id number] - [id number] Implanted:Qty: 1 on 04/27/2024 by Natasha Treviño MD at [facility] Right: Chest [employer] 12/21/2026 3028 / [id number] C / Procedures Procedure Name Priority Date/Time [...] sleep apnea s/p hypoglossal nerve stimulator implantation [place] sleepiness score: 13 Weight: 224 lbs BMI: 33.08 Procedure: This overnight hypoglossal nerve stimulator (Inspire) titration polysomnogram was performed with the remote sensing technologist in attendance. Patient is studied with [...] according to the criteria from The [place] Academy of Sleep Medicine (AASM) Manual for [...] Clinical correlation is recommended. Jodi Coto MD [facility] Medical Group Sleep Medicine Narrative Jodi [...] ORDERABLES Final Res ult Performing Organization Address [facility] de Phone Number THERESA PAPPAS [address] [facility] [employer] [address] * (ABNORMAL) Hemoglobin A1c (04/23/2024 2:46 PM CDT) Hgb A1C 5.7(H) 4.0 - 5.6 % Estimated Average Glucose 117 mg/dL THERESA Comment: The ADA recommends reporting an estimated Average Glucose (eAG) with all Hemoglobin A1c results using the equation derived from a study of 507 normal and diabetic adults. Minority populations were underrepresented and children were not included. (Diabetes Care 31:1953-9010, 2008). The eAG is not equivalent to a fasting glucose. Blood 04/23/2024 2:46 PM CDT 04/23/2024 4:01 PM CDT Amairani Pinon NP LAB BLOOD ORDERABLES Final Res ult Performing Organization Address [facility] de Phone Number THERESA PAPPAS [address] [facility] [employer] [address] from Last 3 Months or Most Recently Relevant to Health Maintenance Insurance [facility] [place] [address] [facility] MEDICARE ADVANTAGE Advance Directives For more information, please contact: [phone] * Full Code (Latest Code Status on File) Date Activated Date Inactivated Comments 10/07/2023 7:44 PM 10/09/2023 7:12 PM Care Teams Tubing Mill Setter Relationship Specialty Start Date End Date Junior Vega MD PCP - General 02/09/18 Jesus Erwin MD PhD [address] [place] [address] Consulting Physician Neurosurgery 10/09/23
--- OUTSIDE RECORDS SUMMARY | 2025-02-14 18:21 | XMS_ITS ---
Author Organization [facility] Address [address] [place] [address] Care Team Providers Care Sales Development Manager Name Role Phone Junior Vega MD Primary Care Provider + [phone] Jesus Erwin MD PhD Unavailable [phone] Active Problems Problem Noted Date Diagnosed Date [...] 10/08/2023 Assessment & Plan (10/08/2023 9:42 AM EQUITY RESEARCH ASSOCIATE): - drinks 5 whiskeys daily, last drink 10pm 10/07 - gets shakes that resolve with alcohol, but no h/o DTs or hospitalizations for withdrawal - [facility] - s/p phenobarb in ED - monitor closely for signs of withdrawal SDH (subdural hematoma) 10/07/2023 Assessment & Plan (10/09/2023 1:07 PM EQUITY RESEARCH ASSOCIATE): - NSGY c/s - repeat HCT [...]
== END 2025-02-14 17:34 | disposition short-term general hospital (02) ==
PROVIDERS: Emergency Provider Nurse Practitioner Family; PCP Family Medicine
DX: R42 Dizziness and giddiness (principal); R41.9 Unspecified symptoms and signs involving cognitive functions and awareness; F17.290 Nicotine dependence, other tobacco product, uncomplicated; I12.9 Hypertensive chronic kidney disease with stage 1 through stage 4 chronic kidney disease, or unspecified chronic kidney disease; N18.31 Chronic kidney disease, stage 3a; K70.0 Alcoholic fatty liver; R73.03 Prediabetes; Z85.3 Personal history of malignant neoplasm of breast; Z85.820 Personal history of malignant melanoma of skin
CPT/HCPCS: 82948; 93005; 99213; G0463

== ENCOUNTER 2025-02-14 17:50 | Emergency (ER) | payer MEDICARE, SELFPAY ==
--- NOTE | ~2025-02-14 | CT_ITS ---
EXAMINATION: CT brain wo con DATE: 02/14/2025 18:44 INDICATION: dizziness . TECHNIQUE: Computed tomography (CT) of the head was performed without intravenous contrast. The mA wa s adjusted according to patient size. Iterative reconstruction technique was employed. The dose-lengt h product was 681.00 mGy-cm. COMPARISON: 09/26/2022. FINDINGS: No acute intracranial hemorrhage or extra-axial fluid collection. No hydrocephalus, mass, or herniation. No acute ischemic infarct. Unremarkable dural venous sinus attenuation. No acute osseous abnormality. The aerated spaces are clear. Mild atrophy and chronic white matter change. Atherosclerotic intracranial calcification. Bilateral b bianka ganglia calcification. IMPRESSION: No acute intracranial process. Reviewed, dictated and finalized at location K.
--- NOTE | ~2025-02-14 | XR_ITS ---
EXAMINATION: XR chest 2V Exam Date/Time: 02/14/2025 18:40 CDT HISTORY: dizziness Comparison: 07/23/2022. RESULT: Lines, tubes, and devices: Soft tissue anchors over the left humeral head. Electronic stimulator ove r the right chest with leads terminating over the right lower neck and right mid chest. Lungs and pleura: Clear. Chronic left hemidiaphragm elevation. Cardiomediastinal silhouette: Stable. Other: No acute osseous or upper abdominal finding. IMPRESSION: No acute cardiopulmonary process. Reviewed, dictated and finalized at location K.
[2025-02-14 17:57] VITALS: BP 141/72; PULSE 89; RESP 15; TEMP 36.7; O2SAT 96
--- NOTE | 2025-02-14 18:29 | ED_ITS ---
HPI - Dizziness General Chief Complaint: Dizziness <Kemi Zimmerman PA-C - Last Filed: 02/15/25 11:01> Stated Complaint: dizziness <GIUSEPPE Caruso Last Filed: 02/15/25 11:01> Time Seen by Provider: 02/14/25 18:29 <GIUSEPPE Caruso Last Filed: 02/15/25 11:01> Focused HPI: This is a 79 year old male that presents to the ER for dizziness. Reports unsteady gait. Reports worse than at baseline. Worsening over the last week. Reports word finding difficulties. Denies vision changes, vomiting, numbness, weakness. GENERAL: Well-appearing, well-nourished, and in no acute distress. HEAD: Normocephalic, atraumatic. CHEST: Clear to auscultation. ?No respiratory distress. HEART: Regular rate and rhythm.? NEURO: ?Alert and oriented x3. Patient screened in triage and initial orders placed.? ?Additional care and disposition to be based upon?diagnostic testing and treatment. <Kemi Zimmerman PA-C - Last Filed: 02/15/25 11:01> Focused HPI: This is a 79 year old male that presents to the ER for dizziness. Reports unsteady gait. Reports worse than at baseline. Worsening over the last week. Reports word finding difficulties. Denies vision changes, vomiting, numbness, weakness. GENERAL: Well-appearing, well-nourished, and in no acute distress. HEAD: Normocephalic, atraumatic. CHEST: Clear to auscultation. ?No respiratory distress. HEART: Regular rate and rhythm.? NEURO: ?Alert and oriented x3. Patient screened in triage and initial orders placed.? ?Additional care and disposition to be based upon?diagnostic testing and treatment. <GIUSEPPE Schulte Last Filed: 02/15/25 02:10> Source: patient <GIUSEPPE Schulte Last Filed: 02/15/25 02:10> Mode of arrival: ambulatory <GIUSEPPE Schulte Last Filed: 02/15/25 02:10> Limitations: no limitations <FROYLAN SchulteC - Last Filed: 02/15/25 02:10> History of Present Illness HPI Narrative: Agree with above HPI. Reports dizziness has been ongoing for the past 4 years. States he has been worked up extensively through the [facility] and through his primary care doctor, senior managing director, neurologist. He has previously been on meclizine, but states this did not help his vertigo. He also has history of orthostatic hypotension. States dizziness has been worse over the past 10 days, but worse today. Denies focal weakness or numbness. <Zoie Elaine PA-C - Last Filed: 02/15/25 02:10> Related Data Home Medications: Home Medications ?Medication ?Instructions ?Recorded ?Confirmed ?Last Taken ?Type tamsulosin 0.4 mg capsule 0.4 mg PO DAILY 05/12/23 02/08/25 Unknown History dutasteride 0.5 mg capsule 0.5 mg PO DAILY 02/23/24 02/14/25 Unknown History naltrexone 50 mg tablet 50 mg PO DAILY 02/23/24 02/08/25 Unknown History zolpidem 5 mg tablet mg PO 09/13/24 02/08/25 Unknown History <Kemi Zimmerman PA-C - Last Filed: 02/15/25 11:01> Allergies/Adverse Reactions: Allergies Allergy/AdvReac Type Severity Reaction Status Date / Time No Known Allergies Allergy Verified 02/14/25 17:52 <Kemi Zimmerman PA-C - Last Filed: 02/15/25 11:01> Review of Systems 2 Review of Systems: All systems reviewed & are unremarkable except as noted in HPI. 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 Abnormal mammogram Chronic kidney disease Family history of malignant neoplasm of breast Breast mass, left Melanoma Low kidney function CKD stage 3a, GFR 45-59 ml/min Chest pain Fatty liver, alcoholic PTSD (post-traumatic stress disorder) Muscle tension pain JOHNSON (dyspnea on exertion) Rib injury Elevated liver enzymes Tinnitus Screening for malignant neoplasm of prostate Biceps muscle tear Abnormal MRI, musculoskeletal Severe pain of right shoulder Shoulder pain with history of repair of rotator cuff Arthritis of shoulder Hx of rotator cuff tear Severe shoulder pain Abnormal kidney function Prediabetes <Kemi Zimmerman PA-C - Last Filed: 02/15/25 11:01> Surgical History Surgical History: Surgical History History of Mohs surgery for squamous cell carcinoma in situ of skin Hx of repair of right rotator cuff <Kemi Zimmerman PA-C - Last Filed: 02/15/25 11:01> Family History Family History: Family History Father Hypertension Family history of malignant neoplasm Grandparent Cerebrovascular accident Mother Sibling No problems noted. <Kemi Zimmerman PA-C - Last Filed: 02/15/25 11:01> Social History Social History: Social History Smoking packs per day: 1 Smoking cigarettes per day: 20.0 Years smoked: 30 Smoking pack-years: 30.00 Smoking status: Former smoker Tobacco type: cigarettes and e-cigarettes/vaping Smokeless tobacco user: chewing tobacco Second hand tobacco smoke exposure: No Smoking end date: 10/20/89 Additional smoking assessment comments: VAPES DAILY Alcohol intake: current Drinks per week: 10 Alcohol use details: everyday Substance use: never Substance use type: does not use Do You Feel Safe in your Home?: Yes Lack of Transportation: No Lack of Food: Never True Current Housing: I Have Housing Concerned About Future Housing: No Difficulty Paying Gas/Electric Bills: No Difficulty Paying for Meds: No Currently Unemployed: No Education: Master's Degree or Higher Difficulty w/ Childcare or Family Care: No Living arrangements: alone Occupation/Education: retired 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 Gender identity (if verbalized by the patient): Male Spiritual care concerns: No <GIUSEPPE Caruso Last Filed: 02/15/25 11:01> Exam 2 Narrative: GENERAL: Elderly, non-toxic, in no acute distress. HEAD: Normocephalic, atraumatic. EYES: PERRL/EOMI, conjunctivae clear bilaterally. No nystagmus. NECK: Supple. No meningeal signs. RESPIRATORY: Airway patent, respirations nonlabored. Clear to auscultation bilaterally, no rales, rhonchi, wheezing. CARDIOVASCULAR: Regular rate and rhythm without murmurs, rubs, or gallops. Radial pulses 2+ and equal bilaterally. MUSCULOSKELETAL: Moves all extremities. No gross deformities. SKIN: Warm, dry, normal color. No rashes. NEURO: A&O X3. Speech clear. Follows commands. CN II-XII intact. Sensation grossly intact. Steady gait. No ataxic movements. Strength 5/5 in upper and lower extremities bilaterally. Gtylnj-cr-xote testing intact bilaterally. No pronator drift. Equal database programmer strength bilaterally. PSYCHIATRIC: Appropriate mood and affect. Normal interaction. <Zoie Elaine PA-C - Last Filed: 02/15/25 02:10> Course Vital Signs Vital signs: Vital Signs Temperature 98.0 F 02/14/25 17:57 Pulse Rate 89 02/14/25 17:57 Respiratory Rate 15 02/14/25 17:57 Blood Pressure 141/72 H 02/14/25 17:57 Pulse Oximetry 96 02/14/25 17:57 Temperature 98.0 F 02/14/25 17:57 Pulse Rate 86 02/15/25 01:01 Respiratory Rate 17 02/15/25 01:01 Blood Pressure 140/77 02/15/25 01:01 Pulse Oximetry 97 02/15/25 01:01 <GIUSEPPE Caruso Last Filed: 02/15/25 11:01> Vital Signs Temperature 98.0 F 02/14/25 17:57 Pulse Rate 89 02/14/25 17:57 Respiratory Rate 15 02/14/25 17:57 Blood Pressure 141/72 H 02/14/25 17:57 Pulse Oximetry 96 02/14/25 17:57 Temperature 98.0 F 02/14/25 17:57 Pulse Rate 86 02/15/25 01:01 Respiratory Rate 17 02/15/25 01:01 Blood Pressure 140/77 02/15/25 01:01 Pulse Oximetry 97 02/15/25 01:01 <Zoie Elaine PA-C - Last Filed: 02/15/25 02:10> MDM - Dizziness MDM Narrative Medical decision making narrative: Patient presented to ED with dizziness. Several year history of vertigo orthostatic hypotension. Reporting worsening symptoms over the past several days. Vital signs are stable upon arrival and at the time of my evaluation. Patient does report feeling somewhat improved at the time of my evaluation. He declined meclizine that was offered to him in triage. He states this is never helped with his vertigo in the past and did not want to try again. He is neurologically intact upon my evaluation. No focal deficits. No strength discrepancies, aphasia, dysarthria, cerebellar signs. CT brain was obtained and negative. Chest x-ray is clear. Basic laboratory studies were unremarkable. No leukocytosis or anemia. Stable electrolytes. Stable kidney function. EKG without ischemic changes. Will attempt Valium for vertigo. Patient has never tried this before and is willing to try something new. Orthostatic vital signs were ordered after my evaluation and he was noted to have a drop in his blood pressure with sitting to standing from approximately 150 systolic to 115 systolic. Discussed that this is likely contributing to his dizziness. Discussed giving the patient fluids to assist with this, however he declined, stating he would like to go home and that he is feeling much better after the Valium. I did witnessed patient ambulating with a steady gait throughout the ED room. He feels comfortable going home. States this is his same dizziness that he has had for the past 4 years. He is feeling improved however after the Valium. I will prescribe a short course of this for home to be used as needed. Advised patient have very close follow-up with his PCP and/or neurologist for further evaluation. Discussed very strict return precautions and patient voiced understanding. Feels comfortable going home. Family is in agreement with plan. Patient discharged in stable condition. Remains neurologically intact at time of D/C. <Zoie Elaine PA-C - Last Filed: 02/15/25 02:10> Medical Records Attestation: I reviewed the patient's medical records. <Zoie Elaine PA-C - Last Filed: 02/15/25 02:10> Lab Data Attestation: I reviewed the patient's lab results. <Zoie Elaine PA-C - Last Filed: 02/15/25 02:10> Result diagrams: 02/14/25 20:45 02/14/25 20:45 <Kemi Zimmerman PA-C - Last Filed: 02/15/25 11:01> Labs: Lab Results 02/14/25 Range/Units 20:45 WBC 8.6 (4.5-10.0) K/mm3 RBC 4.44 L (4.6-6.20) M/mm3 Hgb 13.9 L (14.0-18.0) g/dL Hct 43.1 (42.0-52.0) % MCV 97.1 (80-100) fl MCH 31.3 (26-34) pg MCHC 32.3 (32-36) g/dl RDW 14.7 H (11.5-14.5) % Plt Count 185 (150-375) k/mm3 MPV 10.2 (7.4-10.4) fl Immature Gran % (Auto) 0.2 (0-0.5) % Neut % (Auto) 78.1 H (45.5-73.1) % Lymph % (Auto) 13.3 L (18.3-44.2) % Assumption % (Auto) 6.4 (2.6-8.5) % Eos % (Auto) 1.5 (0-4.4) % Baso % (Auto) 0.5 (0.2-1.2) % Lymph # (Auto) 1.14 (0.9-3.2) K/mm3 Assumption # (Auto) 0.6 (0.1-0.6) K/mm3 Eos # (Auto) 0.1 (0-0.3) K/mm3 Baso # (Auto) 0.0 (0.0-0.1) K/mm3 Abs Immat Gran (auto) 0.02 (0.00-0.031) K/mm3 Absolute Neuts (auto) 6.7 (1.3-6.7) K/mm3 Absolute Nucleated RBC 0.000 (0.0-0.012) K/mm3 Nucleated RBC % 0.0 (0.0-0.2) % Sodium 136 L (137-145) mmol/L Potassium 4.6 (3.4-5.0) mmol/L Chloride 98 (98-107) mmol/L Carbon Dioxide 27 (22-30) mmol/L Anion Gap 11 (4-12) mmol/L BUN 17 (9-20) mg/dL Creatinine 1.17 (0.7-1.3) mg/dL Estim Creat Clear Calc Not Reportable Estimated GFR 60 (59 - ) Glucose 132 H (65-110) mg/dL Calcium 9.9 (8.4-10.2) mg/dL Total Bilirubin 0.4 (0.2-1.3) mg/dL AST 30 (17-59) U/L ALT 31 (6-50) U/L Alkaline Phosphatase 79 (38-126) U/L Total Protein 8.0 (6.3-8.2) g/dL Albumin 4.5 (3.5-5.1) g/dL <Kemi Zimmerman PA-C - Last Filed: 02/15/25 11:01> Lab Results 02/14/25 Range/Units 20:45 WBC 8.6 (4.5-10.0) K/mm3 RBC 4.44 L (4.6-6.20) M/mm3 Hgb 13.9 L (14.0-18.0) g/dL Hct 43.1 (42.0-52.0) % MCV 97.1 (80-100) fl MCH 31.3 (26-34) pg MCHC 32.3 (32-36) g/dl RDW 14.7 H (11.5-14.5) % Plt Count 185 (150-375) k/mm3 MPV 10.2 (7.4-10.4) fl Immature Gran % (Auto) 0.2 (0-0.5) % Neut % (Auto) 78.1 H (45.5-73.1) % Lymph % (Auto) 13.3 L (18.3-44.2) % Assumption % (Auto) 6.4 (2.6-8.5) % Eos % (Auto) 1.5 (0-4.4) % Baso % (Auto) 0.5 (0.2-1.2) % Lymph # (Auto) 1.14 (0.9-3.2) K/mm3 Assumption # (Auto) 0.6 (0.1-0.6) K/mm3 Eos # (Auto) 0.1 (0-0.3) K/mm3 Baso # (Auto) 0.0 (0.0-0.1) K/mm3 Abs Immat Gran (auto) 0.02 (0.00-0.031) K/mm3 Absolute Neuts (auto) 6.7 (1.3-6.7) K/mm3 Absolute Nucleated RBC 0.000 (0.0-0.012) K/mm3 Nucleated RBC % 0.0 (0.0-0.2) % Sodium 136 L (137-145) mmol/L Potassium 4.6 (3.4-5.0) mmol/L Chloride 98 (98-107) mmol/L Carbon Dioxide 27 (22-30) mmol/L Anion Gap 11 (4-12) mmol/L BUN 17 (9-20) mg/dL Creatinine 1.17 (0.7-1.3) mg/dL Estim Creat Clear Calc Not Reportable Estimated GFR 60 (59 - ) Glucose 132 H (65-110) mg/dL Calcium 9.9 (8.4-10.2) mg/dL Total Bilirubin 0.4 (0.2-1.3) mg/dL AST 30 (17-59) U/L ALT 31 (6-50) U/L Alkaline Phosphatase 79 (38-126) U/L Total Protein 8.0 (6.3-8.2) g/dL Albumin 4.5 (3.5-5.1) g/dL <Zoie Elaine PA-C - Last Filed: 02/15/25 02:10> Imaging Data Attestation: I personally reviewed and interpreted this imaging study as follows: < Zoie Elaine PA-C - Last Filed: 02/15/25 02:10> Radiologist's impression: ITS Impressions Head CT 02/14/25 18:54 IMPRESSION: No acute intracranial process. Chest X-Ray 02/14/25 19:18 IMPRESSION: No acute cardiopulmonary process. <GIUSEPPE Schulte Last Filed: 02/15/25 02:10> ECG Data EKG #1: Attestation: I personally reviewed and interpreted this ECG as follows: <GIUSEPPE Schulte Last Filed: 02/15/25 02:10> ECG completion date: 02/14/25 <GIUSEPPE Schulte Last Filed: 02/15/25 02:10> ECG completion time: 20:49 <GIUSEPPE Schulte Last Filed: 02/15/25 02:10> EKG Interpretation: normal rate (88), sinus rhythm, non-specific ST changes and left axis <GIUSEPPE Schulte Last Filed: 02/15/25 02:10> Critical Care Time Critical Care Time Critical Care Time: No <GIUSEPPE Caruso Last Filed: 02/15/25 11:01> Discharge Plan Discharge Clinical Impression: Dizziness, Vertigo, Orthostatic hypotension <GIUSEPPE Caruso Last Filed: 02/15/25 11:01> Patient Disposition: Home <GIUSEPPE Caruso Last Filed: 02/15/25 11:01> Condition: Stable <GIUSEPPE Caruso Last Filed: 02/15/25 11:01> Instructions: Antibiotic Form, Vertigo (ED), Benign Paroxysmal Positional Vertigo (ED), Hypotension (ED), Dizziness (ED) <GIUSEPPE Caruso Last Filed: 02/15/25 11:01> Additional Instructions: Stay well hydrated at home. Avoid abrupt position changes as this can cause a slight drop in your blood pressure. Recommend dangling legs on side of the bed or chair for several minutes before standing. Utilize Valium as needed for further severe dizziness. Follow-up closely with your primary care doctor and/or Neurology for further evaluation. Return to an ED if you experience worsening or severe symptoms, unable to keep down food or drink, chest pain, difficulty breathing, head injury, numbness or weakness of arm or leg, passing out, or any other symptoms of concern. <Kemi Zimmerman PA-C - Last Filed: 02/15/25 11:01> Patient Language: Cypriot <Kemi Zimmerman PA-C - Last Filed: 02/15/25 11:01> Prescriptions: New diazepam [Valium] 2 mg tablet 2 mg PO TID PRN (Reason: vertigo) Qty: 15 0RF No Action dutasteride 0.5 mg capsule 0.5 mg PO DAILY naltrexone 50 mg tablet 50 mg PO DAILY zolpidem 5 mg tablet PO duloxetine 60 mg capsule,delayed release(DR/EC) 60 mg PO DAILY Qty: 90 1RF Jardiance 25 mg tablet 25 mg PO DAILY Qty: 1 0RF Rx Instructions: [facility] managed tamsulosin 0.4 mg capsule 0.4 mg PO DAILY lisinopril 10 mg tablet 10 mg PO DAILY Qty: 30 5RF olopatadine 0.1 % drops 1 drop EACH EYE BID Qty: 5 0RF Rx Instructions: separate doses by at least 6-8 hours carvedilol 6.25 mg tablet 6.25 mg PO Q12H Qty: 180 2RF Rx Instructions: must administer with a meal/food rosuvastatin 40 mg tablet See Rx Instructions .ROUTE .COMPLEX Qty: 90 1RF Dose Instruction: TAKE 1 TABLET BY MOUTH DAILY FOR HYPERLIPIDEMIA Rx Instructions: TAKE 1 TABLET BY MOUTH DAILY FOR HYPERLIPIDEMIA fluticasone propionate 50 mcg/actuation spray,suspension See Rx Instructions .ROUTE .COMPLEX Qty: 48 2RF Dose Instruction: SPRAY 2 SPRAYS INTO EACH NOSTRIL EVERY DAY Rx Instructions: SPRAY 2 SPRAYS INTO EACH NOSTRIL EVERY DAY <Kemi Zimmerman PA-C - Last Filed: 02/15/25 11:01> Follow-up/Referrals: Junior Vega MD [Primary Care Provider] - <Kemi Zimmerman PA-C - Last Filed: 02/15/25 11:01> Time of Disposition: 00:47 <Kemi Zimmerman PA-C - Last Filed: 02/15/25 11:01> 00:47 <Zoie Elaine PA-C - Last Filed: 02/15/25 02:10>
--- NOTE | 2025-02-14 18:30 | ECG_ITS ---
Test Date: 2025-02-14 20:49:53 Measurements Intervals Steen Rate: 88 P: 63 WY: 195 QRS: -34 QRSD: 106 T: 69 QT: 354 QTc: 429 Interpretive Statements SINUS RHYTHM LEFT AXIS DEVIATION INCOMPLETE RIGHT BUNDLE BRANCH BLOCK BASELINE WANDER-V2, V6 BORDERLINE ECG Compared to ECG 02/14/2025 17:24:06 NO SIGNIFICANT CHANGE Electronically Signed On 02-15-2025 06:10:30 CDT by Chencho Leblanc D.O.
[2025-02-14 20:57] LABS: Basophils Percent Auto 0.5 % (0.2-1.2); Eosinophils Absolute Auto 0.1 K/mm3 (0-0.3); Eosinophils Percent Auto 1.5 % (0-4.4); Hematocrit 43.1 % (42.0-52.0); Hemoglobin 13.9 g/dL (14.0-18.0); Immature Granulocyte Absolute 0.02 K/mm3 (0.00-0.031); Immature Granulocyte Percent A 0.2 % (0-0.5); Lymphocytes Absolute Auto 1.14 K/mm3 (0.9-3.2); Lymphocytes Percent Auto 13.3 % (18.3-44.2); Mean Corpuscular HGB Conc 32.3 g/dl (32-36); Mean Corpuscular Hemoglobin 31.3 pg (26-34); Mean Corpuscular Volume 97.1 fl (80-100); Mean Platelet Volume 10.2 fl (7.4-10.4); Monocytes Absolute Auto 0.6 K/mm3 (0.1-0.6); Monocytes Percent Auto 6.4 % (2.6-8.5); Neutrophils Absolute Auto 6.7 K/mm3 (1.3-6.7); Neutrophils Percent Auto 78.1 % (45.5-73.1); Platelet Count Result 185 k/mm3 (150-375); Red Blood Count 4.44 M/mm3 (4.6-6.20); Red Cell Distribution Width 14.7 % (11.5-14.5); White Blood Count 8.6 K/mm3 (4.5-10.0)
[2025-02-14 21:23] LABS: Alanine Aminotransferase 31 U/L (6-50); Albumin Level 4.5 g/dL (3.5-5.1); Alkaline Phosphatase 79 U/L (38-126); Anion Gap 11 mmol/L (4-12); Aspartate Amino Transferase 30 U/L (17-59); Bilirubin,Total 0.4 mg/dL (0.2-1.3); Blood Urea Nitrogen 17 mg/dL (9-20); Calcium 9.9 mg/dL (8.4-10.2); Carbon Dioxide 27 mmol/L (22-30); Chloride 98 mmol/L (98-107); Estimated Glomerular Filt Rate 60; Glucose 132 mg/dL (65-110); Potassium 4.6 mmol/L (3.4-5.0); Sodium 136 mmol/L (137-145)
--- OUTSIDE RECORDS SUMMARY | 2025-02-14 22:42 | XMS_ITS | Clinical Summary ---
Author Organization [facility] Address [address] [place] [address] Care Team Providers Care Trackmobile Operator Name Role Phone Junior Vega MD Primary Care Provider [phone] Allergies No known active allergies Medications carvedilol [...] Department Care Team Description 11/23/2024 4:00 PM FLOW MACHINE OPERATOR - 11/23/2024 11:59 PM FLOW MACHINE OPERATOR Hospital Encounter [facility] [place] [address] Reid Barreto MD Discharge Disposition: Home or Self Care (Routine Discharge) 11/23/2024 Travel from Last 3 Months Social History Tobacco Use Types Packs/Day Years Used Date Smoking Tobacco: Former Cigarettes 2007 Smokeless Tobacco: Current Tobacco Cessation:Ready to Q uit: Not Asked; Counseling Given: Not Answered Alcohol Use Standard Drinks/Week Comments Yes 14 (1 standard drink = 0.6 oz pu re alcohol) socially [facility] Utilities Answer Date Recorded In the past 12 months has [facility] [employer], gas, oil, or water [employer] threatened to shut off services in your [...] any time in the past 12 m [facility], were you homeless or living in a m[facility] (including now)? No 02/09/2024 Sex and Gender [...] CORONARY POST PROCESSING Routine 11/23/2024 5:21 PM FLOW MACHINE OPERATOR Abnormal findings diagnostic imaging of heart and coronary circulation from Last 3 Months Results * FFR HEARTFLOW CTA CORONARY POST PROCESSING (11/23/2024 5:21 PM FLOW MACHINE OPERATOR) Anatomical Region Laterality Modality NA Computed Tomogra phy Narrative 11/26/2024 3:27 PM FLOW MACHINE OPERATOR Table formatting from the original result was not included. FFRCT Patient Name: Cyrus Soliman : 1945 Date of FFR: 11-23-2024 Date of CTA: 10-15-2024 Interpreting Whizzer Operator: REID BARRETO M.D. Indication: Abnormal coronary CTA [...] stenosis of proximal LAD, first OM. Interpreting Whizzer Operator: REID BARRETO M.D. 11/26/24 us Reid Barreto MD CT Final Result from Last 3 Months Insurance [facility] Care Teams Trackmobile Operator Relationship Specialty Start Date End Date Junior Vega MD [address] [place], [place] [id number] PCP - General FAMILY PRACTICE 02/01/20
--- OUTSIDE RECORDS SUMMARY | 2025-02-14 22:42 | XMS_ITS | Referral Summary ---
Author Organization [facility] Address [address] [place] [address] Care Team Providers Care Hatchery Manager Name Role Phone Junior Vega MD Primary Care Provider [phone] Jesus Erwin MD PhD Unavailable Encounters Date Type Department Care Team Description 02/08/2025 9:30 AM CDT Office Visit [facility] Sleep Medicine at [address] [place] [address] Jodi Coto MD STEPHANIE (obstructive sleep apnea) (Primary Dx); Obesity, unspecified class, unspecified obesity type, unspecified whether serious comorbidity present; Insomnia, unspecified type; Hypersomnia 01/11/2025 9:00 AM CDT Office Visit [facility] Sleep Medicine at [address] [place] [phone] Jodi Coto MD STEPHANIE (obstructive sleep apnea) (Primary Dx); Hypersomnia; Obesity, unspecified class, unspecified obesity type, unspecified whether serious comorbidity present; Insomnia, unspecified type 01/10/2025 9:40 AM CDT [facility] [address] [facility] Office Building [address] [place] [address] Natasha Treviño MD S/P insertion of hypoglossal nerve stimulator (Primary Dx); Obstructive sleep apnea 11/30/2024 10:30 AM DOOR TO DOOR SALESMAN Office Visit [facility] Sleep Medicine at [address] [place] [address] Jodi Coto MD STPEHANIE (obstructive sleep apnea) (Primary Dx); Hypersomnia; Obesity, unspecified class, unspecified obesity type, unspecified whether serious comorbidity present; Insomnia, unspecified type 11/24/2024 7:15 PM DOOR TO DOOR SALESMAN - 11/24/2024 11:59 PM DOOR TO DOOR SALESMAN Hospital Encounter [facility] [address] [place] [address] STEPHANIE (obstructive sleep apnea) Discharge Disposition: Discharge [...] 10/08/2023 Assessment & Plan (10/08/2023 9:42 AM DOOR TO DOOR SALESMAN): - drinks 5 whiskeys daily, last drink 10pm 10/07 - gets shakes that resolve with alcohol, but no h/o DTs or hospitalizations for withdrawal - actively going to meetings at the [place] - s/p phenobarb in ED - monitor closely for signs of withdrawal SDH (subdural hematoma) 10/07/2023 Assessment & Plan (10/09/2023 1:07 PM DOOR TO DOOR SALESMAN): - NSGY c/s - repeat HCT 10/07 [...] on file Legal Sex Male 9:22 AM DOOR TO DOOR SALESMAN Gender Identity Not on file Sexual Orientation [...] on file Medical Devices Implanted Type Area Catering Driver Device Identifier Shelf Expiration Date Model / Serial / Lot [employer] Inspire 3 Electrode Cuff Tunnel Dannie Lead Neurostimulator Sterile 4063 - [id number] - [id number] Implanted:Qty: 1 on 04/27/2024 by Natasha Treviño MD at [facility] Right: Neck [employer] 11/03/2026 4063 / [id number] / [employer] Lead Neurostimulator Sleep Apnea Thoracic Permanent Respiratory Sensing Inspire 43cm 4340 - [id number] - [id number] Implanted:Qty: 1 on 04/27/2024 by Natasha Treviño MD at [facility] Right: Chest [employer] 01/03/2027 4340 / [id number] / [employer] Inspire Generator 3028 - [id number] - [id number] Implanted:Qty: 1 on 04/27/2024 by Natasha Treviño MD at [facility] Right: Chest [employer] 12/21/2026 3028 / [id number] C / Procedures Procedure Name Priority Date/Time [...] sleep apnea s/p hypoglossal nerve stimulator implantation [place] sleepiness score: 13 Weight: 224 lbs BMI: 33.08 Procedure: This overnight hypoglossal nerve stimulator (Inspire) titration polysomnogram was performed with the echo technologist in attendance. Patient is studied with [...] scored according to the criteria from The [place] Academy of Sleep Medicine (AASM) Manual for [...] Clinical correlation is recommended. Jodi Coto MD [facility] Sleep Medicine Narrative Jodi Coto [...] ORDERABLES Final Res ult Performing Organization Address [facility] de Phone Number THERESA [address] [place] [address] * (ABNORMAL) Hemoglobin A1c (04/23/2024 2:46 PM CDT) Hgb A1C 5.7(H) 4.0 - 5.6 % Estimated Average Glucose 117 mg/dL THERESA Comment: The ADA recommends reporting an estimated Average Glucose (eAG) with all Hemoglobin A1c results using the equation derived from a study of 507 normal and diabetic adults. Minority populations were underrepresented and children were not included. (Diabetes Care 31:3178-9347, 2008). The eAG is not equivalent to a fasting glucose. Blood 04/23/2024 2:46 PM CDT 04/23/2024 4:01 PM CDT Amairani Pinon NP LAB BLOOD ORDERABLES Final Res ult Performing Organization Address [facility] de Phone Number THERESA [address] [facility] [place] [address] from Last 3 Months or Most Recently Relevant to Health Maintenance Insurance [facility] MEDICARE ADVANTAGE [facility] Address: [address] [address] [place] [address] [facility] Address: [address] [address] [place] [address] [facility] CARE Advance Directives For more information, please contact: [phone] * Full Code (Latest Code Status on File) Date Activated Date Inactivated Comments 10/07/2023 7:44 PM 10/09/2023 7:12 PM Care Teams Hatchery Manager Relationship Specialty Start Date End Date Junior Vega MD PCP - General 02/09/18 Jesus Erwin MD PhD [address] [place] [address] Consulting Physician Neurosurgery 10/09/23
--- OUTSIDE RECORDS SUMMARY | 2025-02-14 22:42 | XMS_ITS ---
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
--- OUTSIDE RECORDS SUMMARY | 2025-02-14 22:42 | XMS_ITS | Clinical Summary ---
Author Organization [facility] Address [address] [place] [address] Phone Care Team Providers Care School Administrator Name Role Phone Unavailable Primary Care Provider [...]
--- OUTSIDE RECORDS SUMMARY | 2025-02-14 22:42 | XMS_ITS | Clinical Summary ---
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 Sleep Medicine at [address] [place] [phone] Jodi Coto MD STEPHANIE (obstructive sleep apnea) (Primary Dx); Obesity, unspecified class, unspecified obesity type, unspecified whether serious comorbidity present; Insomnia, unspecified type; Hypersomnia 01/11/2025 9:00 AM CDT Office Visit [facility] Sleep Medicine at [address] [place] [address] Jodi Coto MD STEPHANIE (obstructive sleep apnea) (Primary Dx); Hypersomnia; Obesity, unspecified class, unspecified obesity type, unspecified whether serious comorbidity present; Insomnia, unspecified type 01/10/2025 9:40 AM CDT Office Visit [facility]) - [facility] ENT [address] [facility] Office Building [address] [place] [address] Natasha Treviño MD S/P insertion of hypoglossal nerve stimulator (Primary Dx); Obstructive sleep apnea 11/30/2024 10:30 AM ROLLER STRUCTURAL MILL Office Visit [facility] Sleep Medicine at [address] [place] [address] Jodi Coto MD STEPHANIE (obstructive sleep apnea) (Primary Dx); Hypersomnia; Obesity, unspecified class, unspecified obesity type, unspecified whether serious comorbidity present; Insomnia, unspecified type 11/24/2024 7:15 PM ROLLER STRUCTURAL MILL - 11/24/2024 11:59 PM ROLLER STRUCTURAL MILL Hospital Encounter [facility] [address] [place] [address] STEPHANIE (obstructive sleep apnea) Discharge Disposition: Discharge [...] on file Legal Sex Male 9:22 AM ROLLER STRUCTURAL MILL Gender Identity Not on file Sexual Orientation [...] history exists Medical Devices Implanted Type Area Supervisor Record Press Device Identifier Shelf Expiration Date Model / Serial / Lot [employer] Inspire 3 Electrode Cuff Tunnel Dannie Lead Neurostimulator Sterile 4063 - [id number] - [id number] Implanted:Qty: 1 on 04/27/2024 by Natasha Treviño MD at [facility] Right: Neck [employer] 11/03/2026 4063 / [id number] / [employer] Lead Neurostimulator Sleep Apnea Thoracic Permanent Respiratory Sensing Inspire 43cm 4340 - [id number] - [id number] Implanted:Qty: 1 on 04/27/2024 by Natasha Treviño MD at [facility] Right: Chest [employer] 01/03/2027 4340 / [id number] / [employer] Inspire Generator 3028 - [id number] - [id number] Implanted:Qty: 1 on 04/27/2024 by Natasha Treviño MD at [facility] Right: Chest [employer] 12/21/2026 3028 / [id number] C / Procedures Procedure Name Priority Date/Time [...] sleep apnea s/p hypoglossal nerve stimulator implantation [place] sleepiness score: 13 Weight: 224 lbs BMI: 33.08 Procedure: This overnight hypoglossal nerve stimulator (Inspire) titration polysomnogram was performed with the electromechanical technologist in attendance. Patient is studied with [...] scored according to the criteria from The [place] Academy of Sleep Medicine (AASM) Manual for [...] correlation is recommended. Jodi Coto MD [facility] Sleep Medicine Narrative Jodi [...] ORDERABLES Final Res ult Performing Organization Address [facility] de Phone Number THERESA PAPPAS [address] [facility] [employer] [place] [address] * (ABNORMAL) Hemoglobin A1c (04/23/2024 2:46 PM CDT) Hgb A1C 5.7(H) 4.0 - 5.6 % Estimated Average Glucose 117 mg/dL THERESA Comment: The ADA recommends reporting an estimated Average Glucose (eAG) with all Hemoglobin A1c results using the equation derived from a study of 507 normal and diabetic adults. Minority populations were underrepresented and children were not included. (Diabetes Care 31:7042-2074, 2008). The eAG is not equivalent to a fasting glucose. Blood 04/23/2024 2:46 PM CDT 04/23/2024 4:01 PM CDT Amairani Pinon NP LAB BLOOD ORDERABLES Final Res ult Performing Organization Address [facility] de Phone Number THERESA PAPPAS [address] [address] [facility] [employer] [place] [address] from Last 3 Months or Most Recently Relevant to Health Maintenance Insurance [facility] MEDICARE ADVANT[facility] MEDICARE Address: [facility] [address] [place] [address] [facility] MEDICARE ADVANTAGE [facility] MEDICARE Address: [address] [address] [place] [address] Advance Directives For more information, please contact: [phone] * Full Code (Latest Code Status on File) Date Activated Date Inactivated Comments 10/07/2023 7:44 PM 10/09/2023 7:12 PM Care Teams Boat Joiner Relationship Specialty Start Date End Date Junior Vega MD PCP - General 02/09/18 Jesus Erwin MD PhD [address] [place] [address] Consulting Physician Neurosurgery 10/09/23
--- OUTSIDE RECORDS SUMMARY | 2025-02-14 22:42 | XMS_ITS | Encounter Summary ---
Author Organization 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
[2025-02-14 23:01] VITALS: BP 136/83; PULSE 84; RESP 16; O2SAT 99
[2025-02-14 23:42] VITALS: BP 151/87; PULSE 88
[2025-02-14 23:43] VITALS: BP 115/68; PULSE 78
[2025-02-14 23:46] VITALS: BP 130/74; PULSE 96
[2025-02-14] MEDS: diazePAM (*CRX) 2 MG TABLET PO (23:52)
[2025-02-15 00:59] VITALS: BP 140/77; PULSE 86; RESP 17; O2SAT 97
[2025-02-15 01:01] VITALS: BP 140/77; PULSE 86; RESP 17; O2SAT 97
== END 2025-02-15 01:15 | disposition home or self-care (01) ==
PROVIDERS: Physician Assistant; Emergency Provider Physician Assistant; PCP Family Medicine
DX: I95.1 Orthostatic hypotension (principal); R42 Dizziness and giddiness; F41.9 Anxiety disorder, unspecified; N18.31 Chronic kidney disease, stage 3a; R73.03 Prediabetes; M19.019 Primary osteoarthritis, unspecified shoulder; F43.10 Post-traumatic stress disorder, unspecified; F17.290 Nicotine dependence, other tobacco product, uncomplicated; Z85.820 Personal history of malignant melanoma of skin; Z79.84 Long term (current) use of oral hypoglycemic drugs; Z79.899 Other long term (current) drug therapy
CPT/HCPCS: 36415; 70450; 71046; 80053; 85025; 93005; 99284; A9270

== ENCOUNTER 2025-06-07 09:22 | Outpatient (CLI) | payer MEDICARE, SELFPAY ==
--- OUTSIDE RECORDS SUMMARY | 2003-10-19 19:00 | XMS_ITS | Continuity of Care Document ---
Author Name [facility] Address [address] [place] [address] Organization [facility] Care Team Providers Care Staffing Recruiter Name Role Phone [facility] Unavailable Unavailable Problems Problem Status Onset [...]
--- OUTSIDE RECORDS SUMMARY | 2024-03-22 07:19 | XMS_ITS ---
Author Organization [facility] Address [address], [place] [address] Care Team Providers Care Certified Technician Name Role Phone Slivia Junior Primary Care Provider Cindy Laureano Jr, MD, Sammy Unavailable Encounters Encounter Location Date Provider Diagnosis [facility] [address] [facility] [address] [place] [address] 03/22/2024 Sammy Laureano Jr, MD PLAN OF TREATMENT No Information
--- OUTSIDE RECORDS SUMMARY | 2024-03-25 07:36 | XMS_ITS ---
Author Organization [facility] Address [address], [place] [address] Care Team Providers Care Qa Architect Name Role Phone Silvia, Junior Primary Care Provider Cindy Laureano Jr, MD, Sammy Unavailable [phone] REASON FOR VISIT FYI Encounters Encounter Location Date Provider Diagnosis [facility] [address] [facility] [place] [address] 03/25/2024 Sammy Laureano Jr, MD PLAN OF TREATMENT No Information
--- OUTSIDE RECORDS SUMMARY | 2024-04-05 07:30 | XMS_ITS ---
Author Organization [facility] Address [address] [facility] [address] [place] [address] Care Team Providers Care Leaf Fat Scraper Name Role Phone Arlen Vegan Primary Care Provider Cindy Laureano Jr, MD, Sammy Unavailable REASON FOR VISIT APPROVED Encounters Encounter Location Date Provider Diagnosis [facility] [address] [address] [place], [place] [id number] 04/05/2024 Sammy Laureano Jr, MD PLAN OF TREATMENT No Information
--- NOTE | ~2025-06-07 | US_ITS ---
EXAMINATION TYPE: US breast LT limited COMPARISON: 12/14/2024 REASON FOR STUDY: R92.8 - Other abnormal and inconclusive findings on diagn... TECHNIQUE: Targeted sonographic evaluation of the left breast was performed. INTERPRETATION: Hypoechoic area in the subareolar region is decreased from prior exam. This could reflect improving gynecomastia. IMPRESSION: Improving gynecomastia left breast. No suspicious abnormality seen sonographically. BI-RADS CATEGORY: BI-RADS 2: Benign Reviewed, dictated and finalized at location . IMPRESSION: Improving gynecomastia left breast. No suspicious abnormality seen sonographica lly. BI-RADS CATEGORY: BI-RADS 2: Benign
--- OUTSIDE RECORDS SUMMARY | 2025-06-07 04:40 | XMS_ITS | Continuity of Care Document ---
Author Name [facility] Organization [facility] Care Team Providers [employer] Name Role Phone [facility] Unavailable Unavailable Problems Combined list of problems from Department of Defense and [facility] Affairs facilities. It does not include entries that were removed or entered in error. Problem Status Onset Date Problem Type Date of Resolution Comments Source Alcohol abuse Active Condition [facility] Alcoholic fatty liver Active Condition [facility] Allergic rhinitis Active Condition [facility] Anxiety Active Condition [facility] Benign essential hypertension (SNOMED CT 7518496) Active Condition [facility] Chronic kidney disease Active Condition [facility] Chronic post-traumatic stress disorder Active Condition [facility] Depressive disorder Active Condition [facility] Diabetes Mellitus Type 2 ([facility] [id number]) Active Condition [facility] Dry eyes Active Condition [facility] Exposure to potentially hazardous substance Active Condition [facility] HLD - Hyperlipidemia (SNOMED CT 20636165) Active Condition [facility] Insomnia Active Condition [facility] Kidney stone Active Condition [facility] Low back pain Active Condition [facility] Obesity Active Condition Jun 18, 2011 Entered By: DEBI ORANTES Comment: thoracic spine [facility] Orthostatic hypotension Active Condition [facility] Sensorineural hearing loss Active Condition [facility] Sensorineural hearing loss of bilateral ears Active Condition [facility] Skin cancer Active Condition Aug 10, 2023 Entered By: THEO VALENTE Comment: S/p multiple removals [facility] Sleep apnea Active Condition [facility] Tinnitus Active Condition [facility] Tobacco dependence in remission Active Condition [facility] Vertigo Active Condition [facility] At risk of diabetes mellitus Inactive Condition 08/10/2023 Oct 03, 2020 Entered By: ROXANA OLGUIN Comment: HGA1C 6.9 with fasting glucose 114 09/2020 [facility] Basal Cell Carcinoma of Skin, site unspecified (ICD-9-CM 173.91) Inactive Condition 08/10/2023 [facility] Carcinoma, Basal Cell Inactive Condition 08/10/2023 [facility] Erectile dysfunction (SNOMED CT 232848734) Inactive Condition 08/10/2023 [facility] Hand pain (SNOMED CT 16643361) Inactive Condition 08/10/2023 [facility] History/Skin/CA Inactive Condition 08/10/2023 [facility] Diagnosis: ICD-10-CM E11.9 Type 2 diabetes mellitus without complications Active Diagnosis [facility] Diagnosis: ICD-10-CM I95.1 Orthostatic hypotension Active Diagnosis [facility] Diagnosis: ICD-10-CM F32.89 Other specified depressive episodes Active Diagnosis [facility] Diagnosis: ICD-10-CM Z91.89 Oth personal risk factors, not elsewhere classified Active Diagnosis [facility] Diagnosis: ICD-10-CM Z48.01 Encounter for change or removal of surgical wound dressing Active Diagnosis [facility] Diagnosis: ICD-10-CM C44.320 Squamous cell carcinoma of skin of unspecified parts of face Active Diagnosis [facility] Diagnosis: ICD-10-CM I10 Essential (primary) hypertension Active Diagnosis [facility] Diagnosis: ICD-10-CM L57.0 Actinic keratosis Active Diagnosis 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 Diagnosis: ICD-10-CM Z00.00 Encntr for general adult medical exam w/o abnormal findings [facility] Diagnosis: ICD-10-CM R42 Dizziness and giddiness Active Diagnosis [facility] Diagnosis: ICD-10-CM E78.5 Hyperlipidemia, unspecified Active Diagnosis [facility] Diagnosis: ICD-10-CM N18.9 Chronic kidney disease, unspecified Active Diagnosis [facility] Diagnosis: ICD-10-CM Z01.818 Encounter for other preprocedural examination Active Diagnosis [facility] Diagnosis: ICD-10-CM Z04.89 Encounter for examination and observation for oth reasons Active Diagnosis [facility] Diagnosis: ICD-10-CM H90.5 Unspecified sensorineural hearing loss Active Diagnosis [facility] Diagnosis: ICD-10-CM R55 Syncope and collapse Active Diagnosis [facility] Medications Combined list of outpatient medications from Department of Defense and [facility] facilities.Medications provided include 1) outpatient medications from the last 15 months, and 2) patient-reported medications. Medication Details Route Status Patient Instructions Prescription Expires Prescription Number Last Dispense Date Ordering Provider Order Date Order Qty Source ACETAMINOPH EN 500MG TAB TAKE TWO TABLETS BY MOUTH FOUR TIMES A DAY NEEDED CAUTION: DO NOT EXCEED 4000MG PER DAY ACETAMIN OPHEN (APAP) FROM ALL MEDS. TAKE SCHEDULE D FOR 72 HOURS, THEN NEEDED FOR PAIN ORAL 05/08/2024 [id number] MUSTAPHA PÉREZ 2023 56 [facility] DIVISIO N AMLODIPINE BESYLATE 10MG TAB TAKE ONE TABLET BY MOUTH ONCE A DAY FOR HIGH BLOOD PRESSURE ORAL DISCONT INUED BY PROVIDE R 08/05/2025 [id number] 5 HIMANSHU MALDONADO 2023 90 [facility] DIVISIO N AMLODIPINE BESYLATE 10MG TAB TAKE ONE TABLET BY MOUTH ONCE A DAY FOR HIGH BLOOD PRESSURE ORAL DISCONT INUED 08/03/2024 [id number] 4 HIMANSHU MALDONADOE S [address] [place] [address] DIVISIO N BUPROPION HCL 100MG 12HR TAB,SA TAKE ONE TABLET BY MOUTH EVERY MORNING FOR DEPRESSI ON SWALLOW WHOLE - DO NOT CRUSH OR CHEW. ORAL DISCONT INUED BY PROVIDE R 10/06/2025 [id number] 4 JOSE ALICIA [address] [place] [address] DIVISIO N BUPROPION HCL 150MG 24HR TAB,SA TAKE ONE TABLET BY MOUTH ONCE A DAY FOR DEPRESSI ON SWALLOW WHOLE - DO NOT CRUSH OR CHEW. ORAL DISCONT INUED (EDIT) 11/05/2025 [id number] 5 JOSE ALICIA [address] [place] [address] DIVISIO N BUPROPION HCL 300MG 24HR TAB,SA TAKE ONE TABLET BY MOUTH ONCE A DAY SWALLOW WHOLE - DO NOT CRUSH OR CHEW. ORAL SUSPEND ED 03/29/2026 [id number] 5 JOSE ALICIA [address] [place] [address] DIVISIO N BUPROPION HCL 300MG 24HR TAB,SA TAKE ONE TABLET BY MOUTH ONCE A DAY SWALLOW WHOLE - DO NOT CRUSH OR CHEW. ORAL DISCONT INUED 01/04/2026 [id number] 5 JOSE ALICIA [address] [place] [address] DIVISIO N CARVEDILOL 12.5MG TAB TAKE ONE-HALF TABLET BY MOUTH TWICE A DAY FOR HIGH BLOOD PRESSURE TAKE WITH FOOD. ORAL ACTIVE 08/05/2025 [id number] 5 HIMANSHU MALDONADO S [address] [place] [address] DIVISIO N CARVEDILOL 12.5MG TAB TAKE ONE-HALF TABLET BY MOUTH TWICE A DAY FOR HIGH BLOOD PRESSURE TAKE WITH FOOD. ORAL DISCONT INUED 08/03/2024 [id number] 4 HIMANSHU MALDONADO TIA S [address] [place] [address] DIVISIO N CYCLOBENZAP RINE HCL 10MG TAB TAKE ONE TABLET BY MOUTH THREE TIMES A DAY NEEDED ORAL ACTIVE SAMANTA VALENTE LBY R 2024 [facility] DIVISIO N DULOXETINE HCL 20MG CAP,EC TAKE FOUR CAPSULES BY MOUTH ONCE A DAY DO NOT ABRUPTLY DISCONTI NUE MEDICATI ON. ORAL SUSPEND ED 03/29/2026 [id number] 5 JOSE ALICIA A 2024 360 [facility] DIVISIO N DULOXETINE HCL 20MG CAP,EC TAKE FOUR CAPSULES BY MOUTH ONCE A DAY DO NOT ABRUPTLY DISCONTI NUE MEDICATI ON. ORAL DISCONT INUED 01/04/2026 [id number] 5 JOSE ALICIA 2024 360 [facility] DIVISIO N DULOXETINE HCL 20MG CAP,EC TAKE FOUR CAPSULES BY MOUTH ONCE A DAY DO NOT ABRUPTLY DISCONTI NUE MEDICATI ON. ORAL DISCONT INUED 07/07/2025 [id number] 5 JOSE ALICIA 2023 360 [facility] DIVISIO N DULOXETINE HCL 20MG CAP,EC TAKE FOUR CAPSULES BY MOUTH ONCE A DAY DO NOT ABRUPTLY DISCONTI NUE MEDICATI ON. ORAL DISCONT INUED (EDIT) 03/31/2025 [id number] 4 JOSE ALICIA A 2023 360 [facility] DIVISIO N EMPAGLIFLOZ IN 25MG TAB TAKE ONE-HALF TABLET BY MOUTH ONCE A DAY ORAL SUSPEND ED 04/13/2026 [id number] 5 George GARCIA 2024 45 [facility] EMPAGLIFLOZ IN 25MG TAB TAKE ONE-HALF TABLET BY MOUTH ONCE A DAY ORAL DISCONT INUED 04/04/2025 [id number] 5 George GARCIA 2024 45 [facility] EMPAGLIFLOZ IN 25MG TAB TAKE ONE-HALF TABLET BY MOUTH ONCE A DAY ORAL DISCONT INUED 01/05/2026 [id number] 5 George GARCIA M 2024 15 [facility] FINASTERIDE 5MG TAB TAKE ONE TABLET BY MOUTH ONCE A DAY FOR BENIGN PROSTATI C HYPERPLA JOSE GUADALUPE SWALLOW WHOLE, DO NOT CRUSH, SPLIT, OR CHEW. ORAL SUSPEND ED 12/31/2025 [id number] 5 SAMANTA VALENTE LBY R 2024 90 [facility] DIVISIO N FINASTERIDE 5MG TAB TAKE ONE TABLET BY MOUTH ONCE A DAY FOR BENIGN PROSTATI C HYPERPLA JOSE GUADALUPE SWALLOW WHOLE, DO NOT CRUSH, SPLIT, OR CHEW. ORAL DISCONT INUED 02/23/2025 [id number] 4 KRISTY BROWN 2023 90 [facility] DIVISIO N FISH OIL 1000MG (500MG DHA/EPA) CAP,ORAL TAKE 1 CAPSULE BY MOUTH ONCE A DAY ORAL ACTIVE DONG FROST 2021 [facility] DIVISIO N FLUOROURACI L 5% CREAM,TOP APPLY THIN FILM TO AFFECTED AREA(S) TWICE A DAY AVOID SUN EXPOSURE . FOLLOW DIRECTIO NS CAREFULL Y FOR PROPER HANDLING /DISPOSA L. APPLY TO HANDS AND ARMS FOR 14 DAYS AVOID SUN EXPOSURE . FOLLOW DIRECTIO NS CAREFULL Y FOR PROPER HANDLING /DISPOSA L. APPLY TO HANDS AND ARMS FOR 14 DAYS TOPICA L 01/05/2025 [id number] CORY SPRING 2023 40 [facility] DIVISIO N FLUTICASONE PROPIONATE 50MCG/SPRAY SOLN,NASAL, 16GM INSTILL 2 SPRAYS IN NOSTRIL( S) ONCE A DAY NASAL ACTIVE SAMANTA VALENTE LBY R 2023 [facility] LISINOPRIL 20MG TAB TAKE ONE-HALF TABLET BY MOUTH ONCE A DAY ORAL ACTIVE George GARCIA M 2024 [facility] MELATONIN 5MG CAP/TAB TAKE ONE CAP/TAB BY MOUTH AT BEDTIME FOR SLEEP ORAL SUSPEND ED 03/29/2026 [id number] 5 JOSE ALICIA A M 2024 90 [facility] DIVISIO N MELATONIN 5MG CAP/TAB TAKE ONE CAP/TAB BY MOUTH AT BEDTIME FOR SLEEP ORAL DISCONT INUED 01/04/2026 [id number] 5 JOSE ALICIA A 2024 90 [facility] DIVISIO N MELATONIN 5MG CAP/TAB TAKE ONE CAP/TAB BY MOUTH AT BEDTIME FOR SLEEP ORAL DISCONT INUED 10/06/2025 [id number] 5 JOSE ALICIA A 2023 90 [facility] DIVISIO N MULTIVITAMI NS CAP/TAB TAKE ONE TABLET BY MOUTH ONCE A DAY ORAL ACTIVE DONG FROST 2021 [facility] DIVISIO N NALTREXONE (EQV-REVIA) 50MG TAB TAKE ONE TABLET BY MOUTH ONCE A DAY ORAL SUSPEND ED 03/29/2026 [id number] 5 JOSE ALICIA A 2024 60 [facility] DIVISIO N NALTREXONE (EQV-REVIA) 50MG TAB TAKE ONE TABLET BY MOUTH ONCE A DAY ORAL DISCONT INUED 01/04/2026 [id number] 5 JOSE ALICIA 2024 60 [facility] DIVISIO N NALTREXONE (EQV-REVIA) 50MG TAB TAKE ONE TABLET BY MOUTH ONCE A DAY ORAL DISCONT INUED 07/07/2025 [id number] 5 JOSE ALICIA 2023 60 [facility] DIVISIO N NALTREXONE (EQV-REVIA) 50MG TAB TAKE ONE TABLET BY MOUTH ONCE A DAY FOR ALCOHOL USE DISORDER ORAL DISCONT INUED (EDIT) 03/31/2025 [id number] 4 JOSE ALICIA 2023 60 [facility] DIVISIO N NALTREXONE (EQV-REVIA) 50MG TAB TAKE ONE TABLET BY MOUTH ONCE A DAY FOR ALCOHOL USE DISORDER ORAL DISCONT INUED 09/26/2024 [id number] 4 JOSE ALICIA M 2023 60 [facility] DIVISIO N OXYCODONE HCL 5MG TAB TAKE ONE TABLET BY MOUTH EVERY 6 HOURS NEEDED MAY CAUSE CONSTIPA TION BREAKTHR OUGH PAIN ONLY ORAL 05/08/2024 [id number] 4 MUSTAPHA PÉREZ 2023 6 [facility] DIVISIO N PHENAZOPYRI DINE HCL 100MG TAB TAKE ONE TABLET BY MOUTH THREE TIMES A DAY NEEDED TAKE WITH PLENTY OF WATER*MA Y DISCOLOR THE URINE FOR BURNING WITH URINATIO N ORAL 05/08/2024 [id number] 4 MUSTAPHA PÉREZ M 2023 15 [facility] DIVISIO N PROPYLENE GLYCOL 0.6% SOLN,OPH INSTILL 1 DROP IN BOTH EYES THREE TIMES A DAY OPHTHA LMIC 09/12/2024 [id number] 4 DAVID JACOBSEN 2022 30 [facility] DIVISIO N ROSUVASTATI N CA 40MG TAB TAKE ONE TABLET BY MOUTH EVERY EVENING ORAL SUSPEND ED 12/30/2025 [id number] SAMANTA VALENTE R [address] [place] [address] TAMSULOSIN HCL 0.4MG CAP TAKE ONE CAPSULE BY MOUTH EVERY EVENING FOR BENIGN PROSTATI C HYPERPLA JOSE GUADALUPE APPROXIM ATELY 30 MINUTES AFTER THE SAME MEAL EACH DAY ORAL SUSPEND ED 12/31/2025 [id number] 5 SAMANTA VALENTE R 2024 90 [facility] DIVISIO N TAMSULOSIN HCL 0.4MG CAP TAKE ONE CAPSULE BY MOUTH EVERY EVENING FOR BENIGN PROSTATI C HYPERPLA JOSE GUADALUPE APPROXIM ATELY 30 MINUTES AFTER THE SAME MEAL EACH DAY ORAL DISCONT INUED 02/23/2025 [id number] 4 KRISTY BROWN 2023 90 [facility] DIVISIO N ZOLPIDEM TARTRATE 5MG TAB TAKE ONE TABLET BY MOUTH AT BEDTIME (TAKE IMMEDIAT SAKINA BEFORE BEDTIME DUE TO RAPID ONSET OF ACTION) ORAL SUSPEND ED 09/28/2025 [id number] 5 JOSE ALICIA 2024 30 [facility] DIVISIO N ZOLPIDEM TARTRATE 5MG TAB TAKE ONE TABLET BY MOUTH AT BEDTIME (TAKE IMMEDIAT SAKINA BEFORE BEDTIME DUE TO RAPID ONSET OF ACTION) [facility] 07/06/2025 [id number] 5 JOSE ALICIA 2024 30 [facility] DIVISIO N ZOLPIDEM TARTRATE 5MG TAB TAKE ONE TABLET BY MOUTH AT BEDTIME (TAKE IMMEDIAT SAKINA BEFORE BEDTIME DUE TO RAPID ONSET OF ACTION) ORAL DISCONT [facility] 04/07/2025 [id number] 5 JOSE ALICIA 2023 30 [facility] DIV[facility]IO N Immunizations Combined list of available immunizations from the Department of Defense and Veterans Affairs facilities. 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 Status Comments Source COVID-19 (PFIZER), MRNA, LNP-S, PF, RHEA-SUCROSE, 30 MCG/0.3 ML (AGES 12+ YEARS) 2023 SKY CEDILLO LEFT DELTO ID [id number] 309 complet ed [facility] INFLUENZA, HIGH-DOSE, TRIVALENT, PF 2023 SKY CEDILLO LEFT [place]TO ID [id number] 135 complet ed [facility] COVID-19 (MODERNA), MRNA, LNP-S, PF, 50 MCG/0.5 ML (AGES 12+ YEARS) 1 2023 SKY C[place] LEFT [place]TO ID [id number] 312 complet ed [facility] PNEUMOCOCCAL POLYSACCHARID E PPV23 2023 SKY [place] RIGHT DELTO ID [id number] 33 complet ed [facility] INFLUENZA, HIGH-DOSE, QUADRIVALENT 2022 ARNOLDO STAPLETON MAKSIM Uribe RIGHT DELTO ID [id number] A 197 complet ed Completed Series, [facility] TDAP 1 2022 115 complet ed HISTORICA L INFORMATI ON - FROM OTHER REGISTRY, [facility] COVID-19 (MODERNA), MRNA, LNP-S, BIVALENT BOOSTER, PF, 50 MCG/0.5 ML OR 25MCG/0.25 ML DOSE 1 2021 229 complet ed MOD; [id number]; 3 [facility] INFLUENZA, HIGH-DOSE, QUADRIVALENT 4 2021 197 complet ed HISTORICA L INFORMATI ON - FROM OTHER REGISTRY, [facility] DIVISIO N COVID-19 (PFIZER), MRNA, LNP-S, PF, 30 MCG/0.3 ML DOSE 3 2020 208 complet ed PFR; [id number]; 2 [facility] [employer] N INFLUENZA VACCINE, QUADRIVALENT, ADJUVANTED 2020 205 complet ed [facility] DIVIS N COVID-19 (Technitrol), MRNA, LNP-S, PF, 30 MCG/0.3 ML DOSE 2 2020 208 complet ed PFR; [id number]; 1 [facility] COVID-19 (Technitrol), MRNA, LNP-S, PF, 30 MCG/0.3 ML DOSE 1 2020 208 complet ed PFR; [id number]; 1 [facility] DIV[facility] N INFLUENZA, HIGH-DOSE, QUADRIVALENT 2019 197 complet ed HISTORICA L INFORMATI ON - FROM OTHER PROVIDER, [facility] N ZOSTER RECOMBINANT 2 2018 187 complet ed [facility] INFLUENZA, INJECTABLE, QUADRIVALENT, PRESERVATIVE FREE 2018 150 complet ed 02, Partner: [facility]. Administe red by: [facility] Clinician (NPI=Not Provided) . Partner 28 Lot#: [id number] Mfr: [employer] Pharmaceuticalsit hKline [facility] DIVISIO N ZOSTER RECOMBINANT 1 2018 187 complet ed [facility] TDAP 1 2018 115 complet ed HISTORICA L INFORMATI ON - FROM OTHER [facility], [facility] DIVISIO N INFLUENZA, TRIVALENT, ADJUVANTED 2017 168 complet ed 02, Partner: [facility]. Administe red by: [facility] Clinician (NPI=Not Provided) . Partner 28 Lot#: [id number] Mfr: Vrvana [facility] INFLUENZA, TRIVALENT, ADJUVANTED 2 2017 168 complet ed HISTORICA L INFORMATI ON - FROM OTHER [facility], [facility] DIV[facility] N INFLUENZA, INJECTABLE, MDCK, PRESERVATIVE FREE, QUADRIVALENT 2016 171 complet ed 02, Partner: [employer] . Administe red by: [facility] Clinician (NPI=Not Provided) . Partner 28 Lot#: [id number] Mfr: WorldPassKey [facility] INFLUENZA, INJECTABLE, MDCK, PRESERVATIVE FREE, QUADRIVALENT 1 2016 171 complet ed HISTORICA L INFORMATI ON - FROM OTHER [facility], [facility] DIVISIO N INFLUENZA, UNSPECIFIED FORMULATION 2015 88 complet ed [facility] DIV[facility] N PNEUMOCOCCAL CONJUGATE PCV 13 2014 133 complet ed [facility] INFLUENZA, SEASONAL, INJECTABLE, PRESERVATIVE FREE 2014 140 complet ed [facility] N INFLUENZA, UNSPECIFIED FORMULATION 2013 88 complet ed [facility] N INFLUENZA, UNSPECIFIED FORMULATION 2012 88 complet ed [facility] INFLUENZA, UNSPECIFIED FORMULATION 2011 88 complet ed [facility] PNEUMOCOCCAL, UNSPECIFIED FORMULATION 2011 109 complet ed [facility] INFLUENZA, UNSPECIFIED FORMULATION 2010 88 complet ed [facility] ZOSTER LIVE 2010 121 complet ed [facility] TDAP 2010 115 complet ed Right Deltoid [facility] INFLUENZA, UNSPECIFIED FORMULATION 2009 88 complet ed [facility] N Results Combined list of recent chemistry, hematology and other laboratory results from Department of Defense and Veterans Affairs, ranging from 15 months to all on record, depending upon the facility. Order Name Results Value Reference Range Date Interpretation Specimen Comments Source MICRAL/C REAT PROFILE (STL) ALBUMIN [MASS/VOLU ME] IN URINE 88.8 mg/L 04/27 Specimen Type: URINE No comment entered. Ordering Provider: MATY GARCIA Report Released Date/Time: Apr 12, 2025 11:31 AM Reporting Lab: [facility] [address] [place] [phone] Performing Lab: [facility] [address] [place] [phone] [facility] MICRAL/C REAT PROFILE (STL) ALBUMIN/CR EATININE [MASS RATIO] IN URINE 114 mg/g 0 - 29 04/27 H Specimen Type: URINE No comment entered. Ordering Provider: MATY GARCIA Report Released Date/Time: Apr 12, 2025 11:31 AM Reporting Lab: [facility] [address] [place] [phone] Performing Lab: [facility] [address] [place] [phone] [facility] MICRAL/C REAT PROFILE (STL) CREATININE [MASS/VOLU ME] IN URINE 77.9 mg/dL 63 - 166 04/27 Specimen Type: URINE No comment entered. Ordering Provider: MATY GARCIA Report Released Date/Time: Apr 12, 2025 11:31 AM Reporting Lab: [address] [phone] Performing Lab: [address] [address] [facility] TROPONIN I (STL) TROPONIN I.CARDIAC [MASS/VOLU ME] IN SERUM OR PLASMA <0.010ng /mL 0 - 0.033 04/24 Specimen Type: PLASMA Comment: No hemolysis noted. Ordering Provider: GEN ESPARZA Report Released Date/Time: Apr 24, 2025 08:29 PM Reporting Lab: [address] [address] Performing Lab: [address] [phone] [facility] ETHANOL SERUM/PL ASMA (STL) ETHANOL [MASS/VOLU ME] IN SERUM OR PLASMA 108 mg/dL 0 - 9 04/24 H Specimen Type: PLASMA No comment entered. Ordering Provider: PARAM MAO Report Released Date/Time: Apr 24, 2025 09:15 PM Reporting Lab: [address] [address] Performing Lab: [address] [address] [facility] COMPREHE NSIVE METABOLI C PANEL CREATININE [MASS/VOLU ME] IN SERUM OR PLASMA 1.51 mg/dL 0.7 - 1.3 04/24 H Specimen Type: PLASMA Comment: No hemolysis noted. Ordering Provider: GEN ESPARZA Report Released Date/Time: Apr 24, 2025 08:29 PM Reporting Lab: [address] [phone] Performing Lab: [address] [phone] [facility] COMPREHE NSIVE METABOLI C PANEL UREA NITROGEN [MASS/VOLU ME] IN SERUM OR PLASMA 19.3 mg/dL 9.0 - 25.0 04/24 Specimen Type: PLASMA Comment: No hemolysis noted. Ordering Provider: GEN ESPARZA Report Released Date/Time: Apr 24, 2025 08:29 PM Reporting Lab: [place] [address] [address] [facility] [address] Performing Lab: [facility] [address] [facility] [address] [facility] COMPREHE NSIVE METABOLI C PANEL GLUCOSE [MASS/VOLU ME] IN SERUM OR PLASMA 94 mg/dL 72 - 99 04/24 Specimen Type: PLASMA Comment: No hemolysis noted. Ordering Provider: GEN ESPARZA Report Released Date/Time: Apr 24, 2025 08:29 PM Reporting Lab: [place] [address] [facility] [address] Performing Lab: [place] [address] [address] [facility] [address] [facility] COMPREHE NSIVE METABOLI C PANEL SODIUM [MOLES/VOL UME] IN SERUM OR PLASMA 137 meq/L 136 - 145 04/24 Specimen Type: PLASMA Comment: No hemolysis noted. Ordering Provider: GEN ESPARZA Report Released Date/Time: Apr 24, 2025 08:29 PM Reporting Lab: [place] [address] [address] [facility] [address] Performing Lab: [facility] [address] [facility] [address] [facility] COMPREHE NSIVE METABOLI C PANEL POTASSIUM [MOLES/VOL UME] IN SERUM OR PLASMA 3.9 meq/L 3.5 - 5 04/24 Specimen Type: PLASMA Comment: No hemolysis noted. Ordering Provider: GEN ESPARZA Report Released Date/Time: Apr 24, 2025 08:29 PM Reporting Lab: [facility] [address] [facility] [address] Performing Lab: [facility] [address] [facility] [address] [facility] COMPREHE NSIVE METABOLI C PANEL CHLORIDE [MOLES/VOL UME] IN SERUM OR PLASMA 106 meq/L 98 - 107 04/24 Specimen Type: PLASMA Comment: No hemolysis noted. Ordering Provider: GEN ESPARZA Report Released Date/Time: Apr 24, 2025 08:29 PM Reporting Lab: [facility] [address] [facility] [address] Performing Lab: [facility] [address] [facility] [address] [facility] COMPREHE NSIVE METABOLI C PANEL CARBON DIOXIDE, TOTAL [MOLES/VOL UME] IN SERUM OR PLASMA 16 meq/L 22 - 31 04/24 L Specimen Type: PLASMA Comment: No hemolysis noted. Ordering Provider: GEN ESPARZA Report Released Date/Time: Apr 24, 2025 08:29 PM Reporting Lab: [facility] [address] [facility] [address] Performing Lab: [facility] [address] [facility] [address] [facility] COMPREHE NSIVE METABOLI C PANEL CALCIUM [MASS/VOLU ME] IN SERUM OR PLASMA 10.3 mg/dL 8.4 - 10.4 04/24 Specimen Type: PLASMA Comment: No hemolysis noted. Ordering Provider: GEN ESPARZA Report Released Date/Time: Apr 24, 2025 08:29 PM Reporting Lab: [facility] [address] [facility] [id number] Performing Lab: [facility] [address] [facility] [address] [facility] COMPREHE NSIVE METABOLI C PANEL PROTEIN [MASS/VOLU ME] IN SERUM OR PLASMA 7.7 g/dL 6 - 8.6 04/24 Specimen Type: PLASMA Comment: No hemolysis noted. Ordering Provider: GEN ESPARZA Report Released Date/Time: Apr 24, 2025 08:29 PM Reporting Lab: [facility] [address] [place] [address] Performing Lab: [facility] [address] [facility] [address] [facility] COMPREHE NSIVE METABOLI C PANEL ALBUMIN [MASS/VOLU ME] IN SERUM OR PLASMA 4.1 g/dL 3.4 - 5 04/24 Specimen Type: PLASMA Comment: No hemolysis noted. Ordering Provider: GEN ESPARZA Report Released Date/Time: Apr 24, 2025 08:29 PM Reporting Lab: [facility] [address] [place] [address] Performing Lab: [place] [address] [facility] [address] [facility] COMPREHE NSIVE METABOLI C PANEL BILIRUBIN. TOTAL [MASS/VOLU ME] IN SERUM OR PLASMA 0.2 mg/dL 0.2 - 1.2 04/24 Specimen Type: PLASMA Comment: No hemolysis noted. Ordering Provider: GEN ESPARZA Report Released Date/Time: Apr 24, 2025 08:29 PM Reporting Lab: [facility] [address] [facility] [address] Performing Lab: [facility] [address] [facility] [address] [facility] COMPREHE NSIVE METABOLI C PANEL ALKALINE PHOSPHATAS E [ENZYMATIC ACTIVITY/V OLUME] IN SERUM OR PLASMA 85 U/L 40 - 150 04/24 Specimen Type: PLASMA Comment: No hemolysis noted. Ordering Provider: GEN ESPARZA Report Released Date/Time: Apr 24, 2025 08:29 PM Reporting Lab: [facility] [address] [facility] [address] Performing Lab: [facility] [address] [facility] [address] [facility] COMPREHE NSIVE METABOLI C PANEL ASPARTATE AMINOTRANS FERASE [ENZYMATIC ACTIVITY/V OLUME] IN SERUM OR PLASMA 27 U/L 5 - 34 04/24 Specimen Type: PLASMA Comment: No hemolysis noted. Ordering Provider: GEN ESPARZA Report Released Date/Time: Apr 24, 2025 08:29 PM Reporting Lab: [place] [address] [address] [facility] [address] Performing Lab: [place] [address] [place] [id number] COMPREHE NSIVE METABOLI C PANEL ALANINE AMINOTRANS FERASE [ENZYMATIC ACTIVITY/V OLUME] IN SERUM OR PLASMA 19 U/L 8 - 40 04/24 Specimen Type: PLASMA Comment: No hemolysis noted. Ordering Provider: GEN ESPARZA Report Released Date/Time: Apr 24, 2025 08:29 PM Reporting Lab: [place] [address] [place] [phone] Performing Lab: [place] [address] COMPREHE NSIVE METABOLI C PANEL GLOMERULAR FILTRATION RATE/1.73 SQ M.PREDICTE D [VOLUME RATE/AREA] IN SERUM, PLASMA OR BLOOD BY CREATININE -BASED FORMULA (CKD-EPI 2020) 47.0 60 04/24 Specimen Type: PLASMA Comment: No hemolysis noted. Ordering Provider: GEN ESPARZA Report Released Date/Time: Apr 24, 2025 08:29 PM Reporting Lab: [place] [address] [place] [address] Performing Lab: [place] [address] [facility] [phone] [place] [address] CBC LEUKOCYTES [#/VOLUME] IN BLOOD BY AUTOMATED COUNT 10.3 10*3/uL 3.6 - 11.2 04/24 Specimen Type: BLOOD No comment entered. Ordering Provider: GEN ESPARZA Report Released Date/Time: Apr 24, 2025 08:29 PM Reporting Lab: [place] [address] [facility] [address] Performing Lab: [address] [address] [facility] CBC ERYTHROCYT ES [#/VOLUME] IN BLOOD BY AUTOMATED COUNT 4.50 10*6/uL 4.10 - 5.70 04/24 Specimen Type: BLOOD No comment entered. Ordering Provider: GEN ESPARZA Report Released Date/Time: Apr 24, 2025 08:29 PM Reporting Lab: [address] [address] Performing Lab: [address] [phone] [place] [address] CBC HEMOGLOBIN [MASS/VOLU ME] IN BLOOD 14.8 g/dL 13.1 - 16.8 04/24 Specimen Type: BLOOD No comment entered. Ordering Provider: GEN ESPARZA Report Released Date/Time: Apr 24, 2025 08:29 PM Reporting Lab: [address] [address] Performing Lab: [phone] [place] [address] CBC HEMATOCRIT [VOLUME FRACTION] OF BLOOD 43.7 38.2 - 48.4 04/24 Specimen Type: BLOOD No comment entered. Ordering Provider: GEN ESPARZA Report Released Date/Time: Apr 24, 2025 08:29 PM Reporting Lab: [address] [address] Performing Lab: [address] [address] [facility] CBC MCV [ENTITIC VOLUME] BY AUTOMATED COUNT 97.1 fL 80.0 - 100.0 04/24 Specimen Type: BLOOD No comment entered. Ordering Provider: GEN ESPARZA Report Released Date/Time: Apr 24, 2025 08:29 PM Reporting Lab: [place] [address] [facility] [address] Performing Lab: [address] [address] [facility] CBC MCH [ENTITIC MASS] BY AUTOMATED COUNT 32.9 pg 27.0 - 34.0 04/24 Specimen Type: BLOOD No comment entered. Ordering Provider: GEN ESPARZA Report Released Date/Time: Apr 24, 2025 08:29 PM Reporting Lab: [address] [address] Performing Lab: [address] [address] [facility] CBC MCHC [MASS/VOLU ME] BY AUTOMATED COUNT 33.9 g/dL 33.0 - 36.0 04/24 Specimen Type: BLOOD No comment entered. Ordering Provider: GEN ESPARZA Report Released Date/Time: Apr 24, 2025 08:29 PM Reporting Lab: [address] [address] Performing Lab: [address] [address] [facility] CBC PLATELETS [#/VOLUME] IN BLOOD BY AUTOMATED COUNT 216 10*3/uL 150 - 400 04/24 Specimen Type: BLOOD No comment entered. Ordering Provider: GEN ESPARZA Report Released Date/Time: Apr 24, 2025 08:29 PM Reporting Lab: [address] [address] Performing Lab: [address] [address] [facility] CBC PLATELET MEAN VOLUME [ENTITIC VOLUME] IN BLOOD BY AUTOMATED COUNT 10.4 fL 7.5 - 11.2 04/24 Specimen Type: BLOOD No comment entered. Ordering Provider: GEN ESPARZA Report Released Date/Time: Apr 24, 2025 08:29 PM Reporting Lab: [address] [place] [address] Performing Lab: [facility] [address] [facility] [address] [facility] CBC ERYTHROCYT E DISTRIBUTI ON WIDTH [RATIO] BY AUTOMATED COUNT 15.2 11.8 - 15.1 04/24 H Specimen Type: BLOOD No comment entered. Ordering Provider: GEN ESPARZA Report Released Date/Time: Apr 24, 2025 08:29 PM Reporting Lab: [facility] [address] [facility] [address] Performing Lab: [facility] [address] [place] [address] [facility] CBC SEGMENTED NEUTROPHIL S/100 LEUKOCYTES IN BLOOD BY MANUAL COUNT 64.6 04/24 Specimen Type: BLOOD No comment entered. Ordering Provider: GEN ESPARZA Report Released Date/Time: Apr 24, 2025 08:29 PM Reporting Lab: [facility] [address] [facility] [address] Performing Lab: [facility] [address] [facility] [address] [facility] CBC MONOCYTES/ 100 LEUKOCYTES IN BLOOD BY AUTOMATED COUNT 3.4 04/24 Specimen Type: BLOOD No comment entered. Ordering Provider: GEN ESPARZA Report Released Date/Time: Apr 24, 2025 08:29 PM Reporting Lab: [facility] [address] [facility] [address] Performing Lab: [facility] [address] [facility] [address] [facility] CBC EOSINOPHIL S/100 LEUKOCYTES IN BLOOD BY MANUAL COUNT 2.6 04/24 Specimen Type: BLOOD No comment entered. Ordering Provider: GEN ESPARZA Report Released Date/Time: Apr 24, 2025 08:29 PM Reporting Lab: [facility] [address] [place] [address] Performing Lab: [facility] [address] [facility] [address] [facility] CBC BASOPHILS/ 100 LEUKOCYTES IN BLOOD BY MANUAL COUNT 0.9 04/24 Specimen Type: BLOOD No comment entered. Ordering Provider: GEN ESPARZA Report Released Date/Time: Apr 24, 2025 08:29 PM Reporting Lab: [place] [address] [facility] [address] Performing Lab: [facility] [address] [facility] [address] [facility] CBC METAMYELOC YTES/100 LEUKOCYTES IN BLOOD BY MANUAL COUNT 0.9 04/24 Specimen Type: BLOOD No comment entered. Ordering Provider: GEN ESPARZA Report Released Date/Time: Apr 24, 2025 08:29 PM Reporting Lab: [place] [address] [facility] [address] Performing Lab: [place] [address] [facility] [address] [facility] CBC ANISOCYTOS IS [PRESENCE] IN BLOOD BY LIGHT MICROSCOPY 1+ 04/24 Specimen Type: BLOOD No comment entered. Ordering Provider: GEN ESPARZA Report Released Date/Time: Apr 24, 2025 08:29 PM Reporting Lab: [place] [address] [facility] [address] Performing Lab: [place] [address] [facility] [address] [facility] CBC POIKILOCYT OSIS [PRESENCE] IN BLOOD BY LIGHT MICROSCOPY 1+ 04/24 Specimen Type: BLOOD No comment entered. Ordering Provider: GEN ESPARZA Report Released Date/Time: Apr 24, 2025 08:29 PM Reporting Lab: [place] [address] [facility] [address] Performing Lab: [place] [address] [facility] [address] [facility] CBC PAPPENHEIM ER BODIES 0 04/24 Specimen Type: BLOOD No comment entered. Ordering Provider: GEN ESPARZA Report Released Date/Time: Apr 24, 2025 08:29 PM Reporting Lab: [facility] [address] [facility] [address] Performing Lab: [facility] [address] [facility] [address] [facility] CBC LYMPHOCYTE S/100 LEUKOCYTES IN BLOOD BY MANUAL COUNT 25.9 04/24 Specimen Type: BLOOD No comment entered. Ordering Provider: GEN ESPARZA Report Released Date/Time: Apr 24, 2025 08:29 PM Reporting Lab: [facility] [address] [facility] [address] Performing Lab: [place] [address] [facility] [phone] CBC VARIANT LYMPHOCYTE S/100 LEUKOCYTES IN BLOOD BY MANUAL COUNT 1.7 04/24 Specimen Type: BLOOD No comment entered. Ordering Provider: GEN ESPARZA Report Released Date/Time: Apr 24, 2025 08:29 PM Reporting Lab: [facility] [address] [facility] [address] Performing Lab: [place] [address] [facility] [address] [facility] CBC DACROCYTES [PRESENCE] IN BLOOD BY LIGHT MICROSCOPY 1+ 04/24 Specimen Type: BLOOD No comment entered. Ordering Provider: GEN ESPARZA Report Released Date/Time: Apr 24, 2025 08:29 PM Reporting Lab: [facility] [address] [facility] [address] Performing Lab: [place] [address] [place] [phone] CBC PLATELET ADEQUACY [PRESENCE] IN BLOOD BY LIGHT MICROSCOPY ADEQUATE 04/24 Specimen Type: BLOOD No comment entered. Ordering Provider: GEN ESPARZA Report Released Date/Time: Apr 24, 2025 08:29 PM Reporting Lab: [place] [address] [facility] [address] Performing Lab: [address] [address] [facility] CBC MANUAL DIFFERENTI AL PERFORMED [PRESENCE] IN BLOOD 0.09 0.00 - 0.05 04/24 H Specimen Type: BLOOD No comment entered. Ordering Provider: GEN ESPARZA Report Released Date/Time: Apr 24, 2025 08:29 PM Reporting Lab: [place] [address] [facility] [address] Performing Lab: [address] [address] [facility] CBC BASOPHILS [#/VOLUME] IN BLOOD BY MANUAL COUNT 0.09 10*3/uL 0.01 - 0.20 04/24 Specimen Type: BLOOD No comment entered. Ordering Provider: GEN ESPARZA Report Released Date/Time: Apr 24, 2025 08:29 PM Reporting Lab: [place] [address] [facility] [address] Performing Lab: [address] [address] [facility] CBC EOSINOPHIL S [#/VOLUME] IN BLOOD BY MANUAL COUNT 0.27 10*3/uL 0.00 - 0.60 04/24 Specimen Type: BLOOD No comment entered. Ordering Provider: GEN ESPARZA Report Released Date/Time: Apr 24, 2025 08:29 PM Reporting Lab: [place] [address] [facility] [address] Performing Lab: [address] [address] [facility] CBC MONOCYTES [#/VOLUME] IN BLOOD BY MANUAL COUNT 0.35 10*3/uL 0.19 - 0.80 04/24 Specimen Type: BLOOD No comment entered. Ordering Provider: GEN ESPARZA Report Released Date/Time: Apr 24, 2025 08:29 PM Reporting Lab: [place] [address] [facility] [address] Performing Lab: [place] [address] [facility] [address] [facility] CBC LYMPHOCYTE S [#/VOLUME] IN BLOOD BY MANUAL COUNT 2.84 10*3/uL 0.77 - 4.50 04/24 Specimen Type: BLOOD No comment entered. Ordering Provider: GEN ESPARZA Report Released Date/Time: Apr 24, 2025 08:29 PM Reporting Lab: [address] [address] Performing Lab: [place] [address] [facility] [address] [facility] CBC NEUTROPHIL S [#/VOLUME] IN BLOOD BY MANUAL COUNT 6.65 10*3/uL 2.10 - 8.00 04/24 Specimen Type: BLOOD No comment entered. Ordering Provider: GEN ESPARZA Report Released Date/Time: Apr 24, 2025 08:29 PM Reporting Lab: [address] [address] Performing Lab: [place] [address] [facility] [address] [facility] RENAL PANEL CREATININE [MASS/VOLU ME] IN SERUM OR PLASMA 1.31 mg/dL 0.7 - 1.3 04/08 H Specimen Type: PLASMA Comment: No hemolysis noted. Ordering Provider: THEO VALENTE Report Released Date/Time: March 04, 2025 01:24 PM Reporting Lab: [place] [address] [facility] [address] Performing Lab: [address] [address] [facility] RENAL PANEL UREA NITROGEN [MASS/VOLU ME] IN SERUM OR PLASMA 17.0 mg/dL 9.0 - 25.0 04/08 Specimen Type: PLASMA Comment: No hemolysis noted. Ordering Provider: THEO VALENTE Report Released Date/Time: March 04, 2025 01:24 PM Reporting Lab: [facility] [address] [place] [address] Performing Lab: [facility] [address] [place] [address] [facility] RENAL PANEL GLUCOSE [MASS/VOLU ME] IN SERUM OR PLASMA 133 mg/dL 72 - 99 04/08 H Specimen Type: PLASMA Comment: No hemolysis noted. Ordering Provider: THEO VALENTE Report Released Date/Time: March 04, 2025 01:24 PM Reporting Lab: [address] [address] Performing Lab: [address] [address] [facility] RENAL PANEL SODIUM [MOLES/VOL UME] IN SERUM OR PLASMA 134 meq/L 136 - 145 04/08 L Specimen Type: PLASMA Comment: No hemolysis noted. Ordering Provider: THEO VALENTE Report Released Date/Time: March 04, 2025 01:24 PM Reporting Lab: [facility] [address] [place] [address] Performing Lab: [facility] [address] [place] [address] [facility] RENAL PANEL POTASSIUM [MOLES/VOL UME] IN SERUM OR PLASMA 4.3 meq/L 3.5 - 5 04/08 Specimen Type: PLASMA Comment: No hemolysis noted. Ordering Provider: THEO VALENTE Report Released Date/Time: March 04, 2025 01:24 PM Reporting Lab: [facility] [address] [place] [address] Performing Lab: [facility] [address] [place] [address] [facility] RENAL PANEL CHLORIDE [MOLES/VOL UME] IN SERUM OR PLASMA 100 meq/L 98 - 107 04/08 Specimen Type: PLASMA Comment: No hemolysis noted. Ordering Provider: THEO VALENTE Report Released Date/Time: March 04, 2025 01:24 PM Reporting Lab: [address] [address] Performing Lab: [facility] [address] [place] [address] [facility] RENAL PANEL CARBON DIOXIDE, TOTAL [MOLES/VOL UME] IN SERUM OR PLASMA 24 meq/L 22 - 31 04/08 Specimen Type: PLASMA Comment: No hemolysis noted. Ordering Provider: THEO VALENTE Report Released Date/Time: March 04, 2025 01:24 PM Reporting Lab: [address] [address] Performing Lab: [address] [address] [facility] RENAL PANEL CALCIUM [MASS/VOLU ME] IN SERUM OR PLASMA 9.3 mg/dL 8.4 - 10.4 04/08 Specimen Type: PLASMA Comment: No hemolysis noted. Ordering Provider: THEO VALENTE Report Released Date/Time: March 04, 2025 01:24 PM Reporting Lab: [facility] [address] [place] [address] Performing Lab: [address] [address] [facility] RENAL PANEL PHOSPHATE [MASS/VOLU ME] IN SERUM OR PLASMA 3.3 mg/dL 2.3 - 4.7 04/08 Specimen Type: PLASMA Comment: No hemolysis noted. Ordering Provider: THEO VALENTE Report Released Date/Time: March 04, 2025 01:24 PM Reporting Lab: [facility] [address] [place] [address] Performing Lab: [address] [address] [facility] RENAL PANEL ALBUMIN [MASS/VOLU ME] IN SERUM OR PLASMA 3.9 g/dL 3.4 - 5 04/08 Specimen Type: PLASMA Comment: No hemolysis noted. Ordering Provider: THEO VALENTE Report Released Date/Time: March 04, 2025 01:24 PM Reporting Lab: [facility] [address] [facility] [address] Performing Lab: [facility] [address] [place] [phone] [place] [address] RENAL PANEL GLOMERULAR FILTRATION RATE/1.73 SQ M.PREDICTE D [VOLUME RATE/AREA] IN SERUM, PLASMA OR BLOOD BY CREATININE -BASED FORMULA (CKD-EPI 2020) 55.7 60 04/08 Specimen Type: PLASMA Comment: No hemolysis noted. Ordering Provider: THEO VALENTE Report Released Date/Time: March 04, 2025 01:24 PM Reporting Lab: [address] [address] Performing Lab: [address] [address] [facility] HGA1C HEMOGLOBIN A1C/HEMOGL OBIN.TOTAL IN BLOOD 5.9 4.0 - 6.0 03/02 Specimen Type: BLOOD No comment entered. Ordering Provider: MATY GARCIA Report Released Date/Time: March 01, 2025 12:03 PM Reporting Lab: [address] [address] Performing Lab: [facility] [address] [place] [address] [facility] BASIC METABOLI C PANEL CREATININE [MASS/VOLU ME] IN SERUM OR PLASMA 1.36 mg/dL 0.7 - 1.3 03/02 H Specimen Type: PLASMA Comment: No hemolysis noted. Ordering Provider: MATY GARCIA Report Released Date/Time: March 01, 2025 12:03 PM Reporting Lab: [facility] [address] [facility] [address] Performing Lab: [facility] [address] [place] [address] [facility] BASIC METABOLI C PANEL UREA NITROGEN [MASS/VOLU ME] IN SERUM OR PLASMA 12.5 mg/dL 9.0 - 25.0 03/02 Specimen Type: PLASMA Comment: No hemolysis noted. Ordering Provider: MATY GARCIA Report Released Date/Time: March 01, 2025 12:03 PM Reporting Lab: [address] [address] Performing Lab: [facility] [address] [facility] [address] [facility] BASIC METABOLI C PANEL GLUCOSE [MASS/VOLU ME] IN SERUM OR PLASMA 98 mg/dL 72 - 99 03/02 Specimen Type: PLASMA Comment: No hemolysis noted. Ordering Provider: MATY GARCIA Report Released Date/Time: March 01, 2025 12:03 PM Reporting Lab: [address] [address] Performing Lab: [facility] [address] [place] [address] [facility] BASIC METABOLI C PANEL SODIUM [MOLES/VOL UME] IN SERUM OR PLASMA 136 meq/L 136 - 145 03/02 Specimen Type: PLASMA Comment: No hemolysis noted. Ordering Provider: MATY GARCIA Report Released Date/Time: March 01, 2025 12:03 PM Reporting Lab: [facility] [address] [place] [phone] Performing Lab: [facility] [address] [place] [address] [facility] BASIC METABOLI C PANEL POTASSIUM [MOLES/VOL UME] IN SERUM OR PLASMA 4.2 meq/L 3.5 - 5 03/02 Specimen Type: PLASMA Comment: No hemolysis noted. Ordering Provider: MATY GARCIA Report Released Date/Time: March 01, 2025 12:03 PM Reporting Lab: [facility] [address] [place] [address] Performing Lab: [facility] [address] [facility] [address] [facility] BASIC METABOLI C PANEL CHLORIDE [MOLES/VOL UME] IN SERUM OR PLASMA 101 meq/L 98 - 107 03/02 Specimen Type: PLASMA Comment: No hemolysis noted. Ordering Provider: MATY GARCIA Report Released Date/Time: March 01, 2025 12:03 PM Reporting Lab: [place] [address] [place] [phone] Performing Lab: [place] [address] [facility] [address] [facility] BASIC METABOLI C PANEL CARBON DIOXIDE, TOTAL [MOLES/VOL UME] IN SERUM OR PLASMA 29 meq/L 22 - 31 03/02 Specimen Type: PLASMA Comment: No hemolysis noted. Ordering Provider: MATY GARCIA Report Released Date/Time: March 01, 2025 12:03 PM Reporting Lab: [address] [address] Performing Lab: [place] [address] [facility] [address] [facility] BASIC METABOLI C PANEL CALCIUM [MASS/VOLU ME] IN SERUM OR PLASMA 11.2 mg/dL 8.4 - 10.4 03/02 H Specimen Type: PLASMA Comment: No hemolysis noted. Ordering Provider: MATY GARCIA Report Released Date/Time: March 01, 2025 12:03 PM Reporting Lab: [address] [address] Performing Lab: [phone] [place] [address] BASIC METABOLI C PANEL GLOMERULAR FILTRATION RATE/1.73 SQ M.PREDICTE D [VOLUME RATE/AREA] IN SERUM, PLASMA OR BLOOD BY CREATININE -BASED FORMULA (CKD-EPI 2020) 53.3 60 03/02 Specimen Type: PLASMA Comment: No hemolysis noted. Ordering Provider: MATY GARCIA Report Released Date/Time: March 01, 2025 12:03 PM Reporting Lab: [facility] [address] [facility] [address] Performing Lab: [facility] [address] [facility] [address] [facility] LIPID PANEL (STL) CHOLESTERO L [MASS/VOLU ME] IN SERUM OR PLASMA 116 mg/dL 0 - 200 01/05 Specimen Type: PLASMA No comment entered. Ordering Provider: VENU MALDONADO Report Released Date/Time: Dec 22, 2024 08:44 AM Reporting Lab: [place] [address] [facility] [address] Performing Lab: [place] [address] [facility] [address] [facility] LIPID PANEL (STL) TRIGLYCERI DE [MASS/VOLU ME] IN SERUM OR PLASMA 150 mg/dL 0 - 150 01/05 Specimen Type: PLASMA No comment entered. Ordering Provider: VENU MALDONADO Report Released Date/Time: Dec 22, 2024 08:44 AM Reporting Lab: [place] [address] [facility] [address] Performing Lab: [place] [address] [facility] [address] [facility] LIPID PANEL (STL) CHOLESTERO L IN LDL [MASS/VOLU ME] IN SERUM OR PLASMA BY CALCRICARDO N 36 mg/dL 01/05 Specimen Type: PLASMA No comment entered. Ordering Provider: VENU MALDONADO Report Released Date/Time: Dec 22, 2024 08:44 AM Reporting Lab: [place] [address] [facility] [address] Performing Lab: [address] [address] [facility] LIPID PANEL (STL) CHOLESTERO L IN HDL [MASS/VOLU ME] IN SERUM OR PLASMA 50 mg/dL 40 01/05 Specimen Type: PLASMA No comment entered. Ordering Provider: VENU MALDONADO Report Released Date/Time: Dec 22, 2024 08:44 AM Reporting Lab: [address] [address] Performing Lab: [place] [address] [facility] [address] [facility] PROST. SPECIFIC AG.(PB-S TL) PROSTATE SPECIFIC AG [MASS/VOLU ME] IN SERUM OR PLASMA 1.668 ng/mL 0 - 4 01/05 Specimen Type: SERUM Comment: The listed sex of this patient may not be a typical indication for this test. Therefore, reference ranges or interpretiv e criteria listed may not be valid. Clinical correlation suggested. Ordering Provider: VENU MALDONADO Report Released Date/Time: Dec 22, 2024 08:44 AM Reporting Lab: [address] [address] Performing Lab: [address] [address] [facility] Vital Signs Combined list of inpatient and outpatient Vital Signs from [employer] and [employer], ranging from 12 months to all on record, depending upon the facility. Vital Sign Value Date Comments Source SYSTOLIC BLOOD PRESSURE 93 04/24/2025 20:14:01 [facility] DIASTOLIC BLOOD PRESSURE 54 04/24/2025 20:14:01 [facility] PULSE OXIMETRY 97 % 04/24/2025 20:14:01 [facility] PAIN 5 04/24/2025 20:14:01 [facility] TEMPERATURE 98 04/24/2025 20:14:01 [facility] PULSE 106 04/24/2025 20:14:01 [facility] RESPIRATION 18 04/24/2025 20:14:01 [facility] SYSTOLIC BLOOD PRESSURE 131 12/22/2024 08:47:14 [facility] DIASTOLIC BLOOD PRESSURE 83 12/22/2024 08:47:14 [facility] PULSE OXIMETRY 96 12/22/2024 08:47:14 S Ban [facility] WEIGHT 217.2 12/22/2024 08:47:14 [facility] BMI 32 kg/m2 12/22/2024 08:47:14 [facility] TEMPERATURE 97.5 12/22/2024 08:47:14 [facility] PULSE 77 12/22/2024 08:47:14 [facility] RESPIRATION 16 12/22/2024 08:47:14 [facility] SYSTOLIC BLOOD PRESSURE 137 08/11/2024 09:28:07 [facility] DIA[facility] PRESSURE 83 08/11/2024 09:28:07 [facility] PULSE OXIMETRY 96 08/11/2024 09:28:07 S Ban [facility] WEIGHT 223.6 08/11/2024 09:28:07 [facility] BMI 33 kg/m2 08/11/2024 09:28:07 [facility] PAIN 3 08/11/2024 09:28:07 [facility] TEMPERATURE 97.8 08/11/2024 09:28:07 [facility] PULSE 80 08/11/2024 09:28:07 [facility] RESPIRATION 18 08/11/2024 09:28:07 [facility] SYSTOLIC BLOOD PRESSURE 149 08/04/2024 09:42:17 [facility] DIASTOLIC BLOOD PRESSURE 76 08/04/2024 09:42:17 [facility] PULSE OXIMETRY 97 08/04/2024 09:42:17 S Ban [facility] WEIGHT 228.1 08/04/2024 09:42:17 [facility] BMI 34 kg/m2 08/04/2024 09:42:17 [facility] PAIN 0 08/04/2024 09:42:17 [facility] TEMPERATURE 97.8 08/04/2024 09:42:17 [facility] PULSE 88 08/04/2024 09:42:17 [facility] RESPIRATION 22 08/04/2024 09:42:17 [facility] SYSTOLIC BLOOD PRESSURE 132 07/13/2024 06:11:58 [facility] DIASTOLIC BLOOD PRESSURE 81 07/13/2024 06:11:58 [facility] PULSE OXIMETRY 95 07/13/2024 06:11:58 S [facility] WEIGHT 219 07/13/2024 06:11:58 [facility] BMI 32 kg/m2 07/13/2024 06:11:58 [facility] PAIN 1 07/13/2024 06:11:58 [facility] HEIGHT 69 07/13/2024 06:11:58 [facility] TEMPERATURE 97.8 07/13/2024 06:11:58 [facility] PULSE 75 07/13/2024 06:11:58 [facility] RESPIRATION 18 07/13/2024 06:11:58 [facility] Encounters Combined list of: 1) Encounters from Department [facility] facilities going backup to the last 18 months, not all [place] inpatient encounters are included; 2) Encounters from the Department of [facility] facilities going backup to 280 months. Location Location Details Encounter Type Encounter Number Reason For Visit Attending Provider ADM Date DC Date Status Disposition Source [facility] EXT ECG>48HR<7 D REV&INTERP J [id number] Diagnos is: ICD-10- CM R55 Syncope and collaps e LAQUITA YEN DONNA 12/09 [facility] N [facility] Outpatient Encounter [id number] BEVERLEY HESTER 12/18 [facility] Outpatient Encounter [id number] [id number] 1 12/21 [facility] Outpatient Encounter [id number] [id number] WALTER GONSALEZ Chele 12/21 [facility] Outpatient Encounter [id number] [id number] JASMIN HORNE 12/21 [facility] OFFICE O/P EST MOD 30 MIN 22083-7.65 [id number] Diagnos is: ICD-10- CM F32.89 Other specifi ed depress enrique episode s ELKE SOTO M 12/22 [facility] Outpatient Encounter 85633-2.65 [id number] JASMIN HORNE L 12/22 [facility] OFFICE O/P EST MOD 30 MIN 71629-8.65 [id number] Diagnos is: ICD-10- CM L57.0 Actinic keratos is Jb DELGADILLO 12/23 [facility] Outpatient Encounter [id number] [id number] 12/23 [facility] Outpatient Encounter [id number] [id number] 2 12/23 [facility] Outpatient Encounter 39055-3.65 [id number] SHANIQUE TOLEDO RNISHA Oleksandr 12/24 [facility] SELF-MGMT EDUC & TRA[place] 1 [place] [address]-9.65 [id number] Diagnos is: ICD-10- CM R42 Dizzine ss and giddine ss MOHSEN BONILLA 12/25 [facility] SUP/ACCESS /DEV 58094-3 [id number] Diagnos is: ICD-10- CM H90.5 Unspeci fied sensori neural hearing loss JAZIEL PATRICIA 12/29 [facility] OFFICE O/P NEW MOD 45 MIN 86739-3 [id number] Diagnos is: ICD-10- CM R42 Dizzine ss and giddine ss SHANNON ALLAN 12/30 [facility] NEUROMUSCU LAR REEDUCATIO N [id number] Diagnos is: ICD-10- CM R42 Dizzine ss and giddine ss MOHSEN BONILLA 01/05 [facility] Outpatient Encounter [id number] 01/07 [facility] Outpatient Encounter [id number]. [id number] 01/18 [facility] Outpatient Encounter [id number]. [id number] JASMIN HORNE 01/21 [facility] PT RE-EVAL EST PLAN CARE 79583-9 [id number] Diagnos is: ICD-10- CM R42 Dizzine ss and giddine ss MOHSEN BONILLA 01/22 [facility] Outpatient Encounter [id number] [id number] 5 02/02 [facility] Outpatient Encounter 55869-7.65 [id number] 5 JASMIN HORNE 02/04 [facility] Outpatient Encounter 24807-8.65 [id number] 5 NATHAN CABALLERO 02/09 [facility] Outpatient Encounter [id number] [id number] 5 ALIVIA NUNEZ 02/10 [facility] Outpatient Encounter 52440-3.65 [id number] 02/11 [facility] Outpatient Encounter [id number] [id number] 5 02/12 [facility] Outpatient Encounter 75539-4.65 [id number] 6 02/15 [facility] Outpatient Encounter [id number] [id number] 8 SANDY AZAR M 02/16 [facility] Outpatient Encounter 08639-4.65 [id number] 5 02/19 [facility] Outpatient Encounter 76954-0.65 [id number] 5 JSAMIN HORNE 02/19 [facility] OFFICE O/P NEW MOD 45 MIN 56249-8.65 [id number] 4 Diagnos is: ICD-10- CM N20.0 Calculu s of kidney Teresa BROWN ALPH J 02/22 [facility] Outpatient Encounter 50940-4.65 [id number] 5 02/23 [facility] OFF/OP CONSLTJ NEW/EST HI 55 01934-9.65 [id number] 2 Diagnos is: ICD-10- CM I10 Essenti al (primar y) hyperte nsion LINDA PINEDAUJA 02/23 [facility] OFF/OP EST MAY X REQ PHY/QHP 18091-1.65 [id number] 3 Diagnos is: ICD-10- CM N20.0 Calculu s of kidney KEVIN,R ALPH J 03/10 [facility] OFFICE O/P EST LOW 20 MIN 11994-6.65 [id number] Diagnos is: ICD-10- CM L57.0 Actinic keratos is Jb DELGADILLO 03/12 [facility] OFFICE O/P EST HI 40 MIN 94613-9.65 [id number] Diagnos is: ICD-10- CM I10 Essenti al (primar y) hyperte nsion ERICA,CAROLYN IE S 03/17 [facility] Outpatient Encounter [id number] [id number] 03/17 [facility] Outpatient Encounter [id number] [id number] JASMIN HORNE 03/23 [facility] Outpatient Encounter [id number] [id number] 8 CESIA YANEZ 03/25 [facility] Outpatient Encounter 03224-3.65 [id number] 7 03/25 [facility] Outpatient Encounter 45626-5.65 [id number] 4 03/25 [facility] Outpatient Encounter [id number] [id number] 2 JASMIN HRONE L 03/25 [facility] Outpatient Encounter 66733-6.65 [id number] 4 Diagnos is: ICD-10- CM Z04.89 Encount er for examina tion and observa tion for oth reasons DINORA RAMSAY 03/25 [facility] OFFICE O/P EST MOD 30 MIN 61063-4.65 [id number] Diagnos is: ICD-10- CM F32.89 Other specifi ed depress enrique episode s ELKE SOTO 03/30 [facility] Outpatient Encounter 50984-3.65 [id number] JASMIN HORNE Sammi 03/30 [facility] OFF/OP CONSLTJ NEW/EST HI 55 10698-8.65 [id number] 3 Diagnos is: ICD-10- CM I95.1 Orthost atic hypoten Josesito Nagy 03/[address] [facility] NEUROMUSCU LAR REEDUCATIO N 14960-4.65 [id number] Diagnos is: ICD-10- CM R42 Dizzine ss and giddine ss RADHA JARAMILLO 04/01 [facility] Outpatient Encounter 83958-3.65 [id number] 0 JASMIN HORNE 04/02 [facility] HC PRO PHONE CALL 5-10 MIN 12304-9. [id number] 2 Diagnos is: ICD-10- CM N20.0 Calculu s of kidney JOSÉ MIGUEL PARMAR M 04/06 [facility] SELF-MGMT EDUC & TRA[place] 1 [place] [address]-4.65 [id number] 1 Diagnos is: ICD-10- CM N20.0 Calculu s of kidney LARISA KINSEY M 04/08 [facility] OFFICE O/P EST LOW 20 MIN 23410-4. [id number] 8 Diagnos is: ICD-10- CM Z01.818 Encount er for other preproc edural examina maggieon ALPESH,ER IN A 04/08 [facility] Outpatient Encounter [id number] 7 04/08 [facility] Outpatient Encounter [id number] [id number] 3 KEVIN,R ALPH J 04/08 [facility] CYSTOURETE RO W/LITHOTRI PSY 49267-6.65 [id number] 3 Diagnos is: ICD-10- CM N20.0 Calculu s of kidney KEVIN,R ALPH J 04/08 [facility] Outpatient Encounter [id number] [id number] 3 Macy CINTRON 04/08 [facility] Outpatient Encounter [id number] [id number] 4 SANDY SCOTT 04/08 [facility] Outpatient Encounter 54499-0.65 [id number] 6 TACHO LA 04/08 [facility] Outpatient Encounter 49360-3.65 [id number] 2 JASMIN HORNE L 04/11 [facility] Outpatient Encounter [id number] [id number] 0 04/12 [facility] Outpatient Encounter [id number] [id number] 5 04/15 [facility] Outpatient Encounter [id number] [id number] 4 04/16 [facility] Outpatient Encounter 69553-9.65 [id number] 1 JASMIN HORNE L 04/18 [facility] CYSTOSCOPY AND TREATMENT 04414-6.65 [id number] 0 Diagnos is: ICD-10- CM N20.0 Calculu s of kidney KEVIN,R ALPH J 04/19 [facility] Outpatient Encounter 41450-2.65 [id number] 5 04/19 [facility] Outpatient Encounter [id number] [id number] KELLY HERNANDEZ 04/26 [facility] OFFICE O/P EST MOD 30 MIN 92086-3.65 [id number] Diagnos is: ICD-10- CM E78.5 Hyperli pidemia , unspeci fied CAROLYN MALDONADO IE S 05/05 [facility] HC PRO PHONE CALL 5-10 MIN 00201-0.65 [id number] 3 Diagnos is: ICD-10- CM I95.1 Orthost atic hypoten Oleksandr Lira 05/10 [facility] Outpatient Encounter [id number] 4 Javad POLANCOSRIRAM Sammi 05/11 [facility] NEUROMUSCU LAR REEDUCATIO N 12501-0.65 [id number] Diagnos is: ICD-10- CM R42 Dizzine ss and giddine ss JUANCARLOS SALDANA 05/25 [facility] Outpatient Encounter 31420-3.65 [id number] 7 06/01 [facility] NEUROMUSCU LAR REEDUCATIO N 32403-5.65 [id number] Diagnos is: ICD-10- CM 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 JUANCARLOS SALDANA 06/10 [facility] Outpatient Encounter [id number] [id number] 0 06/14 [facility] Outpatient Encounter 68729-7.65 [id number] 5 06/20 [facility] Outpatient Encounter 81216-0.65 [id number] 5 06/22 [facility] Outpatient Encounter [id number] [id number] 06/23 [facility] Outpatient Encounter [id number] [id number] 2 LAQUITA YEN 06/24 [facility] OFFICE O/P EST MOD 30 MIN 28554-7.65 [id number] 4 Diagnos is: ICD-10- CM I95.1 Orthost atic hypoten CORY Herrera 06/24 [facility] Outpatient Encounter 66714-4.65 [id number] 4 06/24 [facility] Outpatient Encounter 33680-3.65 [id number] 9 06/24 [facility] Outpatient Encounter 39731-1.65 [id number] 2 06/24 [facility] HC PRO PHONE CALL 21-30 MIN 13575-2.65 [id number] 8 Diagnos is: ICD-10- CM N18.9 Chronic kidney disease , unspeci CHRISTOPHER Singh 06/29 [facility] Outpatient Encounter [id number] [id number] 9 06/29 [facility] OFFICE O/P EST HI 40 MIN 40751-9.65 [id number] 9 Diagnos is: ICD-10- CM I95.1 Orthost atic hypoten Josesito Nagy 07/01 [facility] OFFICE O/P EST MOD 30 MIN 81415-7.65 [id number] Diagnos is: ICD-10- CM F32.89 Other specifi ed depress enrique episode s CHARLES ELKE M 07/06 [facility] SELF-MGMT EDUC & TRAIN 1 PT [address]-3.65 [id number] 3 Diagnos is: ICD-10- CM E78.5 Hyperli pidemia , unspeci fied LARISA KINSEY 07/13 [facility] Outpatient Encounter [id number] [id number] CARINA WHITE 07/13 [facility] Outpatient Encounter 36257-6.65 [id number] 2 07/13 [facility] Outpatient Encounter 59473-9.65 [id number] 4 07/20 [facility] Outpatient Encounter 47852-5.65 [id number] 1 07/22 [facility] Outpatient Encounter 89481-5.65 [id number] 4 ILAN GREEN 07/23 [facility] Outpatient Encounter [id number] [id number] 9 07/26 [facility] NEUROMUSCU LAR REEDUCATIO N 93941-3.65 [id number] Diagnos is: ICD-10- CM R42 Dizzine ss and giddine ss JUANCARLOS SALDANA 07/28 [facility] Outpatient Encounter [id number] [id number] 9 08/02 [facility] Outpatient Encounter 65824-7.65 [id number] 08/03 [facility] Outpatient Encounter 82496-7.65 [id number] 08/03 [facility] OFFICE O/P EST HI 40 MIN 57546-6.65 [id number] Diagnos is: ICD-10- CM I10 Essenti al (primar y) hyperte nsion CAROLYN MALDONADO IE S 08/04 [facility] Outpatient Encounter 90791-2.65 [id number] 08/04 [facility] IMMUNIZATI ON ADMIN 10633-9.65 [id number] Diagnos is: ICD-10- CM Z00.00 Encntr for general adult medical exam w/o abnorma l finding s RHINA VALENTE BY R 08/11 [facility] OFFICE O/P EST LOW 20 MIN 25275-9.65 [id number] Diagnos is: ICD-10- CM N20.0 Calculu s of kidney KEVIN,R ALPH J 08/11 [facility] NEUROMUSCU LAR REEDUCATIO N 75701-0.65 [id number] 764 Diagnos is: ICD-10- CM 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 JUANCARLOS SALDANA 08/19 [facility] Outpatient Encounter 50749-9.65 [id number] 7 09/08 [facility] OFFICE O/P EST HI 40 MIN 49551-5.65 [id number] Diagnos is: ICD-10- CM H81.90 Unspeci fied 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, unspeci fied ear Josesito SUMMERS UAN 09/28 [facility] Outpatient Encounter 71506-2.65 [id number] 1 09/30 [facility] OFFICE O/P EST MOD 30 MIN 14791-5.65 [id number] Diagnos is: ICD-10- CM F32.89 Other specifi ed depress enrique episode s ELKE SOTO 10/05 [facility] OFFICE O/P EST LOW 20 MIN 04074-2.65 [id number] Diagnos is: ICD-10- CM L57.0 Actinic keratos is Jb DELGADILLO 10/07 [facility] Outpatient Encounter 00829-6.65 [id number] 8 FELICITA PINEDA 10/11 [facility] Outpatient Encounter 17492-4.65 [id number] 7 10/15 [facility] Outpatient Encounter 70285-3.65 [id number] 9 10/18 [facility] Outpatient Encounter 74667-1.65 [id number] 9 10/30 [facility] Outpatient Encounter 11452-1.65 [id number] 1 11/01 [facility] Outpatient Encounter 69724-0.65 [id number] 9 ILAN GREEN L 11/02 [facility] 59984-1.65 [id number] 2 11/02 [facility] En[facility] 20727-4.65 [id number] 11/04 [facility] Encounter 85556-1.65 [id number] 7 11/05 [facility] Out[facility] Encounter 96844-5.65 [id number] 1 JASMIN HORNE L 11/05 [facility] Out[facility] Encounter 36982-9.65 [id number] 9 11/24 [facility] Out[facility] Encounter 77092-9.65 [id number] 2 JASMIN HORNE L 11/25 [facility] Out[facility] Encounter 42842-8.65 [id number] 6 11/30 [facility] Outpatient Encounter 99747-1.65 [id number] 7 12/04 [facility] Outpatient Encounter 43300-4.65 [id number] 7 JASMIN HORNE L 12/09 [facility] Encounter 47587-1.65 [id number] 9 JASMIN HORNE 12/13 [facility] Out[facility] Encounter 60361-5.65 [id number] 9 JASMIN HORNE L 12/13 [facility] Encounter 29428-1.65 [id number] 0 JASMIN HORNE L 12/15 [facility] Outpatient Encounter 16900-6.65 [id number] 3 ILAN GREEN L 12/18 [facility] OFFICE O/P EST MOD 30 MIN 01221-8.65 [id number] Diagnos is: ICD-10- CM I10 Essenti al (primar y) hyperte nsion CAROLYN MALDONADO S 12/22 [facility] Outpatient Encounter 60228-9.65 [id number] JASMIN HORNE L 12/29 [facility] OFFICE O/P EST MOD 30 MIN 34755-7.65 [id number] Diagnos is: ICD-10- CM F32.89 Other specifi ed depress enrique episode s ELKE SOTO M 01/03 [facility] Outpatient Encounter [id number] [id number] 1 01/[address] 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 Jb DELGADILLO K 02/03 [facility] Outpatient Encounter 15624-0.65 [id number] 8 02/03 [facility] Outpatient Encounter 15766-9.65 [id number] 3 PATRICIA CHAPA 02/15 [facility] Outpatient Encounter 57902-8.65 [id number] 0 SIVAN SOLORZANO M 02/16 [facility] OFFICE O/P EST LOW 20 MIN 99111-1.65 [id number] 595 Diagnos is: ICD-10- CM Z48.01 Encount er for change or removal of surgica l wound dressin Jb Hunt K 02/17 [facility] Outpatient Encounter 86023-1.65 [id number] 8 02/22 [facility] Outpatient Encounter 32918-0.65 [id number] 2 SANDY GARCIA M 03/[address] [facility] MTMS BY PHARM EST 15 MIN 09195-7.65 [id number] Diagnos is: ICD-10- CM E11.9 Type 2 diabete s mellitu s without complic ations SANDY GARCIA M 03/01 [facility] Outpatient Encounter 54131-2.65 [id number] 1 JASMIN HORNE JACOBO Chapa 03/01 [facility] Outpatient Encounter 83791-8.65 [id number] 7 JASMIN HORNE JACOBO Chapa 03/07 [facility] Outpatient Encounter 94680-3.65 [id number] 8 03/11 [facility] Outpatient Encounter 50136-9.65 [id number] 5 RHINA VALENTE 03/21 [facility] Outpatient Encounter 50885-5.65 [id number] 1 03/21 [facility] Outpatient Encounter 76046-7.65 [id number] CESIA YANEZ M 03/[address] [facility] OFF/OP EST MAY X REQ PHY/QHP [id number] Diagnos is: ICD-10- CM Z91.89 Oth persona l risk factors , not elsewhe re classif ied JASMIN HORNE JACOBO Chapa 03/24 [facility] OFFICE O/P EST MOD 30 MIN [id number] Diagnos is: ICD-10- CM F32.89 Other specifi ed depress enrique episode s ELKE SOTO M 03/28 [facility] Outpatient Encounter [id number] 03/29 [facility] Outpatient Encounter [id number] 04/02 [facility] Outpatient Encounter [id number] RHINA VALENTE 04/04 [facility] Outpatient Encounter [id number] SANDY GARCIA M 04/[address] [facility] MTMS BY PHARM EST 15 MIN [id number] Diagnos is: ICD-10- CM E11.9 Type 2 diabete s mellitu s without complic ations SANDY GARCIA M 04/12 [facility] Outpatient Encounter [id number] MANDA MAO F 04/24 [facility] Outpatient Encounter [id number] DAVID LEYVA 04/24 [facility] EMERGENCY DEPT VISIT LOW MDM [id number] Diagnos is: ICD-10- CM I95.1 Orthost atic hypoten MANDA Wang F 04/24 [facility] Outpatient Encounter [id number] 04/24 [facility] Outpatient Encounter [id number] MANDA MAO F 04/24 [facility] Outpatient Encounter [id number] JASMIN HORNE L 04/28 [facility] Outpatient Encounter [id number] JASMIN HORNE L 05/06 [facility] Outpatient Encounter [id number] JASMIN HORNE L 05/16 [facility] MTMS BY PHARM EST 15 MIN [id number] Diagnos is: ICD-10- CM E11.9 Type 2 diabete s mellitu s without complic ations SANDY GARCIA 05/17 [facility] Procedures Combined list of: 1) Procedures from [facility] facilities going back up to thelast 18 months, not all [place] non-surgical procedures are included; 2) All procedures from the Department of 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 Procedure Procedure Type Code Date Perfomer Comments Sourc e left ureteroscopy/la ser lithotripsy/bunny nt placement CYSTOURETERO W/LITHOTRIPSY 10506 04/08/2024 [facility] Social History Combined list of available smoking, tobacco, and other social history from Department of Defense and Veterans Affairs facilities. Social History Type Response Date Comment Alexy morley Tobacco smoking status NHIS VA-TOBACCO USE FORMER CIGARETTES 03/28/2025 [facility] History of tobacco use VA-TOBACCO NEVER USED OTHER TYPE 03/28/2025 [facility] History of tobacco use NM-TOBACCO QUIT 15 YRS OR MORE 03/30/2024 [facility] History of tobacco use VA-TOBACCO FORMER USER 12/18/2022 [facility] History of tobacco use VA-TOBACCO FORMER USER 09/24/2021 [facility] History of tobacco use VA-TOBACCO FORMER USER 10/02/2020 [facility] History of tobacco use VA-TOBACCO FORMER USER 09/03/2019 [facility] History of tobacco use [place]-TOBACCO FORMER USER 08/07/2018 [facility] History of tobacco use LIFETIME NON-USER OF TOBACCO 06/12/2016 [facility] History of tobacco use QUIT TOBACCO >7 YEARS AGO 12/07/2014 [facility] History of tobacco use QUIT TOBACCO >7 YEARS AGO 09/20/2013 [facility] History of tobacco use QUIT TOBACCO >7 YEARS AGO 06/18/2011 [facility] Plan of Care List of future care activities [facility]. Additional future care activities may be listed in the Assessment and Plan section. Date/Time Care Activity Care Activity Detail Facili ty 06/22/2025 AMBULATORY - MEDICINE AMBULATORY - MEDICI [facility]
--- OUTSIDE RECORDS SUMMARY | 2025-06-07 09:42 | XMS_ITS ---
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 Colitis, infectious 03/16/2025 Kidney stone 04/19/2024 Chronic kidney disease 04/19/2024 Exposure to potentially hazardous substance 0710/2023 Syncope and collapse 04/19/2024 STEPHANIE (obstructive sleep [...] region 02/2024 Impingement syndrome of right shoulder 02/05/202 4 Low back pain 11/24/2023 Neoplasm of unspecified [...] Assessment & Plan (10/08/2023 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
--- OUTSIDE RECORDS SUMMARY | 2025-06-07 09:42 | XMS_ITS | Clinical Summary ---
Author Organization [facility] Address [address] [place] [address] Care Team Providers Care Intramural Director Name Role Phone Junior Vega MD Primary Care Provider + [phone] Jesus Erwin MD PhD Unavailable Allergies No known active allergies Medications fluticasone propionate (FLONASE) 50 mcg/actuation nasal spray Administer 2 sprays into each nostril daily 10/04/20 22 Active rosuvastatin (CRESTOR) 40 mg tablet Take 1 tablet (40 mg total) by mouth nightly 10/04/20 23 Active finasteride (PROSCAR) 5 mg tablet Take 1 tablet (5 mg total) by mouth 02/23/20 24 Active mv-min/folic/K 1/lycopen/lute in (CENTRUM SILVER MEN ORAL) Take 1 tablet by mouth daily Active cyclobenzaprin e (FLEXERIL) 10 mg tablet Take 1 tablet (10 mg total) by mouth 2 (two) times a day as needed 08/08/20 23 Active hypromellose (GONAK) 2.5 % ophthalmic demulcent solution Administer 1 drop into affected eye(s) as needed Active lisinopriL (PRINIVIL,ZEST RIL) 10 mg tablet Take 1 tablet (10 mg total) by mouth 2 (two) times a day 03/07/[address] (CYMBALTA) 20 mg capsuleIndicat ions:Anxiety with Depression Take 4 capsules (80 mg total) by mouth daily Active carvediloL (COREG) 12.5 mg tabletIndicati ons:hypertensi on Take 1 tablet (12.5 mg total) by mouth 2 (two) times a day with meals Active buPROPion XL (WELLBUTRIN XL) 300 mg 24 hr tabletIndicati ons:Anxiety with Depression Take 1 tablet (300 mg total) by mouth daily Active empagliflozin (JARDIANCE) 25 mg tabletIndicati ons:Chronic Kidney Disease Take 0.5 tablets (12.5 mg total) by mouth daily Active naltrexone (DEPADE) 50 mg tabletIndicati ons:alcoholism Take 1 tablet (50 mg total) by mouth daily Active zolpidem (Ambien) 10 mg tabletIndicati ons:Sleep-Onse t Insomnia Take 1 tablet (10 mg total) by mouth nightly as needed for sleep 30 tablet 05/17/20 25 025 Active polyethylene glycol (MIRALAX) 17 gram/dose bulk powderIndicati ons:constipati on Take 34 g by mouth daily 1020 g 05/19/20 25 Active lubiprostone (AMITIZA) 24 mcg capsule Take 1 capsule (24 mcg total) by mouth daily with breakfast 30 capsule 11 05/19/20 25 026 Active zolpidem (Ambien) 5 mg tabletIndicati ons:Sleep-Onse t Insomnia Take 1 tablet (5 mg total) by mouth nightly as needed for sleep 30 tablet 1 09/08/20 24 025 Discontinued(Re order) polyethylene glycol (MIRALAX) 17 gram/dose bulk powderIndicati ons:constipati on Take 17 g by mouth daily 510 g 03/18/20 25 025 Discontinued lubiprostone (AMITIZA) 24 mcg capsule Take 1 capsule (24 mcg total) by mouth daily with breakfast 30 capsule 03/18/20 25 025 Discontinued Active Problems Problem Noted Date Diagnosed Date [...] 10/08/2023 Assessment & Plan (10/08/2023 9:42 AM FORGING DIE 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): - drinks 5 whiskeys daily, last drink 10pm 10/07 - gets shakes that resolve with alcohol, but no h/o DTs or hospitalizations for withdrawal - [facility]/p phenobarb in ED - monitor closely for signs of withdrawal SDH (subdural hematoma) 10/07/2023 Assessment & Plan (10/09/2023 1:07 PM FORGING DIE FINISHER): - NSGY c/s - repeat HCT 10/07 [...] Encounters Date Type Department Care Team Description 05/26/2025 Telephone [facility] Otolaryngology [address] [place] [address] Cecelia Patiño, 05/24/2025 3:45 PM CDT Office Visit [facility] [place] [address] [place] [id number] Alethea Nava NP Elevated blood pressure reading (Primary Dx) 05/24/2025 Telephone [facility] Gastroenterology at [address] [place] [address] Rajni Schultz 05/23/2025 Results Follow-Up [facility] Gastroenterology at [address] [place] [phone] Kristofer Thompson MD Surgical pathology 05/19/2025 1:30 PM CDT - 05/19/2025 2:00 PM CDT Surgery [facility] [address] [place] [address] Kristofer Thompson MD COLON REMOVAL SNARE 05/19/2025 12:38 PM CDT Anesthesia Event [facility] [address] [place] [address] Kenroy Malloy MD 05/19/2025 11:27 AM CDT - 05/19/2025 2:09 PM CDT Hospital Encounter [facility] [address] [place] [address] Kristofer Thompson MD Colitis; Encounter for screening colonoscopy Discharge Disposition: Discharge to home or self care 05/17/2025 10:15 AM CDT Office Visit [facility] Sleep Medicine at [address] [place] [phone] Jodi Coto MD STEPHANIE (obstructive sleep apnea) (Primary Dx); Obesity, unspecified class, unspecified obesity type, unspecified whether serious comorbidity present; Insomnia, unspecified type; Hypersomnia 03/26/2025 12:46 PM CDT - 03/26/2025 3:50 PM CDT Emergency [facility] Emergency Department [address] [place] [address] Pro Malagon MD Constipation, unspecified constipation type (Primary Dx) Discharge Disposition: Discharge to home or self care 03/25/2025 Telephone [facility] Gastroenterology at [address] [place] [address] Rajni Schultz 03/16/2025 2:38 PM CDT - 03/18/2025 3:51 PM CDT Hospital Encounter [facility] Acute Medicine [address] [place] [address] Eddie Galaviz MD Petters, MD Beatris See Victoria Rose, DO Davis, Kelton Olivares DO Colitis, infectious (Primary Dx); Constipation by delayed colonic transit; Fecal impaction of colon (HCC); Chronic idiopathic constipation Discharge Disposition: Discharge to home or self [...] HIP ARTHROPLASTY Left CYSTOSCOPY KIDNEY STONE SURGERY COLONOSCOPY 05/19/2025 Medical History Medical History Date Comments Hypertension Hyperlipidemia Colon polyp Vitamin D deficiency Nephrolithiasis Anxiety Cancer (HCC) skin, face Depression HL (hearing loss) Dizziness Tinnitus Sleep apnea Alcoholism (HCC) Prediabetes Vertigo Orthostatic hypotension Motion sickness Enlarged prostate Type 2 diabetes mellitus Brain bleed due to fall Family History Medical History [...] drink = 0.6 oz pur e alcohol) [facility] Utilities Answer Date Recorded In the past 12 months has [employer], gas, oil, or water [employer] threatened to shut off services in your home? No 03/17/2025 Social Connection and Isolation Panel Answer Date Recorded In a typical week, how many times do you talk on the phone with family, friends, or neighbors? More than three times a week 03/17/2025 How often do you get togethe r with friends or relatives? Once a week 03/17/2025 How often do you attend chur ch or taoist services? Never 03/17/2025 Do you belong to any clubs o r organizations such as sikhism groups, unions, fraternal or athletic groups, or school groups? No 03/17/2025 How often do you attend meet ings of the clubs or organizations you belong to? Never 03/17/2025 Are you , , di vorced, , never , or living with a partner? 03/17/2025 AUDIT-C Answer Date Recorded Q1: How often do you have a drink containing alc ohol? 2-3 times a week 03/16/2025 Q2: How many drinks containi ng alcohol do you have on a typical day when you are drinking? 1 or 2 03/16/2025 Q3: How often do you have si x or more drinks on one occasion? Never 03/16/2025 Overall Financial Resource Strain (CARDIA) Answe r Date Recorded How hard is it for you to pa y for the very basics like food, housing, medical care, and heating? Not hard at all 03/17/2025 Hunger Vital Sign Answer Date Recorded Within the past 12 months, y ou worried that your food would run out before you got the money to buy more. Never true 03/17/20 25 Within the past 12 months, t he food you bought just didn't last and you didn't have money to get more. Never true 03/17/2025 PRAPARE - Transportation Answer Date Re corded In the past 12 months, has l ack of transportation kept you from medical appointments or from getting medications? No 02/18 In the past 12 months, has l ack of transportation kept you from meetings, work, or from getting things needed for daily living? No 03/17/2025 Housing Stability Vital Sign Answer Daniel e Recorded In the last 12 months, was t here a time when you were not able to pay the mortgage or rent on time? No 03/17/2025 In the past 12 months, how m any times have you moved where you were living? 0 03/17/2025 At any time in the past 12 m [facility], were you homeless or living in a custodial (including now)? No 03/17/2025 Personal Safety Answer Date Recorded Have you ever been in or are you currently in a harmful physical or emotional relationship or is someone making you feel afraid or unsafe? 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 Gender Identity Not on file Sexual Orientation Not on file Obstetrics History Last Filed Vital Signs Vital Sign Reading Time Taken Comments Blood Pressure 140/78 05/24/2025 4:01 PM CDT Pulse 79 05/24/2025 3:36 PM CDT Temperature 36.6 C (97.8 F) 05/24/2025 3:36 PM CDT Respiratory Rate 22 05/24/2025 3:36 PM CDT Oxygen Saturation 97% 05/24/2025 3:36 PM CDT Inhaled Oxygen Concentration - - Weight 90.7 kg (200 lb) 05/24/2025 3:36 PM CDT Height 175.3 cm (5' 9) 05/24/2025 3:36 PM CDT Body Mass Index 29.53 05/24/2025 3:36 PM CDT Plan of Treatment Upcoming Encounters Date Type Department Care Team (Late st Contact Info) Description 05/24/2026 8:00 AM CDT Hospital Encounter [address] [address] Kristofer Thompson MD [address] [facility] [place] [address] 05/24/2026 8:00 AM CDT - 05/24/2026 8:30 AM CDT Surgery [address] [address] Kristofer Thompson MD [address] [facility] [place] [address] COLONOSCOPY Scheduled Procedures Name Priority Associated Diagnoses Date/Ti me COLONOSCOPY History of colonic polyps 05/24/2026 8:00 AM CDT Health Maintenance Due Date Last Done Comments Albumin Creatinine Ratio, Urine 1945 Depression Screening 1945 Hepatitis C Screening 1945 Dilated Eye Exam 1945 Foot Exam 1945 Lipid Panel 1945 Hepatitis B Screening 1964 Well Visit 65+ 2011 Covid-19 Vaccine (5 - 2023-2 5 season) 2024 08/21/2022, 09/12/2021, 12/07/2020, Additional history exists Hemoglobin A1C 10/24/2024 04/23/2024 Influenza Vaccine (#1) 2025 , 08/05/2023, 07/25/2022, Additional history exists Fall Risk Assessment 03/18/2026 03/18/2025 eGFR 03/26/2026 03/26/2025, 02/19, 03/17/2025, Additional history exists DTaP/Tdap/Td Vaccine (4 - Td or Tdap) 05/07/2033 05/07/2023, 01/25/2019, 06/18/2011 Zoster Vaccine Completed 09/08/2019, 0504/2019, 07/09/2011 Pneumococcal vaccine 65+ Completed 024, 08/22/2015, 01/08/2012 Abdominal Aortic Aneurysm (A AA) Screen Completed 03/16/2025, 02/14/2024, 02/01/2020 Colon Cancer Screening-CT Colonography Discontinued 05/19/2025 Colon Cancer Screening-Colonoscopy Discontinued 05/19/2025 Colon Cancer Screening-DNA Stool Discontinued 05/19/20 25 Colon Cancer Screening-FIT Discontinued 05/19/2025 Colon Cancer Screening-FOBT Discontinued 05/19/2025 Colon Cancer Screening-Sigmoidoscopy Discontinued 05/19/2025 Colorectal Cancer Screening Discontinued Medical Devices Implanted Type Area Counter Cutter Device Identifier Shelf Expiration Date Model / Serial / Lot [employer] Inspire 3 Electrode Cuff Tunnel Dannie Lead Neurostimulator Sterile 4063 - [id number] - [id number] Implanted:Qty: 1 on 04/27/2024 by Natasha Treviño MD at [facility] Right: Neck [employer] 11/03/2026 4063 / [id number] / [employer] Lead Neurostimulator Sleep Apnea Thoracic Permanent Respiratory Sensing Inspire 43cm 4340 - [id number] - [id number] Implanted:Qty: 1 on 04/27/2024 by Natasha Treviño MD at [facility] Right: Chest [employer] 01/03/2027 4340 / [id number] / [employer] Inspire Generator 3028 - [id number] - [id number] Implanted:Qty: 1 on 04/27/2024 by Natasha Treviño MD at [facility] Right: Chest [employer] 12/21/2026 3028 / [id number] / Procedures Procedure Name Priority Date/Time Associated Diagnosis Comments COLON REMOVAL SNARE 05/19/2025 1 2:34 PM CDT Colitis Encounter for screening colonoscopy POCT GLUCOSE DEVICE Routine 05/19/2025 1 2:04 PM CDT COLONOSCOPY 05/19/2025 11:33 AM CDT SURGICAL PATHOLOGY STAT 05/19/2025 9: 49 AM CDT Colitis Encounter for screening colonoscopy XR KUB ED 03/26/2025 3:05 PM CDT EGFR STAT 03/26/2025 1:46 PM CDT THYROID FUNCTION CASCADE Routine 03/26/2025 1:46 PM CDT MAGNESIUM Routine 03/26/2025 1:46 PM CDT COMPREHENSIVE METABOLIC PANEL STAT 03/26/2025 1:46 PM CDT DIFFERENTIAL AUTO STAT 03/26/2025 12: 57 PM CDT CBC WITH AUTO DIFFERENTIAL STAT 03/26/2025 12:57 PM CDT POCT GLUCOSE DEVICE Routine 03/18/2025 1 1:13 AM CDT XR KUB ED Urgent/IP Urgent 03/18/2025 8:05 AM CDT POCT GLUCOSE DEVICE Routine 03/18/2025 7 :50 AM CDT EGFR Routine 03/18/2025 3:32 AM CDT BETA-HYDROXYBUTYRATE Routine 03/18/2025 3:32 AM CDT PHOSPHORUS Routine 03/18/2025 3:32 AM CDT MAGNESIUM Routine 03/18/2025 3:32 AM CDT BASIC METABOLIC PANEL Routine 03/18/2025 3:32 AM CDT CBC WITHOUT DIFFERENTIAL Routine 03/18/2025 3:32 AM CDT POCT GLUCOSE DEVICE Routine 03/18/2025 2 :35 AM CDT POCT GLUCOSE DEVICE Routine 03/17/2025 7 :32 PM CDT POCT GLUCOSE DEVICE Routine 03/17/2025 5 :35 PM CDT POCT GLUCOSE DEVICE Routine 03/17/2025 1 1:26 AM CDT POCT GLUCOSE DEVICE Routine 03/17/2025 8 :16 AM CDT EGFR Routine 03/17/2025 2:55 AM CDT DIFFERENTIAL AUTO Routine 03/17/2025 2:5 5 AM CDT MAGNESIUM Routine 03/17/2025 2:55 AM CDT PHOSPHORUS Routine 03/17/2025 2:55 AM CDT COMPREHENSIVE METABOLIC PANEL Routine 03/17/2025 2:55 AM CDT CBC WITH AUTO DIFFERENTIAL Routine 03/17/2025 2:55 AM CDT POCT GLUCOSE DEVICE Routine 03/17/2025 2 :12 AM CDT URINALYSIS AND REFLEX TO MICROSCOPIC AND CULTURE STAT 03/16/2025 9:11 PM CDT POCT GLUCOSE DEVICE Routine 03/16/2025 8 :15 PM CDT SEPSIS LACTATE WITH REFLEX STAT 03/16/2025 4:13 PM CDT BLOOD CULTURE STAT 03/16/2025 3:03 PM CDT BLOOD CULTURE STAT 03/16/2025 3:[address] ABDOMEN PELVIS W CONTRAST ED 03/16/2025 2:33 PM CDT LIPASE Add-On 03/16/2025 1:05 PM CDT CRP (ACUTE PHASE) STAT 03/16/2025 1:0 5 PM CDT EGFR STAT 03/16/2025 1:05 PM CDT DIFFERENTIAL AUTO STAT 03/16/2025 1: 05 PM CDT LIPASE STAT 03/16/2025 1:05 PM CDT COMPREHENSIVE METABOLIC PANEL STAT 03/16/2025 1:05 PM CDT CBC WITH AUTO DIFFERENTIAL STAT 03/16/2025 1:05 PM CDT HEMOGLOBIN A1C Routine 04/23/2024 2:46 PM CDT Pre-op testing from Last 3 Months or Most Recently Relevant to Health Maintenance Results * (ABNORMAL) POCT glucose (05/19/2025 12:04 PM CDT) Glucose, POC 65(L) 70 - 199 mg/dL Blood 05/19/2025 12:0 4 PM CDT 05/19/2025 12:04 PM CDT Kristofer Thompson MD LAB POCT ORDERABLES - SHANNON CE Final Result [facility] Department of Laboratories [place], [place] [id number] * Colonoscopy (05/19/2025 11:33 AM CDT) Anatomical Region Laterality Modality Other Narrative Procedure Note Kristofer Thompson MD - 05/19/2025 11:33 AM CDT [facility] Patient Name: Sergio Yanes Procedure Date: 05/19/2025 11:33 AM Date of : 1945 Admit Type: Outpatient Age: 79 Gender: Male Attending MD: Kristofer Thompson M.D., Room: [facility] ENDOSCOPY ROOM 1 Note Status: Finalized Patient Profile: This is a 79 year old male. No family history ofcolon cancer. Patient was recently hospitalized for acute colitis few months ago. Clinically he is back to normal. Noted chronic constipation. Procedure: Colonoscopy Indications: Screening for colorectal malignant neoplasm, Last colonoscopy: 2004 Referring MD: Junior Vega M.D. Providers: Kristofer Thompson M.D. Impression: - Inadequate colon preparation. - One 18 mm polyp in the cecum, removed piecemeal using a hot snare. Resected and retrieved. Clip (MR conditional) was placed. Clip garnett mechanic: [employer]. - One 4 mm polyp in the cecum, removed with a jumbo cold forceps. Resected and retrieved. - Two 8 to 9 mm polyps in the ascending colon,removed with a cold snare. Resected and retrieved. - Two 3 to 4 mm polyps in the descending colon, removed with a jumbo cold forceps. Resected and retrieved. - Internal hemorrhoids. Recommendation: - Await pathology results. - Repeat colonoscopy in 1 year with a 3 days colon preparation for surveillance. - Continue present medications. Medicines: Monitored Anesthesia Care Complications: No immediate complications. Estimated Blood Loss: Estimated blood loss: none. Procedure: Pre-Anesthesia Assessment: - Prior to the procedure, a History and Physicalwas performed, and patient medications and allergieswere reviewed. The patient's tolerance of previous anesthesia was also reviewed. The risks andbenefits of the procedure and the sedation options and risks were discussed with the patient. All questions were answered, and informed consent was obtained. Prior Anticoagulants: The patient has taken noanticoagulant or antiplatelet agents. ASA Grade Assessment: Per anesthesia note and evaluation. After reviewing the risks and benefits, the patient was deemed in satisfactory condition to undergo the procedure. The benefits, risks and alternatives of theprocedure and sedation were discussed and informed consentwas obtained. All questions were answered. Please referto the signed informed consent document in the medical record. The bowel preparation used was Miralax via split dose instruction. The bowel preparation usedwas bisacodyl tablets via split dose instruction. The scope was passed under direct vision. The Pediatric Colonoscope [id number]-[id number] was introducedthrough the anus and advanced to the the cecum, identifiedby appendiceal orifice and ileocecal valve. Thequality of the bowel preparation was inadequate. Bowel prep was administered using a split dose. Findings: The perianal and digital rectal examinations were normal. The appendiceal orifice appeared normal. An 18 mm polyp was found in the cecum. The polyp was sessile. Thepolyp was removed with a piecemeal technique using a hot snare. Resectionand retrieval were complete. To prevent bleeding after the polypectomy,one hemostatic clip was successfully placed (MR conditional). Clip garnett mechanic: [employer]. There was no bleeding at the end ofthe procedure. A 4 mm polyp was found in the cecum. The polyp was semi-sessile. The polyp was removed with a jumbo cold forceps. Resection and retrieval were complete. Two sessile polyps were found in the ascending colon. The polyps were8 to 9 mm in size. These polyps were removed with a cold snare.Resection and retrieval were complete. Two sessile polyps were found in the descending colon. The polypswere 3 to 4 mm in size. These polyps were removed with a jumbo cold forceps. Resection and retrieval were complete. Internal hemorrhoids were found during retroflexion. The hemorrhoids were small. Electronically signed by Kristofer Thompson M.D. Kristofer Thompson M.D. 05/19/2025 1:34:09 PM Number of Addenda: 0 Note Initiated On: 05/19/2025 11:33 AM Procedure Code(s): --- Professional --- 70435, Colonoscopy, flexible; with removal of tumor(s), polyp(s), or other lesion(s) by snare technique 85466, 59, Colonoscopy, flexible; with biopsy, single or multiple Diagnosis Code(s): --- Professional --- Z12.11, Encounter for screening for malignant neoplasm of colon K64.8, Other hemorrhoids D12.0, Benign neoplasm of cecum D12.2, Benign neoplasm of ascending colon D12.4, Benign neoplasm of descending colon CPT copyright 2022 [employer]. All rights reserved. The codes documented in this report are preliminary and upon quarry plant crusher operator reviewmay be revised to meet current compliance requirements. Recognized by the [employer] for promoting quality in endoscopy Kristofer Thompson MD ENDOSCOPY PROCEDURES Final Result * Surgical pathology (05/19/2025 9:49 AM CDT) Tissue (Polyp(s), colon/colorectal, esophageal, gastric) 05/19/2025 1:24 PM CDT Tissue specimen (specimen) (Polyp(s), colon/colorectal, esophageal, gastric) 05/19/2025 1:24 PM CDT Tissue specimen (specimen) (Polyp(s), colon/colorectal, esophageal, gastric) 05/19/2025 1:25 PM CDT Narrative PATHOLOGY [facility] - 05/23/2025 4:57 PM CDT EPIC results best viewed via link to PDF [facility] Department of Pathology [address] [place] [address] Note to Patients: This report may contain a detailed description of human tissue sent by a health care provider to the laboratory for pathologic evaluation. The content of this report is essential for diagnosis and may provide important critical findings. This information may be unfamiliar to patients to review without a medical professional present. It is advised that the patient review this report in the presence of a health care provider who can answer questions and explain the details. Final Report Patient Name: SERGIO YANES Address: [address] [place] [address] Gender: George : 1945 (Age: 79) Service: Gastro Location: [facility] Hospital #: [id number] Patient Type: [facility] Taken: 05/19/2025 Received: 05/20/2025 Accessioned: 05/20/2025 Reported: 05/23/2025 Physician(s):Dr. Kristofer Thompson M.D. Diagnosis: A. Colon, descending, biopsy: - Tubular adenoma. - No evidence of high-grade dysplasia or malignancy. B. Colon, cecum, biopsies: - Tubular adenoma fragments. - No evidence of high-grade dysplasia or malignancy. C. Colon, ascending, biopsies: - Tubular adenoma. - Hyperplastic polyp. - No evidence of high-grade dysplasia or malignancy. Zack Beard MD Report Electronically Reviewed and Signed Out By Zack Beard MD 05/23/2025 16:57:09 Specimen(s) Received: A: Descending polyp x 1 B: Cecum polyp x 2 C: Ascending polyp x 2 Microscopic Description: A. Microscopic examination shows three polypoid fragments of colonic mucosa, two of which show adenomatous mucosal changes consistent with a tubular adenoma. There is no evidence of high-grade dysplasia or malignancy. B. Microscopic examination shows six polypoid fragments of colonic mucosa, three of which show adenomatous mucosal changes consistent with tubular adenoma fragments. There is no evidence of high-grade dysplasia or malignancy. C. Microscopic examination shows two polypoid fragments of colonic mucosa, one of which shows adenomatous mucosal changes. The remaining fragment shows subtle hyperplastic glandular changes (best appreciated on H&E level I) without evidence of marked crypt dilation, lateral branching, or flattening of the crypt bases - this latter fragment exhibits significant tissue loss on H&E level II, precluding further evaluation with deeper levels. Given the endoscopic impression of two ascending colon polyps, the findings are most consistent with a tubular adenoma and a hyperplastic polyp. There is no evidence of high-grade dysplasia or malignancy. Clinical History: Colitis. Screening colonoscopy. Gross Description: The specimen is submitted in three formalin containers labeled SERGIO YANES. A. The first container is labeled descending polyp x1. It is 3 bennett tissue fragments between 1 and 2 mm. All in A. B. The second container is labeled cecum polyp x2. It is 6 bennett tissue fragments between 2 and 5 mm. All in B. C. The third container is labeled ascending polyp x2. It is 2 bennett tissue fragments, <1 and 2 mm. All in C. T.A. Sweetie Grayson., P.A./Angelika Valdez M.D. REPORT IMAGES AND SCANNED DOCUMENTS, IF INCLUDED, ONLY VIEWABLE IN PDF VERSION OF REPORT The performance characteristics of some immunohistochemical stains, fluorescence in-situ hybridization tests and immunophenotyping by flow cytometry cited in this report (if any) were determined by the Surgical Pathology Department at [facility] as part of an ongoing quality process lead program and in compliance with federally mandated regulations drawn from the Clinical Laboratory Improvement Act of 1988 (CLIA '88). Some of these tests rely on the use of analyte specific reagents and are subject to specific labeling requirements by the US Food and Drug Administration. Such diagnostic tests may only be performed in a facility that is certified by the Department of Health and Human Services as a high complexity laboratory under CLIA '88. The FDA has determined that such clearance or approval is not necessary. This test is used for clinical purposes. It should not be regarded as investigational or for research. Nevertheless, federal rules concerning the medical use of analyte specific reagents require that the following disclaimer be attached to the report: This test was developed and its performance characteristics determined by the Surgical Pathology Department [facility]. It has not been cleared or approved by the U. S. Food and Drug Administration. Note for decalcified specimens: This assay has not been validated on decalcified tissues. Results should be interpreted with caution given the possibility of false negativity on decalcified specimens Kristofer Thompson MD LAB PATHOLOGY ORDERABLES F inal Result Performing Organization Address City/State/[facility] Co de Phone Number PATHOLOGY [facility] ([address] [address] * XR Kub (Abd 1 View) (03/26/2025 3:05 PM CDT) Anatomical Region Laterality Modality Body, Abdomen N/A Computed Radiogr aphy 03/26/2025 3:08 PM CDT Narrative 03/26/2025 3:10 PM CDT EXAM DESCRIPTION: XR KUB REASON FOR STUDY: Constipation TECHNIQUE: Single radiographic view of the abdomen. COMPARISON: . abdominal radiographs 03/18/2025 FINDINGS: BOWEL: Prominent gaseous distension of the ascending colon and transverse colon. Average amount of stool projecting over the descending colon. No dilated loops of small bowel are seen. SOFT TISSUES: No abnormal calcifications. LINES/TUBES: Right chest generator pack is only partially included. Left hip prosthesis is only partially included. BONES: Moderate right hip osteoarthritis. Mild thoracolumbar spondylosis. IMPRESSION: Prominent gaseous distension of the ascending colon and transverse colon. No dilated loops of small bowel are seen. Average amount of stool projecting over the descending colon. THIS IS AN ELECTRONICALLY VERIFIED FINAL REPORT 03/26/2025 3:10 PM - Electronically signed by Sal Cosme M.D. LB: FEDE Report ID: [id number] Reading Location: [id number] Procedure Note Sal Cosme MD - 03/26/2025 EXAM DESCRIPTION: XR KUB REASON FOR STUDY: Constipation TECHNIQUE: Single radiographic view of the abdomen. COMPARISON: . abdominal radiographs 03/18/2025 FINDINGS: BOWEL: Prominent gaseous distension of the ascending colon and transverse colon. Average amount of stool projecting over the descending colon. No dilated loops of small bowel are seen. SOFT TISSUES: No abnormal calcifications. LINES/TUBES: Right chest generator pack is only partially included. Lefthip prosthesis is only partially included. BONES: Moderate right hip osteoarthritis. Mild thoracolumbarspondylosis. IMPRESSION: Prominent gaseous distension of the ascending colon and transverse colon.No dilated loops of small bowel are seen. Average amount of stool projecting over the descending colon. THIS IS AN ELECTRONICALLY VERIFIED FINAL REPORT 03/26/2025 3:10 PM - Electronically signed by Sal Cosme M.D. LB: FEDE Report ID: [id number] Reading Location: [id number] Kelly LIANG IMG XR PROCEDURES Final R esult * eGFR (03/26/2025 1:46 PM CDT) eGFR 65 >=60 mL/min/1. 73 m2 Comment: Interpretive Data [...] interpretive data was last reviewed 2021. Blood 03/26/2025 1:46 PM CDT 03/26/2025 1:51 PM CDT us Pro Malagon MD LAB BLOOD ORDERABLE S Final Result [facility] ([place]) 1 [facility] [place] [address] * Thyroid Function [place] (03/26/2025 1:46 PM CDT) TSH 1.38 0.30 - 4.20 mcIUnit/mL Blood 03/26/2025 1:46 PM CDT 03/26/2025 1:51 PM CDT us Pro Malagon MD LAB BLOOD ORDERABLE S Final Result [facility] ([place]) 1 [facility] [place] [address] * Magnesium (03/26/2025 1:46 PM CDT) Magnesium 1.8 1.4 - 2.5 mg/dL Blood 03/26/2025 1:46 PM CDT 03/26/2025 1:51 PM CDT us Pro Malagon MD LAB BLOOD ORDERABLE S Final Result [facility] ([place]) 1 [facility] [place] [address] * (ABNORMAL) Comprehensive metabolic panel (03/26/2025 1:46 PM CDT) Sodium 136 135 - 145 mmol/L Potassium, pl 4.3 3.3 - 4.9 mmol/L [facility] ([place]) Chloride 100 97 - 110 mmol/L [facility] ([place]) CO2 20(L) 22 - 32 mmol/L [facility] ([place]) Anion gap 15 2 - 15 mmol/L [facility] ([place]) BUN 8 6 - 25 mg/dL [facility] ([place]) Creatinine 1.15 0.80 - 1.30 mg/dL [facility] ([place]) Glucose 94 70 - 199 mg/dL [facility] ([place]) Comment: Interpretive Data Fasting glucose >/= 126 mg/dl is diagnostic for diabetes. Fasting is defined as no caloric intake for at least 8 hours. Fasting glucose between 100 mg/dl to 125 mg/dl is diagnostic of prediabetes. In a patient with classic symptoms of hyperglycemia or hyperglycemic crisis, a random glucose >/= 200 mg/dl is diagnostic for diabetes. In the absence of unequivocal hyperglycemia, results should be confirmed by repeat testing. The classification and Diagnosis of Diabetes Diabetes Care 202; 46: S19-S40. Current interpretive data was last revised 2022. Calcium 9.4 8.5 - 10.3 mg/dL [facility] ([place]) Bilirubin, total 0.3 0.1 - 1.2 mg/dL [facility] ([place]) Protein, pl 6.8 6.5 - 8.5 g/dL [facility] ([place]) Albumin 3.8 3.5 - 5.0 g/dL [facility] ([place]) Alk phos 83 40 - 130 Units/L [facility] ([place]) ALT 50 7 - 55 Units/L [facility] ([place]) AST 47 10 - 50 Units/L [facility] ([place]) Blood 03/26/2025 1:46 PM CDT 03/26/2025 1:51 PM CDT us Pro Malagon MD LAB BLOOD ORDERABLE S Final Result [facility] ([place]) 1 [facility] [place] [address] * Differential, auto (03/26/2025 12:57 PM CDT) Neutrophil abs 6.45 1.50 - 6.50 K/cumm Imm gran abs 0.09 0.00 - 0.10 K/cumm [facility] ([place]) Lymphocyte abs 1.38 0.80 - 3.30 K/cumm [facility] ([place]) Monocyte abs 0.69 0.20 - 0.80 K/cumm [facility] ([place]) Eosinophil abs 0.10 0.00 - 0.50 K/cumm [facility] ([place]) Basophil abs 0.05 0.00 - 0.10 K/cumm [facility] ([place]) Neutrophil pct 73.6 % [facility] ([place]) Comment: Interpretive Data Percent cell count reference ranges are not reported, since discordance with absolute values may lead to misinterpretation of CBC data. Current Interpretive Data was last revised on 2018. Imm gran pct 1.0 % [facility] ([place]) Comment: Interpretive Data Percent cell count reference ranges are not reported, since discordance with absolute values may lead to misinterpretation of CBC data. Current Interpretive Data was last revised on 2018. Lymphocyte pct 15.8 % [facility] ([place]) Comment: Interpretive Data Percent cell count reference ranges are not reported, since discordance with absolute values may lead to misinterpretation of CBC data. Current Interpretive Data was last revised on 2018. Monocyte pct 7.9 % [facility] ([place]) Comment: Interpretive Data Percent cell count reference ranges are not reported, since discordance with absolute values may lead to misinterpretation of CBC data. Current Interpretive Data was last revised on 2018. Eosinophil pct 1.1 % [facility] ([place]) Comment: Interpretive Data Percent cell count reference ranges are not reported, since discordance with absolute values may lead to misinterpretation of CBC data. Current Interpretive Data was last revised on 2018. Basophil pct 0.6 % [facility] ([place]) Comment: Interpretive Data Percent cell count reference ranges are not reported, since discordance with absolute values may lead to misinterpretation of CBC data. Current Interpretive Data was last revised on 2018. Blood 03/26/2025 12:5 7 PM CDT 03/26/2025 1:00 PM CDT us Pro Malagon MD LAB BLOOD ORDERABLE S Final Result [facility] ([place]) 1 [facility] [place] [address] * (ABNORMAL) CBC with auto differential (03/26/2025 12:57 PM CDT) WBC 8.76 3.80 - 9.90 K/cumm Hgb 15.4 13.0 - 17.5 g/dL [facility] ([place]) Hct 45.3 38.9 - 50.3 % [facility] ([place]) Plt 250 150 - 400 K/cumm [facility] ([place]) MPV 9.8 9.1 - 12.3 fL [facility] ([place]) RBC 4.75 4.30 - 5.80 M/cumm [facility] ([place]) MCV 95.4 81.3 - 96.4 fL [facility] ([place]) MCH 32.4 27.1 - 33.3 pg [facility] ([place]) MCHC 34.0 32.3 - 35.7 g/dL [facility] ([place]) RDW CV 15.2(H) 11.1 - 14.9 % [facility] ([place]) RDW SD 53.4(H) 35.7 - 48.1 fL [facility] ([place]) NRBC abs 0.00 0.00 - 0.01 K/cumm [facility] ([place]) Blood 03/26/2025 12:5 7 PM CDT 03/26/2025 1:00 PM CDT us Pro Malagon MD LAB BLOOD ORDERABLE S Final Result [facility] ([place]) 1 [facility] [place] [address] * POCT glucose (03/18/2025 11:13 AM CDT) Glucose, POC 167 70 - 199 mg/dL Blood 03/18/2025 11:1 3 AM CDT 03/18/2025 11:13 AM CDT Kelton Davis DO LAB POCT ORDERABLES - DEVICE Final Result [facility] ([place]) 1 [facility] [place] [address] * XR Kub (03/18/2025 8:05 AM CDT) Anatomical Region Laterality Modality Body, Abdomen N/A Computed Radiogr aphy 03/18/2025 9:09 AM CDT Narrative 03/18/2025 9:12 AM CDT EXAM DESCRIPTION: XR KUB REASON FOR STUDY: follow up stool burden; abdominal distension Access stool load TECHNIQUE: 1 radiographic view of the abdomen. COMPARISON: 03/16/2025 FINDINGS: BOWEL: Nonobstructive gas pattern. There is mild gaseous distention of the colon. There appears to be decreased stool in the colon relative to the prior exam. SOFT TISSUES: No abnormal calcifications. LINES/TUBES: None. BONES: Mild lumbar dextrocurvature. Left total hip arthroplasty. Moderate right hip osteoarthritis. IMPRESSION: Normal stool burden. There appears to be decreased stool in the colon relative to the prior exam. THIS IS AN ELECTRONICALLY VERIFIED FINAL REPORT 03/18/2025 9:12 AM - Electronically signed by Juan Ladd M.D. MM: MM Report ID: [id number] Reading Location: [id number] Procedure Note Juan Ladd MD - 03/18/2025 EXAM DESCRIPTION: XR KUB REASON FOR STUDY: follow up stool burden; abdominal distension Access stool load TECHNIQUE: 1 radiographic view of the abdomen. COMPARISON: 03/16/2025 FINDINGS: BOWEL: Nonobstructive gas pattern. There is mild gaseous distention ofthe colon. There appears to be decreased stool in the colon relative to theprior exam. SOFT TISSUES: No abnormal calcifications. LINES/TUBES: None. BONES: Mild lumbar dextrocurvature. Left total hip arthroplasty.Moderate right hip osteoarthritis. IMPRESSION: Normal stool burden. There appears to be decreased stool in the colon relative to the prior exam. THIS IS AN ELECTRONICALLY VERIFIED FINAL REPORT 03/18/2025 9:12 AM - Electronically signed by Juan Ladd M.D. MM: MM Report ID: [id number] Reading Location: [place] [address] Cassie Valenzuela CHEMICALS FERMENTATION OPERATOR IMG XR PROCEDURES F inal Result * POCT glucose (03/18/2025 7:50 AM CDT) Glucose, POC 85 70 - 199 mg/dL Blood 03/18/2025 7:50 AM CDT 03/18/2025 7:50 AM CDT Kelton Davis DO LAB POCT ORDERABLES - DEVICE Final Result [facility] [place] 1 [facility] [place] [address] * eGFR (03/18/2025 3:32 AM CDT) eGFR 67 >=60 mL/min/1. 73 m2 [...] interpretive data was last reviewed 2021. Blood 03/18/2025 3:32 AM CDT 03/18/2025 5:29 AM CDT Cassie Valenzuela CHEMICALS FERMENTATION OPERATOR LAB BLOOD ORDERABLE S Final Result Performing Organization Address City/[facility]/ZIP Co de Phone Number [facility] ([place]) 1 [facility] [place] [address] * (ABNORMAL) Beta-hydroxybutyrate (03/18/2025 3:32 AM CDT) Beta-Hydroxybut yrate 0.6(H) <=0.5 mmol/L Comment:Testing performed by : [facility], [address] [place] [address], [id number] Blood 03/18/2025 3:32 AM CDT 03/18/2025 11:32 AM CDT Kelton Davis DO LAB BLOOD ORDERABLES F inal Result Performing Organization Address City/[facility]/ZIP Co de Phone Number [facility] ([place]) 1 [facility] [place] [address] * (ABNORMAL) CBC without differential (03/18/2025 3:32 AM CDT) WBC 11.07(H) 3.80 - 9.90 K/cumm Hgb 12.4(L) 13.0 - 17.5 g/dL [facility] ([place]) Hct 36.9(L) 38.9 - 50.3 % [facility] ([place]) Plt 163 150 - 400 K/cumm [facility] ([place]) MPV 11.1 9.1 - 12.3 fL [facility] ([place]) RBC 3.82(L) 4.30 - 5.80 M/cumm [facility] ([place]) MCV 96.6(H) 81.3 - 96.4 fL [facility] ([place]) MCH 32.5 27.1 - 33.3 pg [facility] ([place]) MCHC 33.6 32.3 - 35.7 g/dL [facility] ([place]) RDW CV 15.3(H) 11.1 - 14.9 % [facility] ([place]) RDW SD 54.4(H) 35.7 - 48.1 fL [facility] ([place]) NRBC abs 0.00 0.00 - 0.01 K/cumm [facility] ([place]) Blood 03/18/2025 3:32 AM CDT 03/18/2025 5:29 AM CDT Cassie Valenzuela CHEMICALS FERMENTATION OPERATOR LAB BLOOD ORDERABLE S Final Result [facility] ([place]) 1 [facility] [place] [address] * Phosphorus (03/18/2025 3:32 AM CDT) Phosphorus, pl 2.6 2.3 - 4.5 mg/dL Blood 03/18/2025 3:32 AM CDT 03/18/2025 5:29 AM CDT Cassie Valenzuela CHEMICALS FERMENTATION OPERATOR LAB BLOOD ORDERABLE S Final Result [facility] ([place]) 1 [facility] [place] [address] * Magnesium (03/18/2025 3:32 AM CDT) Magnesium 2.3 1.4 - 2.5 mg/dL Blood 03/18/2025 3:32 AM CDT 03/18/2025 5:29 AM CDT us Cassie Shepardsanti Valenzuela CHEMICALS FERMENTATION OPERATOR LAB BLOOD ORDERABLE S Final Result [facility] ([place]) 1 [facility] [place] [address] * (ABNORMAL) Basic metabolic panel (03/18/2025 3:32 AM CDT) Sodium 135 135 - 145 mmol/L Potassium, pl 4.2 3.3 - 4.9 mmol/L [facility] ([place]) Chloride 101 97 - 110 mmol/L [facility] ([place]) CO2 21(L) 22 - 32 mmol/L [facility] ([place]) Anion gap 14 2 - 15 mmol/L [facility] ([place]) BUN 14 6 - 25 mg/dL [facility] ([place]) Creatinine 1.12 0.80 - 1.30 mg/dL [facility] ([place]) Glucose 78 70 - 199 mg/dL [facility] ([place]) Comment: Interpretive Data Fasting glucose >/= 126 mg/dl is diagnostic for diabetes. Fasting is defined as no caloric intake for at least 8 hours. Fasting glucose between 100 mg/dl to 125 mg/dl is diagnostic of prediabetes. In a patient with classic symptoms of hyperglycemia or hyperglycemic crisis, a random glucose >/= 200 mg/dl is diagnostic for diabetes. In the absence of unequivocal hyperglycemia, results should be confirmed by repeat testing. The classification and Diagnosis of Diabetes Diabetes Care 2021; 46: S19-S40. Current interpretive data was last revised 2022. Calcium 8.6 8.5 - 10.3 mg/dL [facility] ([place]) Blood 03/18/2025 3:32 AM CDT 03/18/2025 5:29 AM CDT Cassie Carolyn Valenzuela CHEMICALS FERMENTATION OPERATOR LAB BLOOD ORDERABLE S Final Result [facility] ([place]) 1 [facility] [place] [address] * POCT glucose (03/18/2025 2:35 AM CDT) Glucose, POC 99 70 - 199 mg/dL Blood 03/18/2025 2:35 AM CDT 03/18/2025 2:35 AM CDT Kelton Davis DO LAB POCT ORDERABLES - DEVICE Final Result Performing Organization Address City/[facility]/ZIP Co de Phone Number [facility] ([place]) 1 [facility] [place] [address] * POCT glucose (03/17/2025 7:32 PM CDT) Glucose, POC 97 70 - 199 mg/dL Blood 03/17/2025 7:32 PM CDT 03/17/2025 7:32 PM CDT Kelton Davis DO LAB POCT ORDERABLES - DEVICE Final Result Performing Organization Address [facility] Co de Phone Number [facility] ([place]) 1 [facility] [place] [address] * POCT glucose (03/17/2025 5:35 PM CDT) Glucose, POC 120 70 - 199 mg/dL Blood 03/17/2025 5:35 PM CDT 03/17/2025 5:35 PM CDT Kelton Davis DO LAB POCT ORDERABLES - DEVICE Final Result Performing Organization Address City/[facility]/ZIP Co de Phone Number [facility] ([place]) 1 [facility] [place] [address] * POCT glucose (03/17/2025 11:26 AM CDT) Glucose, POC 107 70 - 199 mg/dL Blood 03/17/2025 11:2 6 AM CDT 03/17/2025 11:26 AM CDT Kelton Davis DO LAB POCT ORDERABLES - DEVICE Final Result Performing Organization Address [facility] de Phone Number [facility] ([place]) 1 [facility] [place] [address] * POCT glucose (03/17/2025 8:16 AM CDT) Glucose, POC 111 70 - 199 mg/dL Blood 03/17/2025 8:16 AM CDT 03/17/2025 8:16 AM CDT Kelton Davis DO LAB POCT ORDERABLES - DEVICE Final Result Performing Organization Address [facility] de Phone Number [facility] ([place]) 1 [facility] [place] [address] * eGFR (03/17/2025 2:55 AM CDT) eGFR 60 >=60 mL/min/1. 73 m2 Comment: Interpretive Data [...] interpretive data was last reviewed 2021. Blood 03/17/2025 2:55 AM CDT 03/17/2025 3:16 AM CDT Tete Spear DO LAB BLOOD ORDERABLES Fin al Result [facility] ([place]) 1 [facility] [place] [address] * (ABNORMAL) Differential, auto (03/17/2025 2:55 AM CDT) Neutrophil abs 14.12(H) 1.50 - 6.50 K/cumm Imm gran abs 0.08 0.00 - 0.10 K/cumm [facility] ([place]) Lymphocyte abs 0.84 0.80 - 3.30 K/cumm [facility] ([place]) Monocyte abs 0.98(H) 0.20 - 0.80 K/cumm [facility] ([place]) Eosinophil abs 0.01 0.00 - 0.50 K/cumm [facility] ([place]) Basophil abs 0.03 0.00 - 0.10 K/cumm [facility] ([place]) Neutrophil pct 87.9 % [facility] ([place]) Comment: Interpretive Data Percent cell count reference ranges are not reported, since discordance with absolute values may lead to misinterpretation of CBC data. Current Interpretive Data was last revised on 2018. Imm gran pct 0.5 % [facility] ([place]) Comment: Interpretive Data Percent cell count reference ranges are not reported, since discordance with absolute values may lead to misinterpretation of CBC data. Current Interpretive Data was last revised on 2018. Lymphocyte pct 5.2 % [facility] ([place]) Comment: Interpretive Data Percent cell count reference ranges are not reported, since discordance with absolute values may lead to misinterpretation of CBC data. Current Interpretive Data was last revised on 2018. Monocyte pct 6.1 % [facility] ([place]) Comment: Interpretive Data Percent cell count reference ranges are not reported, since discordance with absolute values may lead to misinterpretation of CBC data. Current Interpretive Data was last revised on 2018. Eosinophil pct 0.1 % [facility] ([place]) Comment: Interpretive Data Percent cell count reference ranges are not reported, since discordance with absolute values may lead to misinterpretation of CBC data. Current Interpretive Data was last revised on 2018. Basophil pct 0.2 % [facility] ([place]) Comment: Interpretive Data Percent cell count reference ranges are not reported, since discordance with absolute values may lead to misinterpretation of CBC data. Current Interpretive Data was last revised on 2018. Blood 03/17/2025 2:55 AM CDT 03/17/2025 3:15 AM CDT us Tete Spear DO LAB BLOOD ORDERABLES Fin al Result [facility] ([place]) 1 [facility] [place] [address] * (ABNORMAL) CBC with auto differential (03/17/2025 2:55 AM CDT) WBC 16.06(H) 3.80 - 9.90 K/cumm Hgb 13.1 13.0 - 17.5 g/dL [facility] ([place]) Hct 38.5(L) 38.9 - 50.3 % [facility] ([place]) Plt 158 150 - 400 K/cumm [facility] ([place]) MPV 10.5 9.1 - 12.3 fL [facility] ([place]) RBC 3.99(L) 4.30 - 5.80 M/cumm [facility] ([place]) MCV 96.5(H) 81.3 - 96.4 fL [facility] ([place]) MCH 32.8 27.1 - 33.3 pg [facility] ([place]) MCHC 34.0 32.3 - 35.7 g/dL [facility] ([place]) RDW CV 15.0(H) 11.1 - 14.9 % [facility] ([place]) RDW SD 53.6(H) 35.7 - 48.1 fL [facility] ([place]) NRBC abs 0.00 0.00 - 0.01 K/cumm [facility] ([place]) Blood 03/17/2025 2:55 AM CDT 03/17/2025 3:15 AM CDT us Alicia Hernandez MD LAB BLOOD ORDERABLES Fi nal Result [facility] ([place]) 1 [facility] [place] [address] * Phosphorus (03/17/2025 2:55 AM CDT) Pathologist [facility] Phosphorus, pl 3.7 2.3 - 4.5 mg/dL Blood 03/17/2025 2:55 AM CDT 03/17/2025 3:16 AM CDT Alicia Hernandez MD LAB BLOOD ORDERABLES Fi nal Result [facility] ([place]) 1 [facility] [place] [address] * Magnesium (03/17/2025 2:55 AM CDT) [facility] Magnesium 2.1 1.4 - 2.5 mg/dL Blood 03/17/2025 2:55 AM CDT 03/17/2025 3:16 AM CDT Alicia Hernandez MD LAB BLOOD ORDERABLES Fi nal Result [facility] ([place]) 1 [facility] [place] [address] * (ABNORMAL) Comprehensive metabolic panel (03/17/2025 2:55 AM CDT) [facility] Sodium 136 135 - 145 mmol/L Potassium, pl 4.3 3.3 - 4.9 mmol/L [facility] ([place]) Chloride 102 97 - 110 mmol/L [facility] ([place]) CO2 17(L) 22 - 32 mmol/L [facility] ([place]) Anion gap 17(H) 2 - 15 mmol/L [facility] ([place]) BUN 20 6 - 25 mg/dL [facility] ([place]) Creatinine 1.23 0.80 - 1.30 mg/dL [facility] ([place]) Glucose 85 70 - 199 mg/dL [facility] ([place]) Comment: Interpretive Data Fasting glucose >/= 126 mg/dl is diagnostic for diabetes. Fasting is defined as no caloric intake for at least 8 hours. Fasting glucose between 100 mg/dl to 125 mg/dl is diagnostic of prediabetes. In a patient with classic symptoms of hyperglycemia or hyperglycemic crisis, a random glucose >/= 200 mg/dl is diagnostic for diabetes. In the absence of unequivocal hyperglycemia, results should be confirmed by repeat testing. The classification and Diagnosis of Diabetes Diabetes Care 2021; 46: S19-S40. Current interpretive data was last revised 2022. Calcium 8.4(L) 8.5 - 10.3 mg/dL [facility] ([place]) Bilirubin, total 0.3 0.1 - 1.2 mg/dL [facility] ([place]) Protein, pl 6.1(L) 6.5 - 8.5 g/dL [facility] ([place]) Albumin 3.2(L) 3.5 - 5.0 g/dL [facility] ([place]) Alk phos 64 40 - 130 Units/L [facility] ([place]) ALT 19 7 - 55 Units/L [facility] ([place]) AST 18 10 - 50 Units/L [facility] ([place]) Blood 03/17/2025 2:55 AM CDT 03/17/2025 3:16 AM CDT Alicia Hernandez MD LAB BLOOD ORDERABLES Fi nal Result Performing Organization Address City/[facility] de Phone Number [facility] ([place]) 1 [facility] [place] [address] * POCT glucose (03/17/2025 2:12 AM CDT) [facility] Signature Glucose, POC 95 70 - 199 mg/dL Comment:Glu2: RN/ Notified Blood 03/17/2025 2:12 AM CDT 03/17/2025 2:12 AM CDT Alicia Hernandez MD LAB POCT ORDERABLES - D EVICE Final Result [facility] ([place]) 1 [facility] [place] [address] * (ABNORMAL) Urinalysis reflex to microscopic and culture Urine (03/16/2025 9:11 PM CDT) Color, ur Yellow Yellow Clarity, ur Clear Clear [facility] ([place]) Specific gravity, ur 1.019 1.003 - 1.030 [facility] ([place]) pH, urine 5.5 [facility] ([place]) Comment: Interpretive Data U rine pH is affected by diet, medications, systemic acid-base disturbances, and renal tubular function. pH may affect urinary stone formation. For example, urine pH below 6.0 may help reduce the tendency for calcium phosphate stones and pH greater than 6.0 may reduce the tendency for uric acid stone formation. Source: [facility] [employer] Current Interpretive Data was last revised on 2017 Protein, ur ql Trace Negative [facility] ([place]) Glucose, ur ql 4+(A) Negative [facility] ([place]) Ketones, ur 1+(A) Negative [facility] ([place]) Bilirubin, ur Negative Negative [facility] ([place]) Blood, ur Negative Negative [facility] ([place]) Urobilinogen, ur <2.0 <2.0 mg/dL [facility] ([place]) Nitrite, ur Negative Negative [facility] ([place]) Leukocyte esterase, ur Negative Negative [facility] ([place]) UA reflex comment Reflex conditions for microscopic UA and culture not met. [facility] ([place]) Urine 03/16/2025 9:11 PM CDT 03/16/2025 9:19 PM CDT us Alicia Hernandez MD LAB MICROBIOLOGY - [facility] ORDERABLES Final Result THERESA ABDALLA ([place]) 1 [facility] Department [place] [address] * POCT glucose (03/16/2025 8:15 PM CDT) Glucose, POC 117 70 - 199 mg/dL Blood 03/16/2025 8:15 PM CDT 03/16/2025 8:15 PM CDT Alicia Hernandez MD LAB POCT ORDERABLES - D EVICE Final Result THERESA ABDALLA ([place]) 1 [facility] [place] [address] * Sepsis Lactate w/ Reflex (03/16/2025 4:13 PM CDT) Sepsis Lactate 1.9 0.7 - 2.0 mmol/L Blood 03/16/2025 4:13 PM CDT 03/16/2025 4:16 PM CDT us Eddie Galaviz MD LAB BLOOD ORDERABLES Final Result Performing Organization Address City/[facility]/ZIP Co de Phone Number THERESA ABDALLA ([place]) 1 [facility] [place] [address] * Blood culture Blood (03/16/2025 3:03 PM CDT) Report Final Report: No growth Comment:Testing performed by : [facility], 1 [facility], [place]., [address] Blood 03/16/2025 3:03 PM CDT 03/16/2025 6:28 PM CDT Narrative [facility] ([place]) - 03/21/2025 7:00 AM CDT Collection->Peripheral 1. Blood cultures are incubated for 4 days on a continuously monitored blood culture system. The first report of a negative culture is issued within 24 hours of receipt of the specimen in the laboratory. 2. Positive culture results are reported as soon as they are detected. 3. The most important factor for detection of microbes in the setting of bloodstream infection is the volume of blood submitted for culture. Failure to collect an optimal blood volume can result in false negative blood cultures. 4. For pediatric patients, the recommended blood volume to collect follows a weight based strategy. See the electronic test catalog for collection instructions. 5. For positive blood cultures, a rapid molecular test may be performed for organism identification using the gerard ePlex blood culture identification panel for gram positive (BCID-GP) and gram negative (BCID-GN) organisms. This nucleic acid amplification test detects microbial DNA in positive blood culture broth. This assay has been cleared by the [place] Food and Drug Administration and its performance characteristics have been verified by the [facility] Microbiology [facility]. For questions about this culture, contact the Microbiology Laboratory at [phone]. Interpretive data was last revised on 24. Eddie Galaviz MD LAB MICROBIOLOGY - GENERAL ORDERABLES Final Result THERESA ABDALLA ([place]) 1 [facility] Department [place] [address] * Blood culture Blood (03/16/2025 3:03 PM CDT) Report Final Report: No growth Comment:Testing performed by : [facility], 1 [facility] [place]., [address] Blood 03/16/2025 3:03 PM CDT 03/16/2025 6:28 PM CDT Narrative THERESA ABDALLA ([place]) - 03/21/2025 7:00 AM CDT Collection->Peripheral 1. Blood cultures are incubated for 4 days on a continuously monitored blood culture system. The first report of a negative culture is issued within 24 hours of receipt of the specimen in the laboratory. 2. Positive culture results are reported as soon as they are detected. 3. The most important factor for detection of microbes in the setting of bloodstream infection is the volume of blood submitted for culture. Failure to collect an optimal blood volume can result in false negative blood cultures. 4. For pediatric patients, the recommended blood volume to collect follows a weight based strategy. See the electronic test catalog for collection instructions. 5. For positive blood cultures, a rapid molecular test may be performed for organism identification using the gerard ePlex blood culture identification panel for gram positive (BCID-GP) and gram negative (BCID-GN) organisms. This nucleic acid amplification test detects microbial DNA in positive blood culture broth. This assay has been cleared by the [place] Food and Drug Administration and its performance characteristics have been verified by the [facility] Microbiology Laboratory. For questions about this culture, contact the Microbiology Laboratory at [phone]. Interpretive data was last revised on 24. Eddie Galaviz MD LAB MICROBIOLOGY - GENERAL ORDERABLES Final Result THERESA ABDALLA [place] 1 [facility] Department [place] [address] * CT Abdomen Pelvis W Contrast (03/16/2025 2:33 PM CDT) Anatomical Region Laterality Modality Body N/A Computed Tomogra phy 03/16/2025 4:10 PM CDT Narrative 03/16/2025 4:14 PM CDT EXAM DESCRIPTION: CT ABDOMEN PELVIS W CONTRAST REASON FOR STUDY: Abdominal pain, acute, nonlocalized Left sided pain today TECHNIQUE: CT scan of the abdomen and pelvis performed with intravenous and without oral contrast using helical scanning technique with dynamic intravenous contrast injection. Reconstructed coronal and sagittal MPR images reviewed. All images stored on PACS. Automated exposure control was used as a dose optimization technique for this examination. CONTRAST TYPE/DOSE: 75mL of IOVERSOL 350 MG IODINE/ML INTRAVENOUS SYRINGE injected via intravenous COMPARISON: None available FINDINGS: LOWER CHEST: Curvilinear bands of atelectasis or scarring at the lung bases. LIVER: There are multiple well-circumscribed hypoenhancing hepatic lesions, the largest of which demonstrate water density. GALLBLADDER: Normal. SPLEEN: Normal. PANCREAS: Normal. ADRENALS: Normal. KIDNEYS/URINARY TRACT: No hydronephrosis. Water density bilateral renal cysts. GI: Large amount of colonic stool. Focal wall thickening with inflammation or fluid along the descending colon. No pneumatosis or portal venous gas. Normal appendix. PERITONEUM: Small amount of fluid along the left pericolic gutter. No free intraperitoneal air. REPRODUCTIVE: Normal. VASCULATURE: No abdominal aortic aneurysm. MUSCULOSKELETAL: Left hip arthroplasty hardware with resultant hardware artifact. No acute skeletal abnormality. OTHER: No other abnormality. IMPRESSION: Focal wall thickening with inflammation or fluid along the descending colon. This is likely due to colitis and with large amount of stool is concerning for stercoral colitis. Hepatic and renal lesions likely representing cysts. THIS IS AN ELECTRONICALLY VERIFIED FINAL REPORT 03/16/2025 4:14 PM - Electronically signed by Kimo STUBBS JR Report ID: [id number] Reading Location: [id number] Procedure Note Kimo Irizarry MD - 03/16/2025 EXAM DESCRIPTION: CT ABDOMEN PELVIS W CONTRAST REASON FOR STUDY: Abdominal pain, acute, nonlocalized Left sided pain today TECHNIQUE: CT scan of the abdomen and pelvis performed with intravenousand without oral contrast using helical scanning technique with dynamic intravenous contrast injection. Reconstructed coronal and sagittal MPRimages reviewed. All images stored on PACS. Automated exposure control was used as a dose optimization technique forthis examination. CONTRAST TYPE/DOSE: 75mL of IOVERSOL 350 MG IODINE/ML INTRAVENOUSSYRINGE injected via intravenous COMPARISON: None available FINDINGS: LOWER CHEST: Curvilinear bands of atelectasis or scarring at the lungbases. LIVER: There are multiple well-circumscribed hypoenhancing hepaticlesions, the largest of which demonstrate water density. GALLBLADDER: Normal. SPLEEN: Normal. PANCREAS: Normal. ADRENALS: Normal. KIDNEYS/URINARY TRACT: No hydronephrosis. Water density bilateral renal cysts. GI: Large amount of colonic stool. Focal wall thickening withinflammation or fluid along the descending colon. No pneumatosis or portal venousgas. Normal appendix. PERITONEUM: Small amount of fluid along the left pericolic gutter. Nofree intraperitoneal air. REPRODUCTIVE: Normal. VASCULATURE: No abdominal aortic aneurysm. MUSCULOSKELETAL: Left hip arthroplasty hardware with resultant hardware artifact. No acute skeletal abnormality. OTHER: No other abnormality. IMPRESSION: Focal wall thickening with inflammation or fluid along the descendingcolon. This is likely due to colitis and with large amount of stool is concerningfor stercoral colitis. Hepatic and renal lesions likely representing cysts. THIS IS AN ELECTRONICALLY VERIFIED FINAL REPORT 03/16/2025 4:14 PM - Electronically signed by Kimo Irizarry M.D., JR: Report ID: [id number] Reading Location: [place] [address] PROCEDURES Final Result * (ABNORMAL) eGFR (03/16/2025 1:05 PM CDT) eGFR 58(L) >=60 mL/min/1. 73 m2 Comment: Interpretive Data [...] interpretive data was last reviewed 2021. Blood 03/16/2025 1:05 PM CDT 03/16/2025 1:27 PM CDT Bashir Rand MD LAB BLOOD ORDERABLES Final Res ult [facility] ([place]) 1 [facility] Department of Laboratories [place], [place] [id number] * (ABNORMAL) Differential, auto (03/16/2025 1:05 PM CDT) Neutrophil abs 12.20(H) 1.50 - 6.50 K/cumm Imm gran abs 0.06 0.00 - 0.10 K/cumm [facility] ([place]) Lymphocyte abs 0.69(L) 0.80 - 3.30 K/cumm [facility] ([place]) Monocyte abs 0.42 0.20 - 0.80 K/cumm [facility] ([place]) Eosinophil abs 0.04 0.00 - 0.50 K/cumm [facility] ([place]) Basophil abs 0.05 0.00 - 0.10 K/cumm [facility] ([place]) Neutrophil pct 90.7 % [facility] ([place]) Comment: Interpretive Data Percent cell count reference ranges are not reported, since discordance with absolute values may lead to misinterpretation of CBC data. Current Interpretive Data was last revised on 2018. Imm gran pct 0.4 % [facility] ([place]) Comment: Interpretive Data Percent cell count reference ranges are not reported, since discordance with absolute values may lead to misinterpretation of CBC data. Current Interpretive Data was last revised on 2018. Lymphocyte pct 5.1 % [facility] ([place]) Comment: Interpretive Data Percent cell count reference ranges are not reported, since discordance with absolute values may lead to misinterpretation of CBC data. Current Interpretive Data was last revised on 2018. Monocyte pct 3.1 % [facility] ([place]) Comment: Interpretive Data Percent cell count reference ranges are not reported, since discordance with absolute values may lead to misinterpretation of CBC data. Current Interpretive Data was last revised on 2018. Eosinophil pct 0.3 % [facility] ([place]) Comment: Interpretive Data Percent cell count reference ranges are not reported, since discordance with absolute values may lead to misinterpretation of CBC data. Current Interpretive Data was last revised on 2018. Basophil pct 0.4 % [facility] ([place]) Comment: Interpretive Data Percent cell count reference ranges are not reported, since discordance with absolute values may lead to misinterpretation of CBC data. Current Interpretive Data was last revised on 2018. Blood 03/16/2025 1:05 PM CDT 03/16/2025 1:27 PM CDT us Bashir Rand MD LAB BLOOD ORDERABLES Final Res ult [facility] ([place]) 1 [facility] Department [place] [address] * (ABNORMAL) CBC with auto differential (03/16/2025 1:05 PM CDT) [facility] WBC 13.46(H) 3.80 - 9.90 K/cumm Hgb 15.7 13.0 - 17.5 g/dL [facility] ([place]) Hct 46.5 38.9 - 50.3 % [facility] ([place]) Plt 186 150 - 400 K/cumm [facility] ([place]) MPV 10.8 9.1 - 12.3 fL [facility] ([place]) RBC 4.82 4.30 - 5.80 M/cumm [facility] ([place]) MCV 96.5(H) 81.3 - 96.4 fL [facility] ([place]) MCH 32.6 27.1 - 33.3 pg [facility] ([place]) MCHC 33.8 32.3 - 35.7 g/dL [facility] ([place]) RDW CV 14.8 11.1 - 14.9 % [facility] ([place]) RDW SD 52.5(H) 35.7 - 48.1 fL [facility] ([place]) NRBC abs 0.00 0.00 - 0.01 K/cumm [facility] ([place]) Blood Venous blood specimen / Unknown 03/16/2025 1:05 PM CDT 03/16/2025 1:27 PM CDT us Bashir Rand MD LAB BLOOD ORDERABLES Final Res ult [facility] ([place]) 1 [facility] [place] [address] * CRP (acute phase) (03/16/2025 1:05 PM CDT) [facility] CRP 8.1 <=10.0 mg/L Blood 03/16/2025 1:05 PM CDT 03/16/2025 2:48 PM CDT us Eddie Galaviz MD LAB BLOOD ORDERABLES Final Result THERESA ABDALLA ([place]) 1 [facility] [place] [address] * Lipase (03/16/2025 1:05 PM CDT) Lipase 22 10 - 99 Units/L Blood 03/16/2025 1:05 PM CDT 03/16/2025 2:48 PM CDT Eddie Galaviz MD LAB BLOOD ORDERABLES Final Result THERESA ABDALLA ([place]) 1 [facility] [place] [address] * Lipase (03/16/2025 1:05 PM CDT) Pathologist [facility] Lipase 22 10 - 99 Units/L Blood Venous blood specimen / Unknown 03/16/2025 1:05 PM CDT 03/16/2025 1:27 PM CDT Bashir Rand MD LAB BLOOD ORDERABLES Final Res ult THERESA ABDALLA ([place]) 1 [facility] [place] [address] * (ABNORMAL) Comprehensive metabolic panel (03/16/2025 1:05 PM CDT) Pathologist [facility] Sodium 138 135 - 145 mmol/L Potassium, pl 4.7 3.3 - 4.9 mmol/L [facility] ([place]) Chloride 97 97 - 110 mmol/L [facility] ([place]) CO2 19(L) 22 - 32 mmol/L [facility] ([place]) Anion gap 22(H) 2 - 15 mmol/L [facility] ([place]) BUN 19 6 - 25 mg/dL [facility] ([place]) Creatinine 1.26 0.80 - 1.30 mg/dL [facility] ([place]) Glucose 102 70 - 199 mg/dL [facility] ([place]) Comment: Interpretive Data Fasting glucose >/= 126 mg/dl is diagnostic for diabetes. Fasting is defined as no caloric intake for at least 8 hours. Fasting glucose between 100 mg/dl to 125 mg/dl is diagnostic of prediabetes. In a patient with classic symptoms of hyperglycemia or hyperglycemic crisis, a random glucose >/= 200 mg/dl is diagnostic for diabetes. In the absence of unequivocal hyperglycemia, results should be confirmed by repeat testing. The classification and Diagnosis of Diabetes Diabetes Care 2021; 46: S19-S40. Current interpretive data was last revised 2022. Calcium 9.7 8.5 - 10.3 mg/dL [facility] ([place]) Bilirubin, total 0.6 0.1 - 1.2 mg/dL [facility] ([place]) Protein, pl 7.7 6.5 - 8.5 g/dL [facility] ([place]) Albumin 4.3 3.5 - 5.0 g/dL [facility] ([place]) Alk phos 82 40 - 130 Units/L [facility] ([place]) ALT 27 7 - 55 Units/L [facility] ([place]) AST 28 10 - 50 Units/L [facility] ([place]) Blood 03/16/2025 1:05 PM CDT 03/16/2025 1:27 PM CDT us Bashir Rand MD LAB BLOOD ORDERABLES Final Res ult [facility] ([place]) 1 [facility] Department [place] [address] * (ABNORMAL) Hemoglobin A1c (04/23/2024 2:46 PM CDT) Hgb A1C 5.7(H) 4.0 - 5.6 % Estimated Average Glucose 117 mg/dL THERESA Comment: The ADA recommends reporting an estimated Average Glucose (eAG) with all Hemoglobin A1c results using the equation derived from a study of 507 normal and diabetic adults. Minority populations were underrepresented and children were not included. (Diabetes Care 31:7031-6526, 2008). The eAG is not equivalent to a fasting glucose. Blood 04/23/2024 2:46 PM CDT 04/23/2024 4:01 PM CDT us Amairani Pinon CHEMICALS FERMENTATION OPERATOR LAB BLOOD ORDERABLES Final Res ult THERESA [place]APPAS [address] Department of Laboratories [place], [place] [id number] from Last 3 Months or Most Recently Relevant to Health Maintenance Insurance [facility] MEDICARE ADVANTAGE [facility] Address: [facility] [address] [place] [address] [place] [address] [facility] MEDICARE ADVANTAGE [facility] Address: [address] [address] [place] [address] [address] [place], [address] [employer] MEDICARE ADVANTAGE Advance Directives For more information, please contact: [phone] * Full Code (Latest Code Status on File) Date Activated Date Inactivated Comments 05/19/2025 11:32 AM 05/19/2025 6:14 PM * Full Code Date Activated Date Inactivated Comments 05/19/2025 11:32 AM 05/19/2025 11:32 AM * Full Code Date Activated Date Inactivated Comments 03/16/2025 8:03 PM 03/18/2025 7:51 PM * Full Code Date Activated Date Inactivated Comments 10/07/2023 7:44 PM 10/09/2023 7:12 PM Care Teams Intramural Director Relationship Specialty Start Date End Date Junior Vega MD PCP - General 02/09/18 Jesus Erwin MD PhD [address] [place] [address] Consulting Physician Neurosurgery 10/09/23
--- OUTSIDE RECORDS SUMMARY | 2025-06-07 09:43 | XMS_ITS | Encounter Summary ---
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 Gender Identity Not on file Sexual Orientation Not on file documented as of this encounter Plan of Treatment Upcoming Encounters Date Type Department Care Team (Late st Contact Info) Description 05/24/2026 8:00 AM CDT Hospital Encounter [facility] [address] [place] [address] Kristofer Thompson MD [address] [place] [address] [place] [address] 05/24/2026 8:00 AM CDT - 05/24/2026 8:30 AM CDT Surgery [facility] 1 [place] [address] Kristofer Thompson MD [address] [place] [address] [address] [place] [address] COLONOSCOPY Scheduled Procedures Name Priority Associated Diagnoses Date/Ti me COLONOSCOPY History of colonic polyps 05/24/2026 8:00 AM CDT documented as of this encounter Visit Diagnoses Not on filedocumented in this encounter Care Teams Filter Plant Operator Relationship Specialty Start Date End Date Junior Vega MD PCP - General 02/09/18 Jesus Erwin MD PhD [address] [facility] [address] [place] [address] Consulting Physician Neurosurgery 10/09/23 documented as of this encounter
--- OUTSIDE RECORDS SUMMARY | 2025-06-07 09:43 | XMS_ITS | Patient Health Record ---
Author Organization [facility] Address [address] [place] [address] Care Team Providers Care Cash Surrender Calculator Name Role Phone Junior Vega Primary Care Provider Cindy Laureano Jr, MD, [facility] ALLERGIES No Known Allergies REASON FOR REFERRAL [...] Active confirmed History and physical examination, follow-up (135280258) Problem Bicipital tendinitis, right shoulder (M75.21) Active confirmed 173165036 Problem Impingement syndrome of right shoulder (M75.41) Active confirmed 217515751471945 Problem Bursitis of left shoulder (M75.52) Active confirmed Bursitis o f left shoulder (304509178729134) Problem Strain of muscle(s) and tendon(s) of the rotator cuff of right shoulder, initial encounter (S46.011A) Active confirmed 45884438 Problem Strain of muscle(s) and tendon(s) of the rotator cuff of right shoulder, subsequent encounter (S46.011D) Active confirmed 82773283 Problem Strain of muscle(s) and tendon(s) of the rotator cuff of left shoulder, initial encounter (S46.012A) Active confirmed Strain of rotat or cuff of left shoulder (disorder) (85272246164550691 ) Problem Other injury of muscle, fascia and tendon of other parts of biceps, right arm, initial encounter (S46.291A) Active confirmed 501156981 Problem Fall on and from ladder, initial encounter (W11.XXXA) Active confirmed 55832990 Problem Unspecified fall, initial encounter (W19.XXXA) Active confirmed Fall (2624334) Problem Aftercare following joint replacement surgery (Z47.1) Active confirmed History of musculoskeletal operation (864885549) Problem Encounter for other orthopedic aftercare (Z47.89) Active confirmed Problem Encounter for removal of sutures (Z48.02) Active confirmed 211233470873079 Problem Presence of left artificial hip joint (Z96.642) Active confirmed 716927564 Problem Impingement syndrome of left shoulder region (M75.42) Active confirmed Impingement syndrome of left shoulder region (035824146163746) Problem Shoulder pain, right (M25.511) Active confirmed Shoulder pipo nt pain (327401688) Problem Primary osteoarthritis of right hip (M16.11) 10/30/19 24 Active confirmed 748361008588449 Problem Overexertion from strenuous movement or load, initial encounter (X50.0XXA) Active confirmed 16882127 Problem Other specified postprocedural states (Z98.890) Active confirmed Postprocedu ral states (122213797) Problem Primary osteoarthritis of left hip (M16.12) 06/28/20 18 Active confirmed 537515756027556 Problem Complete tear of right rotator cuff, unspecified whether traumatic (M75.121) 06/28/20 21 Active confirmed 309442672 PLAN OF TREATMENT Pending Test Test Name Order Date CMP, CBC, A1C, PT W/INR, UA, MRSA NASAL SWAB 02/17/2024 Insurance Providers Payer Name Payer Address Payer Phone Subscriber Number Group Number Insured Name Patient Relationship to Insured Coverage Start Date Coverage End Date [facility] Medicare Advantage PPO [address] [address] [place] [address] [id number] Cyrus Lyons Self - patient is the insured MEDICAL (GENERAL) HISTORY Medical History History ICD Code hypertension hyperlipidema Depression diabetes mellitus urologic problems Surgical History Surgery Date(Month/Year) left posterior hip arthroplasty (RDRJR) 08/04/21 Right shoulder RCR (RDR) 07/30/19 shoulder arthroscopy, left (RDR) 07/25/17
--- OUTSIDE RECORDS SUMMARY | 2025-06-07 09:43 | XMS_ITS | Clinical Summary ---
Author Organization [facility] Address [address] [place] [address] Phone Care Team Providers Care Mixer Operator Helper Hot Metal Name Role Phone Unavailable Primary Care Provider [...] 50+ YEA RS (2 of 2 - PPSV23, PCV20, or PCV21) 10/17/2015 08/22/2015, 01/08/2012 RSV VACCINE (60+ or ) (1 - 1-dose 75+ series) 2021 DIABETES HBA1C Q 6 MONTHS 06/20/2023 12/18/2022 INFLUENZA VACCINE (#1) 2025 , 07/20/2020, 07/26/2019, Additional history exists DTAP/TDAP/TD VACCINES (3 - T d or Tdap) 05/07/2033 05/07/2023, 06/18/2011 ZOSTER VACCINE Completed 09/08/2019, 050 04/2019, 07/09/2011 Insurance
== END 2025-06-07 09:23 | disposition home or self-care (01) ==
PROVIDERS: PCP Family Medicine; Visit Provider Plastic Surgery
DX: R92.8 Other abnormal and inconclusive findings on diagnostic imaging of breast (principal); N62 Hypertrophy of breast
CPT/HCPCS: 76642

== ENCOUNTER 2025-06-08 15:11 | Outpatient (CLI) | payer MEDICARE, SELFPAY ==
--- OUTSIDE RECORDS SUMMARY | 2024-03-22 07:19 | XMS_ITS ---
Author Organization [facility] Address [address] [address] Care Team Providers Care Sleeping Room Cleaner Name Role Phone Silvia Junior Primary Care Provider Cindy Laureano Jr, MD, Sammy Unavailable Encounters Encounter Location Date Provider Diagnosis [facility] [address] [address] [facility] [address] [place] [address] 03/22/2024 Sammy Laureano Jr, MD PLAN OF TREATMENT No Information
--- OUTSIDE RECORDS SUMMARY | 2024-03-25 07:36 | XMS_ITS ---
Author Organization [facility] Address [address], [place] [address] Care Team Providers Care Construction Rigger Name Role Phone Silvia, Junior Primary Care Provider Cindy Laureano Jr, MD, Sammy Unavailable REASON FOR VISIT FYI Encounters Encounter Location Date Provider Diagnosis [facility] [address] [place] [address] 03/25/2024 Sammy Laureano Jr, MD PLAN OF TREATMENT No Information
--- OUTSIDE RECORDS SUMMARY | 2024-04-05 07:30 | XMS_ITS ---
Author Organization [facility] Address [address] [facility] [facility] [address] [place] [address] Care Team Providers Care Bicycle Repairman Name Role Phone Arlen Vegan Primary Care Provider Cindy Laureano Jr, MD, Sammy Unavailable [phone] REASON FOR VISIT APPROVED Encounters Encounter Location Date Provider Diagnosis [facility] [address] [place], [place] [id number] 04/05/2024 Sammy Laureano Jr, MD PLAN OF TREATMENT No Information
--- NOTE | 2025-06-08 15:32 | ECHO_ITS ---
Patient Info Name: Cyrus Soliman Age: 79 years : 1945 Gender: Male Ht: 70 in Wt: 200 lbs BSA: 2.14 m2 HR: 78 bpm BP: 100 / 68 mmHg Technical Quality: Good Exam Date: 06/08/2025 3:58 PM Patient Status: unknown Admit Date: 06/08/2025 Exam Type: CA echo doppler color flow Complete two-dimensional, color flow and Doppler transthoracic echocardiogram is performed. Blowing Engineer: Hilda Dia Attending Provider: Maribel Shaikh Summary 1. Complete two-dimensional, color flow and Doppler transthoracic echocardiogram is performed. 2. Left ventricular chamber dimension is normal. 3. Left ventricular systolic function is normal, estimated at 60-65. 4. There is mild concentric increased left ventricular wall thickness. 5. The left ventricular diastolic function is abnormal. 6. E/e' 12 is mildly elevated. 7. No pulmonary hypertension, estimated pulmonary arterial systolic pressure is 39 mmHg. 8. There is trace pulmonic regurgitation. Left Ventricle E/e' 12 is mildly elevated. Left ventricular chamber dimension is normal. Left ventricular systolic function is normal, estimated at 60-65. There is mild concentric increased left ventricular wall thickness. The left ventricular diastolic function is abnormal. Right Ventricle Right ventricular chamber dimension is normal. Right ventricular systolic function is normal. Left Atria Left atrial chamber dimension is normal. Right Atria Right atrial chamber dimension is normal. Aortic Valve The aortic valve is trileaflet. There is no aortic valve stenosis. There is no aortic valve regurgitation. Pulmonic Valve There is trace pulmonic regurgitation. Mitral Valve There is no mitral valve stenosis. There is no mitral valve regurgitation. Tricuspid Valve There is no tricuspid valve regurgitation. No pulmonary hypertension, estimated pulmonary arterial systolic pressure is 39 mmHg. Pericardium/Pleural There is no pericardial effusion. Inferior Vena Cava Normal inferior vena cava with >50% collapse upon inspiration consistent with normal right atrial pressure, 5 mmHg. Aorta The aortic root size at the sinus of Valsalva is normal. Left Ventricular Outflow Tract Name Value Normal LVOT 2D LVOT Diameter 2.1 cm LVOT Doppler LVOT Peak Velocity 112 cm/s LVOT Peak Gradient 5 mmHg LVOT Mean Gradient 2 mmHg LVOT VTI 22 cm LVOT VTI/AV VTI Ratio 1.0 LVOT Stroke Volume 71 ml LVOT CO 14.7 l/min LVOT CI 6.9 l/min/m2 Pulmonic Valve Name Value Normal PV Doppler PV Peak Velocity 103 cm/s PV Peak Gradient 4 mmHg Mitral Valve Name Value Normal MV Diastolic Function MV E Peak Velocity 79 cm/s MV A Peak Velocity 72 cm/s MV E/A 1.1 MV Decel Time (PW) 177 ms MV Annular TDI MV E/e' (Septal) 11.4 MV E/e' (Lateral) 14.1 MV E/e' (Average) 12.7 Tricuspid Valve Name Value Normal TV Regurgitation Doppler TR Peak Velocity 290 cm/s TR Peak Gradient 34 mmHg Estimated PAP/RSVP RA Pressure 5 mmHg <=5 PA Systolic Pressure 39 mmHg <36 RV Systolic Pressure 39 mmHg <36 TV Annular TDI TV Lateral Debi s' Velocity 10.9 cm/s >=9.5 Aorta Name Value Normal Ascending Aorta Ao Root Diameter (MM) 3.3 cm Ao Root Diam Index (MM) 1.5 cm/m2 Aortic Valve Name Value Normal AV Doppler AV Peak Velocity 116 cm/s AV Peak Gradient 5 mmHg AV Mean Gradient 3 mmHg AV VTI 23 cm AV Area (Cont Eq VTI) 3.1 cm2 >=3.0 AV Area (Cont Eq Carmelo) 3.2 cm2 AV DI (Carmelo) 0.96 AV Regurgitation 2D LVOT Area 3.3 cm2 Ventricles Name Value Normal LV Dimensions 2D/MM IVS Diastolic Thickness (2D) 1.2 cm 0.6-1.0 LVID Diastole (2D) 3.3 cm 4.2-5.8 LVIW Diastolic Thickness (2D) 1.0 cm 0.6-1.0 LVID Systole (2D) 2.2 cm 2.5-4.0 LVOT Diameter 2.1 cm LV Mass (2D Cubed) 116.73 g 88.00-224.00 LV Mass Index (2D Cubed) 55 g/m2 49-115 Relative Wall Thickness (2D) 0.62 <=0.42 LV Fractional Shortening/Ejection Fraction 2D/MM LV Fractional Shortening (2D) 33 % 25-43 LV EF (2D Teichholz) 63 % LV Diastolic Volume (4C MOD) 78 ml LV EF (4C MOD) 64 % LV Diastolic Volume (2C MOD) 78 ml LV EF (2C MOD) 70 % LV Diastolic Volume (BP MOD) 81 ml 62-150 LV Diastolic Volume Index (BP MOD) 38 ml/m2 34-74 LV Systolic Volume (BP MOD) 26 ml 21-61 LV Systolic Volume Index (BP MOD) 12 ml/m2 11-31 LV EF (BP MOD) 68 % 52-72 LV Diastolic Length (4C) 7.0 cm LV Systolic Length (4C) 5.6 cm LV Stroke Volume (4C MOD) 50 ml RV Dimensions 2D/MM RVID Diastole (2D) 3.8 cm 2.1-3.5 Atria Name Value Normal LA Dimensions LA Dimension (MM) 0.0 cm 3.0-4.0 LA Volume (4C A-L) 41 ml LA Volume (BP A-L) 37 ml RA Dimensions RA Systolic Major [place] Length (4C) 3.3 cm 2.1-2.7 RA Area (4C) 8.3 cm2 <=18.0 Report Signatures
--- OUTSIDE RECORDS SUMMARY | 2025-06-08 15:44 | XMS_ITS | Encounter Summary ---
Author Organization [facility] Healthcare Address [address] [place] [address] Care Team Providers Care Dual Rate Dealer Name Role Phone Junior Vega MD Primary Care Provider + [phone] Jesus Erwin MD PhD Unavailable [phone] Encounter Details Date Type Department Care Team (Late st Contact Info) Description 10/07/[address] [id number] Lacey Cai RN Social History Tobacco Use [...] on file Legal Sex Male 9:22 AM RN BSN Gender Identity Not on file Sexual Orientation Not on file documented as of this encounter Plan of Treatment Upcoming Encounters Date Type Department Care Team (Late st Contact Info) Description 05/24/2026 8:00 AM CDT Hospital Encounter [facility] [address] [place] [address] Kristofer Thompson MD [address] [place] [address] [place] [address] 05/24/2026 8:00 AM CDT - 05/24/2026 8:30 AM CDT Surgery [facility] [address] [place] [address] Kristofer Thompson MD [address] [place] [address] [address] [place] [id number] COLONOSCOPY Scheduled Procedures Name Priority Associated Diagnoses Date/Ti me COLONOSCOPY History of colonic polyps 05/24/2026 8:00 AM CDT documented as of this encounter Visit Diagnoses Not on filedocumented in this encounter Care Teams Dual Rate Dealer Relationship Specialty Start Date End Date Junior Vega MD PCP - General 02/09/18 Jesus Erwin MD PhD [address] [facility] [address] [place] [address] Consulting Physician Neurosurgery 10/09/23 documented as of this encounter
--- OUTSIDE RECORDS SUMMARY | 2025-06-08 15:44 | XMS_ITS ---
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
--- OUTSIDE RECORDS SUMMARY | 2025-06-08 15:44 | XMS_ITS | Clinical Summary ---
Author Organization [facility] Address [address] [place] [address] Care Team Providers Care Pellet Post Inspector Name Role Phone Junior Vega MD Primary Care Provider + [phone] Jesus Erwin MD PhD Unavailable Allergies No [...] 10/08/2023 Assessment & Plan (10/08/2023 9:42 AM JAVASCRIPT WEB DEVELOPER): - drinks 5 whiskeys daily, last drink 10pm 10/07 - gets shakes that resolve with alcohol, but no h/o DTs or hospitalizations for withdrawal - actively going to meetings at the [place] - s/p phenobarb in ED - monitor closely for signs of withdrawal SDH (subdural hematoma) 10/07/2023 Assessment & Plan (10/09/2023 1:07 PM JAVASCRIPT WEB DEVELOPER): - NSGY c/s - repeat HCT 10/07 [...] Type Department Care Team Description 05/26/2025 Telephone [facility] Medicine Otolaryngology [address] [place] [address] AptiñoAzCecelia, 05/24/2025 3:45 PM CDT Office Visit [facility] [place] [address] [place] [phone] Alethea Nava NP Elevated blood pressure reading (Primary Dx) 05/24/2025 Telephone [facility] Gastroenterology at [address] [place] [address] Rajni Schultz 05/23/2025 Results Follow-Up [facility] Gastroenterology at [address] [place] [address] Kristofer Thompson MD Surgical pathology 05/19/2025 1:30 PM CDT - 05/19/2025 2:00 PM CDT Surgery [facility] [address] [place] [address] Kristofer Thompson MD COLON REMOVAL SNARE 05/19/2025 12:38 PM CDT Anesthesia Event [facility] Digestive [facility] [address] [place] [address] Kenroy Malloy MD 05/19/2025 11:27 AM CDT - 05/19/2025 2:09 PM CDT Hospital Encounter [facility] [address] [place] [address] Kristofer Thompson MD Colitis; Encounter for screening colonoscopy Discharge Disposition: Discharge to home or self care 05/17/2025 10:15 AM CDT Office Visit [facility] Sleep Medicine at [address] [place] [address] Jodi Coto MD STEPHANIE (obstructive sleep apnea) (Primary Dx); Obesity, unspecified class, unspecified obesity type, unspecified whether serious comorbidity present; Insomnia, unspecified type; Hypersomnia 03/26/2025 12:46 PM CDT - 03/26/2025 3:50 PM CDT Emergency [facility] Emergency Department [address] [place] [address] Pro Malagon MD Constipation, unspecified constipation type (Primary Dx) Discharge Disposition: Discharge to home or self care 03/25/2025 Telephone [facility] Gastroenterology at [address] [place] [address] Rajni Schultz 03/16/2025 2:38 PM CDT - 03/18/2025 3:51 PM CDT Hospital Encounter [facility] Acute Medicine [address] [place] [address] Eddie Galaviz MD Petters, MD Beatris See [...] drink = 0.6 oz pur e alcohol) [facility] Utilities Answer Date Recorded In the past 12 months has hybris, gas, oil, or water Zw[employer] threatened to shut off services in your [...] often do you attend chur ch or caodaism services? Never 03/17/2025 Do you belong to any clubs o r organizations such as christian groups, unions, fraternal or athletic groups, or [...] any time in the past 12 [facility], were you homeless or living in a residential (including now)? No 03/17/2025 Personal Safety Answer Date Recorded Have you ever been in or are you currently in a harmful physical or emotional relationship or is someone making you feel afraid or unsafe? Denies 05/19/2025 Sex and Gender Information Value Date Recorded Sex Assigned at Not on file Legal Sex Male 9:22 AM JAVASCRIPT WEB DEVELOPER Gender Identity Not on file Sexual Orientation [...] 05/24/2026 8:00 AM CDT Hospital Encounter [address] [address] Kristofer Thompson MD [address] [facility] [address] [place] [address] 05/24/2026 8:00 AM CDT - 05/24/2026 8:30 AM CDT Surgery [address] [address] Kristofer Thompson MD [address] [facility] [address] [place] [address] COLONOSCOPY Scheduled Procedures Name Priority Associated Diagnoses [...] Screening Discontinued Medical Devices Implanted Type Area Kick Plate Installer Device Identifier Shelf Expiration Date Model / Serial / Lot [employer] Inspire 3 Electrode Cuff Tunnel Dannie Lead Neurostimulator Sterile 4063 - [id number] - [id number] Implanted:Qty: 1 on 04/27/2024 by Natasha Treviño MD at [facility] Right: Neck [employer] 11/03/2026 4063 / [id number] / [employer] Lead Neurostimulator Sleep Apnea Thoracic Permanent Respiratory Sensing Inspire 43cm 4340 - [id number] - [id number] Implanted:Qty: 1 on 04/27/2024 by Natasha Treviño MD at [facility] Right: Chest [employer] 01/03/2027 4340 / [id number] / [employer] Inspire Generator 3028 - [id number] - [id number] Implanted:Qty: 1 on 04/27/2024 by Natasha Treviño MD at [facility] Right: Chest [employer] 12/21/2026 3028 / [id number] / Procedures Procedure Name Priority Date/Time [...] 1:05 PM CDT DIFFERENTIAL AUTO STAT 03/16/2025 1:0 5 PM CDT LIPASE STAT 03/16/2025 1:05 PM [...] ORDERABLES - SHANNON CE Final Result [facility]ESA ABDALLA [place]) 1 [facility] Department [place] [address] * Colonoscopy (05/19/2025 11:33 AM CDT) Anatomical Region Laterality Modality Other Narrative Procedure Note Kristofer Thompson MD - 05/19/2025 11:33 AM CDT [facility] Patient Name: Sergio Yanes Procedure Date: 05/19/2025 11:33 AM Date of : 1945 Admit Type: Outpatient Age: 79 Gender: Male Attending MD: Kristofer Thompson M.D., Room: [facility] ENDOSCOPY ROOM 1 Note Status: [...] retrieved. Clip (MR conditional) was placed. Clip assistant paralegal: [employer]. - One 4 mm polyp in the [...] under direct vision. The Pediatric Colonoscope [id number] was introducedthrough the anus and advanced to [...] clip was successfully placed (MR conditional). Clip assistant paralegal: [employer]. There was no bleeding at the end [...] 11:33 AM Procedure Code(s): --- Professional --- 59940, Colonoscopy, flexible; with removal of tumor(s), polyp(s), or other lesion(s) by snare technique 50559, 59, Colonoscopy, flexible; with biopsy, single or multiple Diagnosis Code(s): --- Professional --- Z12.11, Encounter for screening for malignant neoplasm of colon K64.8, Other hemorrhoids D12.0, Benign neoplasm of cecum D12.2, Benign neoplasm of ascending colon D12.4, Benign neoplasm of descending colon CPT copyright 2022 [employer]. All rights reserved. The codes documented in this report are preliminary and upon children counselor reviewmay be revised to meet current compliance requirements. Recognized by the [employer] for promoting quality in endoscopy Kristofer Thompson MD ENDOSCOPY PROCEDURES Final Result * Surgical pathology (05/19/2025 9:49 AM CDT) Tissue (Polyp(s), colon/colorectal, esophageal, gastric) 05/19/2025 1:24 PM CDT Tissue specimen (specimen) (Polyp(s), colon/colorectal, esophageal, gastric) 05/19/2025 1:24 PM CDT Tissue specimen (specimen) (Polyp(s), colon/colorectal, esophageal, gastric) 05/19/2025 1:25 PM CDT Narrative PATHOLOGY [facility] ([place]) - 05/23/2025 4:57 PM CDT EPIC results best viewed via link to PDF [facility] Department of Pathology [address] [place] [address] Note to Patients: This report may contain [...] Final Report Patient Name: SERGIO YANES Address: [address] [place] [address] Gender: George : 1945 (Age: 79) Service: Gastro Location: [facility] Hospital #: [id number] Patient Type: [facility] Taken: 05/19/2025 Received: 05/20/2025 Accessioned: 05/20/2025 Reported: [...] determined by the Surgical Pathology Department at [facility] as part of an ongoing supplier quality engineer program and in compliance with federally mandated [...] characteristics determined by the Surgical Pathology Department [facility]. It has not been cleared or approved by the U. S. Food and Drug Administration. Note for decalcified specimens: This assay has not been validated on decalcified tissues. Results should be interpreted with caution given the possibility of false negativity on decalcified specimens Kristofer Thompson MD LAB PATHOLOGY ORDERABLES F inal Result PATHOLOGY [facility] ([place] [id number] * XR Kub (Abd 1 View) (03/26/2025 [...] Sal Cosme M.D. LB: FEDE Report ID: [id number] Reading Location: [id number] Procedure Note Sal Cosme MD - 03/26/2025 [...] Sal Cosme M.D. LB: FEDE Report ID: [id number] Reading Location: [id number] Kelly LIANG IMG XR PROCEDURES Final R [...] BLOOD ORDERABLE S Final Result THERESA ABDALLA ([place]) 1 [facility] [place] [address] * Thyroid Function Scurry (03/26/2025 1:46 PM CDT) TSH 1.38 0.30 - 4.20 mcIUnit/mL Blood 03/26/2025 1:46 PM CDT 03/26/2025 1:51 PM CDT us Pro Malagon MD LAB BLOOD ORDERABLE S Final Result THERESA ABDALLA ([place]) 1 [facility] [place] [address] * Magnesium (03/26/2025 1:46 PM CDT) Magnesium 1.8 1.4 - 2.5 mg/dL Blood 03/26/2025 1:46 PM CDT 03/26/2025 1:51 PM CDT us Pro Malagon MD LAB BLOOD ORDERABLE S Final Result [facility]ESA ABDALLA ([place]) 1 [facility] [place] [address] * (ABNORMAL) Comprehensive metabolic panel (03/26/2025 1:46 [...] MD LAB BLOOD ORDERABLE S Final Result [facility] ([place]) 1 [facility] Department [place] [address] * Differential, auto (03/26/2025 12:57 PM CDT) [...] S Final Result [facility] ([place]) 1 [facility] Department [place] [address] * (ABNORMAL) CBC with auto differential (03/26/2025 [...] S Final Result [facility] ([place]) 1 [facility] Department [place] [address] * POCT glucose (03/18/2025 11:13 AM CDT) Glucose, POC 167 70 - 199 mg/dL Blood 03/18/2025 11:1 3 AM CDT 03/18/2025 11:13 AM CDT Kelton Davis DO LAB POCT ORDERABLES - DEVICE Final Result [facility]A A[facility]ALLA ([place]) 1 [facility] Department [place] [address] * XR Kub (03/18/2025 8:05 AM CDT) [...] Juan Ladd M.D. MM: MM Report ID: [id number] Reading Location: [id number] Procedure Note Juan Ladd MD - 03/18/2025 [...] Juan Ladd M.D. MM: MM Report ID: [id number] Reading Location: [place] [address] Cassie Valenzuela UI APPLICATION DEVELOPER IMG XR PROCEDURES F inal Result * POCT glucose (03/18/2025 7:50 AM CDT) Pathologist [facility] Glucose, POC 85 70 - 199 mg/dL Blood 03/18/2025 7:50 AM CDT 03/18/2025 7:50 AM CDT Kelton Olivares [facility] DO LAB POCT ORDERABLES - DEVICE Final Result [facility] [place]) 1 [facility] Department of Laboratories [place], [place] [address] * eGFR (03/18/2025 3:32 AM CDT) eGFR [...] CDT 03/18/2025 5:29 AM CDT Cassie Valenzuela UI APPLICATION DEVELOPER LAB BLOOD ORDERABLE S Final Result [facility]A ABDALLA ([place]) 1 [facility] [place] [address] * (ABNORMAL) Beta-hydroxybutyrate (03/18/2025 3:32 AM CDT) Beta-Hydroxybut yrate 0.6(H) <=0.5 mmol/L Comment:Testing performed by : [facility], [address] [place] [address]., [id number] Blood 03/18/2025 3:32 AM CDT 03/18/2025 11:32 AM CDT us Kelton Davis DO LAB BLOOD ORDERABLES F inal Result [facility]A ABDALLA ([place]) 1 [facility] [place] [address] * (ABNORMAL) CBC without differential (03/18/2025 3:32 AM CDT) WBC 11.07(H) 3.80 - 9.90 K/cumm Hgb 12.4(L) 13.0 - 17.5 g/dL [facility] ([place]) Hct 36.9(L) 38.9 - 50.3 % [facility] ([place]) Plt 163 150 - 400 K/cumm [facility] ([place]) MPV 11.1 9.1 - 12.3 fL [facility] ([place]) RBC 3.82(L) 4.30 - 5.80 M/cumm [facility] ([place]) MCV 96.6(H) 81.3 - 96.4 fL [facility] ([place]) MCH 32.5 27.1 - 33.3 pg [facility] ([place]) MCHC 33.6 32.3 - 35.7 g/dL [facility] ([place]) RDW CV 15.3(H) 11.1 - 14.9 % [facility] ([place]) RDW SD 54.4(H) 35.7 - 48.1 fL [facility] ([place]) NRBC abs 0.00 0.00 - 0.01 K/cumm [facility] ([place] Blood 03/18/2025 3:32 AM CDT 03/18/2025 5:29 AM CDT Cassie Valenzuela UI APPLICATION DEVELOPER LAB BLOOD ORDERABLE S Final Result [facility]A ABDALLA ([place]) 1 [facility] [employer] [place] [address] * Phosphorus (03/18/2025 3:32 AM CDT) Phosphorus, pl 2.6 2.3 - 4.5 mg/dL Blood 03/18/2025 3:32 AM CDT 03/18/2025 5:29 AM CDT Cassie Valenzuela UI APPLICATION DEVELOPER LAB BLOOD ORDERABLE S Final Result [facility]ALL[facility] ([place]) 1 [facility] [place] [address] * Magnesium (03/18/2025 3:32 AM CDT) Magnesium 2.3 1.4 - 2.5 mg/dL Blood 03/18/2025 3:32 AM CDT 03/18/2025 5:29 AM CDT us Cassie Carolyn Valenzuela UI APPLICATION DEVELOPER LAB BLOOD ORDERABLE S Final Result [facility]A ABDALLA ([place]) 1 [facility] [place] [address] * (ABNORMAL) Basic metabolic panel (03/18/2025 3:32 AM CDT) Sodium 135 135 - 145 mmol/L Potassium, pl 4.2 3.3 - 4.9 mmol/L [facility] ([place] Chloride 101 97 - 110 mmol/L [facility] ([place]) CO2 21(L) 22 - 32 mmol/L [facility] ([place]) Anion gap 14 2 - 15 mmol/L [facility] ([place]) BUN 14 6 - 25 mg/dL [facility] ([place]) Creatinine 1.12 0.80 - 1.30 mg/dL [facility] ([place]) Glucose 78 70 - 199 mg/dL [facility] ([place]) Comment: Interpretive Data Fasting glucose >/= [...] 2022. Calcium 8.6 8.5 - 10.3 mg/dL [facility] ([place]) Blood 03/18/2025 3:32 AM CDT 03/18/2025 5:29 AM CDT Cassie Carolyn Valenzuela UI APPLICATION DEVELOPER LAB BLOOD ORDERABLE S Final Result THERESA ABDALLA ([place]) 1 [facility] [place] [address] * POCT glucose (03/18/2025 2:35 AM CDT) Glucose, POC 99 70 - 199 mg/dL Blood 03/18/2025 2:35 AM CDT 03/18/2025 2:35 AM CDT us Kelton Olivares Ryan DO LAB POCT ORDERABLES - DEVICE Final Result Performing Organization Address City/[facility]/ZIP Co de Phone Number THERESA ABDALLA ([place]) 1 [facility] [place] [address] * POCT glucose (03/17/2025 7:32 PM CDT) Glucose, POC 97 70 - 199 mg/dL Blood 03/17/2025 7:32 PM CDT 03/17/2025 7:32 PM CDT Kelton Marshall Davis DO LAB POCT ORDERABLES - DEVICE Final Result Performing Organization Address [facility] Co de Phone Number THERESA ABDALLA ([place]) 1 [facility] [place] [address] * POCT glucose (03/17/2025 5:35 PM CDT) Glucose, POC 120 70 - 199 mg/dL Blood 03/17/2025 5:35 PM CDT 03/17/2025 5:35 PM CDT us Figueroaew Marshall Davis DO LAB POCT ORDERABLES - DEVICE Final Result Performing Organization Address City/[facility] Co de Phone Number [facility] A[facility]ALLA ([place]) 1 [facility] [place] [address] * POCT glucose (03/17/2025 11:26 AM CDT) Glucose, POC 107 70 - 199 mg/dL Blood 03/17/2025 11:2 6 AM CDT 03/17/2025 11:26 AM CDT us Kelton Davis DO LAB POCT ORDERABLES - DEVICE Final Result Performing Organization Address City/[facility]/ZIP Co de Phone Number [facility]A ABDALLA ([place]) 1 [facility] [place] [address] * POCT glucose (03/17/2025 8:16 AM CDT) Glucose, POC 111 70 - 199 mg/dL Blood 03/17/2025 8:16 AM CDT 03/17/2025 8:16 AM CDT Kelton Davis DO LAB POCT ORDERABLES - DEVICE Final Result Performing Organization Address [facility] Co de Phone Number THERESA ABDALLA ([place]) 1 [facility] [place] [address] * eGFR (03/17/2025 2:55 AM CDT) eGFR [...] of Race in Diagnosing Kidney Disease, JASN 202). The CKD-EPI equation should not be used for patients with unstable renal function and has not been validated in children and those over 70. Current interpretive data was last reviewed 2021. Blood 03/17/2025 2:55 AM CDT 03/17/2025 3:16 AM CDT Tete Spear DO LAB BLOOD ORDERABLES Fin al Result Performing Organization Address City/[facility]/ZIP Co de Phone Number THERESA ABDALLA ([place]) 1 [facility] Department [place] [address] * (ABNORMAL) Differential, auto (03/17/2025 2:55 AM [...] Fin al Result [facility] ([place]) 1 [facility] Department [place] [address] * (ABNORMAL) CBC with auto differential (03/17/2025 [...] BLOOD ORDERABLES Fi nal Result [facility]A ABDALLA ([place]) 1 [facility] [place] [address] * Phosphorus (03/17/2025 2:55 AM CDT) Pathologist [facility] Phosphorus, pl 3.7 2.3 - 4.5 mg/dL Blood 03/17/2025 2:55 AM CDT 03/17/2025 3:16 AM CDT Alicia Hernandez MD LAB BLOOD ORDERABLES Fi nal Result [facility] ABD[facility]A ([place]) 1 [facility] [place] [address] * Magnesium (03/17/2025 2:55 AM CDT) [facility] Magnesium 2.1 1.4 - 2.5 mg/dL Blood 03/17/2025 2:55 AM CDT 03/17/2025 3:16 AM CDT Alicia Hernandez MD LAB BLOOD ORDERABLES Fi nal Result Performing Organization Address City/[facility]/ZIP Co de Phone Number [facility]A ABDALLA ([place]) 1 [facility] [place] [address] * (ABNORMAL) Comprehensive metabolic panel (03/17/2025 2:55 AM CDT) Pathologist [facility] Sodium 136 135 - 145 mmol/L Potassium, pl 4.3 3.3 - 4.9 mmol/L [facility] ([place]) Chloride 102 97 - 110 mmol/L [facility] ([place]) CO2 17(L) 22 - 32 mmol/L [facility] ([place]) Anion gap 17(H) 2 - 15 mmol/L [facility] ([place]) BUN 20 6 - 25 mg/dL [facility] ([place]) Creatinine 1.23 0.80 - 1.30 mg/dL [facility] ([place]) Glucose 85 70 - [...] LAB BLOOD ORDERABLES Fi nal Result [facility] ([place]) 1 [facility] Department [place] [address] * POCT glucose (03/17/2025 2:12 AM CDT) [facility] Signature Glucose, POC 95 70 - 199 mg/dL Comment:Glu2: RN/ Notified Blood 03/17/2025 2:12 AM CDT 03/17/2025 2:12 AM CDT Alicia Hernandez MD LAB POCT ORDERABLES - D EVICE Final Result Performing Organization Address City/[facility]/ZIP Co de Phone Number [facility]A ABDALLA ([place]) 1 [facility] Department [place] [address] * (ABNORMAL) Urinalysis reflex to microscopic and [...] tendency for uric acid stone formation. Source: [facility] Current Interpretive Data was last revised on [...] us Alicia Hernandez MD LAB MICROBIOLOGY - [facility] ORDERABLES Final Result [facility]A ABDALLA ([place]) 1 [facility] Department [place] [address] * POCT glucose (03/16/2025 8:15 PM CDT) Glucose, POC 117 70 - 199 mg/dL Blood 03/16/2025 8:15 PM CDT 03/16/2025 8:15 PM CDT Alicia Hernandez MD LAB POCT ORDERABLES - D EVICE Final Result [facility]A A[facility]ALLA ([place]) 1 [facility] [place] [address] * Sepsis Lactate w/ Reflex (03/16/2025 4:13 PM CDT) Sepsis Lactate 1.9 0.7 - 2.0 mmol/L Blood 03/16/2025 4:13 PM CDT 03/16/2025 4:16 PM CDT Eddie Galaviz MD LAB BLOOD ORDERABLES Final Result Performing Organization Address City/[facility]/ZIP Co de Phone Number [facility] ([place]) 1 [facility] [place] [address] * Blood culture Blood (03/16/2025 3:03 PM CDT) Report Final Report: No growth Comment:Testing performed by : [facility], [address] [facility], [place]., [address] Blood 03/16/2025 3:03 PM CDT 03/16/2025 6:28 PM CDT Narrative [facility] ([place]) - 03/21/2025 7:00 AM CDT Collection->Peripheral 1. [...] performance characteristics have been verified by the [facility] Microbiology [facility]. For questions about this culture, contact the Microbiology Laboratory at [phone]. Interpretive data was last revised on 24. us Eddie Galaviz MD LAB MICROBIOLOGY - GENERAL ORDERABLES Final Result [facility] A[facility] ([place]) 1 [facility] Department [place] [address] * Blood culture Blood (03/16/2025 3:03 PM CDT) Report Final Report: No growth Comment:Testing performed by : [facility], [address] [facility] [place]., [address] Blood 03/16/2025 3:03 PM CDT 03/16/2025 6:28 [...] performance characteristics have been verified by the [facility]. For questions about this culture, contact the Microbiology Laboratory at [phone]. Interpretive data was last revised on 24. Eddie Galaviz MD LAB MICROBIOLOGY - GENERAL ORDERABLES Final Result [facility] ABDALLA [place] 1 [facility] Department [place] [address] * CT Abdomen Pelvis W Contrast (03/16/2025 [...] signed by Kimo STUBBS JR Report ID: [id number] Reading Location: [id number] Procedure Note Kimo Irizarry MD - 03/16/2025 [...] by Kimo Irizarry M.D., JR: Report ID: [id number] Reading Location: [place] [address] PROCEDURES Final Result [...] LAB BLOOD ORDERABLES Final Res ult THERESA [facility] ([place]) 1 [facility] Department of Laboratories [place], [place] [id number] * (ABNORMAL) Differential, auto (03/16/2025 1:05 PM [...] Final Res ult [facility] ([place]) [address] Department [place] [address] * (ABNORMAL) CBC with auto differential (03/16/2025 1:05 PM CDT) Pathologist [facility] WBC 13.46(H) 3.80 - 9.90 K/cumm Hgb [...] Final Res ult [facility] ([place]) 1 [facility] [place] [address] * CRP (acute phase) (03/16/2025 1:05 PM CDT) [facility] CRP 8.1 <=10.0 mg/L Blood 03/16/2025 1:05 PM CDT 03/16/2025 2:48 PM CDT Eddie Galaviz MD LAB BLOOD ORDERABLES Final Result [facility] ([place]) 1 [facility] [place] [address] * Lipase (03/16/2025 1:05 PM CDT) Lipase 22 10 - 99 Units/L Blood 03/16/2025 1:05 PM CDT 03/16/2025 2:48 PM CDT Eddie Galaviz MD LAB BLOOD ORDERABLES Final Result [facility] ([place]) 1 [facility] [place] [address] * Lipase (03/16/2025 1:05 PM CDT) Pathologist [facility] Lipase 22 10 - 99 Units/L Blood Venous blood specimen / Unknown 03/16/2025 1:05 PM CDT 03/16/2025 1:27 PM CDT Bashir Rand MD LAB BLOOD ORDERABLES Final Res ult [facility] ([place]) 1 [facility] [place] [address] * (ABNORMAL) Comprehensive metabolic panel (03/16/2025 1:05 PM CDT) Pathologist [facility] Sodium 138 135 - 145 mmol/L Potassium, pl 4.7 3.3 - 4.9 mmol/L [facility] ([place]) Chloride 97 97 - 110 mmol/L [facility] ([place]) CO2 19(L) 22 - 32 mmol/L [facility] ([place]) Anion gap 22(H) 2 - 15 mmol/L [facility] ([place]) BUN 19 6 - 25 mg/dL [facility] ([place]ILLIAN) Creatinine 1.26 0.80 - 1.30 mg/dL [facility] ([place]) Glucose 102 70 - 199 mg/dL [...] MD LAB BLOOD ORDERABLES Final Res ult [facility] ([place]) [address] [facility] Department [place] [address] * (ABNORMAL) Hemoglobin A1c (04/23/2024 2:46 PM CDT) Hgb A1C 5.7(H) 4.0 - 5.6 % Estimated Average Glucose 117 mg/dL [facility] Comment: The ADA recommends reporting an estimated Average Glucose (eAG) with all Hemoglobin A1c results using the equation derived from a study of 507 normal and diabetic adults. Minority populations were underrepresented and children were not included. (Diabetes Care 31:0927-1803, 2008). The eAG is not equivalent to a fasting glucose. Blood 04/23/2024 2:46 PM CDT 04/23/2024 4:01 PM CDT us Amairani Pinon UI APPLICATION DEVELOPER LAB [place]LOOD [place] [address] [place] Department of Laboratories [place] [phone] from Last 3 Months or Most Recently Relevant to Health Maintenance Insurance [facility] MEDICARE ADVANTAGE [facility] Address: [facility] [address] [place] [address] [facility] MEDICARE ADVANTAGE [facility] MED[facility] Address: [address] [address] [place] [address] [address] [place], [address] [employer] MEDICARE ADVANTAGE Advance Directives For more information, please contact: [phone] * Full Code (Latest Code Status on File) Date Activated Date Inactivated Comments 05/19/2025 11:32 AM 05/19/2025 6:14 PM * Full Code Date Activated Date Inactivated Comments 05/19/2025 11:32 AM 05/19/2025 11:32 AM * Full Code Date Activated Date Inactivated Comments 03/16/2025 8:03 PM 03/18/2025 7:51 PM * Full Code Date Activated Date Inactivated Comments 10/07/2023 7:44 PM 10/09/2023 7:12 PM Care Teams Pellet Post Inspector Relationship Specialty Start Date End Date Junior Vega MD PCP - General 02/09/18 Jesus Erwin MD PhD [address] [place] [address] Consulting Physician Neurosurgery 10/09/23
--- OUTSIDE RECORDS SUMMARY | 2025-06-08 15:44 | XMS_ITS | Clinical Summary ---
Author Organization [facility] Address [address] [place] [address] Care Team Providers Care Chief Sustainability Officer Name Role Phone Junior Vega MD Primary Care Provider [phone] Allergies No known active allergies Medications carvedilol [...] Diagnosed Date ABHI (acute kidney injury) 02/09/2024 Social History Tobacco Use Types Packs/Day Years Used Date Smoking Tobacco: Former Cigarettes 983 - 2007 Smokeless Tobacco: Current Tobacco Cessation:Ready to Q uit: Not Asked; Counseling Given: Not Answered Alcohol Use Standard Drinks/Week Comments Yes 14 (1 standard drink = 0.6 oz pu re alcohol) socially [facility] [employer] Answer Date Recorded In the past 12 months has e [employer], gas, oil, or water [employer] threatened to shut off services in your [...] any time in the past 12 m [facility], were you homeless or living in a chcf (including now)? No 02/09/2024 Sex and Gender [...] A M CDT Height 177.8 cm (5' 10) 02/09/2024 10:15 PM CDT Body Mass Index 31.37 02/09/2024 10:15 PM CDT Plan of Treatment Health Maintenance Due Date Last Done Comments ASCVD LDL 1945 ASCVD Statin 1945 Hepatitis C 1963 Annual Medicare Wellness Visit 2011 RSV Immunization or 60+ Years (1 - 1-dose 75+ series) 2021 COVID-19 Vaccine ( season) 2025 08/11/2024, 11/05/2023, 08/21/2022, Additional history exists DTaP, Tdap and Td Vaccines (4 - Td or Tdap) 05/07/2033 05/07/2023, 01/25/2019, 06/18/2011 Zoster Vaccines Completed 09/08/2019, 050 04/2019, 07/09/2011 Pneumococcal Vaccine: 50+ Years Completed 11/05/2023, 08/22/2015 Meningococcal B Vaccine Aged Out No l onger eligible based on patient's age to complete this topic Meningococcal Vaccine Aged Out No kathy dina eligible based on patient's age to complete this topic RSV Immunizations Under 20 Months Aged Out No longer eligible based on patient's age to complete this topic Medical Devices Implanted Type Area Word Processing Operator Device Identifier Shelf Expiration Date Model / Serial / Lot Inspire Lead Implant- 4 Implanted:Qty: 1 on 04/27/2024 by Natasha Treviño MD Lead Implant Right: Neck INSPIRE 4063 / [id number] / Inspire Lead Implant- 4 Implanted:Qty: 1 on 04/27/2024 by Natasha Treviño MD Lead Implant Right: Neck INSPIRE 4340 / [id number] / Inspire Stimulator Implant- 4 Implanted:Qty: 1 on 04/27/2024 by Natasha Treviño MD Stimulator Implant Chest INSPIRE 3028 / [id number] / Description:MR CONDITIONAL A T 1.5 T ONLY, NEED REMOTE TO DO IMPEDANCE CHECK AND TURN OFF STIMULATION, FOLLOW SCAN CONDITIONS FOR BODY PART AND COIL BEING USED IN MOST RECENT MRI TECHNICAL MANUAL Insurance [facility] Care Teams Chief Sustainability Officer Relationship Specialty Start Date End Date Junior Vega MD [address] [address] PCP - General FAMILY PRACTICE 02/01/20
--- OUTSIDE RECORDS SUMMARY | 2025-06-08 15:44 | XMS_ITS | Patient Health Record ---
Author Organization [facility] Address [address] [place] [address] Care Team Providers Care Health Policy Analyst Name Role Phone Junior Vega Primary Care Provider Cindy Laureano Jr, MD, [facility] ALLERGIES No Known Allergies REASON FOR REFERRAL [...] Active confirmed History and physical examination, follow-up (392724120) Problem Bicipital tendinitis, right shoulder (M75.21) Active confirmed 012013031 Problem Impingement syndrome of right shoulder (M75.41) Active confirmed 169441676324968 Problem Bursitis of left shoulder (M75.52) Active confirmed Bursitis o f left shoulder (699193560119920) Problem Strain of muscle(s) and tendon(s) of the rotator cuff of right shoulder, initial encounter (S46.011A) Active confirmed 79502765 Problem Strain of muscle(s) and tendon(s) of the rotator cuff of right shoulder, subsequent encounter (S46.011D) Active confirmed 39779082 Problem Strain of muscle(s) and tendon(s) of the rotator cuff of left shoulder, initial encounter (S46.012A) Active confirmed Strain of rotat or cuff of left shoulder (disorder) (45371301545234936 ) Problem Other injury of muscle, fascia and tendon of other parts of biceps, right arm, initial encounter (S46.291A) Active confirmed 596223657 Problem Fall on and from ladder, initial encounter (W11.XXXA) Active confirmed 36441275 Problem Unspecified fall, initial encounter (W19.XXXA) Active confirmed Fall (3681095) Problem Aftercare following joint replacement surgery (Z47.1) Active confirmed History of musculoskeletal operation (359979879) Problem Encounter for other orthopedic aftercare (Z47.89) Active confirmed Problem Encounter for removal of sutures (Z48.02) Active confirmed 569483502625624 Problem Presence of left artificial hip joint (Z96.642) Active confirmed 753238409 Problem Impingement syndrome of left shoulder region (M75.42) Active confirmed Impingement syndrome of left shoulder region (666153036335373) Problem Shoulder pain, right (M25.511) Active confirmed Shoulder pipo nt pain (528757522) Problem Primary osteoarthritis of right hip (M16.11) 10/30/19 24 Active confirmed 858212034514943 Problem Overexertion from strenuous movement or load, initial encounter (X50.0XXA) Active confirmed 81237471 Problem Other specified postprocedural states (Z98.890) Active confirmed Postprocedu ral states (611362151) Problem Primary osteoarthritis of left hip (M16.12) 06/28/20 18 Active confirmed 413732716860215 Problem Complete tear of right rotator cuff, unspecified whether traumatic (M75.121) 06/28/20 21 Active confirmed 661609273 PLAN OF TREATMENT Pending Test Test Name Order Date CMP, CBC, A1C, PT W/INR, UA, MRSA NASAL SWAB 02/17/2024 Insurance Providers Payer Name Payer Address Payer Phone Subscriber Number Group Number Insured Name Patient Relationship to Insured Coverage Start Date Coverage End Date [facility] Medicare Advantage PPO [address] [address] [place] [address] [id number] Cyrus Lyons Self - patient is the insured MEDICAL (GENERAL) HISTORY Medical History History ICD Code hypertension hyperlipidema Depression diabetes mellitus urologic problems Surgical History Surgery Date(Month/Year) left posterior hip arthroplasty (RDRJR) 08/04/21 Right shoulder RCR (RDR) 07/30/19 shoulder arthroscopy, left (RDR) 07/25/17
--- OUTSIDE RECORDS SUMMARY | 2025-06-08 15:44 | XMS_ITS | Clinical Summary ---
Author Organization [facility] Address [address] [place] [address] Phone Care Team Providers Care Direct Care Worker Name Role Phone Unavailable Primary Care Provider [...] 05/07/2033 05/07/2023, 06/18/2011 ZOSTER VACCINE Completed 09/08/2019, 0504/2019, 07/09/2011 Insurance
== END 2025-06-08 15:12 | disposition home or self-care (01) ==
PROVIDERS: PCP Family Medicine; Visit Provider Nurse Practitioner Family
DX: R93.1 Abnormal findings on diagnostic imaging of heart and coronary circulation (principal); I10 Essential (primary) hypertension; R55 Syncope and collapse
CPT/HCPCS: 93306

== ENCOUNTER 2025-06-23 10:16 | Outpatient (CLI) | payer MEDICARE, SELFPAY ==
--- OUTSIDE RECORDS SUMMARY | 2003-10-19 19:00 | XMS_ITS | Continuity of Care Document ---
Author Name [facility] Address [address] [place] [address] Organization [facility] Care Team Providers Care Polymerization Kettle Operator Name Role Phone [facility] Unavailable Unavailable Problems Problem Status Onset Date Problem Type Date of Resolution Comments Source Syncope and collapse Active Diagnosis Hypovolemia Diagnosis Acute renal failure syndrome (disorder) Diagnosis Acidosis (disorder) Diagnosis Dizziness and giddiness (finding) Diagnosis Essential hypertension (disorder) Diagnosis Lower back injury (disorder) Diagnosis Abrasion of scalp (disorder) Diagnosis Abrasion of skin of left upper arm Diagnosis Abrasion of skin of right upper arm Diagnosis Abrasion of skin of left lower leg Diagnosis Abrasion of skin of right lower leg Diagnosis Fall from building (finding) Diagnosis Active movement, function (observable entity) Diagnosis Place of occurrence of accident or poisoning (environment) Diagnosis Injury due to exposure to external cause (disorder) Diagnosis First degree atrioventricular block (disorder) Diagnosis Pulmonary hypertension (disorder) Diagnosis 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
--- OUTSIDE RECORDS SUMMARY | 2024-02-12 05:18 | XMS_ITS ---
Author Organization [facility] Address [address] [address] Care Team Providers Care Recep Name Role Phone Silvia Junior Primary Care Provider Cindy Laureano Jr, MD, Sammy Unavailable REASON FOR VISIT pt wcb to r/s Encounters Encounter Location Date Provider Diagnosis [facility] [address] [address] 02/12/2024 Sammy Laureano Jr, MD PLAN OF TREATMENT No Information
--- OUTSIDE RECORDS SUMMARY | 2024-02-16 06:32 | XMS_ITS ---
Author Organization [facility] Address [address] [address] [facility] [address], [place] [address] Care Team Providers Care Recreational Vehicle Resort Manager Name Role Phone Slivia Junior Primary Care Provider Cindy Laureano Jr, MD, Sammy Unavailable [phone] REASON FOR VISIT pending surgery clearance - 04/05 Encounters Encounter Location Date Provider Diagnosis [facility] [address] [facility] [address], [place] [address] 02/16/2024 Sammy Laureano Jr, MD PLAN OF TREATMENT No Information
--- OUTSIDE RECORDS SUMMARY | 2024-03-22 07:19 | XMS_ITS ---
Author Organization [facility] Address [address], [place] [address] Care Team Providers Care Capacity Planning Manager Name Role Phone Silvia Junior Primary Care Provider Cindy Laureano Jr, MD, Sammy Unavailable Encounters Encounter Location Date Provider Diagnosis [facility] [address] [place] [address] 03/22/2024 Sammy Laureano Jr, MD PLAN OF TREATMENT No Information
--- OUTSIDE RECORDS SUMMARY | 2024-03-25 07:36 | XMS_ITS ---
Author Organization [facility] Address [address], [place] [address] Care Team Providers Care Rack Loader Name Role Phone Silvia, Junior Primary Care Provider Cindy Laureano Jr, MD, Sammy Unavailable REASON FOR VISIT FYI Encounters Encounter Location Date Provider Diagnosis [facility] [address] [facility] [address] [place] [address] 03/25/2024 Sammy Laureano Jr, MD PLAN OF TREATMENT No Information
--- OUTSIDE RECORDS SUMMARY | 2024-04-05 07:30 | XMS_ITS ---
Author Organization [facility] Address [address] [facility] [facility] [place] [address] Care Team Providers Care Pantograph Ii Engraver Name Role Phone Arlen Vegan Primary Care Provider Cindy Laureano Jr, MD, Sammy Unavailable REASON FOR VISIT APPROVED Encounters Encounter Location Date Provider Diagnosis [facility] [address] [place], [place] [address] 04/05/2024 Sammy Laureano Jr, MD PLAN OF TREATMENT No Information
--- NOTE | ~2025-06-23 | US_ITS ---
EXAMINATION: US carotid duplex BI DATE: 06/23/2025 11:12 INDICATION: Dizziness and giddiness TECHNIQUE: Grayscale, color Doppler, and pulsed Doppler images of the cervical carotid arteries were obtained. The degree of vessel stenosis is placed in one of the following categories: normal, <50%, 50-69%, >=70% but less than near- occlusion, near-occlusion, or total occlusion. Note that percent stenosis relative to normal distal artery lumen diameter is indirectly measured from velocity measurements as described by Kaiden, et al. Radiology 2003; 229:340-346. COMPARISON: None. FINDINGS: RIGHT: The right common carotid artery (CCA) peak systolic velocity (PSV) is 66 cm/s. The right internal carotid artery (ICA) PSV is 79 cm/s. The right ICA end- diastolic velocity (EDV) is 26 cm/s. The right ICA/CCA PSV ratio is 1.2. Grayscale and color Doppler images yield an estimate of <50% diameter reduction from plaque in the ICA. The external carotid artery (ECA) PSV is 82 cm/s. There is antegrade flow in the right vertebral artery. LEFT: The left CCA PSV is 62 cm/s. The left ICA PSV is 89 cm/s. The left ICA EDV is 29 cm/s. The left ICA/CCA PSV ratio is 1.4. Grayscale and color Doppler images yield an estimate of <50% diameter reduction from plaque in the ICA. The ECA PSV is 98 cm/s. There is antegrade flow in the left vertebral artery. IMPRESSION: 1. <50% stenosis in the right internal carotid artery. 2. <50% stenosis in the left internal carotid artery. Reviewed, dictated and finalized at location A.
--- OUTSIDE RECORDS SUMMARY | 2025-06-23 10:46 | XMS_ITS | Patient Health Record ---
Author Organization [facility] Address [address] [place] [address] Care Team Providers Care Waterworks Employee Name Role Phone Junior Vega Primary Care Provider Cindy Laureano Jr, MD, [facility] ALLERGIES No Known Allergies REASON FOR [...] Active confirmed History and physical examination, follow-up (216469825) Problem Bicipital tendinitis, right shoulder (M75.21) Active confirmed 509739073 Problem Impingement syndrome of right shoulder (M75.41) Active confirmed 915133202750868 Problem Bursitis of left shoulder (M75.52) Active confirmed Bursitis o f left shoulder (462528353488175) Problem Strain of muscle(s) and tendon(s) of the rotator cuff of right shoulder, initial encounter (S46.011A) Active confirmed 20917099 Problem Strain of muscle(s) and tendon(s) of the rotator cuff of right shoulder, subsequent encounter (S46.011D) Active confirmed 85385754 Problem Strain of muscle(s) and tendon(s) of the rotator cuff of left shoulder, initial encounter (S46.012A) Active confirmed Strain of rotat or cuff of left shoulder (disorder) (81890593116825791 ) Problem Other injury of muscle, fascia and tendon of other parts of biceps, right arm, initial encounter (S46.291A) Active confirmed 616380434 Problem Fall on and from ladder, initial encounter (W11.XXXA) Active confirmed 03908290 Problem Unspecified fall, initial encounter (W19.XXXA) Active confirmed Fall (3527723) Problem Aftercare following joint replacement surgery (Z47.1) Active confirmed History of musculoskeletal operation (506020460) Problem Encounter for other orthopedic aftercare (Z47.89) Active confirmed Problem Encounter for removal of sutures (Z48.02) Active confirmed 631918610831896 Problem Presence of left artificial hip joint (Z96.642) Active confirmed 118716013 Problem Impingement syndrome of left shoulder region (M75.42) Active confirmed Impingement syndrome of left shoulder region (645295528247983) Problem Shoulder pain, right (M25.511) Active confirmed Shoulder pipo nt pain (389659305) Problem Primary osteoarthritis of right hip (M16.11) 10/30/19 24 Active confirmed 898910546001216 Problem Overexertion from strenuous movement or load, initial encounter (X50.0XXA) Active confirmed 08308227 Problem Other specified postprocedural states (Z98.890) Active confirmed Postprocedu ral states (959277405) Problem Primary osteoarthritis of left hip (M16.12) 06/28/20 18 Active confirmed 923364010297368 Problem Complete tear of right rotator cuff, unspecified whether traumatic (M75.121) 06/28/20 21 Active confirmed 853687604 PLAN OF TREATMENT Pending Test Test Name Order Date CMP, CBC, A1C, PT W/INR, UA, MRSA NASAL SWAB 02/17/2024 Insurance Providers Payer Name Payer Address Payer Phone Subscriber Number Group Number Insured Name Patient Relationship to Insured Coverage Start Date Coverage End Date [facility] Medicare Advantage PPO [address] [address] [place] [address] [id number] Cyrus Lyons Self - patient is the insured MEDICAL (GENERAL) HISTORY Medical History History ICD Code hypertension hyperlipidema Depression diabetes mellitus urologic problems Surgical History Surgery Date(Month/Year) left posterior hip arthroplasty (RDRJR) 08/04/21 Right shoulder RCR (RDR) 07/30/19 shoulder arthroscopy, left (RDR) 07/25/17
--- OUTSIDE RECORDS SUMMARY | 2025-06-23 10:47 | XMS_ITS | Encounter Summary ---
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 Gender Identity Not on file Sexual Orientation Not on file documented as of this encounter Plan of Treatment Upcoming Encounters Date Type Department Care Team (Late st Contact Info) Description 05/24/2026 8:00 AM CDT Hospital Encounter [facility] [address] [place] [address] Kristofer Thompson MD [address] [place] [address] [place] [address] 05/24/2026 8:00 AM CDT - 05/24/2026 8:30 AM CDT Surgery [facility] [address] [place] [address] Kristofer Thompson MD [address] [place] [address] [address] [place] [address] COLONOSCOPY Scheduled Procedures Name Priority Associated Diagnoses Date/Ti me COLONOSCOPY History of colonic polyps 05/24/2026 8:00 AM CDT documented as of this encounter Visit Diagnoses Not on filedocumented in this encounter Care Teams Elementary Special Education Teacher Relationship Specialty Start Date End Date Junior Vega MD PCP - General 02/09/18 Jesus Erwin MD PhD [address] [facility] [address] [place] [address] Consulting Physician Neurosurgery 10/09/23 documented as of this encounter
--- OUTSIDE RECORDS SUMMARY | 2025-06-23 10:47 | XMS_ITS | Clinical Summary ---
Author Organization [facility] Address [address] [place] [id number] Care Team Providers Care Repairer Recreational Vehicle Name Role Phone Junior Vega MD Primary Care Provider + [phone] Jesus Erwin MD PhD Unavailable Allergies No known active allergies Medications fluticasone propionate (FLONASE) 50 mcg/actuation nasal spray Administer 2 sprays into each nostril daily 2 Active rosuvastatin (CRESTOR) 40 mg tablet Take 1 tablet (40 mg total) by mouth nightly 3 Active finasteride (PROSCAR) 5 mg tablet Take [...] into affected eye(s) as needed Active lisinopriL (PRINIVIL,ZESTR IL) 10 mg tablet Take 1 tablet (10 mg total) by mouth 2 (two) times a day [address] (CYMBALTA) 20 mg capsuleIndicati ons:Anxiety with Depression Take 4 capsules (80 mg total) by mouth daily Active carvediloL (COREG) 12.5 mg tabletIndicatio ns:hypertension Take 1 tablet (12.5 mg total) by mouth 2 (two) times a day with meals Active buPROPion XL (WELLBUTRIN XL) 300 mg 24 hr tabletIndicatio ns:Anxiety with Depression Take 1 tablet (300 mg total) by mouth daily Active empagliflozin (JARDIANCE) 25 mg tabletIndicatio ns:Chronic Kidney Disease Take 0.5 tablets (12.5 mg total) by mouth daily Active naltrexone (DEPADE) 50 mg tabletIndicatio ns:alcoholism Take 1 tablet (50 mg total) by mouth daily Active zolpidem (Ambien) 10 mg tabletIndicatio ns:Sleep-Onset Insomnia Take 1 tablet (10 mg total) by mouth nightly as needed for sleep 30 tablet 5 Active polyethylene glycol (MIRALAX) 17 gram/dose bulk powderIndicatio ns:constipation Take 34 g by mouth daily 1020 g 5 Active lubiprostone (AMITIZA) 24 mcg capsule Take 1 capsule (24 mcg total) by mouth daily with breakfast 30 capsule 11 05/19/20 Active Active Problems Problem Noted Date Diagnosed [...] 10/08/2023 Assessment & Plan (10/08/2023 9:42 AM ACETYLENE CUTTER): - drinks 5 whiskeys daily, last drink 10pm 10/07 - gets shakes that resolve with alcohol, but no h/o DTs or hospitalizations for withdrawal - [facility] - monitor closely for signs of withdrawal SDH (subdural hematoma) 10/07/2023 Assessment & Plan (10/09/2023 1:07 PM ACETYLENE CUTTER): - NSGY c/s - repeat HCT 10/07 [...] Type Department Care Team Description 05/26/2025 Telephone Health system Medicine Otolaryngology [address] [place] [address] Cecelia Patiño, 05/24/2025 3:45 PM CDT Office Visit [facility] [place] [address] [place] [address] Alethea Nava NP Elevated blood pressure reading (Primary Dx) 05/24/2025 Telephone [facility] Gastroenterology at [address] [place] [address] Rajni Schultz 05/23/2025 Results Follow-Up [facility] Gastroenterology at [address] [place] [address] Kristofer Thompson MD Surgical pathology 05/19/2025 1:30 PM CDT - 05/19/2025 2:00 PM CDT Surgery [address] [address] Kristofer Thompson MD COLON REMOVAL SNARE 05/19/2025 12:38 PM CDT Anesthesia Event [address] [address] Kenroy Malloy MD 05/19/2025 11:27 AM CDT - 05/19/2025 2:09 PM CDT Hospital Encounter [address] [address] Kristofer Thompson MD Colitis; Encounter for screening colonoscopy Discharge Disposition: Discharge to home or self care 05/17/2025 10:15 AM CDT Office Visit [facility] Sleep Medicine at [address] [place] [phone] Jodi Coto MD STEPHANIE (obstructive sleep apnea) (Primary Dx); Obesity, unspecified class, unspecified obesity type, unspecified whether serious comorbidity present; Insomnia, unspecified type; Hypersomnia 03/26/2025 12:46 PM CDT - 03/26/2025 3:50 PM CDT Emergency [facility] Emergency Department [address] [place] [address] Pro Malagon MD Constipation, unspecified constipation type (Primary Dx) Discharge Disposition: Discharge to home or self care 03/25/2025 Telephone [facility] Gastroenterology at [place] [address] [facility] [address] [place] [address] Rajni Schultz from Last 3 Months Immunizations Immunization Administration [...] drink = 0.6 oz pur e alcohol) [facility] Utilities Answer Date Recorded In the past 12 months has [employer], gas, oil, or water [employer] threatened to shut off services in your [...] often do you attend chur ch or sikhism services? Never 03/17/2025 Do you belong to any clubs o r organizations such as roman catholic groups, unions, fraternal or athletic groups, or [...] time in the past 12 m [facility], were you homeless or living in a jail (including now)? No 03/17/2025 Personal Safety Answer Date Recorded Have you ever been in or are you currently in a harmful physical or emotional relationship or is someone making you feel afraid or unsafe? Denies 05/19/2025 Sex and Gender Information Value Date Recorded Sex Assigned at Not on file Legal Sex Male 9:22 AM ACETYLENE CUTTER Gender Identity Not on file Sexual Orientation [...] Description 05/24/2026 8:00 AM CDT Hospital Encounter [facility] [address] [place] [address] Kristofer Thompson MD [address] [place] [address] 05/24/2026 8:00 AM CDT - 05/24/2026 8:30 AM CDT Surgery [address] [address] Kristofer Thompson MD [address] [facility] [place] [address] COLONOSCOPY Scheduled Procedures Name Priority Associated Diagnoses Date/Ti me COLONOSCOPY History of colonic polyps 05/24/2026 8:00 AM CDT Health Maintenance Due Date Last Done Comments Albumin Creatinine Ratio, Urine 1945 Depression Screening 1945 Hepatitis C Screening 1945 Dilated Eye Exam 1945 Foot Exam 1945 Lipid Panel 1945 Hepatitis B Screening 1964 Well Visit 65+ 2011 Covid-19 Vaccine (5 - 4-2 5 season) 2024 08/21/2022, 09/12/2021, 12/07/2020, Additional [...] 05/19/2025 Colon Cancer Screening-DNA Stool Discontinued 05/19/20 Colon Cancer Screening-FIT Discontinued 05/19/2025 Colon Cancer Screening-FOBT Discontinued 05/19/2025 Colon Cancer Screening-Sigmoidoscopy Discontinued 05/19/2025 Colorectal Cancer Screening Discontinued Medical Devices Implanted Type Area Principal Software Architect Device Identifier Shelf Expiration Date Model / Serial / Lot [employer] Inspire 3 Electrode Cuff Tunnel Dannie Lead Neurostimulator Sterile 4063 - [id number] - [id number] Implanted:Qty: 1 on 04/27/2024 by Natasha Treviño MD at [facility] Right: Neck [employer] 11/03/2026 4063 / [id number] / [employer] Lead Neurostimulator Sleep Apnea Thoracic Permanent Respiratory Sensing Inspire 43cm 4340 - [id number] - [id number] Implanted:Qty: 1 on 04/27/2024 by Natasha Treviño MD at [facility] Right: Chest [employer] 01/03/2027 4340 / [id number] / [employer] Inspire Generator 3028 - [id number] - [id number] Implanted:Qty: 1 on 04/27/2024 by Natasha Treviño MD at [facility] Right: Chest [employer] 12/21/2026 3028 / [id number] C / Procedures Procedure Name Priority Date/Time [...] AUTO DIFFERENTIAL STAT 03/26/2025 12:[address] ABDOMEN PELVIS W CONTRAST ED 03/16/2025 2:33 PM CDT HEMOGLOBIN A1C Routine 04/23/2024 2:46 PM CDT Pre-op testing from Last 3 Months or Most Recently Relevant to Health Maintenance Results * (ABNORMAL) POCT glucose (05/19/2025 12:04 PM CDT) Glucose, POC 65(L) 70 - 199 mg/dL Blood 05/19/2025 12:0 4 PM CDT 05/19/2025 12:04 PM CDT us Kristofer Thompson MD LAB POCT ORDERABLES - SHANNON CE Final Result [facility] [place]) [address] [facility] [place] [address] * Colonoscopy (05/19/2025 11:33 AM CDT) Anatomical Region Laterality Modality Other Narrative Procedure Note Kristofer Thompson MD - 05/19/2025 11:[address] [facility] Patient Name: Sergio Yanes Procedure Date: 05/19/2025 11:33 AM Date of : 1945 Admit Type: Outpatient Age: 79 Gender: Male Attending MD: Kristofer Thompson M.D., Room: [facility] ENDOSCOPY ROOM 1 Note Status: Finalized Patient [...] retrieved. Clip (MR conditional) was placed. Clip unloader operator: [employer]. - One 4 mm polyp in the [...] under direct vision. The Pediatric Colonoscope [id number] was introducedthrough the anus and advanced to [...] clip was successfully placed (MR conditional). Clip unloader operator: [employer]. There was no bleeding at the end [...] 11:33 AM Procedure Code(s): --- Professional --- 06528, Colonoscopy, flexible; with removal of tumor(s), polyp(s), or other lesion(s) by snare technique 70642, 59, Colonoscopy, flexible; with biopsy, single or multiple Diagnosis Code(s): --- Professional --- Z12.11, Encounter for screening for malignant neoplasm of colon K64.8, Other hemorrhoids D12.0, Benign neoplasm of cecum D12.2, Benign neoplasm of ascending colon D12.4, Benign neoplasm of descending colon CPT copyright 2022 [employer]. All rights reserved. The codes documented in this report are preliminary and upon wire harness design engineer reviewmay be revised to meet current compliance requirements. Recognized by the [employer] for promoting quality in endoscopy Kristofer Thompson MD ENDOSCOPY PROCEDURES Final Result * Surgical pathology (05/19/2025 9:49 AM CDT) Tissue (Polyp(s), colon/colorectal, esophageal, gastric) 05/19/2025 1:24 PM CDT Tissue specimen (specimen) (Polyp(s), colon/colorectal, esophageal, gastric) 05/19/2025 1:24 PM CDT Tissue specimen (specimen) (Polyp(s), colon/colorectal, esophageal, gastric) 05/19/2025 1:25 PM CDT Narrative PATHOLOGY [facility] ([facility]) - 05/23/2025 4:57 PM CDT EPIC results best viewed via link to PDF [facility] Department of Pathology [address] [place] [address] Note to Patients: This report may contain [...] Final Report Patient Name: SERGIO YANES Address: [address] [place] [address] , [place] [address] Gender: M : 1945 (Age: 79) Service: Gastro Location: [facility] Hospital #: [id number] Patient Type: [facility] Taken: 05/19/2025 Received: 05/20/2025 Accessioned: 05/20/2025 [...] and 2 mm. All in C. T.A. Ana Paula Grayson P.A./Angelika Valdez M.D. REPORT IMAGES AND SCANNED DOCUMENTS, IF INCLUDED, ONLY VIEWABLE IN PDF VERSION OF REPORT The performance characteristics of some immunohistochemical stains, fluorescence in-situ hybridization tests and immunophenotyping by flow cytometry cited in this report (if any) were determined by the Surgical Pathology Department at [facility] as part of an ongoing software quality assurance analyst program and in compliance with federally mandated [...] characteristics determined by the Surgical Pathology Department [facility]. It has not been cleared or approved by the U. S. Food and Drug Administration. Note for decalcified specimens: This assay has not been validated on decalcified tissues. Results should be interpreted with caution given the possibility of false negativity on decalcified specimens us Kristofer Thompson MD LAB PATHOLOGY ORDERABLES F inal Result PATHOLOGY [facility] ([facility]) 1 [place] [address] * XR Kub (Abd 1 View) (03/26/2025 [...] Sal Cosme M.D. LB: FEDE Report ID: [id number] Reading Location: [id number] Procedure Note Sal Cosme MD - 03/26/2025 [...] Electronically signed by Sal Cosme M.D. LB: LB Report ID: [id number] Reading Location: [id number] us Kelly LIANG IMG XR PROCEDURES Final R [...] MD LAB BLOOD ORDERABLE S Final Result [facility] [place] [address] [facility] [place] [address] * Thyroid Function [place] (03/26/2025 1:46 PM CDT) Pathologist [facility] TSH 1.38 0.30 - 4.20 mcIUnit/mL Blood 03/26/2025 1:46 PM CDT 03/26/2025 1:51 PM CDT Pro Malagon MD LAB BLOOD ORDERABLE S Final Result Performing Organization Address City/[facility]/ZIP Co de Phone Number [facility] ([place]) [address] [facility] [place] [address] * Magnesium (03/26/2025 1:46 PM CDT) [facility] Magnesium 1.8 1.4 - 2.5 mg/dL Blood 03/26/2025 1:46 PM CDT 03/26/2025 1:51 PM CDT Pro Malagon MD LAB BLOOD ORDERABLE S Final Result Performing Organization Address City/[facility] Co de Phone Number [facility]A ABDALLA ([place]) [address] [facility] [place] [address] * (ABNORMAL) Comprehensive metabolic panel (03/26/2025 1:46 PM CDT) [facility] Sodium 136 135 - 145 mmol/L Potassium, pl 4.3 3.3 - 4.9 mmol/L [facility] ([facility]) Chloride 100 97 - 110 mmol/L [facility] CO2 20(L) 22 - 32 mmol/L [facility] Anion gap 15 2 - 15 mmol/L [facility] ([place] BUN 8 6 - 25 mg/dL [facility] ([place]) Creatinine 1.15 0.80 - 1.30 mg/dL [facility] ([place]) Glucose 94 70 - 199 mg/dL [facility] ([place]) Comment: Interpretive Data Fasting glucose [...] MD LAB BLOOD ORDERABLE S Final Result [facility] [address] [facility] [place] [address] * Differential, auto (03/26/2025 12:57 PM CDT) [...] revised on 2018. Monocyte pct 7.9 % [facility] ([place]) Comment: Interpretive Data Percent cell [...] revised on 2018. Basophil pct 0.6 % [facility] ([place] Comment: Interpretive Data Percent cell count reference ranges are not reported, since discordance with absolute values may lead to misinterpretation of CBC data. Current Interpretive Data was last revised on 2018. Blood 03/26/2025 12:5 7 PM CDT 03/26/2025 1:00 PM CDT us Pro Malagon MD LAB BLOOD ORDERABLE S Final Result [facility] ([place]) [address] [facility] [place] [address] * (ABNORMAL) CBC with auto differential (03/26/2025 12:57 PM CDT) WBC 8.76 3.80 - 9.90 K/cumm Hgb 15.4 13.0 - 17.5 g/dL [facility] ([place]) Hct 45.3 38.9 - 50.3 % [facility] ([place]) Plt 250 150 - 400 K/cumm [facility] ([place]) MPV 9.8 9.1 - 12.3 fL [facility] ([place]) RBC 4.75 4.30 - 5.80 M/cumm [facility] ([place]) MCV 95.4 81.3 - 96.4 fL [facility] ([place]) MCH 32.4 27.1 - 33.3 pg [facility] ([place]) MCHC 34.0 32.3 - 35.7 g/dL [facility] ([place]) RDW CV 15.2(H) 11.1 - 14.9 % [facility] ([place]) RDW SD 53.4(H) 35.7 - 48.1 fL [facility] ([place]) NRBC abs 0.00 0.00 - 0.01 K/cumm [facility] ([place]) Blood 03/26/2025 12:5 7 PM CDT 03/26/2025 1:00 PM CDT us Pro Malagon MD LAB BLOOD ORDERABLE S Final Result [facility] ([place]) [address] [facility] [place] [address] * CT Abdomen Pelvis W Contrast (03/16/2025 [...] PM - Electronically signed by Kimo Irizarry M.D. JR: Report ID: [id number] Reading Location: [id number] Procedure Note Kimo Irizarry MD - 03/16/2025 [...] PM - Electronically signed by Kimo Irizarry M.D. JR: Report ID: [id number] Reading Location: [place] [address] PROCEDURES Final Result * (ABNORMAL) Hemoglobin A1c (04/23/2024 2:46 PM CDT) Hgb A1C 5.7(H) 4.0 - 5.6 % Estimated Average Glucose 117 mg/dL [facility] Comment: The ADA recommends reporting an estimated Average Glucose (eAG) with all Hemoglobin A1c results using the equation derived from a study of 507 normal and diabetic adults. Minority populations were underrepresented and children were not included. (Diabetes Care 31:6859-4454, 2008). The eAG is not equivalent to a fasting glucose. Blood 04/23/2024 2:46 PM CDT 04/23/2024 4:01 PM CDT Amairani Pinon NP LAB BLOOD ORDERABLES Final Res ult THER[facility]A PAPP[facility] [address] [place] [address] from Last 3 Months or Most Recently Relevant to [place] [address] [facility] MEDICARE ADVANTAGE [place] [id number] [facility] MEDICARE ADVANTAGE [facility] CARE [facility] MEDICARE ADVANTAGE Advance Directives For more information, please contact: [phone] * Full Code (Latest Code Status on File) Date Activated Date Inactivated Comments 05/19/2025 11:32 AM 05/19/2025 6:14 PM * Full Code Date Activated Date Inactivated Comments 05/19/2025 11:32 AM 05/19/2025 11:32 AM * Full Code Date Activated Date Inactivated Comments 03/16/2025 8:03 PM 03/18/2025 7:51 PM * Full Code Date Activated Date Inactivated Comments 10/07/2023 7:44 PM 10/09/2023 7:12 PM Care Teams Repairer Recreational Vehicle Relationship Specialty Start Date End Date Junior Vega MD PCP - General 02/09/18 Jesus Erwin MD PhD [address] [place] [address] Consulting Physician Neurosurgery 10/09/23
--- OUTSIDE RECORDS SUMMARY | 2025-06-23 10:47 | XMS_ITS ---
Author Organization [facility] Address [address] [place] [address] Care Team Providers Care Backup Operator Name Role Phone Junior Vega MD Primary Care Provider + [phone] Jesus Erwin MD PhD Unavailable Active Problems [...] 10/08/2023 Assessment & Plan (10/08/2023 9:42 AM QUALITY CONTROL CHECKER): - drinks 5 whiskeys daily, last drink 10pm 10/07 - gets shakes that resolve with alcohol, but no h/o DTs or hospitalizations for withdrawal - actively going to meetings at the [place] - s/p phenobarb in ED - monitor closely for signs of withdrawal SDH (subdural hematoma) 10/07/2023 Assessment & Plan (10/09/2023 1:07 PM QUALITY CONTROL CHECKER): - NSGY c/s - repeat HCT 10/07 [...]
--- OUTSIDE RECORDS SUMMARY | 2025-06-23 10:47 | XMS_ITS | Clinical Summary ---
Author Organization [facility] Address [address] [place] [address] Phone Care Team Providers Care Burrer Marker Axle Name Role Phone Unavailable Primary Care Provider [...]
== END 2025-06-23 10:17 | disposition home or self-care (01) ==
PROVIDERS: PCP Family Medicine; Visit Provider Nurse Practitioner Family
DX: I65.23 Occlusion and stenosis of bilateral carotid arteries (principal)
CPT/HCPCS: 93880

== ENCOUNTER 2025-08-16 15:24 | Outpatient (CLI) | payer MEDICARE, SELFPAY ==
--- NOTE | ~2025-08-16 | XR_ITS ---
XR thoracic spine 3V Indication: M25.511 - Pain in right shoulder Comparison: None Findings: Moderate loss of vertebral height throughout, no fracture or subluxation. Moderate osteopenia. Severe loss of disc height throughout. Soft tissues unremarkable Impression: No acute abnormality. Reviewed, dictated and finalized at location P. Impression: No acute abnormality.
--- NOTE | ~2025-08-16 | XR_ITS ---
XR cervical spine min 6V Indication: M25.511 - Pain in right shoulder Comparison: None Findings: No fracture identified, no subluxation flexion and extension Moderate loss of disc height C4-5 C5-6 and C6-7. Soft tissues unremarkable Impression: No acute abnormality. Reviewed, dictated and finalized at location P. Impression: No acute abnormality.
== END 2025-08-16 15:25 | disposition home or self-care (01) ==
LOC: MICIMG 15:26
PROVIDERS: PCP Family Medicine; Visit Provider Nurse Practitioner Family
DX: R29.890 Loss of height (principal); M25.511 Pain in right shoulder; M54.2 Cervicalgia; M54.50 Low back pain, unspecified; G89.29 Other chronic pain
CPT/HCPCS: 72052; 72072

== ENCOUNTER 2025-08-23 09:51 | Outpatient (CLI) | payer MEDICARE, SELFPAY ==
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
--- OUTSIDE RECORDS SUMMARY | 2025-08-23 11:05 | XMS_ITS | Encounter Summary ---
Author Organization [facility] Healthcare Address [address] [place] [address] Care Team Providers Care Flume Tender Name Role Phone Junior Vega MD Primary Care Provider + [phone] Jesus Erwin MD PhD Unavailable [phone] Encounter Details Date Type Department Care Team ([facility] Contact Info) Description 08/13/2025 Results Follow-Up [facility] Emergency Department [address] [place] [address] Leonardo Thacker PA 1 [facility] [place] [address] Urine culture Urine Social History Tobacco Use Types Packs/Day Years Used Date Smoking Tobacco: Former Cigarettes Q uit: 2003 Smokeless Tobacco: Current Chew Comments:Quit smoking at [facility] 20 years ago, smokeless tobacco daily Alcohol Use Standard Drinks/Week Comments Yes 3 (1 standard drink = 0.6 oz pur e alcohol) [facility] Utilities Answer Date Recorded In the past 12 months has [employer] electric, gas, oil, or water company threatened [...] week 03/17/2025 How often do you attend [facility] or buddhist services? Never 03/17/2025 Do you belong to any clubs o r organizations such as samaritan groups, unions, fraternal or athletic groups, or [...] any time in the past [address] [facility], were you homeless or living in a detention (including now)? No 03/17/2025 Personal Safety Answer Date Recorded Have you ever been in or are you currently in a harmful physical or emotional relationship or is someone making you feel afraid or unsafe? 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 Gender Identity Not on file Sexual Orientation Not on file documented as of this encounter Miscellaneous Notes * Result Encounter Note - Leonardo Thacker PA - 08/13/2025 12:03 PM CDT Patient was started on cefadroxil documented in this encounter Plan of Treatment Upcoming Encounters Date Type Department Care Team (Late st Contact Info) Description 05/24/2026 8:00 AM CDT Hospital Encounter [address] [address] Kristofer Thompson MD [address] [place] [address] [address] [place] [address] 05/24/2026 8:00 AM CDT - 05/24/2026 8:30 AM CDT Surgery [address] [address] Kristofer Thompson MD [address] [place] [address] [address] [place], [place] [address] [address] COLONOSCOPY Scheduled Procedures Name Priority Associated Diagnoses Date/Ti me COLONOSCOPY History of colonic polyps 05/24/2026 8:00 AM CDT documented as of this encounter Visit Diagnoses Not on filedocumented in this encounter Care Teams Flume Tender Relationship Specialty Start Date End Date Junior Vega MD PCP - General 02/09/18 Jesus Erwin MD PhD [address] [facility] [address] [place] [address] Consulting Physician Neurosurgery 10/09/23 documented as of this encounter
--- OUTSIDE RECORDS SUMMARY | 2025-08-23 11:06 | XMS_ITS | Encounter Summary ---
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 Gender Identity Not on file Sexual Orientation Not on file documented as of this encounter Plan of Treatment Upcoming Encounters Date Type Department Care Team (Late st Contact Info) Description 05/24/2026 8:00 AM CDT Hospital Encounter [facility] [address] [place] [address] Kristofer Thompson MD [address] [place] [address] [place] [address] 05/24/2026 8:00 AM CDT - 05/24/2026 8:30 AM CDT Surgery [facility] [address] [place] [address] Kristofer Thompson MD [address] [place] [address] COLONOSCOPY Scheduled Procedures Name Priority Associated Diagnoses Date/Ti me COLONOSCOPY History of colonic polyps 05/24/2026 8:00 AM CDT documented as of this encounter Visit Diagnoses Not on filedocumented in this encounter Care Teams Mechanical Test Technician Relationship Specialty Start Date End Date Junior Vega MD PCP - General 02/09/18 Jesus Erwin MD PhD [address] [facility] [address] [place] [address] Consulting Physician Neurosurgery 10/09/23 documented as of this encounter
--- OUTSIDE RECORDS SUMMARY | 2025-08-23 11:06 | XMS_ITS | Clinical Summary ---
Author Organization [facility] Address [address] [place] [address] Care Team Providers Care Director Day Care Center Name Role Phone Junior Vega MD Primary Care Provider [phone] Allergies No known active allergies Medications carvedilol [...] = 0.6 oz pu re alcohol) socially [facility] [employer] Answer Date Recorded In the past 12 months has e [employer], gas, oil, or water [employer] threatened to shut off services in your [...] in the past 12 [address] [facility], were you homeless or living in a [...] 2025 08/11/2024, 11/05/2023, 08/21/2022, Additional history exists Influenza Adult (#1) 2025 08/11/2024, 10/30/2023, 08/05/2023, Additional history exists DTaP, Tdap and Td Vaccines (4 - Td or Tdap) 05/07/2033 05/07/2023, 01/25/2019, 06/18/2011 Zoster Vaccines Completed 09/08/2019, 04/2019, 07/09/2011 Pneumococcal Vaccine: 50+ Years Completed 11/05/2023, 08/22/2015 Hepatitis A Vaccines Aged Out No long er eligible based on patient's age to complete this topic Meningococcal B Vaccine Aged Out No l onger eligible based on patient's age to complete this topic Meningococcal Vaccine Aged Out No kathy dina eligible based on patient's age to complete this topic RSV Immunizations Under 20 Months Aged Out No longer eligible based on patient's age to complete this topic Medical Devices Implanted Type Area Card Cutter Helper Device Identifier Shelf Expiration Date Model / Serial / Lot Inspire Lead Implant- 4 Implanted:Qty: 1 on 04/27/2024 by Natasha Treviño MD Lead Implant Right: Neck INSPIRE 4063 / [id number] / Inspire Lead Implant- 4 Implanted:Qty: 1 on 04/27/2024 by Natasha Treviño MD Lead Implant Right: Neck INSPIRE 4340 / [id number] / Inspire Stimulator Implant- 4 Implanted:Qty: 1 on 04/27/2024 by Natasha Treviño MD Stimulator Implant Chest INSPIRE 3028 / [id number] / Description:MR CONDITIONAL A T 1.5 T ONLY, NEED REMOTE TO DO IMPEDANCE CHECK AND TURN OFF STIMULATION, FOLLOW SCAN CONDITIONS FOR BODY PART AND COIL BEING USED IN MOST RECENT MRI TECHNICAL MANUAL Insurance [facility] Care Teams Director Day Care Center Relationship Specialty Start Date End Date Junior Vega MD [address] [place] [address] PCP - General FAMILY PRACTICE 02/01/20
--- OUTSIDE RECORDS SUMMARY | 2025-08-23 11:06 | XMS_ITS ---
Author Organization [facility] Address [address] [place] [address] Care Team Providers Care Wildlife Removal Specialist Name Role Phone Junior Vega MD Primary Care Provider + [phone] Jesus Erwin MD PhD Unavailable [phone] Active Problems Problem Noted Date Diagnosed Date [...] 11/24/2023 Impingement syndrome of left shoulder region 02/ 02/2024 Impingement syndrome of right shoulder Low [...] 10/08/2023 Assessment & Plan (10/08/2023 9:42 AM CAGE MAKER): - drinks 5 whiskeys daily, last drink 10pm 10/07 - gets shakes that resolve with alcohol, but no h/o DTs or hospitalizations for withdrawal - actively going to meetings at the [facility] - s/p phenobarb in ED - monitor closely for signs of withdrawal SDH (subdural hematoma) 10/07/2023 Assessment & Plan (10/09/2023 1:07 PM CAGE MAKER): - NSGY c/s - repeat HCT 10/07 [...]
--- OUTSIDE RECORDS SUMMARY | 2025-08-23 11:06 | XMS_ITS | Clinical Summary ---
Author Organization [facility] Address [address] [place] [address] Phone Care Team Providers Care Director Of Blood Name Role Phone Unavailable Primary Care Provider [...]
== END 2025-08-23 09:52 | disposition home or self-care (01) ==
LOC: ANHBWCAUD 09:51
PROVIDERS: PCP Family Medicine; Visit Provider Otolaryngology
DX: H90.3 Sensorineural hearing loss, bilateral (principal); H93.13 Tinnitus, bilateral
CPT/HCPCS: 92557; 92567